=== PATIENT | male | born 1940 | race Caucasian/White ===

== ENCOUNTER → 2016-10-20 | Outpatient (CLI) | payer MEDICARE, OTHER ==
[2016-10-20 14:49] LABS: Anisocytosis Slight; CH 27.8; CHCM 32.3; HCT 27.8 % (39.0-53.0); HDW 3.51; HGB 8.8 gm/dL (13.0-17.5); Hypochromasia Slight; MCH 27.4 pg (25.0-35.0); MCHC 31.6 g/dL (31.0-37.0); MCV 86.6 fL (80.0-100.0); Mean Platelet Volume 7.8; Poikilocytosis Slight; RBC 3.21 m/uL (4.30-5.90); RDW 19.1 % (11.5-15.5); WBC 9.7 k/uL (3.8-10.6)
[2016-10-20 14:59] LABS: Potassium 4.8 mmol/L (3.5-5.1)
== END | disposition home or self-care (01) ==
LOC: LABWHC1 14:13
PROVIDERS: ATTEND Internal Medicine Cardiovascular Disease
DX: I50.22 Chronic systolic (congestive) heart failure (principal)
CPT/HCPCS: 36415; 80051; 82565; 84450; 84460; 84520; 85027

== ENCOUNTER → 2017-03-15 | Outpatient (CLI) | payer MEDICARE, OTHER ==
[2017-03-15 15:38] LABS: Potassium 4.3 mmol/L (3.5-5.1)
== END | disposition home or self-care (01) ==
LOC: LABWHC1 14:55
PROVIDERS: ATTEND Internal Medicine Cardiovascular Disease
DX: I50.22 Chronic systolic (congestive) heart failure (principal)
CPT/HCPCS: 36415; 80051; 82565; 83880; 84443; 84450; 84460; 84520

== ENCOUNTER → 2017-05-19 | Outpatient (CLI) | payer MEDICARE, OTHER ==
[2017-05-19 12:50] LABS: Basophils # (A) 0.1 k/uL (0-0.2); Basophils % (A) 1 %; CH 30.2; CHCM 32.1; Eosinophils # (A) 0.2 k/uL (0-0.7); Eosinophils % (A) 2 %; HCT 31.7 % (39.0-53.0); HDW 3.07; HGB 10.2 gm/dL (13.0-17.5); Hypochromasia Slight; Luc % (Auto) 2; Lymphocytes # (A) 0.8 k/uL (1.0-4.8); Lymphocytes % (A) 12 %; MCH 30.6 pg (25.0-35.0); MCHC 32.4 g/dL (31.0-37.0); MCV 94.7 fL (80.0-100.0); Mean Platelet Volume 7.4; Monocytes # (A) 0.3 k/uL (0-1.0); Monocytes % (A) 5 %; Neutrophils # (A) 4.8 k/uL (1.3-7.7); Neutrophils % (A) 78 %; RBC 3.34 m/uL (4.30-5.90); RDW 15.4 % (11.5-15.5); WBC 6.2 k/uL (3.8-10.6); WBC (Perox) 6.53
[2017-05-19 13:27] LABS: Calcium 9.7 mg/dL (8.4-10.2); Magnesium 2.3 mg/dL (1.6-2.3); Potassium 4.5 mmol/L (3.5-5.1); Uric Acid 8.9 mg/dL (3.5-8.5)
[2017-05-19 13:36] LABS: % Iron Saturation 25.8 % (20-50)
[2017-05-19 13:51] LABS: Appearance,Urine Clear (Clear); Bilirubin,Urine Negative (Negative); Glucose,Urine (UA) Negative (Negative); Ketones,Urine Negative (Negative); Leukocyte Esterase,Urine Negative (Negative); Nitrite,Urine Negative (Negative); PH, Urine 6.5 (5.0-8.0); Protein,Urine Negative (Negative); Specific Gravity,Urine 1.008 (1.001-1.035); UA Billing (MACRO vs. MICRO) CHEM; Urobilinogen,Urine <2.0 mg/dL (<2.0)
== END | disposition home or self-care (01) ==
LOC: LABWHC1 11:47
PROVIDERS: ATTEND Internal Medicine Nephrology
DX: D64.9 Anemia, unspecified (principal); E55.9 Vitamin D deficiency, unspecified; E21.3 Hyperparathyroidism, unspecified; M10.9 Gout, unspecified; N18.4 Chronic kidney disease, stage 4 (severe); R80.9 Proteinuria, unspecified
CPT/HCPCS: 36415; 80048; 81003; 82040; 82306; 82728; 83540; 83550; 83735; 83970; 84100; 84165; 84550; 85025; 86335

== ENCOUNTER 2017-07-06 13:40 | Emergency (ER) | payer MEDICARE, OTHER ==
[2017-07-06 13:55] VITALS: BP 108/68; PULSE 81; RESP 16; TEMP 97.9
--- NOTE | 2017-07-06 14:10 | ED ---
General Adult HPI - General Chief complaint: Extremity Injury, Upper Stated complaint: L hand injury Time Seen by Provider: 07/06/17 13:59 Source: patient, RN notes reviewed Mode of arrival: ambulatory Limitations: no limitations - History of Present Illness Initial comments: Patient 76-year-old male who presents emergency room today with a chief complaint of redness and swelling to the left hand. Denies any specific injury or trauma. States she's noticed some pain locally over the fourth and fifth metacarpals. Patient doesn't some redness and swelling. He denies any other complaints or symptoms. Patient denies any recent fever, chills, shortness of breath, chest pain, back pain, abdominal pain, nausea or vomiting, numbness or tingling, dysuria or hematuria, constipation or diarrhea, headaches or visual changes, or any other complaints. - Related Data Home Medications Medication Instructions Recorded Confirmed Albuterol Sulfate [Proair Hfa] 2 puff INHALATION RT-Q6H PRN 02/03/15 07/06/17 Allopurinol [Zyloprim] 100 mg PO BID 02/03/15 07/06/17 Atorvastatin [Lipitor] 40 mg PO HS 02/03/15 07/06/17 Clopidogrel [Plavix] 75 mg PO DAILY 02/03/15 07/06/17 Nitroglycerin Sl Tabs [Nitrostat] 0.4 mg SUBLINGUAL Q5M PRN 02/03/15 07/06/17 Amiodarone [Cordarone] 200 mg PO DAILY 07/06/17 07/06/17 Folic Acid [Folic Acid] 1 mg PO DAILY 07/06/17 07/06/17 Levothyroxine Sodium [Synthroid] 75 mcg PO DAILY 07/06/17 07/06/17 Sodium Bicarbonate Tab 650 mg PO BID 07/06/17 07/06/17 Spironolactone [Aldactone] 25 mg PO DAILY 07/06/17 07/06/17 Tiotropium Br/Olodaterol HCl 2 puff INHALATION RT-DAILY 07/06/17 07/06/17 [Stiolto Respimat Inhal [place]] Previous Rx's Medication Instructions Recorded Cephalexin [Keflex] 500 mg PO Q12HR 10 Days 07/06/17 Allergies Allergy/AdvReac Type Severity Reaction Status Date / Time No Known Allergies Allergy Verified 07/06/17 14:11 Review of Systems ROS Statement: Those systems with pertinent positive or pertinent negative responses have been documented in the HPI. ROS Other: All systems not noted in ROS Statement are negative. Past Medical History Past Medical History: Chest Pain / Angina, Heart Failure, COPD, Hyperlipidemia, Hypertension, Myocardial Infarction ([place]), Osteoarthritis ([place]) Additional Past Medical History / Comment(s): hx. gout, uses oxygen @2l prn mostly @[facility], PAST CARDIAC ARREST Last Myocardial Infarction Date:: 2013 History of Any Multi-Drug Resistant Organisms: None Reported Past Surgical History: Appendectomy, Cardiac Valve Replacement, Heart Catheterization With Stent Past Anesthesia/Blood Transfusion Reactions: No Reported Reaction Date of Last Stent Placement:: 2013 Past Psychological History: No Psychological Hx Reported Smoking Status: Former smoker Past Alcohol Use History: None Reported Past Drug Use History: None Reported - Past Family History Father Family Medical History: Cancer Mother Family Medical History: Cancer General Exam - General Exam Comments Initial Comments: General: The patient is awake and alert, in no distress, and does not appear acutely ill. Neck: The neck is supple, there is no tenderness or JVD. Cardiovascular: There is a regular rate and rhythm. No murmur, rub or gallop is appreciated. Respiratory: Lungs are clear to auscultation, respirations are non-labored, breath sounds are equal. No wheezes, stridor, rales, or rhonchi. Musculoskeletal: Full range of motion. Sensation intact. Pulses equal bilaterally 2+ patient strength 5/5. Neurological: A&O x 3. CN II-XII intact, There are no obvious motor or sensory deficits. Coordination appears grossly intact. Speech is normal. Skin: Patient does have some mild redness and swelling to the posterior aspect of the left hand fourth and fifth metacarpals. No Streaking. Mild increased warmth. Psychiatric: Normal mood and affect. Limitations: no limitations Course Vital Signs 07/06/17 13:52 Temperature 97.9 F Pulse Rate 81 Respiratory 16 Rate Blood Pressure 108/68 O2 Sat by Pulse 95 Oximetry Medical Decision Making - Medical Decision Making X-ray negative for any acute fracture dislocation. Patient will be treated for cellulitis. Strength on antibiotics. Advised to return if symptoms increase worsen. Disposition Clinical Impression: Cellulitis Disposition: HOME SELF-CARE Condition: Good Instructions: Cellulitis (ED) Additional Instructions: Please use medication as discussed. Please follow-up with family doctor in the next 2 days of symptoms have not improved. Please return to emergency room if the symptoms increase or worsen or for any other concerns. Prescriptions: Cephalexin [Keflex] 500 mg PO Q12HR 10 Days Referrals: Samuel Darling DO [Primary Care Provider] - 1-2 days Time of Disposition: 14:08
--- NOTE | 2017-07-06 14:34 | XR ---
Left hand HISTORY: Pain at fifth metacarpal phalangeal joint, fifth digit 3 views of the left hand Comparison: None available Degenerative changes are present. Joint space loss, marginal spurring present at the interphalangeal joints, metacarpophalangeal joint especially at the first digit. There is remodeling of the radiocarp al joint. Sclerosis present within the capitate proximally may be due to bone island. Bone mineraliza tion is maintained. There is no fracture or dislocation. Question some soft tissue swelling. IMPRESSION: Osteoarthritis.
== END 2017-07-06 14:40 | disposition home or self-care (01) ==
LOC: EC 13:40
DX: L03.114 Cellulitis of left upper limb (principal); I50.9 Heart failure, unspecified; I11.0 Hypertensive heart disease with heart failure; E78.5 Hyperlipidemia, unspecified; I25.2 Old myocardial infarction; M19.90 Unspecified osteoarthritis, unspecified site; J44.9 Chronic obstructive pulmonary disease, unspecified; Z87.891 Personal history of nicotine dependence; Z79.01 Long term (current) use of anticoagulants; Z79.899 Other long term (current) drug therapy
CPT/HCPCS: 99283

== ENCOUNTER → 2017-07-20 | Outpatient (CLI) | payer MEDICARE, OTHER ==
[2017-07-20 13:26] LABS: Potassium 4.3 mmol/L (3.5-5.1)
== END | disposition home or self-care (01) ==
LOC: LABWHC1 12:49
PROVIDERS: ATTEND Internal Medicine Cardiovascular Disease
DX: I50.22 Chronic systolic (congestive) heart failure (principal)
CPT/HCPCS: 36415; 80051; 82565; 84443; 84450; 84460; 84520

== ENCOUNTER → 2017-08-21 | Outpatient (CLI) | payer MEDICARE, OTHER ==
[2017-08-21 15:05] LABS: Anisocytosis Slight; Basophils # (A) 0.1 k/uL (0-0.2); Basophils % (A) 1 %; CH 28.3; CHCM 30.1; Eosinophils # (A) 0.2 k/uL (0-0.7); Eosinophils % (A) 4 %; HCT 31.1 % (39.0-53.0); HDW 3.08; HGB 9.5 gm/dL (13.0-17.5); Hypochromasia Marked; Luc # (Auto) 0.04; Luc % (Auto) 1; Lymphocytes # (A) 0.6 k/uL (1.0-4.8); Lymphocytes % (A) 14 %; MCH 28.9 pg (25.0-35.0); MCHC 30.5 g/dL (31.0-37.0); MCV 94.8 fL (80.0-100.0); Macrocytosis Slight; Mean Platelet Volume 7.9; Monocytes # (A) 0.3 k/uL (0-1.0); Monocytes % (A) 8 %; Neutrophils # (A) 3.1 k/uL (1.3-7.7); Neutrophils % (A) 72 %; RBC 3.28 m/uL (4.30-5.90); RDW 19.4 % (11.5-15.5); WBC 4.3 k/uL (3.8-10.6); WBC (Perox) 4.51
[2017-08-21 15:20] LABS: Appearance,Urine Clear (Clear); Bilirubin,Urine Negative (Negative); Glucose,Urine (UA) Negative (Negative); Ketones,Urine Negative (Negative); Leukocyte Esterase,Urine Negative (Negative); Nitrite,Urine Negative (Negative); PH, Urine 5.5 (5.0-8.0); Protein,Urine Negative (Negative); Specific Gravity,Urine 1.006 (1.001-1.035); UA Billing (MACRO vs. MICRO) CHEM; Urobilinogen,Urine <2.0 mg/dL (<2.0)
[2017-08-21 15:24] LABS: Calcium 9.2 mg/dL (8.4-10.2); Magnesium 2.3 mg/dL (1.6-2.3); Phosphorous 4.1 mg/dL (2.5-4.5); Potassium 5.1 mmol/L (3.5-5.1); Uric Acid 5.8 mg/dL (3.5-8.5)
[2017-08-21 19:57] LABS: Iron Saturation 17.93 (15.00-50.00)
== END | disposition home or self-care (01) ==
LOC: LABWHC1 14:20
PROVIDERS: ATTEND Nurse Practitioner Family
DX: E55.9 Vitamin D deficiency, unspecified (principal); E21.3 Hyperparathyroidism, unspecified; D63.1 Anemia in chronic kidney disease; N18.4 Chronic kidney disease, stage 4 (severe); M10.9 Gout, unspecified; N39.0 Urinary tract infection, site not specified
CPT/HCPCS: 36415; 80048; 81003; 82040; 82306; 82728; 83540; 83550; 83735; 83970; 84100; 84550; 85025

== ENCOUNTER → 2017-11-17 | Outpatient (CLI) | payer MEDICARE, OTHER ==
[2017-11-17 10:31] LABS: Appearance,Urine Clear (Clear); Bilirubin,Urine Negative (Negative); Blood,Urine Trace (Negative); Color,Urine Yellow; Glucose,Urine (UA) Negative (Negative); Ketones,Urine Negative (Negative); Leukocyte Esterase,Urine Negative (Negative); Mucus,Urine Rare /hpf; Nitrite,Urine Negative (Negative); Protein,Urine Negative (Negative); RBC,Urine 1 /hpf (0-5); Specific Gravity,Urine 1.012 (1.001-1.035); Squamous Epithelial Cell,Urine <1 /hpf (0-4); Urobilinogen,Urine <2.0 mg/dL (<2.0); WBC,Urine 1 /hpf (0-5)
[2017-11-17 10:33] LABS: Anisocytosis Slight; Basophils # (A) 0.1 k/uL (0-0.2); Basophils % (A) 1 %; Eosinophils # (A) 0.1 k/uL (0-0.7); Eosinophils % (A) 2 %; HCT 35.9 % (39.0-53.0); HGB 11.1 gm/dL (13.0-17.5); Hypochromasia Slight; Lymphocytes # (A) 0.7 k/uL (1.0-4.8); Lymphocytes % (A) 13 %; MCH 29.6 pg (25.0-35.0); MCV 95.4 fL (80.0-100.0); Mean Platelet Volume 7.6; Monocytes # (A) 0.3 k/uL (0-1.0); Monocytes % (A) 6 %; Neutrophils # (A) 4.1 k/uL (1.3-7.7); Neutrophils % (A) 77 %; Platelet Count 218 k/uL (150-450); RBC 3.77 m/uL (4.30-5.90); RDW 17.5 % (11.5-15.5); WBC 5.2 k/uL (3.8-10.6)
[2017-11-17 10:44] LABS: Albumin 4.1 g/dL (3.5-5.0); Calcium 9.3 mg/dL (8.4-10.2); Magnesium 2.1 mg/dL (1.6-2.3); Phosphorus 3.5 mg/dL (2.5-4.5); Potassium 4.4 mmol/L (3.5-5.1); Uric Acid 7.6 mg/dL (3.5-8.5)
[2017-11-17 16:50] LABS: Iron Saturation 22.14 (15.00-50.00)
[2017-11-17 16:57] LABS: Vitamin D 25 Hydroxy 37.6 ng/mL (30.0-100.0)
[2017-11-17 19:23] LABS: Parathyroid Hormone Intact 168.3 pg/mL (14.0-72.0)
== END | disposition home or self-care (01) ==
LOC: LABWHC1 09:46
PROVIDERS: ATTEND Nurse Practitioner Family
DX: N39.0 Urinary tract infection, site not specified (principal); M10.9 Gout, unspecified; N18.4 Chronic kidney disease, stage 4 (severe); D64.9 Anemia, unspecified; N25.81 Secondary hyperparathyroidism of renal origin; E55.9 Vitamin D deficiency, unspecified
CPT/HCPCS: 36415; 80048; 81001; 82040; 82306; 82728; 83540; 83550; 83735; 83970; 84100; 84550; 85025

== ENCOUNTER 2017-12-09 21:09 | Inpatient (IN) | payer MEDICARE, OTHER ==
[2017-12-09] MEDS ORDERED: IPRATROPIUM-ALBUTEROL 3 ML NEB INHALATION STA (21:49)
[2017-12-09] MEDS ORDERED: SODIUM CHLORIDE 0.9% 1,000 ML IV STA ×2 (21:49)
[2017-12-09 22:07] LABS: Anisocytosis Slight; Basophils # (A) 0.1 k/uL (0-0.2); Basophils % (A) 1 %; Eosinophils # (A) 0.2 k/uL (0-0.7); Eosinophils % (A) 1 %; HCT 37.4 % (39.0-53.0); HGB 12.4 gm/dL (13.0-17.5); Lymphocytes # (A) 0.7 k/uL (1.0-4.8); Lymphocytes % (A) 5 %; MCH 30.6 pg (25.0-35.0); MCHC 33.1 g/dL (31.0-37.0); MCV 92.4 fL (80.0-100.0); Monocytes # (A) 0.5 k/uL (0-1.0); Monocytes % (A) 4 %; Neutrophils # (A) 11.8 k/uL (1.3-7.7); Neutrophils % (A) 88 %; Platelet Count 280 k/uL (150-450); RBC 4.05 m/uL (4.30-5.90); RDW 16.9 % (11.5-15.5); WBC 13.4 k/uL (3.8-10.6)
--- NOTE | 2017-12-09 22:10 | XR ---
EXAMINATION TYPE: XR chest 2V DATE OF EXAM: 12/09/2017 COMPARISON: 02/16/2015 HISTORY: Short of breath TECHNIQUE: Frontal and lateral views of the chest are obtained. FINDINGS: Heart is enlarged. There is pulmonary vascular congestion. There is some blunting of the c ostophrenic angles. Bony thorax appears intact. IMPRESSION: Congestive heart failure with pleural effusions. Heart failure is new compared to old ex am. Pleural fluid is increased.
[2017-12-09 22:16] LABS: Albumin 4.5 g/dL (3.5-5.0); Calcium 9.9 mg/dL (8.4-10.2); Magnesium 2.1 mg/dL (1.6-2.3); Potassium 4.5 mmol/L (3.5-5.1); Total Bilirubin 0.8 mg/dL (0.2-1.3); Total Protein 7.6 g/dL (6.3-8.2)
[2017-12-09 22:17] LABS: INR 1.1 (<1.2); Partial Thromboplastin Time 21.1 sec (22.0-30.0); Prothrombin Time 10.9 sec (9.0-12.0)
[2017-12-09 22:27] LABS: Troponin I 0.013 ng/mL (0.000-0.034)
[2017-12-09 22:33] LABS: Creatine Kinase MB 4.1 ng/mL (0.0-2.4)
--- NOTE | 2017-12-09 22:59 | ED ---
General Adult HPI - General Chief complaint: Shortness of Breath Stated complaint: JAY JAY Time Seen by Provider: 12/09/17 21:17 Source: EMS, RN notes reviewed, old records reviewed Mode of arrival: EMS Limitations: no limitations - History of Present Illness Initial comments: This is a 77-year-old male the ER for evaluation of significant shortness of breath and exertional dyspnea. Patient does have history of heart disease, history of COPD on home O2. Patient did have breathing treatment prior to arrival is mildly improved. No fevers. No cough or congestion. Patient does admit to some chest pain chest pain started earlier today did take nitro with mild to no help. Patient still with mild chest pain at this time. No recent travel history no sick contacts. - Related Data Home Medications Medication Instructions Recorded Confirmed Albuterol Sulfate [Proair Hfa] 2 puff INHALATION RT-Q6H PRN 02/03/15 09/11/17 Allopurinol [Zyloprim] 100 mg PO BID 02/03/15 09/11/17 Atorvastatin [Lipitor] 40 mg PO HS 02/03/15 09/11/17 Clopidogrel [Plavix] 75 mg PO DAILY 02/03/15 09/11/17 Amiodarone [Cordarone] 200 mg PO DAILY 07/06/17 09/11/17 Folic Acid [Folic Acid] 1 mg PO DAILY 07/06/17 09/11/17 Levothyroxine Sodium [Synthroid] 75 mcg PO DAILY 07/06/17 09/11/17 Sodium Bicarbonate Tab 650 mg PO BID 07/06/17 09/11/17 Tiotropium Br/Olodaterol HCl 2 puff INHALATION RT-DAILY 07/06/17 09/11/17 [Stiolto Respimat Inhal [place]] Torsemide [Demadex] 10 mg PO DAILY 09/06/17 09/11/17 Allergies Allergy/AdvReac Type Severity Reaction Status Date / Time No Known Allergies Allergy Verified 12/09/17 21:15 Review of Systems ROS Statement: Those systems with pertinent positive or pertinent negative responses have been documented in the HPI. ROS Other: All systems not noted in ROS Statement are negative. Past Medical History Past Medical History: Chest Pain / Angina, Heart Failure, COPD, Hyperlipidemia, Hypertension, Myocardial Infarction ([place]), Osteoarthritis ([place]) Additional Past Medical History / Comment(s): hx. gout, uses oxygen @2l prn mostly @[facility], PAST CARDIAC ARREST Last Myocardial Infarction Date:: 2013 History of Any Multi-Drug Resistant Organisms: None Reported Past Surgical History: Appendectomy, Cardiac Valve Replacement, Heart Catheterization With Stent Past Anesthesia/Blood Transfusion Reactions: No Reported Reaction Date of Last Stent Placement:: 2013 Past Psychological History: No Psychological Hx Reported Smoking Status: Former smoker Past Alcohol Use History: None Reported Past Drug Use History: None Reported - Past Family History Father Family Medical History: Cancer Mother Family Medical History: Cancer General Exam Limitations: no limitations General appearance: alert, anxious, in distress Head exam: Present: atraumatic, normocephalic, normal inspection Eye exam: Present: normal appearance, PERRL, EOMI. Absent: scleral icterus, conjunctival injection, periorbital swelling ENT exam: Present: normal exam, mucous membranes moist Neck exam: Present: normal inspection. Absent: tenderness, meningismus, lymphadenopathy Respiratory exam: Present: respiratory distress, wheezes, accessory muscle use, decreased breath sounds, prolonged expiratory. Absent: rales, rhonchi, stridor Cardiovascular Exam: Present: normal rhythm, tachycardia, normal heart sounds. Absent: systolic murmur, diastolic murmur, rubs, gallop, clicks GI/Abdominal exam: Present: soft, normal bowel sounds. Absent: distended, tenderness, guarding, rebound, rigid Extremities exam: Present: normal inspection, full ROM, normal capillary refill. Absent: tenderness, pedal edema, joint swelling, calf tenderness Back exam: Present: normal inspection Neurological exam: Present: alert, oriented X3, CN II-XII intact Psychiatric exam: Present: normal affect, normal mood Skin exam: Present: warm, dry, intact, normal color. Absent: rash Course Vital Signs 12/09/17 12/09/17 12/09/17 21:11 21:17 22:08 Temperature 98.0 F Pulse Rate 122 H 100 Respiratory 36 H 36 H 24 Rate Blood Pressure 165/96 116/67 O2 Sat by Pulse 87 L 89 L Oximetry 12/09/17 12/09/17 22:21 22:40 Temperature Pulse Rate 100 100 Respiratory Rate Blood Pressure O2 Sat by Pulse Oximetry - Reevaluation(s) Reevaluation #1: 12/09/17 23:16 Patient is significantly improved injury, borderline BiPAP at this time EKG Findings - EKG Comments: EKG Findings:: EKG shows sinus tachycardia rate 111, MS 178, QRS 118, QTc 465 Medical Decision Making - Medical Decision Making 77 male the ER for evaluation shortness with hypoxia. Positive CHF positive increased COPD. We'll admit for Breathing treatments and monitoring of pulse ox - Lab Data Result diagrams: 12/09/17 21:15 12/09/17 21:15 Lab Results 12/09/17 12/09/17 12/09/17 Range/Units 21:15 21:15 21:15 WBC 13.4 H (3.8-10.6) k/uL RBC 4.05 L (4.30-5.90) m/uL Hgb 12.4 L (13.0-17.5) gm/dL Hct 37.4 L (39.0-53.0) % MCV 92.4 (80.0-100.0) fL MCH 30.6 (25.0-35.0) pg MCHC 33.1 (31.0-37.0) g/dL RDW 16.9 H (11.5-15.5) % Plt Count 280 (150-450) k/uL Neutrophils % 88 % Lymphocytes % 5 % Monocytes % 4 % Eosinophils % 1 % Basophils % 1 % Neutrophils # 11.8 H (1.3-7.7) k/uL Lymphocytes # 0.7 L (1.0-4.8) k/uL Monocytes # 0.5 (0-1.0) k/uL Eosinophils # 0.2 (0-0.7) k/uL Basophils # 0.1 (0-0.2) k/uL Anisocytosis Slight PT (9.0-12.0) sec INR (<1.2) APTT (22.0-30.0) sec Sodium 144 (137-145) mmol/L Potassium 4.5 (3.5-5.1) mmol/L Chloride 105 (98-107) mmol/L Carbon Dioxide 22 (22-30) mmol/L Anion Gap 17 mmol/L BUN 29 H (9-20) mg/dL Creatinine 1.70 H (0.66-1.25) mg/dL Est GFR (CKD-EPI)AfAm 45 (>60 ml/min/1.73 sqM) Est GFR (CKD-EPI)NonAf 39 (>60 ml/min/1.73 sqM) Glucose 164 H (74-99) mg/dL Calcium 9.9 (8.4-10.2) mg/dL Magnesium 2.1 (1.6-2.3) mg/dL Total Bilirubin 0.8 (0.2-1.3) mg/dL AST 23 (17-59) U/L ALT 20 L (21-72) U/L Alkaline Phosphatase 85 (38-126) U/L Total Creatine Kinase 170 (55-170) U/L CK-MB (CK-2) 4.1 H* (0.0-2.4) ng/mL CK-MB (CK-2) Rel Index 2.4 Troponin I 0.013 (0.000-0.034) ng/mL NT-Pro-B Natriuret Pep pg/mL Total Protein 7.6 (6.3-8.2) g/dL Albumin 4.5 (3.5-5.0) g/dL 12/09/17 12/09/17 Range/Units 21:15 21:15 WBC (3.8-10.6) k/uL RBC (4.30-5.90) m/uL Hgb (13.0-17.5) gm/dL Hct (39.0-53.0) % MCV (80.0-100.0) fL MCH (25.0-35.0) pg MCHC (31.0-37.0) g/dL RDW (11.5-15.5) % Plt Count (150-450) k/uL Neutrophils % % Lymphocytes % % Monocytes % % Eosinophils % % Basophils % % Neutrophils # (1.3-7.7) k/uL Lymphocytes # (1.0-4.8) k/uL Monocytes # (0-1.0) k/uL Eosinophils # (0-0.7) k/uL Basophils # (0-0.2) k/uL Anisocytosis PT 10.9 (9.0-12.0) sec INR 1.1 (<1.2) APTT 21.1 L (22.0-30.0) sec Sodium (137-145) mmol/L Potassium (3.5-5.1) mmol/L Chloride (98-107) mmol/L Carbon Dioxide (22-30) mmol/L Anion Gap mmol/L BUN (9-20) mg/dL Creatinine (0.66-1.25) mg/dL Est GFR (CKD-EPI)AfAm (>60 ml/min/1.73 sqM) Est GFR (CKD-EPI)NonAf (>60 ml/min/1.73 sqM) Glucose (74-99) mg/dL Calcium (8.4-10.2) mg/dL Magnesium (1.6-2.3) mg/dL Total Bilirubin (0.2-1.3) mg/dL AST (17-59) U/L ALT (21-72) U/L Alkaline Phosphatase (38-126) U/L Total Creatine Kinase (55-170) U/L CK-MB (CK-2) (0.0-2.4) ng/mL CK-MB (CK-2) Rel Index Troponin I (0.000-0.034) ng/mL NT-Pro-B Natriuret Pep 5060 pg/mL Total Protein (6.3-8.2) g/dL Albumin (3.5-5.0) g/dL - Radiology Data Radiology results: report reviewed (Chest x-ray positive for CHF new), image reviewed Critical Care Time Critical Care Time: Yes Total Critical Care Time: 31 Disposition Clinical Impression: Acute exacerbation of chronic obstructive airways disease, Chest pain, Acute pulmonary edema, Congestive heart failure Disposition: ADMITTED IP TO THIS [facility] Condition: Fair Referrals: Samuel Darling DO [Primary Care Provider] - 1-2 days
[2017-12-09] MEDS ORDERED: methylPREDNISolone SOD SUCCI 125 MG/2 ML VIAL IV STA (23:13)
[2017-12-10] MEDS: FUROSEMIDE 10 MG/ML 4 ML VIAL IV SCH ×3 (00:16→16:03)
[2017-12-10] MEDS: ACETAMINOPHEN TAB 500 MG TAB PO PRN ×2 (00:44→23:41)
[2017-12-10] MEDS: methylPREDNISolone SOD SUCCI 125 MG/2 ML VIAL IV SCH ×2 (05:46→12:00)
[2017-12-10 06:47] LABS: Glucose,Whole Blood 193 mg/dL (75-99)
[2017-12-10] MEDS: IPRATROPIUM-ALBUTEROL 3 ML NEB INHALATION SCH ×4 (08:20→21:08)
[2017-12-10] MEDS: ENOXAPARIN 40 MG/0.4 ML SYRINGE SQ SCH (08:34)
[2017-12-10 11:02] LABS: Glucose,Whole Blood 223 mg/dL (75-99)
[2017-12-10] MEDS: INSULIN ASPART 100 UNIT/ML 1 ML 10 ML VIAL SQ SCH ×3 (12:00→20:39)
--- NOTE | 2017-12-10 12:29 | P.CRDCN ---
History of Present Illness Consult date: 12/10/17 Consult reason: shortness of breath History of present illness: Mr. Knight is a pleasant 77-year-old male past medical history significant for COPD, dyslipidemia, hypertension, coronary artery disease with angioplasty in 2013 performed in [place] per the patient and former heavy tobacco use. He quit smoking in 2014.. Those records aren't available to me at this time. He also relates that he has had a mitral valve clip placed per Dr. [place]. He follows regularly with Dr. Guy in the office. If Mrs. Velasco consultation for complaints of shortness of breath. He states over the previous couple of days he has felt increasingly short of breath. His shortness of breath seems to be worse with exertion. Although he has chronic shortness of breath secondary to COPD. He did do breathing treatments at home and it does seem to improve her shortness of breath. Yesterday while he was sitting at his computer his shortness breath seems to become worse and he felt as though he was having a tightness in his chest and associated dizziness. He took sublingual nitroglycerin at that time 3 and relates only a mild relief of his symptoms. For this reason he decided to present to the hospital for further evaluation. Since admission he has been started on IV steroids, IV Lasix and breathing treatments. He states he feels much better since admission. His breathing is much easier. On arrival he was found to be tachycardic with a heart rate of 122, to Breathing at 36 and hypoxic at 87%. EKG on arrival reveals sinus tachycardia with a heart rate of 111, Chest x-ray indicative of congestive heart failure with pleural effusions, pleural fluid is increased from previous study. Laboratory data reviewed, WBC 13.4, hemoglobin 12.4, platelets 280, potassium 4.5, magnesium 2.1, creatinine 1.7, cardiac enzymes negative 1. ProBNP 5060. Current cardiac medications include Demadex 10 mg daily, Plavix 75 mg daily, atorvastatin 40 mg daily, amiodarone 200 mg daily. Most recent echocardiogram performed in 2014 reveals severely impaired LV function with ejection fraction less than 20%, mild TR, moderate pulmonary hypertension with RVSP of 64 mmHg, mild LVH, mild aortic valve sclerosis without stenosis, severe MR. At the time of my exam: CONSTITUTIONAL: Denies fever. Denies chills. EYES: Denies blurred vision. Denies vision changes. Denies eye pain. EARS, NOSE, MOUTH & THROAT: Denies headache. Denies sore throat. Denies ear pain. CARDIOVASCULAR: Denies chest pain. Complains of shortness of breath. Denies orthopnea. Denies PND. Denies palpitations. RESPIRATORY: Denies cough. GASTROINTESTINAL: Denies abdominal pain. Denies diarrhea. Denies constipation. Denies nausea. Denies vomiting. MUSCULOSKELETAL: Denies myalgias. INTEGUMENTARY: Denies pruitis. Denies rash. NEUROLOGIC: Denies numbness. Denies tingling. Denies weakness. PSYCHIATRIC: Denies anxiety. Denies depression. ENDOCRINE: Denies fatigue. Denies weight change. Denies polydipsia. Denies polyurina. GENITOURINARY: Denies burning, hematuria or urgency with micturation. HEMATOLOGIC: Denies history of anemia. Denies bleeding. Blood pressure 100/61 heart rate 81 afebrile this morning, 101F last night. Maintaining oxygen saturation on nasal cannula 4 L. GENERAL: This is a 77-year-old male in no apparent distress at the time of my examination. HEENT: Head is atraumatic, normocephalic. Pupils are equal, round. Sclerae anicteric. Conjunctivae are clear. Mucous membranes of the mouth are moist. Neck is supple. There is no jugular venous distention. No carotid bruit is heard. LUNGS: Bibasilar rales, coarse rhonchi throughout and expiratory wheeze. No chest wall tenderness is noted on palpation or with deep breathing. HEART: Regular rate and rhythm with systolic ejection murmur at the base, no rubs or gallops. S1 and S2 heard. ABDOMEN: Soft, nontender. Bowel sounds are heard. No organomegaly noted. EXTREMITIES: No evidence of peripheral edema and no calf tenderness noted. VASCULAR: Radial and dorsalis pedis pulses palpated, no evidence of clubbing. NEUROLOGIC: Patient is awake, alert and oriented x3. ASSESSMENT/PLAN 1. Acute on chronic systolic heart failure, elevated BNP and rales b/l lower lobes with elevated proBNP 2. COPD 3. Known ischemic cardiomyopathy, last known EF less than 20% 4. History of coronary artery disease, stent placement x2 in 2013 in [place] 5. Hypertension 6. Acute hypoxic respiratory failure 7. Febrile illness 8. Chronic renal failure Recommend ongoing diuresis. Strict intake and output. Daily weights. Obtain 2D echocardiogram and doppler study to assess cardiac structure and function. Ongoing medical management of febrile illness. Further recommendations to follow. Nurse Practitioner note has been reviewed, I agree with a documented findings and plan of care. Patient was seen and examined. Past Medical History Past Medical History: Chest Pain / Angina, Heart Failure, COPD, Hyperlipidemia, Hypertension, Myocardial Infarction ([place]), Osteoarthritis ([place]) Additional Past Medical History / Comment(s): hx. gout, uses oxygen @2l prn mostly @[facility], PAST CARDIAC ARREST Last Myocardial Infarction Date:: 2013 History of Any Multi-Drug Resistant Organisms: None Reported Past Surgical History: Appendectomy, Cardiac Valve Replacement, Heart Catheterization With Stent Additional Past Surgical History / Comment(s): cardiac valve clip Past Anesthesia/Blood Transfusion Reactions: No Reported Reaction Date of Last Stent Placement:: 2013 Past Psychological History: No Psychological Hx Reported Smoking Status: Never smoker Past Alcohol Use History: None Reported Past Drug Use History: None Reported - Past Family History Father Family Medical History: Cancer Mother Family Medical History: Cancer Medications and Allergies Home Medications Medication Instructions Recorded Confirmed Type Albuterol Sulfate [Proair Hfa] 2 puff INHALATION RT-Q6H PRN 02/03/15 12/10/17 History Allopurinol [Zyloprim] 100 mg PO BID 02/03/15 12/10/17 History Atorvastatin [Lipitor] 40 mg PO HS 02/03/15 12/10/17 History Clopidogrel [Plavix] 75 mg PO DAILY 02/03/15 12/10/17 History Amiodarone [Cordarone] 200 mg PO DAILY 07/06/17 12/10/17 History Levothyroxine Sodium [Synthroid] 75 mcg PO DAILY 07/06/17 12/10/17 History Sodium Bicarbonate Tab 650 mg PO BID 07/06/17 12/10/17 History Tiotropium Br/Olodaterol HCl 2 puff INHALATION RT-DAILY 07/06/17 12/10/17 History [Stiolto Respimat Inhal [place]] Torsemide [Demadex] 10 mg PO DAILY 09/06/17 12/10/17 History Calcitriol [Rocaltrol] 0.25 mcg PO FR 12/10/17 12/10/17 History Ergocalciferol (Vitamin D2) 50,000 unit PO Q30D 12/10/17 12/10/17 History [Vitamin D2] Nitroglycerin Sl Tabs [Nitrostat] 0.4 mg SUBLINGUAL Q5M PRN 12/10/17 12/10/17 History Allergies Allergy/AdvReac Type Severity Reaction Status Date / Time No Known Allergies Allergy Verified 12/10/17 08:48 Physical Exam Vitals: Vital Signs Temp Pulse Pulse Resp BP BP Pulse Ox 12/10/17 08:34 92 12/10/17 08:20 88 12/10/17 07:00 99 F 81 18 100/61 98 12/10/17 01:50 97.9 F 12/10/17 00:04 101.1 F H 108 H 24 122/78 91 L 12/09/17 22:40 100 12/09/17 22:21 100 12/09/17 22:08 100 24 116/67 89 L 12/09/17 21:17 36 H 12/09/17 21:11 98.0 F 122 H 36 H 165/96 87 L Intake and Output 12/09/17 12/10/17 12/10/17 21:59 06:59 14:59 Other: Voiding Method Urinal # Voids Weight Results 12/09/17 21:15 12/09/17 21:15 Cardiac Enzymes 12/09/17 12/09/17 Range/Units 21:15 21:15 AST 23 (17-59) U/L CK-MB (CK-2) 4.1 H* (0.0-2.4) ng/mL Troponin I 0.013 (0.000-0.034) ng/mL Coagulation 12/09/17 Range/Units 21:15 PT 10.9 (9.0-12.0) sec APTT 21.1 L (22.0-30.0) sec CBC 12/09/17 Range/Units 21:15 WBC 13.4 H (3.8-10.6) k/uL RBC 4.05 L (4.30-5.90) m/uL Hgb 12.4 L (13.0-17.5) gm/dL Hct 37.4 L (39.0-53.0) % Plt Count 280 (150-450) k/uL Comprehensive Metabolic Panel 12/09/17 Range/Units 21:15 Sodium 144 (137-145) mmol/L Potassium 4.5 (3.5-5.1) mmol/L Chloride 105 (98-107) mmol/L Carbon Dioxide 22 (22-30) mmol/L BUN 29 H (9-20) mg/dL Creatinine 1.70 H (0.66-1.25) mg/dL Glucose 164 H (74-99) mg/dL Calcium 9.9 (8.4-10.2) mg/dL AST 23 (17-59) U/L ALT 20 L (21-72) U/L Alkaline Phosphatase 85 (38-126) U/L Total Protein 7.6 (6.3-8.2) g/dL Albumin 4.5 (3.5-5.0) g/dL Current Medications Generic Name Dose Route Start Last Admin Trade Name Freq PRN Reason Stop Dose Admin Acetaminophen 1,000 mg 12/10/17 00:11 12/10/17 00:44 Tylenol Tab PO 1,000 mg Q6HR PRN Administration Fever and/ or Pain Albuterol/Ipratropium 3 ml 12/10/17 08:00 12/10/17 08:20 Duoneb 0.5 Mg-3 Mg/3 Ml Soln INHALATION 3 ml RT-QID JOSE Administration Enoxaparin Sodium 40 mg 12/10/17 09:00 12/10/17 08:34 Lovenox SQ 40 mg DAILY JOSE Administration Furosemide 40 mg 12/10/17 00:00 12/10/17 08:34 Lasix IV 40 mg Q8H JOSE Administration Insulin Aspart 0 unit 12/10/17 12:30 Novolog SQ ACHS [facility] Protocol Methylprednisolone Sodium Succinate 60 mg 12/10/17 06:00 12/10/17 05:46 Solu-Medrol IV 60 mg Q6HR JOSE Administration Intake and Output 12/09/17 12/10/17 12/10/17 21:59 06:59 14:59 Other: Voiding Method Urinal # Voids Weight 12/09/17 21:15 12/09/17 21:15
[2017-12-10] MEDS: AMIODARONE 200 MG TAB PO SCH (12:55)
[2017-12-10] MEDS ORDERED: NITROGLYCERIN SL TABS 0.4 MG TAB SUBLINGUAL PRN (14:44)
--- NOTE | 2017-12-10 15:19 | P.CRDCN ---
History of Present Illness History of present illness: Impression Presenting with shortness of breath Advanced lung disease COPD exacerbation on home oxygen Heart failure elevated BNP, known severe LV dysfunction from 2014 and severe MR Suggest Continue maximal cardiac medications/for cardiomyopathy EC for dictation by nurse practitioner Past Medical History Past Medical History: Chest Pain / Angina, Heart Failure, COPD, Hyperlipidemia, Hypertension, Myocardial Infarction (RI), Osteoarthritis (OA) Additional Past Medical History / Comment(s): hx. gout, uses oxygen @2l prn mostly @[facility], PAST CARDIAC ARREST Last Myocardial Infarction Date:: 2013 History of Any Multi-Drug Resistant Organisms: None Reported Past Surgical History: Appendectomy, Cardiac Valve Replacement, Heart Catheterization With Stent Additional Past Surgical History / Comment(s): cardiac valve clip Past Anesthesia/Blood Transfusion Reactions: No Reported Reaction Date of Last Stent Placement:: 2013 Past Psychological History: No Psychological Hx Reported Smoking Status: Never smoker Past Alcohol Use History: None Reported Past Drug Use History: None Reported - Past Family History Father Family Medical History: Cancer Mother Family Medical History: Cancer Medications and Allergies Home Medications Medication Instructions Recorded Confirmed Type Albuterol Sulfate [Proair Hfa] 2 puff INHALATION RT-Q6H PRN 02/03/15 12/10/17 History Allopurinol [Zyloprim] 100 mg PO BID 02/03/15 12/10/17 History Atorvastatin [Lipitor] 40 mg PO HS 02/03/15 12/10/17 History Clopidogrel [Plavix] 75 mg PO DAILY 02/03/15 12/10/17 History Amiodarone [Cordarone] 200 mg PO DAILY 07/06/17 12/10/17 History Levothyroxine Sodium [Synthroid] 75 mcg PO DAILY 07/06/17 12/10/17 History Sodium Bicarbonate Tab 650 mg PO BID 07/06/17 12/10/17 History Tiotropium Br/Olodaterol HCl 2 puff INHALATION RT-DAILY 07/06/17 12/10/17 History [Stiolto Respimat Inhal [place]] Torsemide [Demadex] 10 mg PO DAILY 09/06/17 12/10/17 History Calcitriol [Rocaltrol] 0.25 mcg PO FR 12/10/17 12/10/17 History Ergocalciferol (Vitamin D2) 50,000 unit PO Q30D 12/10/17 12/10/17 History [Vitamin D2] Nitroglycerin Sl Tabs [Nitrostat] 0.4 mg SUBLINGUAL Q5M PRN 12/10/17 12/10/17 History Allergies Allergy/AdvReac Type Severity Reaction Status Date / Time No Known Allergies Allergy Verified 12/10/17 08:48 Physical Exam Vitals: Vital Signs Temp Pulse Pulse Resp BP BP Pulse Ox 12/10/17 12:36 88 12/10/17 12:24 88 12/10/17 08:34 92 12/10/17 08:20 88 12/10/17 07:00 99 F 81 18 100/61 98 12/10/17 01:50 97.9 F 12/10/17 00:04 101.1 F H 108 H 24 122/78 91 L 12/09/17 22:40 100 12/09/17 22:21 100 12/09/17 22:08 100 24 116/67 89 L 12/09/17 21:17 36 H 12/09/17 21:11 98.0 F 122 H 36 H 165/96 87 L Intake and Output 12/10/17 12/10/17 12/10/17 06:59 14:59 22:59 Other: Voiding Method Urinal # Voids Weight 83.064 kg Patient Weight 12/11/17 06:59 Weight 83.064 kg Results 12/09/17 21:15 12/09/17 21:15 Cardiac Enzymes 12/09/17 12/09/17 Range/Units 21:15 21:15 AST 23 (17-59) U/L CK-MB (CK-2) 4.1 H* (0.0-2.4) ng/mL Troponin I 0.013 (0.000-0.034) ng/mL Coagulation 12/09/17 Range/Units 21:15 PT 10.9 (9.0-12.0) sec APTT 21.1 L (22.0-30.0) sec CBC 12/09/17 Range/Units 21:15 WBC 13.4 H (3.8-10.6) k/uL RBC 4.05 L (4.30-5.90) m/uL Hgb 12.4 L (13.0-17.5) gm/dL Hct 37.4 L (39.0-53.0) % Plt Count 280 (150-450) k/uL Comprehensive Metabolic Panel 12/09/17 Range/Units 21:15 Sodium 144 (137-145) mmol/L Potassium 4.5 (3.5-5.1) mmol/L Chloride 105 (98-107) mmol/L Carbon Dioxide 22 (22-30) mmol/L BUN 29 H (9-20) mg/dL Creatinine 1.70 H (0.66-1.25) mg/dL Glucose 164 H (74-99) mg/dL Calcium 9.9 (8.4-10.2) mg/dL AST 23 (17-59) U/L ALT 20 L (21-72) U/L Alkaline Phosphatase 85 (38-126) U/L Total Protein 7.6 (6.3-8.2) g/dL Albumin 4.5 (3.5-5.0) g/dL Current Medications Generic Name Dose Route Start Last Admin Trade Name Freq PRN Reason Stop Dose Admin Acetaminophen 1,000 mg 12/10/17 00:11 12/10/17 00:44 Tylenol Tab PO 1,000 mg Q6HR PRN Administration Fever and/ or Pain Albuterol/Ipratropium 3 ml 12/10/17 08:00 12/10/17 12:24 Duoneb 0.5 Mg-3 Mg/3 Ml Soln INHALATION 3 ml RT-QID JOSE Administration Allopurinol 100 mg 12/10/17 21:00 Zyloprim PO BID [facility] Amiodarone HCl 200 mg 12/10/17 12:30 12/10/17 12:55 Cordarone PO 200 mg DAILY [facility] Administration Atorvastatin Calcium 40 mg 12/10/17 21:00 Lipitor PO HS [facility] Calcitriol 0.25 mcg 12/15/17 12:00 Rocaltrol PO Fr@1200 [facility] Clopidogrel Bisulfate 75 mg 12/10/17 14:45 Plavix PO DAILY [facility] Enoxaparin Sodium 40 mg 12/10/17 09:00 12/10/17 08:34 Lovenox SQ 40 mg DAILY [facility] Administration Ergocalciferol 50,000 unit 12/30/17 12:00 Vitamin D2 PO Q30D [facility] Formoterol Fumarate 20 mcg 12/11/17 08:00 Perforomist INHALATION RT-BID [facility] Furosemide 40 mg 12/10/17 00:00 12/10/17 08:34 Lasix IV 40 mg Q8H JOSE Administration Insulin Aspart 0 unit 12/10/17 12:30 12/10/17 12:00 Novolog SQ 7 unit ACHS JOSE Administration Protocol Levothyroxine Sodium 75 mcg 12/11/17 06:30 Synthroid PO 0630 JOSE Methylprednisolone Sodium Succinate 60 mg 12/10/17 06:00 12/10/17 12:00 Solu-Medrol IV 60 mg Q6HR JOSE Administration Nitroglycerin 0.4 mg 12/10/17 14:44 Nitrostat SUBLINGUAL Q5M PRN Chest Pain Sodium Bicarbonate 650 mg 12/10/17 21:00 Sodium Bicarbonate Tab PO BID JOSE Intake and Output 12/10/17 12/10/17 12/10/17 06:59 14:59 22:59 Other: Voiding Method Urinal # Voids Weight 83.064 kg Patient Weight 12/11/17 06:59 Weight 83.064 kg 12/09/17 21:15 12/09/17 21:15
[2017-12-10] MEDS: CLOPIDOGREL 75 MG TAB PO SCH (16:04)
[2017-12-10] MEDS ORDERED: LORazepam 0.5 MG TAB PO PRN (16:55)
[2017-12-10] MEDS ORDERED: MAGNESIUM HYDROXIDE 2,400 MG/10 ML CUP PO PRN (16:55)
[2017-12-10] MEDS ORDERED: CALCIUM CARBONATE 500 MG CHEWABLE PO PRN (16:55)
[2017-12-10] MEDS ORDERED: Acetaminophen-Codeine 300-30mg TAB PO PRN (16:55)
[2017-12-10] MEDS ORDERED: MELATONIN 3 MG TABLET PO PRN (16:55)
[2017-12-10] MEDS ORDERED: LACTULOSE 20 GM/30 ML CUP PO PRN (16:55)
[2017-12-10] MEDS ORDERED: ONDANSETRON 4 MG/2 ML VIAL IVP PRN (16:55)
[2017-12-10] MEDS ORDERED: NALOXONE 0.4 MG/ML 1 ML VIAL IV PRN (16:55)
[2017-12-10 17:13] LABS: Glucose,Whole Blood 181 mg/dL (75-99)
[2017-12-10] MEDS: FUROSEMIDE 10 MG/ML 10 ML VIAL IV SCH ×2 (17:39→23:42)
[2017-12-10] MEDS: cefTRIAXone IN SWFI 1,000 MG/10 ML SYRINGE IVP SCH (18:20)
--- NOTE | 2017-12-10 18:41 | HP ---
HISTORY AND PHYSICAL DATE OF ADMISSION: 12/09/17. PRESENTING COMPLAINT: Short of breath. HISTORY OF PRESENTING COMPLAINT: Pleasant 77-year-old patient of Dr. Darling. Chronic stable medical conditions include hypertension, hyperlipidemia, osteoarthritis, gout, on home oxygen 2 L and coronary artery disease with stent. The patient is sitting on his desk yesterday, got up and became short of breath. Some fullness in the chest, nearly fell over, started having some rigors and chills. Got a cough. Did have a fever of 101 when he presented here, feeling weak, tired run down; hence, he was admitted. The patient has known congestive heart failure. Last EF from 2014 of 20%. Did feel better after getting some Lasix. The patient is congested in the chest. REVIEW OF SYSTEMS: CONSTITUTIONAL: Febrile, chills. HEENT: None. RESPIRATORY: As above. CARDIOVASCULAR: As above. GASTROINTESTINAL: None. GENITOURINARY: None. MUSCULOSKELETAL: Some pain in the joints. DERMATOLOGICAL, HEMATOLOGIC, LYMPHATIC: None. PSYCHIATRY: None. NEUROLOGICAL: None. PAST HISTORY: CHF, EF 20%, COPD, hypertension, hyperlipidemia, osteoarthritis, gout, home oxygen 2 L, coronary artery disease with stent. PAST SURGICAL HISTORY: Appendectomy, cardiac valve replacement, cardiac cath with stent. SOCIAL HISTORY: Smoked a pack a day for 60 years, stopped 3 years ago. 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 Currently lives with his daughter's family. FAMILY FAMILY: Family history of cancer. HOME MEDICATIONS: 1. Demadex 10 mg p.o. daily. 2. Stiolto Respimat 2 puffs daily. 3. Sodium bicarb 650 mg b.i.d. 4. Nitrostat 0.4 sublingual q.5 p.r.n. 5. Synthroid 75 mcg p.o. daily. 6. Vitamin D2 51134 units every 30 days. 7. Plavix 75 mg a day. 8. Rocaltrol 0.25 mcg on Fridays. 9. Lipitor 40 mg p.o. q.h.s. 10.Cordarone 200 mg p.o. daily. 11.Allopurinol 200 mg p.o. b.i.d. 12.ProAir 2 puffs q.6h p.r.n. ALLERGIES: None. PHYSICAL EXAMINATION: VITAL SIGNS ON PRESENTATION: Temperature 101.1, pulse 122, respiration 36, blood pressure 155/96, pulse ox 87% on 6 L. GENERAL APPEARANCE: Average build, sitting up, short of breath, congested. EYES: Pupils equal. Conjunctivae normal. HEENT: External appearance of nose and ears normal. Oral cavity normal. NECK: JVD unable to assess. Mass not palpable. RESPIRATORY: Effort increased. Lungs decreased breath sounds with some basal crackles. CARDIOVASCULAR: First and second sounds normal. No edema. ABDOMEN: Soft, nontender. Liver and spleen not palpable. LYMPHATIC: No lymph node palpable in neck or axillae. PSYCHIATRY: Alert, oriented x3. Mood and affect normal. NEUROLOGICAL: Pupils equal. Cranial nerves grossly intact. Power and sensation grossly intact. MUSCULOSKELETAL: Evidence of osteoarthritis. INVESTIGATION: White count 13.4, hemoglobin 12.4, potassium 4.5, BUN 29, creatinine 1.7. ProBNP is 5060, troponin 0.013. Chest x-ray shows venous prominence and infiltrate on the right side. 2D echo from 2015 shows EF of 15-20%, mitral regurgitation and secondary pulmonary hypertension. ASSESSMENT: 1. Acute on chronic congestive heart failure from systolic dysfunction, ejection fraction 20% from underlying coronary artery disease. 2. Coronary artery disease with prior history of stent. 3. Right lower lobe pneumonia suspect gram-negative organism causing sepsis present on admission. 4. Chronic kidney disease, stage IIIB, from hypertensive nephrosclerosis. 5. Acute chronic obstructive pulmonary disease exacerbation in an ex-smoker. 6. Essential hypertension. 7. Hyperlipidemia. 8. Primary osteoarthritis. 9. Chronic gout. 10.Acute hypoxic respiratory failure multifactorial including sepsis and CHF and pneumonia. 11.Chronic hypoxic respiratory failure on 2 L oxygen at home. PLAN: Patient is started on IV ceftriaxone, sputum will be sent for Gram stain culture. The patient is already put on IV steroids, nebulized bronchodilator. Also put on IV Lasix. Consultation made to Dr. Ovalles from Pulmonary and Cardiology. Care was discussed with the patient. Questions were answered. MMODL / IJN: [id number] /
[2017-12-10 20:35] LABS: Glucose,Whole Blood 138 mg/dL (75-99)
[2017-12-10] MEDS: SODIUM BICARBONATE TAB 650 MG TAB PO SCH (20:35)
[2017-12-10] MEDS: ALLOPURINOL 100 MG TAB PO SCH (20:35)
[2017-12-10] MEDS: ATORVASTATIN 40 MG TAB PO SCH (20:36)
[2017-12-10 21:30] LABS: Hemoglobin A1C 5.5 % (4.0-6.0)
--- NOTE | 2017-12-10 22:17 | CONS ---
CONSULTATION Seb Knight is a 77-year-old male who came to the ER with increasing shortness of breath. He was seen in the ED, received a breathing treatment and did not improve. He also had some chest pain that started early in the day. He subsequently was admitted for further evaluation and management. PAST MEDICAL HISTORY: Is positive for COPD, hyperlipidemia, hypertension, acute myocardial infarction, osteoarthritis, and gout, cardiac valve replacement, cardiac cath with stent placement. FAMILY HISTORY: Positive for cancer in both his parents. SOCIAL HISTORY: Patient is a former smoker. Does not drink alcohol excessively. REVIEW OF SYSTEMS: Noncontributory. MEDICATIONS: Prior to admission were: Albuterol Zyloprim, Lipitor, Plavix, Cordarone, Folic acid, Synthroid, sodium bicarbonate, Tiotropium with . PHYSICAL EXAMINATION: Respiratory rate is 20, pulse rate 98, temperature 98.6, blood pressure 105/68, O2 saturation on 3 L by nasal cannula is 97%. HEENT reveals pupils equal chest reveals decreased breath sounds. Prolonged expiration. Bilateral expiratory wheeze. Cardiovascular system revealed an S1, S2. ABDOMEN: Soft. There is trace pedal edema. LABORATORY DATA: White count is 13.4, hemoglobin of 12.4. There are 0.2 thousand eosinophils, 11.8 thousand neutrophils. IMPRESSION: At this time: 1. Asthma with chronic obstructive pulmonary disease with acute exacerbation. 2. Congestive heart failure. 3. Possible right lower lobe pneumonia. 4. Chronic renal failure. Continue him on antibiotics, bronchodilators. Add aerosolized steroids. Continue IV steroids. Depending on how he does we should make further changes to his care. MMODL / IJN: [id number] /
[2017-12-10] MEDS: methylPREDNISolone SOD SUCCI 40 MG/ML 1 ML VIAL IV SCH (23:42)
[2017-12-11] MEDS: LEVOTHYROXINE 75 MCG TAB PO SCH (05:31)
[2017-12-11 07:06] LABS: Glucose,Whole Blood 154 mg/dL (75-99)
[2017-12-11] MEDS ORDERED: NON-FORMULARY DRUG (Tiotropium Br/Olodaterol Hcl [Stiolto Respimat Inhal Spray] 2 PUFF) INHALATION SCH (08:00)
[2017-12-11] MEDS: BUDESONIDE 0.5 MG/2 ML NEBU INHALATION SCH ×3 (08:01→20:16)
[2017-12-11] MEDS: IPRATROPIUM-ALBUTEROL 3 ML NEB INHALATION SCH ×5 (08:03→20:16)
[2017-12-11] MEDS: FORMOTEROL FUMARATE 20 MCG/2 ML NEBU INHALATION SCH ×3 (08:03→20:16)
[2017-12-11 08:31] LABS: Calcium 9.2 mg/dL (8.4-10.2); Potassium 4.4 mmol/L (3.5-5.1)
[2017-12-11 08:36] LABS: Anisocytosis Slight; Basophils % (A) 0 %; Eosinophils % (A) 0 %; HCT 31.8 % (39.0-53.0); HGB 10.4 gm/dL (13.0-17.5); Lymphocytes # (A) 0.3 k/uL (1.0-4.8); Lymphocytes % (A) 2 %; MCH 30.3 pg (25.0-35.0); MCHC 32.7 g/dL (31.0-37.0); MCV 92.6 fL (80.0-100.0); Mean Platelet Volume 7.6; Monocytes # (A) 0.5 k/uL (0-1.0); Monocytes % (A) 3 %; Neutrophils # (A) 14.4 k/uL (1.3-7.7); Neutrophils % (A) 95 %; Platelet Count 221 k/uL (150-450); RBC 3.43 m/uL (4.30-5.90); RDW 17.1 % (11.5-15.5); WBC 15.2 k/uL (3.8-10.6)
[2017-12-11] MEDS: INSULIN ASPART 100 UNIT/ML 1 ML 10 ML VIAL SQ SCH ×4 (08:51→20:53)
[2017-12-11] MEDS: FUROSEMIDE 10 MG/ML 10 ML VIAL IV SCH (08:52)
[2017-12-11] MEDS: methylPREDNISolone SOD SUCCI 40 MG/ML 1 ML VIAL IV SCH ×3 (08:53→23:02)
[2017-12-11] MEDS: CLOPIDOGREL 75 MG TAB PO SCH (08:53)
[2017-12-11] MEDS: AMIODARONE 200 MG TAB PO SCH (08:53)
[2017-12-11] MEDS: ENOXAPARIN 40 MG/0.4 ML SYRINGE SQ SCH (08:54)
[2017-12-11] MEDS: ALLOPURINOL 100 MG TAB PO SCH ×2 (08:54→20:53)
[2017-12-11] MEDS: SODIUM BICARBONATE TAB 650 MG TAB PO SCH ×2 (08:54→20:53)
[2017-12-11 11:53] LABS: Glucose,Whole Blood 157 mg/dL (75-99)
--- NOTE | 2017-12-11 12:45 | ECHOF ---
Referral Reason:sob MEASUREMENTS -------- HEIGHT: 180.3 cm WEIGHT: 83.0 kg BP: 134/89 IVSd: 1.0 cm (0.6 - 1.1) LVIDd: 6.4 cm (3.9 - 5.3) LVPWd: 1.0 cm (0.6 - 1.1) IVSs: 1.4 cm LVIDs: 5.9 cm LVPWs: 0.7 cm LAESV Index (A-L): 40.55 ml/m Ao Diam: 3.7 cm (2.0 - 3.7) AV Cusp: 1.5 cm (1.5 - 2.6) LA Diam: 3.8 cm (2.7 - 3.8) MV EXCURSION: 11.800 mm (> 18.000) MV EF SLOPE: 28 mm/s (70 - 150) EPSS: 1.6 cm MV E Herman: 1.51 m/s MV DecT: 282 ms MV A Herman: 0.32 m/s MV E/A Ratio: 4.79 AR PHT: 123 ms RAP: 5.00 mmHg RVSP: 86.70 mmHg FINDINGS -------- Sinus rhythm. : There are segmental wall motion defects suggestive of ischemic cardiomyopathy This was a technically good study. The left ventricle is moderately dilated. Left ventricular wall thickness is normal. There is sev ere global hypokinesis of LV . Overall left ventricular systolic function is severely impaired with , an EF < 20%. The right ventricle is normal in size and function. LA is severely dilated >40 ml/m2 The right atrium is normal in size. Aortic valve is trileaflet and is mildly thickened. Trace amount of aortic regurgitation. The mitral valve leaflets are mildly thickened. Mild mitral annular calcification present. Severe mitral regurgitation is present. Pt had MV clip Moderate to severe tricuspid regurgitation present. There is severe pulmonary hypertension. The r ight ventricular systolic pressure, as measured by Doppler, is 86.70mmHg. Pulmonic valve appears structurally normal. The aortic root size is normal. Normal inferior vena cava with normal inspiratory collapse consistent with estimated right atrial pre ssure of 5 mmHg. The pericardium is normal. CONCLUSIONS -------- 1. Sinus rhythm. 2. : There are segmental wall motion defects suggestive of ischemic cardiomyopathy 3. This was a technically good study. 4. The left ventricle is moderately dilated. 5. Left ventricular wall thickness is normal. 6. There is severe global hypokinesis of LV . 7. Overall left ventricular systolic function is severely impaired with, an EF < 20%. 8. The right ventricle is normal in size and function. 9. LA is severely dilated >40 ml/m2 10. The right atrium is normal in size. 11. Aortic valve is trileaflet and is mildly thickened. 12. Trace amount of aortic regurgitation. 13. The mitral valve leaflets are mildly thickened. 14. Mild mitral annular calcification present. 15. Severe mitral regurgitation is present. 16. Pt had MV clip 17. Moderate to severe tricuspid regurgitation present. 18. There is severe pulmonary hypertension. 19. The right ventricular systolic pressure, as measured by Doppler, is 86.70mmHg. 20. Pulmonic valve appears structurally normal. 21. The aortic root size is normal. 22. Normal inferior vena cava with normal inspiratory collapse consistent with estimated right atrial pressure of 5 mmHg. 23. The pericardium is normal. FEED MIXER: Silvana Amor RDCS
[2017-12-11 14:28] VITALS: BMI 26.2
--- NOTE | 2017-12-11 14:58 | P.PN ---
Subjective Progress Note Date: 12/11/17 Mr. Knight is seen today in follow-up. He is resting comfortably in bed in no acute distress. He is feeling much better aside from ongoing wheezing. He is also complaining of significant abdominal tightness and swelling. Echocardiogram performed reveals severely impaired LV systolic function with EF less than 20% with severe mitral regurgitation. These are not new findings. His weight has been changed since admission. He looks to be in positive fluid balance. Laboratory data from this morning reveals WBC 15.2, hemoglobin 10.4, potassium 4.4 creatinine 1.71. He is currently being maintained on Lasix 60 mg IV every 8 hours per primary. Objective - Vital Signs Vital signs: Vital Signs Temp 97.5 F L 12/11/17 07:00 Pulse 100 12/11/17 11:48 Resp 18 12/11/17 08:00 BP 112/78 12/11/17 07:00 Pulse Ox 96 12/11/17 07:00 Intake & Output 12/10/17 12/11/17 12/11/17 18:59 06:59 18:59 Intake Total 720 720 Output Total 400 Balance 720 320 Weight 83.064 kg 83.064 kg 83.064 kg Intake: Oral 720 720 Output: Urine 400 Other: Voiding Method Urinal Urinal Urinal - Exam Blood pressure 112/78 heart rate 96 afebrile maintaining oxygen saturations on oxygen via nasal cannula GENERAL: Well-appearing, well-nourished and in no acute distress. NECK: Supple without JVD or thyromegaly. LUNGS: Coarse rhonchi with expiratory wheezes. Diminished greater on the left than right. Respiration equal and unlabored. No rales. HEART: Regular rate and rhythm with systolic ejection murmur, no rubs or gallops. S1 and S2 heard. EXTREMITIES: Normal range of motion, no edema. No clubbing or cyanosis. Peripheral pulses intact and strong. - Labs CBC & Chem 7: 12/11/17 07:39 12/11/17 07:39 Labs: Abnormal Lab Results - Last 24 Hours (Table) 12/10/17 12/10/17 12/11/17 Range/Units 17:11 20:25 06:58 WBC (3.8-10.6) k/uL RBC (4.30-5.90) m/uL Hgb (13.0-17.5) gm/dL Hct (39.0-53.0) % RDW (11.5-15.5) % Neutrophils # (1.3-7.7) k/uL Lymphocytes # (1.0-4.8) k/uL BUN (9-20) mg/dL Creatinine (0.66-1.25) mg/dL Glucose (74-99) mg/dL POC Glucose (mg/dL) 181 H 138 H 154 H (75-99) mg/dL 12/11/17 12/11/17 12/11/17 Range/Units 07:39 07:39 11:42 WBC 15.2 H (3.8-10.6) k/uL RBC 3.43 L (4.30-5.90) m/uL Hgb 10.4 L (13.0-17.5) gm/dL Hct 31.8 L (39.0-53.0) % RDW 17.1 H (11.5-15.5) % Neutrophils # 14.4 H (1.3-7.7) k/uL Lymphocytes # 0.3 L (1.0-4.8) k/uL BUN 43 H (9-20) mg/dL Creatinine 1.71 H (0.66-1.25) mg/dL Glucose 145 H (74-99) mg/dL POC Glucose (mg/dL) 157 H (75-99) mg/dL Assessment and Plan Assessment: ASSESSMENT 1. Acute on chronic systolic heart failure, elevated BNP with abdominal swelling 2. COPD, acute on chronic 3. Ischemic cardiomyopathy 4. History of coronary artery disease 5. Hypertension 6. Acute hypoxic respiratory failure 7. Febrile illness 8. Chronic renal failure 9. Leukocytosis PLAN Continue with ongoing medical management of pneumonia and exacerbation of COPD. Continue amiodarone, atorvastatin as was previously ordered. Decrease Lasix to 40 mg IV twice a day. Nurse Practitioner note has been reviewed, I agree with a documented findings and plan of care. Patient was seen and examined.
--- NOTE | 2017-12-11 15:52 | P.PN ---
Subjective Progress Note Date: 12/11/17 [facility] is covering for Dr. Ovalles HPI: This is a 77-year-old male patient came into the ER with increasing shortness of breath. He was seen in the ED and received breathing treatments and he did not improve. The patient also stated he had some chest pain that started early in the day. He subsequently was admitted for further evaluation and management. 12/11/17-patient is being seen examined and evaluated on rounds. The patient is resting up in bed on 4 L of supplemental oxygen via nasal cannula. The patient does utilize 2.5 L of oxygen at home. Continues to be short of breath with exertion and activity has a congested cough with clear sputum. States he's been wheezing on and off. States the breathing treatments and steroids have been helping him. He is also being diuresed. HE reports with reviewed. Objective - Vital Signs Vital signs: Vital Signs Temp 97.5 F L 12/11/17 07:00 Pulse 100 12/11/17 11:48 Resp 18 12/11/17 08:00 BP 112/78 12/11/17 07:00 Pulse Ox 96 12/11/17 07:00 Intake & Output 12/10/17 12/11/17 12/11/17 18:59 06:59 18:59 Intake Total 720 720 Output Total 400 Balance 720 320 Weight 83.064 kg 83.064 kg 83.064 kg Intake: Oral 720 720 Output: Urine 400 Other: Voiding Method Urinal Urinal Urinal - Exam GENERAL EXAM: Alert, active, comfortable in no apparent distress. HEAD: Normocephalic. EYES: Normal reaction of pupils, equal size. NOSE: Clear with pink turbinates. THROAT: No erythema or exudates. NECK: No masses, no JVD. CHEST: No chest wall deformity. LUNGS: Breath sounds noted to have bilateral expiratory wheezes with prolonged expiration. CVS: S1 and S2 normal with no audible mumurs, regular rhythm. ABDOMEN: No hepatosplenomegaly, normal bowel sounds, no guarding or rigidity. EXTREMITIES: Trace edema noted, pedal pulses palpable. CENTRAL NERVOUS SYSTEM: No focal deficits, tone is normal in all 4 extremities. - Labs CBC & Chem 7: 12/11/17 07:39 12/11/17 07:39 Labs: Abnormal Lab Results - Last 24 Hours (Table) 12/10/17 12/10/17 12/11/17 Range/Units 17:11 20:25 06:58 WBC (3.8-10.6) k/uL RBC (4.30-5.90) m/uL Hgb (13.0-17.5) gm/dL Hct (39.0-53.0) % RDW (11.5-15.5) % Neutrophils # (1.3-7.7) k/uL Lymphocytes # (1.0-4.8) k/uL BUN (9-20) mg/dL Creatinine (0.66-1.25) mg/dL Glucose (74-99) mg/dL POC Glucose (mg/dL) 181 H 138 H 154 H (75-99) mg/dL 12/11/17 12/11/17 12/11/17 Range/Units 07:39 07:39 11:42 WBC 15.2 H (3.8-10.6) k/uL RBC 3.43 L (4.30-5.90) m/uL Hgb 10.4 L (13.0-17.5) gm/dL Hct 31.8 L (39.0-53.0) % RDW 17.1 H (11.5-15.5) % Neutrophils # 14.4 H (1.3-7.7) k/uL Lymphocytes # 0.3 L (1.0-4.8) k/uL BUN 43 H (9-20) mg/dL Creatinine 1.71 H (0.66-1.25) mg/dL Glucose 145 H (74-99) mg/dL POC Glucose (mg/dL) 157 H (75-99) mg/dL Assessment and Plan Assessment: Assessment chronic obstructive pulmonary disease with acute exacerbation Acute exacerbation of asthma, baseline unknown. Congestive heart failure Possible right lower lobe pneumonia Chronic renal failure Plan Medications have been reviewed and will be continued as ordered. Continue with diuresis. Obtain sputum culture. Continue with pulmonary hygiene, coughing and deep breathing exercises, and supportive care. Supplemental oxygen to maintain oxygen saturations of 92% or better. Continue nebulizer treatments. GI and DVT prophylaxis. increase activity as tolerated. Initiate and encourage incentive spirometer. We will continue to monitor labs/results and adjust treatment as necessary. Further recommendations pending. I performed an examination of the patient and discussed their management with the nurse practitioner. I have reviewed the nurse practitioner's note and agree with the documented findings and plan of care.
--- NOTE | 2017-12-11 16:18 | PN ---
PROGRESS NOTE DATE OF SERVICE: 12/11/17 PRESENTING COMPLAINT: Short of breath. INTERVAL HISTORY: The patient presented with CHF exacerbation and pneumonia. Breathing somewhat better. Less congestion. Still got a cough not bringing up much. Fevers come down. Did tolerate some diet. REVIEW OF SYSTEMS: Done for constitutional, cardiovascular, GI, pulmonary, relevant findings as above. CURRENT MEDICATIONS: Reviewed that include DuoNeb, IV ceftriaxone, IV Solu-Medrol, IV Lasix 40 mg q.12. EXAMINATION: Temperature 97.5, pulse 96, respiration 18, blood pressure 112/78, pulse 96% on 2.5 L. General: Sitting up, tired appearing. Eyes pupils equal. Conjunctivae normal. HEENT external appearance of nose and ears normal. Oral cavity normal. Neck JVD unable to assess. Mass not palpable. Respiratory effort increased. Lungs decreased breath sounds with basal crackles. Cardiovascular: 1st and 2nd sounds normal. No edema. ABDOMEN: Soft, nontender. Liver and spleen not palpable. Psychiatry: Alert and oriented times three. Mood and affect normal. INVESTIGATIONS: White count 15.2, hemoglobin 10.4, potassium 4.4, BUN 43, creatinine 1.71. ASSESSMENT: 1. Acute on chronic congestive heart failure exacerbation from systolic dysfunction, ejection fraction 20%, underlying coronary artery disease, slow to respond. 2. Coronary artery disease prior history of stent. 3. Right lower lobe pneumonia suspect gram-negative organism causing sepsis present on admission. 4. Chronic kidney disease, stage IIIB, from hypertensive nephrosclerosis. 5. Acute chronic obstructive pulmonary disease exacerbation in an ex-smoker. 6. Essential hypertension. 7. Hyperlipidemia. 8. Primary osteoarthritis multiple joints. 9. Chronic gout. 10.Acute hypoxic respiratory failure, multifactorial including sepsis and congestive heart failure present on admission and pneumonia. 11.Chronic hypoxic respiratory failure on 2 L oxygen at home. 12.Moderate mitral and tricuspid regurgitation, nonrheumatic. 13.Severe secondary pulmonary hypertension secondary to congestive heart failure and chronic obstructive pulmonary disease. PLAN: Continue patient on IV ceftriaxone, IV Lasix, nebulized bronchodilators. Follow labs closely. Care was discussed with the patient. MMODL / IJN: [id number] /
[2017-12-11 17:21] LABS: Glucose,Whole Blood 162 mg/dL (75-99)
[2017-12-11] MEDS: cefTRIAXone IN SWFI 1,000 MG/10 ML SYRINGE IVP SCH (17:38)
[2017-12-11 20:32] LABS: Glucose,Whole Blood 226 mg/dL (75-99)
[2017-12-11] MEDS: FUROSEMIDE 10 MG/ML 4 ML VIAL IV SCH (20:53)
[2017-12-11] MEDS: ATORVASTATIN 40 MG TAB PO SCH (20:53)
[2017-12-11] MEDS: ACETAMINOPHEN TAB 500 MG TAB PO PRN (23:01)
[2017-12-12] MEDS: LEVOTHYROXINE 75 MCG TAB PO SCH (05:55)
[2017-12-12 07:31] LABS: Glucose,Whole Blood 140 mg/dL (75-99)
[2017-12-12] MEDS: INSULIN ASPART 100 UNIT/ML 1 ML 10 ML VIAL SQ SCH ×4 (08:02→22:23)
[2017-12-12] MEDS: SODIUM BICARBONATE TAB 650 MG TAB PO SCH ×2 (08:03→20:31)
[2017-12-12] MEDS: ENOXAPARIN 40 MG/0.4 ML SYRINGE SQ SCH (08:03)
[2017-12-12] MEDS: FUROSEMIDE 10 MG/ML 4 ML VIAL IV SCH (08:04)
[2017-12-12] MEDS: AMIODARONE 200 MG TAB PO SCH (08:04)
[2017-12-12] MEDS: methylPREDNISolone SOD SUCCI 40 MG/ML 1 ML VIAL IV SCH ×2 (08:04→20:31)
[2017-12-12] MEDS: ALLOPURINOL 100 MG TAB PO SCH ×2 (08:04→20:31)
[2017-12-12] MEDS: CLOPIDOGREL 75 MG TAB PO SCH (08:04)
[2017-12-12] MEDS: BUDESONIDE 0.5 MG/2 ML NEBU INHALATION SCH ×2 (08:10→19:19)
[2017-12-12] MEDS: IPRATROPIUM-ALBUTEROL 3 ML NEB INHALATION SCH ×4 (08:12→19:19)
[2017-12-12] MEDS: FORMOTEROL FUMARATE 20 MCG/2 ML NEBU INHALATION SCH ×2 (08:12→19:19)
[2017-12-12 08:37] LABS: Anisocytosis Slight; Basophils % (A) 0 %; Eosinophils % (A) 0 %; HCT 33.5 % (39.0-53.0); HGB 10.5 gm/dL (13.0-17.5); Hypochromasia Slight; Lymphocytes # (A) 0.4 k/uL (1.0-4.8); Lymphocytes % (A) 3 %; MCH 29.2 pg (25.0-35.0); MCHC 31.2 g/dL (31.0-37.0); MCV 93.7 fL (80.0-100.0); Mean Platelet Volume 7.6; Monocytes # (A) 0.5 k/uL (0-1.0); Monocytes % (A) 4 %; Neutrophils # (A) 12.9 k/uL (1.3-7.7); Neutrophils % (A) 93 %; Platelet Count 235 k/uL (150-450); RBC 3.57 m/uL (4.30-5.90); RDW 17.4 % (11.5-15.5); WBC 13.8 k/uL (3.8-10.6)
[2017-12-12 08:58] LABS: Calcium 9.4 mg/dL (8.4-10.2)
--- NOTE | 2017-12-12 10:26 | XR ---
EXAMINATION TYPE: XR chest 2V DATE OF EXAM: 12/12/2017 COMPARISON: 12/09/2017 INDICATION: COPD exacerbation TECHNIQUE: Frontal and lateral views of the chest are obtained. FINDINGS: The heart size is slightly prominent. The pulmonary vasculature is normal. The lungs are clear. Previous pleural effusions largely resolved. Some residual remains the right co stophrenic angle on the frontal projection. IMPRESSION: 1. Mild cardiomegaly. 2. Resolving small right costophrenic angle pleural effusion
--- NOTE | 2017-12-12 10:52 | PN ---
PROGRESS NOTE DATE OF SERVICE: 12/12/2017. HISTORY: He was seen again on December 12, 2017. He has been hemodynamically stable. He is less short of breath and almost back to his baseline. PHYSICAL EXAMINATION: Respiratory rate is 18, pulse rate of 90, temperature 97.8, blood pressure 135/87. HEENT is unremarkable. Chest reveals decreased breath sounds with prolonged expiration. There is an expiratory wheeze. Cardiovascular system reveals S1, S2. Abdomen is soft. There is no pedal edema. IMPRESSION: Asthma with chronic obstructive pulmonary disease with acute exacerbation, right lower lobe pneumonia, congestive heart failure. PLAN: Continue Pulmicort, Rocephin, bronchodilators, IV steroids. Increase his activity level. Check peak flows on him. Depending on how he does we shall make further changes to his care. MMODL / IJN: [id number] /
[2017-12-12 11:35] LABS: Glucose,Whole Blood 151 mg/dL (75-99)
--- NOTE | 2017-12-12 15:27 | P.PN ---
Subjective Progress Note Date: 12/12/17 Mr. Knight is seen today in follow-up. He is resting comfortably in bed in no acute distress. He is feeling much better aside from ongoing wheezing. He is also complaining of significant abdominal tightness and swelling. Echocardiogram performed reveals severely impaired LV systolic function with EF less than 20% with severe mitral regurgitation. These are not new findings. His weight has been changed since admission. He looks to be in positive fluid balance. Laboratory data from this morning reveals WBC 15.2, hemoglobin 10.4, potassium 4.4 creatinine 1.71. He is currently being maintained on Lasix 60 mg IV every 8 hours per primary. 12/12/2017 Mr. Knight is seen and examined today in follow-up. Repeat chest xray this morning reveals resolving small right pleural effusion. Creatinine today 1.7, potssium 4.0. He appears to be in no acute distress and is showing improvement in his breathing. Objective - Vital Signs Vital signs: Vital Signs Temp 97.8 F 12/12/17 07:00 Pulse 92 12/12/17 12:07 Resp 18 12/12/17 08:00 BP 135/87 12/12/17 07:00 Pulse Ox 98 12/12/17 07:00 Intake & Output 12/11/17 12/12/17 12/12/17 18:59 06:59 18:59 Intake Total 720 240 Output Total 400 Balance 320 240 Weight 83.064 kg Intake: Oral 720 240 Output: Urine 400 Other: Voiding Method Urinal Urinal Toilet - Exam Blood pressure 135/87 heart rate 89 afebrile maintaining oxygen saturations on oxygen via nasal cannula GENERAL: Well-appearing, well-nourished and in no acute distress. NECK: Supple without JVD or thyromegaly. LUNGS: Faint expiratory wheeze, no rales or rhonchi. Diminished. Respiration equal and unlabored. HEART: Regular rate and rhythm with systolic ejection murmur, no rubs or gallops. S1 and S2 heard. EXTREMITIES: Normal range of motion, no edema. No clubbing or cyanosis. Peripheral pulses intact and strong. - Labs CBC & Chem 7: 12/12/17 08:04 12/12/17 08:04 Labs: Abnormal Lab Results - Last 24 Hours (Table) 12/11/17 12/11/17 12/12/17 Range/Units 16:57 20:31 07:30 WBC (3.8-10.6) k/uL RBC (4.30-5.90) m/uL Hgb (13.0-17.5) gm/dL Hct (39.0-53.0) % RDW (11.5-15.5) % Neutrophils # (1.3-7.7) k/uL Lymphocytes # (1.0-4.8) k/uL BUN (9-20) mg/dL Creatinine (0.66-1.25) mg/dL Glucose (74-99) mg/dL POC Glucose (mg/dL) 162 H 226 H 140 H (75-99) mg/dL 12/12/17 12/12/17 12/12/17 Range/Units 08:04 08:04 11:33 WBC 13.8 H (3.8-10.6) k/uL RBC 3.57 L (4.30-5.90) m/uL Hgb 10.5 L (13.0-17.5) gm/dL Hct 33.5 L (39.0-53.0) % RDW 17.4 H (11.5-15.5) % Neutrophils # 12.9 H (1.3-7.7) k/uL Lymphocytes # 0.4 L (1.0-4.8) k/uL BUN 45 H (9-20) mg/dL Creatinine 1.70 H (0.66-1.25) mg/dL Glucose 104 H (74-99) mg/dL POC Glucose (mg/dL) 151 H (75-99) mg/dL Microbiology - Last 24 Hours (Table) 12/12/17 08:14 Gram Stain - Final Sputum Sputum Culture - Final Assessment and Plan Assessment: ASSESSMENT 1. Acute on chronic systolic heart failure, elevated BNP with abdominal swelling 2. COPD, acute on chronic 3. Ischemic cardiomyopathy 4. History of coronary artery disease 5. Hypertension 6. Acute hypoxic respiratory failure 7. Febrile illness 8. Chronic renal failure 9. Leukocytosis PLAN Transition to oral diuretics. Stable from a cardiac perspective. Continue medical management. Follow up with Dr. Guy in 2-3 weeks. Nurse Practitioner note has been reviewed, I agree with a documented findings and plan of care. Patient was seen and examined.
[2017-12-12] MEDS: ACETAMINOPHEN TAB 325 MG TAB PO PRN (15:45)
[2017-12-12] MEDS: LISINOPRIL 2.5 MG TAB PO SCH (16:11)
--- NOTE | 2017-12-12 16:34 | PN ---
PROGRESS NOTE DATE OF SERVICE: 12/12/2017 PRESENTING COMPLAINT: Short of breath. INTERVAL HISTORY: Patient presented with CHF and exacerbation of pneumonia. He still has got a cough. Less sputum. Breathing is getting a bit better. Tolerating a diet. REVIEW OF SYSTEMS: Done for constitutional, cardiovascular, GI, pulmonary; relevant findings as above. CURRENT MEDICATIONS: Current medications are reviewed that include: 1. DuoNeb. 2. IV Solu-Medrol. 3. IV ceftriaxone. PHYSICAL EXAMINATION: Temperature 97.8, pulse 89, respiration 18, blood pressure 135/87, pulse ox 98% on 4 L. GENERAL APPEARANCE: Sitting up on bed. Less tired. EYES: Pupils equal. Conjunctivae normal. HEENT: External appearance of nose and ears normal. Oral cavity normal. NECK: JVD partially raised. Mass not palpable. RESPIRATORY: Effort increased. LUNGS: Decreased breath sounds. Basal crackles. CARDIOVASCULAR: First and second sounds normal. No edema. ABDOMEN: Soft, nontender. Liver and spleen not palpable. PSYCHIATRY: Alert and oriented x3. Mood and affect normal. INVESTIGATIONS: White count 13.8, hemoglobin 10.5, potassium 4, BUN 45, creatinine 1.70. Chest x-ray showed resolving pleural effusion. ASSESSMENT: 1. Acute on chronic congestive heart failure exacerbation from systolic dysfunction, ejection fraction 20%, with underlying coronary artery disease, improving slowly. 2. Coronary artery disease with prior history of stent. 3. Right lobe pneumonia; suspect Gram-negative organism causing sepsis, present on admission with clinical improvement. 4. Chronic kidney disease, stage IIIB, from hypertensive nephrosclerosis. 5. Acute chronic obstructive pulmonary disease exacerbation in an ex-smoker. 6. Essential hypertension. 7. Hyperlipidemia. 8. Primary osteoarthritis in multiple joints. 9. Chronic gout. 10.Acute hypoxic respiratory failure, multifactorial, including sepsis, congestive heart failure, present on admission with pneumonia. 11.Chronic hypoxic respiratory failure, on 2 L of oxygen at home. 12.Moderate mitral and tricuspid regurgitation, non-rheumatic. 13.Severe secondary pulmonary hypertension secondary to congestive heart failure and chronic obstructive pulmonary disease. PLAN: Given the CHF, will add Coreg 3.125 p.o. twice a day and also add a small dose of SHARA inhibitor 2.5 starting in the afternoon. IV Lasix is to continue. Will also scale back on the Solu-Medrol. Patient encouraged to be out of bed. MMODL / IJN: [id number] /
[2017-12-12 16:37] LABS: Glucose,Whole Blood 161 mg/dL (75-99)
[2017-12-12] MEDS: CARVEDILOL 3.125 MG TAB PO SCH (17:21)
[2017-12-12] MEDS: cefTRIAXone IN SWFI 1,000 MG/10 ML SYRINGE IVP SCH (17:22)
[2017-12-12] MEDS: ATORVASTATIN 40 MG TAB PO SCH (20:31)
[2017-12-12 20:38] LABS: Glucose,Whole Blood 145 mg/dL (75-99)
[2017-12-13] MEDS: ACETAMINOPHEN TAB 325 MG TAB PO PRN (00:06)
[2017-12-13] MEDS: LEVOTHYROXINE 75 MCG TAB PO SCH (05:54)
[2017-12-13] MEDS: FORMOTEROL FUMARATE 20 MCG/2 ML NEBU INHALATION SCH ×2 (07:20→19:19)
[2017-12-13] MEDS: IPRATROPIUM-ALBUTEROL 3 ML NEB INHALATION SCH ×4 (07:20→19:19)
[2017-12-13] MEDS: BUDESONIDE 0.5 MG/2 ML NEBU INHALATION SCH ×2 (07:20→19:19)
[2017-12-13 07:33] LABS: Glucose,Whole Blood 139 mg/dL (75-99)
[2017-12-13] MEDS: INSULIN ASPART 100 UNIT/ML 1 ML 10 ML VIAL SQ SCH ×4 (07:46→22:34)
[2017-12-13] MEDS: methylPREDNISolone SOD SUCCI 40 MG/ML 1 ML VIAL IV SCH ×2 (07:47→20:22)
[2017-12-13] MEDS: ENOXAPARIN 40 MG/0.4 ML SYRINGE SQ SCH (07:48)
[2017-12-13] MEDS: CLOPIDOGREL 75 MG TAB PO SCH (07:49)
[2017-12-13] MEDS: ALLOPURINOL 100 MG TAB PO SCH ×2 (07:49→20:22)
[2017-12-13] MEDS: AMIODARONE 200 MG TAB PO SCH (07:49)
[2017-12-13] MEDS: TORSEMIDE 20 MG TAB PO SCH (07:49)
[2017-12-13] MEDS: SODIUM BICARBONATE TAB 650 MG TAB PO SCH ×2 (07:49→20:22)
[2017-12-13] MEDS: CARVEDILOL 3.125 MG TAB PO SCH ×2 (08:00→17:04)
[2017-12-13 09:44] LABS: Calcium 9.5 mg/dL (8.4-10.2); Potassium 4.3 mmol/L (3.5-5.1)
[2017-12-13 11:39] LABS: Glucose,Whole Blood 166 mg/dL (75-99)
[2017-12-13] MEDS: LISINOPRIL 2.5 MG TAB PO SCH (12:56)
--- NOTE | 2017-12-13 14:07 | P.PN ---
Subjective Progress Note Date: 12/13/17 [facility] is covering for Dr. Ovalles HPI: This is a 77-year-old male patient came into the ER with increasing shortness of breath. He was seen in the ED and received breathing treatments and he did not improve. The patient also stated he had some chest pain that started early in the day. He subsequently was admitted for further evaluation and management. 12/11/17-patient is being seen examined and evaluated on rounds. The patient is resting up in bed on 4 L of supplemental oxygen via nasal cannula. The patient does utilize 2.5 L of oxygen at home. Continues to be short of breath with exertion and activity has a congested cough with clear sputum. States he's been wheezing on and off. States the breathing treatments and steroids have been helping him. He is also being diuresed. HE reports with reviewed. 12/12/17- Please see Dr. Rosa Bejarano notes 12/13/17- patient is being seen examined and evaluated upon rounds. He is resting up in bed on 4 L of supplemental oxygen. He is currently being weaned down as tolerated. Chest x-ray does show small resolving right pleural effusion. Patient's IV steroids will be switched over to oral prednisone tomorrow. Objective - Vital Signs Vital signs: Vital Signs Temp 97.7 F 12/13/17 07:00 Pulse 76 12/13/17 11:21 Resp 18 12/13/17 07:55 BP 114/78 12/13/17 07:00 Pulse Ox 99 12/13/17 07:00 Intake & Output 12/12/17 12/13/17 12/13/17 18:59 06:59 18:59 Intake Total 480 640 Balance 480 640 Weight 83.064 kg 83.064 kg Intake: Oral 480 640 Other: Voiding Method Toilet Toilet Toilet # Voids 2 - Exam GENERAL EXAM: Alert, active, comfortable in no apparent distress. HEAD: Normocephalic. EYES: Normal reaction of pupils, equal size. NOSE: Clear with pink turbinates. THROAT: No erythema or exudates. NECK: No masses, no JVD. CHEST: No chest wall deformity. LUNGS: Breath sounds noted to have bilateral expiratory wheezes with prolonged expiration, overall improved. CVS: S1 and S2 normal with no audible mumurs, regular rhythm. ABDOMEN: No hepatosplenomegaly, normal bowel sounds, no guarding or rigidity. EXTREMITIES: Trace edema noted, pedal pulses palpable. CENTRAL NERVOUS SYSTEM: No focal deficits, tone is normal in all 4 extremities. - Labs CBC & Chem 7: 12/12/17 08:04 12/13/17 08:27 Labs: Abnormal Lab Results - Last 24 Hours (Table) 12/12/17 12/12/17 12/13/17 Range/Units 16:36 20:37 07:00 BUN (9-20) mg/dL Creatinine (0.66-1.25) mg/dL Glucose (74-99) mg/dL POC Glucose (mg/dL) 161 H 145 H 139 H (75-99) mg/dL 12/13/17 12/13/17 Range/Units 08:27 11:38 BUN 45 H (9-20) mg/dL Creatinine 1.65 H (0.66-1.25) mg/dL Glucose 152 H (74-99) mg/dL POC Glucose (mg/dL) 166 H (75-99) mg/dL
[2017-12-13 17:00] LABS: Glucose,Whole Blood 145 mg/dL (75-99)
[2017-12-13] MEDS: cefTRIAXone IN SWFI 1,000 MG/10 ML SYRINGE IVP SCH (17:05)
[2017-12-13] MEDS: ATORVASTATIN 40 MG TAB PO SCH (20:22)
[2017-12-13 21:56] LABS: Glucose,Whole Blood 147 mg/dL (75-99)
--- NOTE | 2017-12-13 22:26 | PN ---
PROGRESS NOTE DATE OF SERVICE: 12/13/2017. PRESENTING COMPLAINT: Short of breath. INTERVAL HISTORY: The patient presents with CHF exacerbation and pneumonia. Cough is improving. Breathing is getting better. REVIEW OF SYSTEMS: Done for constitutional, cardiovascular, GI, pulmonary; relevant findings as above. CURRENT MEDICATIONS: Reviewed. EXAMINATION: Temperature 98.8, pulse 81, respiratory rate 18, blood pressure 108/66, pulse ox 98% on room air. GENERAL: Sitting up, more comfortable. EYES: Pupils equal. Conjunctivae normal. HEENT: External appearance of nose and ears normal. Oral cavity normal. NECK: JVD not raised. Mass not palpable. Respiratory effort increased. LUNGS: Decreased breath sounds. Improved crackles. CARDIOVASCULAR: 1st and 2nd heart sounds normal. No edema. ABDOMEN: Soft, nontender. Liver and spleen not palpable. PSYCHIATRY: Alert and oriented x3. Mood and affect normal. INVESTIGATIONS: BUN 45, creatinine 1.65. ASSESSMENT: 1. Acute on chronic congestive heart failure exacerbation from systolic dysfunction, ejection fraction 20%, from underlying coronary artery disease. 2. Coronary artery disease, prior history of stent. 3. Right lobe pneumonia, suspect gram-negative organism causing sepsis, present on admission, with clinical improvement. 4. Chronic kidney disease, stage 3B, from hypertensive nephrosclerosis. 5. Acute chronic obstructive pulmonary disease exacerbation in ex-smoker, improving. 6. Essential hypertension. 7. Hyperlipidemia. 8. Primary osteoarthritis of multiple joints. 9. Chronic gout. 10.Acute hypoxic respiratory failure, multifactorial including sepsis and congestive heart failure, present on admission, with pneumonia. 11.Chronic hypoxic respiratory failure on 2 L of oxygen at home. 12.Moderate mitral and tricuspid regurgitation, nonrheumatic. 13.Severe secondary pulmonary hypertension secondary to congestive heart failure and chronic obstructive pulmonary disease. PLAN: Patient is tolerating his Coreg and small dose of SHARA inhibitor. Overall doing much better. Looking at possible discharge tomorrow. MMODL / IJN: [id number] /
[2017-12-14] MEDS: LEVOTHYROXINE 75 MCG TAB PO SCH (05:39)
[2017-12-14 06:58] LABS: Glucose,Whole Blood 133 mg/dL (75-99)
[2017-12-14] MEDS: FORMOTEROL FUMARATE 20 MCG/2 ML NEBU INHALATION SCH (07:06)
[2017-12-14] MEDS: BUDESONIDE 0.5 MG/2 ML NEBU INHALATION SCH (07:06)
[2017-12-14] MEDS: IPRATROPIUM-ALBUTEROL 3 ML NEB INHALATION SCH ×3 (07:06→15:39)
[2017-12-14 07:54] LABS: Anisocytosis Slight; Basophils % (A) 0 %; Eosinophils % (A) 0 %; HGB 10.2 gm/dL (13.0-17.5); Hypochromasia Slight; Lymphocytes # (A) 0.3 k/uL (1.0-4.8); Lymphocytes % (A) 4 %; MCH 29.1 pg (25.0-35.0); MCHC 30.9 g/dL (31.0-37.0); MCV 94.2 fL (80.0-100.0); Mean Platelet Volume 7.5; Monocytes # (A) 0.3 k/uL (0-1.0); Monocytes % (A) 4 %; Neutrophils # (A) 7.4 k/uL (1.3-7.7); Neutrophils % (A) 92 %; Platelet Count 226 k/uL (150-450); RDW 16.9 % (11.5-15.5); WBC 8.1 k/uL (3.8-10.6)
[2017-12-14 08:07] VITALS: RESP 18
[2017-12-14 08:13] LABS: Calcium 9.2 mg/dL (8.4-10.2); Potassium 4.8 mmol/L (3.5-5.1)
[2017-12-14] MEDS ORDERED: predniSONE 20 MG TAB PO SCH (09:00)
[2017-12-14] MEDS: ENOXAPARIN 40 MG/0.4 ML SYRINGE SQ SCH (09:14)
[2017-12-14] MEDS: SODIUM BICARBONATE TAB 650 MG TAB PO SCH (09:14)
[2017-12-14] MEDS: INSULIN ASPART 100 UNIT/ML 1 ML 10 ML VIAL SQ SCH ×2 (09:14→13:17)
[2017-12-14] MEDS: AMIODARONE 200 MG TAB PO SCH (09:14)
[2017-12-14] MEDS: TORSEMIDE 20 MG TAB PO SCH (09:14)
[2017-12-14] MEDS: CLOPIDOGREL 75 MG TAB PO SCH (09:15)
[2017-12-14] MEDS: CARVEDILOL 3.125 MG TAB PO SCH (09:15)
[2017-12-14] MEDS: ALLOPURINOL 100 MG TAB PO SCH (09:16)
[2017-12-14 11:32] LABS: Glucose,Whole Blood 142 mg/dL (75-99)
--- NOTE | 2017-12-14 12:29 | P.PN ---
<Kay Menjivar E - Last Filed: 12/14/17 12:27> Subjective Progress Note Date: 12/14/17 [facility] is covering for Dr. Ovalles HPI: This is a 77-year-old male patient came into the ER with increasing shortness of breath. He was seen in the ED and received breathing treatments and he did not improve. The patient also stated he had some chest pain that started early in the day. He subsequently was admitted for further evaluation and management. 12/11/17-patient is being seen examined and evaluated on rounds. The patient is resting up in bed on 4 L of supplemental oxygen via nasal cannula. The patient does utilize 2.5 L of oxygen at home. Continues to be short of breath with exertion and activity has a congested cough with clear sputum. States he's been wheezing on and off. States the breathing treatments and steroids have been helping him. He is also being diuresed. HE reports with reviewed. 12/12/17- Please see Dr. Rosa Bejarano notes 12/13/17- patient is being seen examined and evaluated upon rounds. He is resting up in bed on 4 L of supplemental oxygen. He is currently being weaned down as tolerated. Chest x-ray does show small resolving right pleural effusion. Patient's IV steroids will be switched over to oral prednisone tomorrow. 12/14/17- patient being seen examined and evaluated today on rounds. He is resting up in bed on 2 L of supplemental oxygen via nasal cannula. Which is what he wears at baseline at home. He states he is feeling much better today. He is looking forward for discharge. He is afebrile no further complaints. All labs and reports have been reviewed. Objective - Vital Signs Vital signs: Vital Signs Temp 97.6 F 12/14/17 07:00 Pulse 83 12/14/17 11:01 Resp 18 12/14/17 07:00 BP 157/84 12/14/17 07:00 Pulse Ox 100 12/14/17 07:06 Intake & Output 12/13/17 12/14/17 12/14/17 18:59 06:59 18:59 Intake Total 640 480 Balance 640 480 Weight 83.064 kg Intake: Oral 640 480 Other: Voiding Method Toilet Toilet # Voids 2 2 - Exam GENERAL EXAM: Alert, active, comfortable in no apparent distress. HEAD: Normocephalic. EYES: Normal reaction of pupils, equal size. NOSE: Clear with pink turbinates. THROAT: No erythema or exudates. NECK: No masses, no JVD. CHEST: No chest wall deformity. LUNGS: Breath sounds noted to have bilateral expiratory wheezes with prolonged expiration, overall improved. CVS: S1 and S2 normal with no audible mumurs, regular rhythm. ABDOMEN: No hepatosplenomegaly, normal bowel sounds, no guarding or rigidity. EXTREMITIES: Trace edema noted, pedal pulses palpable. CENTRAL NERVOUS SYSTEM: No focal deficits, tone is normal in all 4 extremities. - Labs CBC & Chem 7: 12/14/17 07:17 12/14/17 07:17 Labs: Abnormal Lab Results - Last 24 Hours (Table) 12/13/17 12/13/17 12/14/17 Range/Units 16:55 21:40 06:51 RBC (4.30-5.90) m/uL Hgb (13.0-17.5) gm/dL Hct (39.0-53.0) % MCHC (31.0-37.0) g/dL RDW (11.5-15.5) % Lymphocytes # (1.0-4.8) k/uL BUN (9-20) mg/dL Creatinine (0.66-1.25) mg/dL Glucose (74-99) mg/dL POC Glucose (mg/dL) 145 H 147 H 133 H (75-99) mg/dL 12/14/17 12/14/17 12/14/17 Range/Units 07:17 07:17 11:28 RBC 3.50 L (4.30-5.90) m/uL Hgb 10.2 L (13.0-17.5) gm/dL Hct 33.0 L (39.0-53.0) % MCHC 30.9 L (31.0-37.0) g/dL RDW 16.9 H (11.5-15.5) % Lymphocytes # 0.3 L (1.0-4.8) k/uL BUN 54 H (9-20) mg/dL Creatinine 1.70 H (0.66-1.25) mg/dL Glucose 124 H (74-99) mg/dL POC Glucose (mg/dL) 142 H (75-99) mg/dL Assessment and Plan Assessment: Assessment chronic obstructive pulmonary disease with acute exacerbation Acute exacerbation of asthma, baseline unknown. Congestive heart failure Possible right lower lobe pneumonia Chronic renal failure Plan Patient to be cleared for discharge from a pulmonary standpoint. Medications have been reviewed and will be continued as ordered. Continue with pulmonary hygiene, coughing and deep breathing exercises, and supportive care. Supplemental oxygen to maintain oxygen saturations of 92% or better. Continue nebulizer treatments. GI and DVT prophylaxis. increase activity as tolerated. Initiate and encourage incentive spirometer. We will continue to monitor labs/ results and adjust treatment as necessary. Further recommendations pending. I performed an examination of the patient and discussed their management with the nurse practitioner. I have reviewed the nurse practitioner's note and agree with the documented findings and plan of care. <Sally Lopez - Last Filed: 12/14/17 15:02> Objective - Vital Signs Vital signs: Vital Signs Temp 97.5 F L 12/14/17 14:51 Pulse 82 12/14/17 14:51 Resp 18 12/14/17 14:51 BP 114/73 12/14/17 14:51 Pulse Ox 94 L 12/14/17 14:51 Intake & Output 12/13/17 12/14/17 12/14/17 18:59 06:59 18:59 Intake Total 640 480 Balance 640 480 Weight 83.064 kg 83 kg Intake: Oral 640 480 Other: Voiding Method Toilet Toilet # Voids 2 2 - Labs CBC & Chem 7: 12/14/17 07:17 12/14/17 07:17 Labs: Abnormal Lab Results - Last 24 Hours (Table) 12/13/17 12/13/17 12/14/17 Range/Units 16:55 21:40 06:51 RBC (4.30-5.90) m/uL Hgb (13.0-17.5) gm/dL Hct (39.0-53.0) % MCHC (31.0-37.0) g/dL RDW (11.5-15.5) % Lymphocytes # (1.0-4.8) k/uL BUN (9-20) mg/dL Creatinine (0.66-1.25) mg/dL Glucose (74-99) mg/dL POC Glucose (mg/dL) 145 H 147 H 133 H (75-99) mg/dL 12/14/17 12/14/17 12/14/17 Range/Units 07:17 07:17 11:28 RBC 3.50 L (4.30-5.90) m/uL Hgb 10.2 L (13.0-17.5) gm/dL Hct 33.0 L (39.0-53.0) % MCHC 30.9 L (31.0-37.0) g/dL RDW 16.9 H (11.5-15.5) % Lymphocytes # 0.3 L (1.0-4.8) k/uL BUN 54 H (9-20) mg/dL Creatinine 1.70 H (0.66-1.25) mg/dL Glucose 124 H (74-99) mg/dL POC Glucose (mg/dL) 142 H (75-99) mg/dL Assessment and Plan Assessment: Patient seen and examined. Patient states his breathing is at baseline and he is ready to go home. He states he is able to ambulate without difficulty. He does have a nebulizer and oxygen at home already. He follows with Dr. Gerardo of the office. He should follow up with Dr. Ovalles in 1-2 weeks. ~Sally Lopez DO
[2017-12-14] MEDS: LISINOPRIL 2.5 MG TAB PO SCH (13:17)
[2017-12-14 14:52] VITALS: BP 114/73; TEMP 97.5
[2017-12-14 15:43] VITALS: PULSE 78
--- NOTE | 2017-12-14 18:57 | DS ---
DISCHARGE SUMMARY DATE OF ADMISSION: 12/09/17. DATE OF DISCHARGE: 12/14/17 FINAL DIAGNOSES: 1. Acute on chronic congestive heart failure exacerbation of systolic dysfunction, ejection fraction 20% from underlying coronary artery disease. 2. Coronary artery disease prior history of stent. 3. Right lower lobe pneumonia suspect gram-negative organism causing sepsis present on admission with clinical improvement. 4. Chronic kidney disease, stage IIIB, from hypertensive nephrosclerosis. 5. Acute chronic obstructive pulmonary disease exacerbation in an ex-smoker. 6. Essential hypertension. 7. Hyperlipidemia. 8. Primary osteoarthritis multiple joints. 9. Chronic gout. 10.Acute hypoxic respiratory failure, multifactorial including from congestive heart failure and pneumonia. 11.Chronic hypoxic respiratory failure on 2 L oxygen at home. 12.Moderate mitral and tricuspid regurgitation, nonrheumatic. 13.Severe secondary pulmonary hypertension secondary to congestive heart failure and chronic obstructive pulmonary disease. HOSPITAL COURSE: This patient presented with CHF exacerbation, pneumonia, COPD exacerbation, diuresed well with Lasix. The patient's BUN and creatinine today is 51/1.70. Hemoglobin is 10.2. Doing much better. EXAM: Lungs: Decreased breath sounds. No edema. Psych: AO x3. Care was discussed with Dr. Lopez. Discussion and discharge planning more than 35 minutes. CONSULTATION: 1. Dr. Harman Aguilar from Pulmonary. 2. Dr. Weaver from Cardiology. DC MEDICATIONS: 1. ProAir 2 puffs q.6h p.r.n. 2. Allopurinol 100 mg p.o. b.i.d. 3. Lipitor 40 mg q.h.s. 4. Plavix 75 mg p.o. daily. 5. Cordarone 200 mg p.o. daily. 6. Synthroid 75 mcg a day. 7. Sodium bicarb 650 mg p.o. b.i.d. 8. Rocaltrol 0.25 mcg on Fridays. 9. Vitamin D2 04410 units on every 30 days. 10.Nitrostat 0.4 sublingual q.5h p.r.n. 11.Coreg 3.125 mg p.o. b.i.d., new medication. 12.Ceftin 500 mg p.o. b.i.d. 10 tablets. 13.DuoNeb q.i.d., new. 14.Zestril 2.5 p.o. daily at 1:00 pm. 15.Demadex 20 mg p.o. daily. 16.Prednisone taper. FOLLOWUP: Follow up with Dr. Darling on 01/18/18, follow Dr. Harman Guy on 01/04/18, follow up with his security systems engineer. Home oxygen to continue. MMODL / IJN: [id number] /
[2017-12-15] MEDS ORDERED: CALCITRIOL 0.25 MCG CAP PO SCH (12:00)
[2017-12-30] MEDS ORDERED: ERGOCALCIFEROL 50,000 UNIT CAP PO SCH (12:00)
== END 2017-12-14 16:10 | disposition home or self-care (01) | DRG 871 ==
LOC: EC 21:09 → 5MS5E 23:17
PROVIDERS: ADMIT Hospitalist; ATTEND Hospitalist
DX: A41.9 Sepsis, unspecified organism (principal); I50.23 Acute on chronic systolic (congestive) heart failure; J96.21 Acute and chronic respiratory failure with hypoxia; J15.6 Pneumonia due to other Gram-negative bacteria; I27.29 Other secondary pulmonary hypertension; J44.0 Chronic obstructive pulmonary disease with (acute) lower respiratory infection; I13.0 Hypertensive heart and chronic kidney disease with heart failure and stage 1 through stage 4 chronic kidney disease, or unspecified chronic kidney disease; J45.901 Unspecified asthma with (acute) exacerbation; I36.1 Nonrheumatic tricuspid (valve) insufficiency; Z86.74 Personal history of sudden cardiac arrest; Z99.81 Dependence on supplemental oxygen; J44.1 Chronic obstructive pulmonary disease with (acute) exacerbation; I25.5 Ischemic cardiomyopathy; I34.0 Nonrheumatic mitral (valve) insufficiency; N18.3 Chronic kidney disease, stage 3 (moderate); E78.5 Hyperlipidemia, unspecified; I25.10 Atherosclerotic heart disease of native coronary artery without angina pectoris; I25.2 Old myocardial infarction; M19.91 Primary osteoarthritis, unspecified site; M1A.9XX0 Chronic gout, unspecified, without tophus (tophi); Z95.5 Presence of coronary angioplasty implant and graft; Z95.2 Presence of prosthetic heart valve; Z90.49 Acquired absence of other specified parts of digestive tract; Z79.02 Long term (current) use of antithrombotics/antiplatelets; Z79.899 Other long term (current) drug therapy; Z87.891 Personal history of nicotine dependence
CPT/HCPCS: 36415; 71046; 80048; 80053; 82550; 82553; 83036; 83735; 83880; 84484; 85025; 85610; 85730; 87070; 87205; 93005; 93306; 94640; 94760; 96361; 96374; 96375; 99291

== ENCOUNTER 2018-07-17 12:59 | Inpatient (IN) | payer MEDICARE, OTHER ==
[2018-07-17] MEDS ORDERED: FUROSEMIDE 10 MG/ML 4 ML VIAL IV STA (14:32)
--- NOTE | 2018-07-17 14:36 | ED ---
General Adult HPI - General Chief complaint: Shortness of Breath Stated complaint: Copd Source: patient Mode of arrival: wheelchair Limitations: no limitations - History of Present Illness Initial comments: Dictation was produced using [employer] dictation software. please excuse any grammatical, word or spelling errors. Chief Complaint: 77-year-old male past medical history of congestive heart failure, COPD presents with difficulty breathing. History of Present Illness: This 77-year-old male with past medical history of 20% ejection fraction, COPD. His chief complaint today is bilateral lower extremity swelling and difficulty in breathing. Patient states that his symptoms have been progressive. He is unsure whether this is more of his CHF or COPD and play. Patient states he's been having severe edema to his bilateral lower extremities extending all the way to his mid abdomen. Patient has been feeling as though his pants are getting tighter. Patient also has been complaining of weight gain. Chart review shows that patient had echocardiogram done in November of this year showing 20% ejection fraction. Patient also has established report developer. Patient denies any pain complaints. The ROS documented in this emergency department record has been reviewed and confirmed by me. Those systems with pertinent positive or negative responses have been documented in the HPI. All other systems are other negative and/or noncontributory. - Related Data Home Medications Medication Instructions Recorded Confirmed Albuterol Sulfate [Proair Hfa] 2 puff INHALATION RT-Q6H PRN 02/03/15 07/17/18 Allopurinol [Zyloprim] 100 mg PO BID 02/03/15 07/17/18 Atorvastatin [Lipitor] 40 mg PO HS 02/03/15 07/17/18 Clopidogrel [Plavix] 75 mg PO DAILY 02/03/15 07/17/18 Amiodarone [Cordarone] 200 mg PO DAILY 07/06/17 07/17/18 Levothyroxine Sodium [Synthroid] 75 mcg PO DAILY 07/06/17 07/17/18 Sodium Bicarbonate Tab 650 mg PO BID 07/06/17 07/17/18 Calcitriol [Rocaltrol] 0.25 mcg PO TUTHSA 12/10/17 07/17/18 Ergocalciferol (Vitamin D2) 50,000 unit PO Q30D 12/10/17 07/17/18 [Vitamin D2] Nitroglycerin Sl Tabs [Nitrostat] 0.4 mg SUBLINGUAL Q5M PRN 12/10/17 07/17/18 Acetaminophen Tab [Tylenol Tab] 650 mg PO Q6H PRN 07/17/18 07/17/18 Docusate [Colace] 100 mg PO DAILY PRN 07/17/18 07/17/18 Furosemide [Lasix] 20 mg PO DAILY 07/17/18 07/17/18 Tiotropium Br/Olodaterol HCl 2 inhalation PO RT-DAILY 07/17/18 07/17/18 [Stiolto Respimat Inhal [place]] Previous Rx's Medication Instructions Recorded Ipratropium-Albuterol Nebulize 3 ml INHALATION RT-QID #120 12/14/17 [Duoneb 0.5 mg-3 mg/3 ml Soln] ampul.neb Allergies Allergy/AdvReac Type Severity Reaction Status Date / Time prednisone Allergy Unknown Verified 07/17/18 14:21 Review of Systems ROS Statement: Those systems with pertinent positive or pertinent negative responses have been documented in the HPI. ROS Other: All systems not noted in ROS Statement are negative. Past Medical History Past Medical History: Chest Pain / Angina, Heart Failure, COPD, Hyperlipidemia, Hypertension, Myocardial Infarction ([place]), Osteoarthritis ([place]) Additional Past Medical History / Comment(s): hx. gout, uses oxygen @2l prn mostly @[facility], PAST CARDIAC ARREST Last Myocardial Infarction Date:: 2013 History of Any Multi-Drug Resistant Organisms: None Reported Past Surgical History: Appendectomy, Cardiac Valve Replacement, Heart Catheterization With Stent Additional Past Surgical History / Comment(s): cardiac valve clip Past Anesthesia/Blood Transfusion Reactions: No Reported Reaction Date of Last Stent Placement:: 2013 Past Psychological History: No Psychological Hx Reported Smoking Status: Never smoker Past Alcohol Use History: None Reported Past Drug Use History: None Reported - Past Family History Father Family Medical History: Cancer Mother Family Medical History: Cancer General Exam - General Exam Comments Initial Comments: PHYSICAL EXAM: General Impression: Alert and oriented x3, not in acute distress HEENT: Normocephalic atraumatic, extra-ocular movements intact, pupils equal and reactive to light bilaterally, mucous membranes moist. Cardiovascular: Heart regular rate and rhythm, S1&S2 audible, no murmurs, rubs or gallops Chest: Bilateral lung wheezing Abdomen: Mild pitting edema to the lower abdomen otherwise soft Musculoskeletal: Pulses present and equal in all extremities, bilateral lower extremity 4+ pitting edema Motor: Moves all showing grossly Neurological: CN II-XII grossly intact, no focal motor or sensory deficits noted Skin: Intact with no visualized rashes Psych: Normal affect and mood Limitations: no limitations Course Vital Signs 07/17/18 07/17/18 13:20 13:23 Temperature 97.5 F L Pulse Rate 77 Respiratory 20 24 Rate Blood Pressure 107/78 O2 Sat by Pulse 96 Oximetry Medical Decision Making - Medical Decision Making ED course: [age]-year-old male with history of 20% ejection fraction presents with shortness of breath. He also has a history of COPD. She has multiple comorbidities including coronary artery disease and cardiac valve surgery. Vital signs upon arrival shows blood pressure 107/70, respiratory signs within normal limits. Bedside point of care ultrasound showed diffuse B line artifacts representing pulmonary edema as opposed to COPD. EKG does not show any findings of ischemic changes. Laboratory evaluation obtained. CBC is unremarkable. Coag panel is unremarkable. There is elevation of renal markers which. The baseline. Cardiac enzymes are negative. X-ray was obtained showing persistent right pleural effusion which is worse than most recent x-ray. Clinical picture is consistent with mild decompensated congestive heart failure. Patient given IV Lasix. Patient hemodynamically stable at this time. No indication for BiPAP. Patient admitted to hospital for gentle diuresis and consultation cardiology. EKG Interpretation: A 12 lead EKG was obtained. It was interpreted by myself and attending physician. There is a P wave before every QRS complex. Rate is 72. Rhythm is sinus rhythm, VA interval 190, QRS 110, QTc 490. QT is not prolonged. No ST segment depression or elevation. . Overall, this EKG is unremarkable - Lab Data Result diagrams: 07/17/18 14:52 07/17/18 14:52 Lab Results 07/17/18 07/17/18 07/17/18 Range/Units 14:52 14:52 14:52 WBC 4.9 (3.8-10.6) k/uL RBC 3.84 L (4.30-5.90) m/uL Hgb 10.6 L (13.0-17.5) gm/dL Hct 34.4 L (39.0-53.0) % MCV 89.5 (80.0-100.0) fL MCH 27.7 (25.0-35.0) pg MCHC 31.0 (31.0-37.0) g/dL RDW 18.9 H (11.5-15.5) % Plt Count 201 (150-450) k/uL Neutrophils % 77 % Lymphocytes % 11 % Monocytes % 7 % Eosinophils % 3 % Basophils % 1 % Neutrophils # 3.8 (1.3-7.7) k/uL Lymphocytes # 0.5 L (1.0-4.8) k/uL Monocytes # 0.4 (0-1.0) k/uL Eosinophils # 0.1 (0-0.7) k/uL Basophils # 0.1 (0-0.2) k/uL Hypochromasia Marked Anisocytosis Slight PT (9.0-12.0) sec INR (<1.2) APTT (22.0-30.0) sec Sodium 141 (137-145) mmol/L Potassium 3.6 (3.5-5.1) mmol/L Chloride 105 (98-107) mmol/L Carbon Dioxide 25 (22-30) mmol/L Anion Gap 11 mmol/L BUN 34 H (9-20) mg/dL Creatinine 1.46 H (0.66-1.25) mg/dL Est GFR (CKD-EPI)AfAm 54 (>60 ml/min/1.73 sqM) Est GFR (CKD-EPI)NonAf 46 (>60 ml/min/1.73 sqM) Glucose 89 (74-99) mg/dL Calcium 8.9 (8.4-10.2) mg/dL Magnesium 2.3 (1.6-2.3) mg/dL Total Bilirubin 1.1 (0.2-1.3) mg/dL AST 27 (17-59) U/L ALT 29 (21-72) U/L Alkaline Phosphatase 113 (38-126) U/L Total Creatine Kinase 116 (55-170) U/L CK-MB (CK-2) 3.7 H (0.0-2.4) ng/mL CK-MB (CK-2) Rel Index 3.2 Troponin I <0.012 (0.000-0.034) ng/mL Total Protein 7.0 (6.3-8.2) g/dL Albumin 3.7 (3.5-5.0) g/dL 07/17/18 Range/Units 14:52 WBC (3.8-10.6) k/uL RBC (4.30-5.90) m/uL Hgb (13.0-17.5) gm/dL Hct (39.0-53.0) % MCV (80.0-100.0) fL MCH (25.0-35.0) pg MCHC (31.0-37.0) g/dL RDW (11.5-15.5) % Plt Count (150-450) k/uL Neutrophils % % Lymphocytes % % Monocytes % % Eosinophils % % Basophils % % Neutrophils # (1.3-7.7) k/uL Lymphocytes # (1.0-4.8) k/uL Monocytes # (0-1.0) k/uL Eosinophils # (0-0.7) k/uL Basophils # (0-0.2) k/uL Hypochromasia Anisocytosis PT 11.8 (9.0-12.0) sec INR 1.2 H (<1.2) APTT 24.4 (22.0-30.0) sec Sodium (137-145) mmol/L Potassium (3.5-5.1) mmol/L Chloride (98-107) mmol/L Carbon Dioxide (22-30) mmol/L Anion Gap mmol/L BUN (9-20) mg/dL Creatinine (0.66-1.25) mg/dL Est GFR (CKD-EPI)AfAm (>60 ml/min/1.73 sqM) Est GFR (CKD-EPI)NonAf (>60 ml/min/1.73 sqM) Glucose (74-99) mg/dL Calcium (8.4-10.2) mg/dL Magnesium (1.6-2.3) mg/dL Total Bilirubin (0.2-1.3) mg/dL AST (17-59) U/L ALT (21-72) U/L Alkaline Phosphatase (38-126) U/L Total Creatine Kinase (55-170) U/L CK-MB (CK-2) (0.0-2.4) ng/mL CK-MB (CK-2) Rel Index Troponin I (0.000-0.034) ng/mL Total Protein (6.3-8.2) g/dL Albumin (3.5-5.0) g/dL Disposition Clinical Impression: CHF (congestive heart failure) Disposition: ADMITTED IP TO THIS HOSP Condition: Fair Referrals: Samuel Darling DO [Primary Care Provider] - 1-2 days Decision Time: 15:45
--- NOTE | 2018-07-17 15:21 | XR ---
EXAMINATION TYPE: XR chest 2V DATE OF EXAM: 07/17/2018 COMPARISON: 12/12/2017. HISTORY: Shortness of breath and productive cough. TECHNIQUE: Frontal and lateral views of the chest are obtained. FINDINGS: There is a hazy opacity at the right lung base with right small pleural effusion blunting the costophrenic angle. Heart is enlarged. No cephalization. Osseous structures appear intact with mi nimal multilevel degenerative changes of the thoracic spine. IMPRESSION: Persistent trace right pleural effusion and right basilar airspace disease, slightly wor sened in the interim. Considerations are for atelectasis or pneumonia with respect to be airspace dis ease.
[2018-07-17 15:27] LABS: Albumin 3.7 g/dL (3.5-5.0); Calcium 8.9 mg/dL (8.4-10.2); Magnesium 2.3 mg/dL (1.6-2.3); Potassium 3.6 mmol/L (3.5-5.1); Total Bilirubin 1.1 mg/dL (0.2-1.3)
[2018-07-17 15:30] LABS: Creatine Kinase 116 U/L (55-170); INR 1.2 (<1.2); Partial Thromboplastin Time 24.4 sec (22.0-30.0); Prothrombin Time 11.8 sec (9.0-12.0)
[2018-07-17 15:31] LABS: Anisocytosis Slight; Basophils # (A) 0.1 k/uL (0-0.2); Basophils % (A) 1 %; Eosinophils # (A) 0.1 k/uL (0-0.7); Eosinophils % (A) 3 %; HCT 34.4 % (39.0-53.0); HGB 10.6 gm/dL (13.0-17.5); Hypochromasia Marked; Lymphocytes # (A) 0.5 k/uL (1.0-4.8); Lymphocytes % (A) 11 %; MCH 27.7 pg (25.0-35.0); MCV 89.5 fL (80.0-100.0); Mean Platelet Volume 7.6; Monocytes # (A) 0.4 k/uL (0-1.0); Monocytes % (A) 7 %; Neutrophils # (A) 3.8 k/uL (1.3-7.7); Neutrophils % (A) 77 %; Platelet Count 201 k/uL (150-450); RBC 3.84 m/uL (4.30-5.90); RDW 18.9 % (11.5-15.5); WBC 4.9 k/uL (3.8-10.6)
[2018-07-17 15:43] LABS: Creatine Kinase MB 3.7 ng/mL (0.0-2.4); Troponin I <0.012 ng/mL (0.000-0.034)
[2018-07-17] MEDS ORDERED: NALOXONE 0.4 MG/ML 1 ML VIAL IV PRN (15:46)
[2018-07-17] MEDS ORDERED: NITROGLYCERIN SL TABS 0.4 MG TAB SUBLINGUAL PRN (15:47)
[2018-07-17] MEDS: IPRATROPIUM 0.5 MG/2.5 ML NEBU INHALATION SCH ×2 (16:15→19:30)
[2018-07-17] MEDS: FORMOTEROL FUMARATE 20 MCG/2 ML NEBU INHALATION SCH (19:55)
[2018-07-17] MEDS: ATORVASTATIN 40 MG TAB PO SCH (20:24)
[2018-07-17] MEDS: SODIUM BICARBONATE TAB 650 MG TAB PO SCH (22:17)
--- NOTE | 2018-07-17 23:49 | P.HPIM ---
History of Present Illness H&P Date: 07/17/18 Chief Complaint: Shortness of breath and leg swelling Patient is a 77-year-old male with a known history of CHF with ejection fraction 20%, COPD on home oxygen at 3.5 L via nasal cannula came to ER with complaints of bilateral lower extremities swelling and difficulty breathing gradually worsening for the past couple of weeks. Patient denied any complaints of chest pain. Patient is also having history of COPD on home oxygen. Denied any PND. Patient does have orthopnea. No fever no chills. No cough or sputum production. Patient has been feeling as though his pants are getting tighter. Patient also has been complaining of weight gain. Patient had echocardiogram done in November 2017 showed ejection fraction 20%. EKG showed sinus rhythm with PVCs Chest x-ray showed persistent trace right pleural effusion and right basilar insufficiency disease, slightly worsened in the interim. Consideration for atelectasis or pneumonia with respect to replace this disease. No leukocytosis. BNP 13,000 Review of Systems Constitutional: Patient denies any fever or chills . No generalized weakness or weight loss. Abdomen: Patient denied nausea vomiting and diarrhea and abdominal pain. Cardiovascular: Patient denies any chest pain . Patient does have shortness of breath and leg swelling. no palpitations. Respiratory: patient denied any cough is from production. Patient does have shortness of breath Neurologic: Patient denied any numbness or tingling headache. Musculoskeletal: Patient denies any complaints of joint swelling or deformity. Skin: Negative Psychiatric: Negative Endocrine: No heat or cold intolerance. No recent weight gain. Genitourinary: No dysuria or hematuria. All other 14 point ROS negative except the above Past Medical History Past Medical History: Chest Pain / Angina, Heart Failure, COPD, Eye Disorder, Hyperlipidemia, Hypertension, Myocardial Infarction ([place]), Osteoarthritis (OA), Pneumonia, Renal Disease, Thyroid Disorder Additional Past Medical History / Comment(s): hx. gout, uses oxygen @3.5 liters atc, PAST CARDIAC ARREST, arthritis feet/hands, beginning of cataracts. umb hernia, cyst rt groin Last Myocardial Infarction Date:: 2013 History of Any Multi-Drug Resistant Organisms: None Reported Past Surgical History: Appendectomy, Cardiac Valve Replacement, Heart Catheterization With Stent Additional Past Surgical History / Comment(s): cardiac valve "clip", cyst on back removed Past Anesthesia/Blood Transfusion Reactions: No Reported Reaction Additional Past Anesthesia/Blood Transfusion Reaction / Comment(s): blood-no reaction Date of Last Stent Placement:: 2013 Smoking Status: Former smoker - Past Family History Father Family Medical History: Cancer Mother Family Medical History: Cancer Medications and Allergies Home Medications Medication Instructions Recorded Confirmed Type Albuterol Sulfate [Proair Hfa] 2 puff INHALATION RT-Q6H PRN 02/03/15 07/17/18 History Allopurinol [Zyloprim] 100 mg PO BID 02/03/15 07/17/18 History Atorvastatin [Lipitor] 40 mg PO HS 02/03/15 07/17/18 History Clopidogrel [Plavix] 75 mg PO DAILY 02/03/15 07/17/18 History Amiodarone [Cordarone] 200 mg PO DAILY 07/06/17 07/17/18 History Levothyroxine Sodium [Synthroid] 75 mcg PO DAILY 07/06/17 07/17/18 History Sodium Bicarbonate Tab 650 mg PO BID 07/06/17 07/17/18 History Calcitriol [Rocaltrol] 0.25 mcg PO TUTHSA 12/10/17 07/17/18 History Ergocalciferol (Vitamin D2) 50,000 unit PO Q30D 12/10/17 07/17/18 History [Vitamin D2] Nitroglycerin Sl Tabs [Nitrostat] 0.4 mg SUBLINGUAL Q5M PRN 12/10/17 07/17/18 History Ipratropium-Albuterol Nebulize 3 ml INHALATION RT-QID #120 12/14/17 07/17/18 Rx [Duoneb 0.5 mg-3 mg/3 ml Soln] ampul.neb Acetaminophen Tab [Tylenol Tab] 650 mg PO Q6H PRN 07/17/18 07/17/18 History Docusate [Colace] 100 mg PO DAILY PRN 07/17/18 07/17/18 History Furosemide [Lasix] 20 mg PO DAILY 07/17/18 07/17/18 History Tiotropium Br/Olodaterol HCl 2 inhalation PO RT-DAILY 07/17/18 07/17/18 History [Stiolto Respimat Inhal [place]] Allergies Allergy/AdvReac Type Severity Reaction Status Date / Time prednisone Allergy Unknown Verified 07/17/18 14:21 lactose AdvReac Diarrhea Verified 07/17/18 22:36 Physical Exam Vitals: Vital Signs Temp Pulse Pulse Resp BP BP Pulse Ox 07/17/18 20:03 72 07/17/18 19:58 97.7 F 70 20 115/76 94 L 07/17/18 19:56 72 07/17/18 19:47 74 07/17/18 19:33 73 07/17/18 19:00 73 24 133/83 98 07/17/18 18:00 71 20 112/86 96 07/17/18 17:39 97.9 F 07/17/18 17:00 76 24 118/95 91 L 07/17/18 16:24 70 07/17/18 16:17 70 07/17/18 16:00 69 16 110/81 96 07/17/18 15:00 68 23 110/88 99 07/17/18 14:33 76 18 92 L 07/17/18 13:23 24 07/17/18 13:20 97.5 F L 77 20 107/78 96 Intake and Output 07/17/18 07/17/18 07/18/18 14:59 22:59 06:59 Other: # Voids 2 Weight 88.451 kg PHYSICAL EXAMINATION: Patient is lying in the bed comfortably, no acute distress, awake alert and oriented.. HEENT: Normocephalic. Neck is supple. Pupils reactive. Nostrils clear. Oral cavity is moist. Ears reveal no drainage. Neck reveals no JVD, carotid bruits, or thyromegaly. CHEST EXAMINATION: Trachea is central. Symmetrical expansion. Bibasilar crackles and prolonged expiration. Mild expiratory wheezing. CARDIAC: Normal S1, S2 with no gallops. No murmurs ABDOMEN: Soft. Bowel sounds normal. No organomegaly. No abdominal bruits. Extremities: 3+ edema. No clubbing or cyanosis Neurologically awake, alert, oriented x3 with well-coordinated movements. No focal deficits noted Skin: No rash or skin lesions. Psychiatric: Coperative. Nonsuicidal Musculoskeletal: No joint swelling or deformity. Normal range of motion. Results CBC & Chem 7: 07/17/18 14:52 07/17/18 14:52 Labs: Abnormal Lab Results - Last 24 Hours (Table) 10/16/18 10/16/18 10/16/18 Range/Units 14:52 14:52 14:52 RBC 3.84 L (4.30-5.90) m/uL Hgb 10.6 L (13.0-17.5) gm/dL Hct 34.4 L (39.0-53.0) % RDW 18.9 H (11.5-15.5) % Lymphocytes # 0.5 L (1.0-4.8) k/uL INR (<1.2) BUN 34 H (9-20) mg/dL Creatinine 1.46 H (0.66-1.25) mg/dL CK-MB (CK-2) 3.7 H (0.0-2.4) ng/mL 18 Range/Units 14:52 RBC (4.30-5.90) m/uL Hgb (13.0-17.5) gm/dL Hct (39.0-53.0) % RDW (11.5-15.5) % Lymphocytes # (1.0-4.8) k/uL INR 1.2 H (<1.2) BUN (9-20) mg/dL Creatinine (0.66-1.25) mg/dL CK-MB (CK-2) (0.0-2.4) ng/mL Thrombosis Risk Factor Assmnt - DVT/VTE Prophylaxis DVT/VTE Prophylaxis: Pharmacologic Prophylaxis ordered - Choose All That Apply Each Factor Represents 1 point: Abnormal pulmonary function (COPD), Heart failure (<1month) Each Risk Factor Represents 3 Points: Age 75 years or older Thrombosis Risk Factor Assessment Total Risk Factor Score: 5 Thrombosis Risk Factor Assessment Level: High Risk Assessment and Plan Assessment: Acute CHF exacerbation with systolic dysfunction ejection fraction 20% History of coronary artery disease and stent placement Previous history of cardiac arrest Ischemic cardiomyopathy COPD on home oxygen Previous history of smoking Hypertension Hyperlipidemia History of [place] Osteoarthritis of multiple joints Number likely hernia History of valve replacement DVT prophylaxis Previous history of smoking Plan: Patient will be continued on IV diuresis with Lasix 20 mg every 12hrs. Patient was given a dose of 40 mg IV while in the ER. Continue with amiodarone, Plavix and statins. Continued with pain management and breathing treatments with duo nebs. Oxygen therapy. Continue the home medications and follow up closely. Further recommendations based on the clinical course. Prognosis is guarded with multiple medical problems and comorbid conditions. Time with Patient: Greater than 30
[2018-07-18] MEDS ORDERED: FUROSEMIDE 10 MG/ML 2 ML VIAL IV ONE (00:28)
[2018-07-18] MEDS: HEPARIN SODIUM,PORCINE 5,000 UNIT/ML 1 ML VIAL SQ SCH ×3 (00:59→16:55)
[2018-07-18] MEDS: ALLOPURINOL 100 MG TAB PO SCH ×3 (01:00→19:54)
[2018-07-18] MEDS: ALBUTEROL NEBULIZED 2.5 MG/3 ML INHALATION PRN ×4 (03:04→19:18)
[2018-07-18] MEDS: SENNOSIDES 8.6 MG TAB PO PRN (03:14)
[2018-07-18] MEDS: LEVOTHYROXINE 75 MCG TAB PO SCH (05:57)
[2018-07-18] MEDS: IPRATROPIUM 0.5 MG/2.5 ML NEBU INHALATION SCH ×5 (08:06→19:24)
[2018-07-18] MEDS: FORMOTEROL FUMARATE 20 MCG/2 ML NEBU INHALATION SCH ×2 (08:06→20:46)
[2018-07-18] MEDS ORDERED: CARVEDILOL 3.125 MG TAB PO STA (08:28)
[2018-07-18] MEDS ORDERED: FUROSEMIDE 10 MG/ML 2 ML VIAL IV SCH (09:00)
[2018-07-18] MEDS ORDERED: ALLOPURINOL 100 MG TAB PO SCH (09:00)
--- NOTE | 2018-07-18 09:23 | P.CRDCN ---
<MegMarek - Last Filed: 07/18/18 09:22> History of Present Illness History of present illness: patient with severe LV dysfunction presenting with increasing shortness of breath and bilateral lower extremity edema Mr. 2 weeks of Lasix as an outpatient Increasing abdominal girth increasing lower extremity edema Worsening heart failure acute on chronic with severe LV dysfunction and mitral disease Suggest inpatient admission and intravenous Lasix watch renal function Past Medical History Past Medical History: Chest Pain / Angina, Heart Failure, COPD, Eye Disorder, Hyperlipidemia, Hypertension, Myocardial Infarction (MO), Osteoarthritis (OA), Pneumonia, Renal Disease, Thyroid Disorder Additional Past Medical History / Comment(s): hx. gout, uses oxygen @3.5 liters atc, PAST CARDIAC ARREST, arthritis feet/hands, beginning of cataracts. umb hernia, cyst rt groin Last Myocardial Infarction Date:: 2013 History of Any Multi-Drug Resistant Organisms: None Reported Past Surgical History: Appendectomy, Cardiac Valve Replacement, Heart Catheterization With Stent Additional Past Surgical History / Comment(s): cardiac valve "clip", cyst on back removed Past Anesthesia/Blood Transfusion Reactions: No Reported Reaction Additional Past Anesthesia/Blood Transfusion Reaction / Comment(s): blood-no reaction Date of Last Stent Placement:: 2013 Smoking Status: Former smoker - Past Family History Father Family Medical History: Cancer Mother Family Medical History: Cancer Medications and Allergies Home Medications Medication Instructions Recorded Confirmed Type Albuterol Sulfate [Proair Hfa] 2 puff INHALATION RT-Q6H PRN 02/03/15 07/17/18 History Allopurinol [Zyloprim] 100 mg PO BID 02/03/15 07/17/18 History Atorvastatin [Lipitor] 40 mg PO HS 02/03/15 07/17/18 History Clopidogrel [Plavix] 75 mg PO DAILY 02/03/15 07/17/18 History Amiodarone [Cordarone] 200 mg PO DAILY 07/06/17 07/17/18 History Levothyroxine Sodium [Synthroid] 75 mcg PO DAILY 07/06/17 07/17/18 History Sodium Bicarbonate Tab 650 mg PO BID 07/06/17 07/17/18 History Calcitriol [Rocaltrol] 0.25 mcg PO TUTHSA 12/10/17 07/17/18 History Ergocalciferol (Vitamin D2) 50,000 unit PO Q30D 12/10/17 07/17/18 History [Vitamin D2] Nitroglycerin Sl Tabs [Nitrostat] 0.4 mg SUBLINGUAL Q5M PRN 12/10/17 07/17/18 History Ipratropium-Albuterol Nebulize 3 ml INHALATION RT-QID #120 12/14/17 07/17/18 Rx [Duoneb 0.5 mg-3 mg/3 ml Soln] ampul.neb Acetaminophen Tab [Tylenol Tab] 650 mg PO Q6H PRN 07/17/18 07/17/18 History Docusate [Colace] 100 mg PO DAILY PRN 07/17/18 07/17/18 History Furosemide [Lasix] 20 mg PO DAILY 07/17/18 07/17/18 History Tiotropium Br/Olodaterol HCl 2 inhalation PO RT-DAILY 07/17/18 07/17/18 History [Stiolto Respimat Inhal [place]] Allergies Allergy/AdvReac Type Severity Reaction Status Date / Time prednisone Allergy Unknown Verified 07/17/18 14:21 lactose AdvReac Diarrhea Verified 07/17/18 22:36 Physical Exam Vitals: Vital Signs Temp Pulse Pulse Resp BP BP Pulse Ox 07/18/18 08:34 88 07/18/18 08:28 87 07/18/18 08:27 87 07/18/18 08:07 72 07/18/18 08:00 98.3 F 74 16 119/85 100 07/18/18 04:00 20 07/18/18 03:44 98.3 F 76 20 155/89 98 07/18/18 03:14 74 07/18/18 03:05 76 07/18/18 00:00 16 07/17/18 23:50 98.3 F 75 16 124/82 97 07/17/18 20:03 72 07/17/18 20:00 20 07/17/18 19:58 97.7 F 70 20 115/76 94 L 07/17/18 19:56 72 07/17/18 19:47 74 07/17/18 19:33 73 07/17/18 19:00 73 24 133/83 98 07/17/18 18:00 71 20 112/86 96 07/17/18 17:39 97.9 F 07/17/18 17:00 76 24 118/95 91 L 07/17/18 16:24 70 07/17/18 16:17 70 07/17/18 16:00 69 16 110/81 96 07/17/18 15:00 68 23 110/88 99 07/17/18 14:33 76 18 92 L 07/17/18 13:23 24 07/17/18 13:20 97.5 F L 77 20 107/78 96 Intake and Output 07/17/18 07/18/18 07/18/18 22:59 06:59 14:59 Other: # Voids 2 2 1 Weight 95.5 kg 96.9 kg Results 07/17/18 14:52 07/17/18 14:52 Cardiac Enzymes 07/17/18 07/17/18 Range/Units 14:52 14:52 AST 27 (17-59) U/L CK-MB (CK-2) 3.7 H (0.0-2.4) ng/mL Troponin I <0.012 (0.000-0.034) ng/mL Coagulation 07/17/18 Range/Units 14:52 PT 11.8 (9.0-12.0) sec APTT 24.4 (22.0-30.0) sec CBC 07/17/18 Range/Units 14:52 WBC 4.9 (3.8-10.6) k/uL RBC 3.84 L (4.30-5.90) m/uL Hgb 10.6 L (13.0-17.5) gm/dL Hct 34.4 L (39.0-53.0) % Plt Count 201 (150-450) k/uL Comprehensive Metabolic Panel 07/17/18 Range/Units 14:52 Sodium 141 (137-145) mmol/L Potassium 3.6 (3.5-5.1) mmol/L Chloride 105 (98-107) mmol/L Carbon Dioxide 25 (22-30) mmol/L BUN 34 H (9-20) mg/dL Creatinine 1.46 H (0.66-1.25) mg/dL Glucose 89 (74-99) mg/dL Calcium 8.9 (8.4-10.2) mg/dL AST 27 (17-59) U/L ALT 29 (21-72) U/L Alkaline Phosphatase 113 (38-126) U/L Total Protein 7.0 (6.3-8.2) g/dL Albumin 3.7 (3.5-5.0) g/dL Current Medications Generic Name Dose Route Start Last Admin Trade Name Freq PRN Reason Stop Dose Admin Albuterol Sulfate 2.5 mg 07/17/18 15:47 07/18/18 08:06 Ventolin Nebulized INHALATION 2.5 mg RT-Q6H PRN Administration Shortness Of Breath Allopurinol 100 mg 07/18/18 00:30 07/18/18 01:00 Zyloprim PO 100 mg BID [facility] Administration Amiodarone HCl 200 mg 07/18/18 09:00 Cordarone PO DAILY [facility] Atorvastatin Calcium 40 mg 07/17/18 21:00 07/17/18 20:24 Lipitor PO 40 mg HS [facility] Administration Calcitriol 0.25 mcg 07/19/18 09:00 Rocaltrol PO TUTHSA [facility] Clopidogrel Bisulfate 75 mg 07/18/18 09:00 Plavix PO DAILY [facility] Docusate Sodium 100 mg 07/17/18 23:47 Colace PO DAILY PRN Constipation Ergocalciferol 50,000 unit 08/16/18 09:00 Vitamin D2 PO Q30D [facility] Formoterol Fumarate 20 mcg 07/17/18 20:00 07/18/18 08:06 Perforomist INHALATION 20 mcg RT-BID [facility] Administration Furosemide 40 mg 07/18/18 09:00 Lasix IV 07/19/18 06:00 Q12HR [facility] Furosemide 40 mg 07/19/18 09:00 Lasix IV DAILY [facility] Heparin Sodium (Porcine) 5,000 unit 07/18/18 00:00 07/18/18 00:59 Heparin SQ 5,000 unit Q8HR [facility] Administration Ipratropium [place] 0.5 mg 07/17/18 16:00 07/18/18 08:06 Atrovent Nebulized INHALATION 0.5 mg RT-QID [facility] Administration Levothyroxine Sodium 75 mcg 07/18/18 06:30 07/18/18 05:57 Synthroid PO Not Given DAILY@0630 [facility] Naloxone HCl 0.2 mg 07/17/18 15:46 Narcan IV Q2M PRN Opioid Reversal Nitroglycerin 0.4 mg 07/17/18 15:47 Nitrostat SUBLINGUAL Q5M PRN Chest Pain Senna 8.6 mg 10/17/18 00:25 07/18/18 03:14 Senokot PO 8.6 mg BID PRN Administration Constipation Sodium Bicarbonate 650 mg 07/17/18 21:00 07/17/18 22:17 Sodium Bicarbonate Tab PO 650 mg BID [facility] Administration Intake and Output 07/17/18 07/18/18 07/18/18 22:59 06:59 14:59 Other: # Voids 2 2 1 Weight 95.5 kg 96.9 kg Patient Weight 07/19/18 06:59 Weight 96.9 kg 07/17/18 14:52 07/17/18 14:52 <Ratna Ricardo - Last Filed: 07/18/18 12:51> History of Present Illness History of present illness: Mr. Knight is a pleasant 77-year-old male past medical history significant for multi-vessel coronary artery disease with stenting of circumflex 2014, systolic heart failure EF less than 20%, ischemic cardiomyopahty, hypertension, dyslipidemia, s/p mitral valve clip, COPD, ventricular tachycardia and pulmonary hypertension. He quit smoking 5 years ago. He follows with Dr. Guy in the office. We have been asked to see him in consultation for shortness of breath. He states he ran out of his lasix 3 weeks ago and has been slowing getting more and more short of breath with increased swelling of his legs and abdominal girth. He denies chest pain, dizziness or palpitations. He was started on IV lasix since admission and states his leg swelling is already improving slightly. He is also wheezing and tachyneic at the time of my exam. He is unsure if he has had a change in his weight. EKG reveals sinus mechanism with PVC's and non-specific ST abnormalities. Chest x-ray reveals persistent trace right pleural effusion with basilar airspace disease slightly worsened. Laboratory data reviewed, hemoglobin 10.6, platelets 201, sodium 143, potassium 3.4, random 1.5, magnesium 2.3, and T proBNP 13,000, troponin negative 1. Current cardiac medications include amiodarone 200 mg daily, Plavix 75 mg daily , atorvastatin 40 mg daily and Lasix 20 mg daily. Coreg and lisinopril were recently discontinued for transient hypotension. At the time of my exam: CONSTITUTIONAL: Denies fever. Denies chills. EYES: Denies blurred vision. Denies vision changes. Denies eye pain. EARS, NOSE, MOUTH & THROAT: Denies headache. Denies sore throat. Denies ear pain. CARDIOVASCULAR: Denies chest pain. Complains of shortness of breath. Complains of orthopnea. Denies PND. Denies palpitations. RESPIRATORY: Denies cough. GASTROINTESTINAL: Denies abdominal pain. Denies diarrhea. Denies constipation. Denies nausea. Denies vomiting. MUSCULOSKELETAL: Denies myalgias. INTEGUMENTARY: Denies pruitis. Denies rash. NEUROLOGIC: Denies numbness. Denies tingling. Denies weakness. PSYCHIATRIC: Denies anxiety. Denies depression. ENDOCRINE: Denies fatigue. Denies weight change. Denies polydipsia. Denies polyurina. GENITOURINARY: Denies burning, hematuria or urgency with micturation. HEMATOLOGIC: Denies history of anemia. Denies bleeding. Blood pressure 119/85 heart rate 74 afebrile maintaining oxygen saturation on nasal cannula GENERAL: This is a 77-year-old male in Mild respiratory distress at the time of my examination. HEENT: Head is atraumatic, normocephalic. Pupils are equal, round. Sclerae anicteric. Conjunctivae are clear. Mucous membranes of the mouth are moist. Neck is supple. There is no jugular venous distention. No carotid bruit is heard. LUNGS: Bibasilar rales, coarse rhonchi and expiratory wheezes noted. No chest wall tenderness is noted on palpation or with deep breathing. HEART: Regular rate and rhythm with systolic ejection murmur at the base, no rubs or gallops. S1 and S2 heard. ABDOMEN: Soft, nontender. Bowel sounds are heard. No organomegaly noted. Positive tympany with evidence of increased girth. EXTREMITIES: Significant lower extremity 2+ pitting edema bilaterally and no calf tenderness noted. VASCULAR: Radial and dorsalis pedis pulses palpated, no evidence of clubbing. NEUROLOGIC: Patient is awake, alert and oriented x3. ASSESSMENT Acute on chronic systolic heart failure, EF less than 20%. Ischemic cardiomyopathy History of coronary artery disease Hypertension History of ventricular tachycardia on amiodarone Dyslipidemia PLAN Obtain 2D echocardiogram and doppler study to assess cardiac structure and function. Increase lasix to 40 mg IV BID today and daily tomorrow. Follow kidney function and electrolytes daily. Document strict intake and output along with daily weights. Should be a full admit and transferred to [facility]. We will continue to monitor closely. Thank you kindly for this consultation. Nurse Practitioner note has been reviewed, I agree with a documented findings and plan of care. Patient was seen and examined. Physical Exam Vitals: Vital Signs Temp Pulse Pulse Resp BP BP Pulse Ox 07/18/18 08:34 88 07/18/18 08:28 87 07/18/18 08:27 87 07/18/18 08:07 72 07/18/18 08:00 98.3 F 74 16 119/85 100 07/18/18 04:00 20 07/18/18 03:44 98.3 F 76 20 155/89 98 07/18/18 03:14 74 07/18/18 03:05 76 07/18/18 00:00 16 07/17/18 23:50 98.3 F 75 16 124/82 97 07/17/18 20:03 72 07/17/18 20:00 20 07/17/18 19:58 97.7 F 70 20 115/76 94 L 07/17/18 19:56 72 07/17/18 19:47 74 07/17/18 19:33 73 07/17/18 19:00 73 24 133/83 98 07/17/18 18:00 71 20 112/86 96 07/17/18 17:39 97.9 F 07/17/18 17:00 76 24 118/95 91 L 07/17/18 16:24 70 07/17/18 16:17 70 07/17/18 16:00 69 16 110/81 96 07/17/18 15:00 68 23 110/88 99 07/17/18 14:33 76 18 92 L 07/17/18 13:23 24 07/17/18 13:20 97.5 F L 77 20 107/78 96 Intake and Output 07/17/18 07/18/18 07/18/18 22:59 06:59 14:59 Other: # Voids 2 2 1 Weight 95.5 kg 96.9 kg Results 07/17/18 14:52 07/17/18 14:52 Cardiac Enzymes 07/17/18 07/17/18 Range/Units 14:52 14:52 AST 27 (17-59) U/L CK-MB (CK-2) 3.7 H (0.0-2.4) ng/mL Troponin I <0.012 (0.000-0.034) ng/mL Coagulation 07/17/18 Range/Units 14:52 PT 11.8 (9.0-12.0) sec APTT 24.4 (22.0-30.0) sec CBC 07/17/18 Range/Units 14:52 WBC 4.9 (3.8-10.6) k/uL RBC 3.84 L (4.30-5.90) m/uL Hgb 10.6 L (13.0-17.5) gm/dL Hct 34.4 L (39.0-53.0) % Plt Count 201 (150-450) k/uL Comprehensive Metabolic Panel 07/17/18 Range/Units 14:52 Sodium 141 (137-145) mmol/L Potassium 3.6 (3.5-5.1) mmol/L Chloride 105 (98-107) mmol/L Carbon Dioxide 25 (22-30) mmol/L BUN 34 H (9-20) mg/dL Creatinine 1.46 H (0.66-1.25) mg/dL Glucose 89 (74-99) mg/dL Calcium 8.9 (8.4-10.2) mg/dL AST 27 (17-59) U/L ALT 29 (21-72) U/L Alkaline Phosphatase 113 (38-126) U/L Total Protein 7.0 (6.3-8.2) g/dL Albumin 3.7 (3.5-5.0) g/dL Current Medications Generic Name Dose Route Start Last Admin Trade Name Freq PRN Reason Stop Dose Admin Albuterol Sulfate 2.5 mg 07/17/18 15:47 07/18/18 08:06 Ventolin Nebulized INHALATION 2.5 mg RT-Q6H PRN Administration Shortness Of Breath Allopurinol 100 mg 07/18/18 00:30 07/18/18 10:00 Zyloprim PO 100 mg BID [facility] Administration Amiodarone HCl 200 mg 07/18/18 09:00 07/18/18 10:38 Cordarone PO 200 mg DAILY [facility] Administration Atorvastatin Calcium 40 mg 07/17/18 21:00 07/17/18 20:24 Lipitor PO 40 mg HS [facility] Administration Calcitriol 0.25 mcg 07/19/18 09:00 Rocaltrol PO TUTHSA [facility] Clopidogrel Bisulfate 75 mg 07/18/18 09:00 07/18/18 10:00 Plavix PO 75 mg DAILY [facility] Administration Docusate Sodium 100 mg 07/17/18 23:47 Colace PO DAILY PRN Constipation Ergocalciferol 50,000 unit 08/16/18 09:00 Vitamin D2 PO Q30D [facility] Formoterol Fumarate 20 mcg 07/17/18 20:00 07/18/18 08:06 Perforomist INHALATION 20 mcg RT-BID [facility] Administration Furosemide 40 mg 07/18/18 09:00 07/18/18 10:01 Lasix IV 07/19/18 06:00 40 mg Q12HR [facility] Administration Furosemide 40 mg 07/19/18 09:00 Lasix IV DAILY [facility] Heparin Sodium (Porcine) 5,000 unit 07/18/18 00:00 07/18/18 10:01 Heparin SQ 5,000 unit Q8HR [facility] Administration Ipratropium [place] 0.5 mg 07/17/18 16:00 07/18/18 08:06 Atrovent Nebulized INHALATION 0.5 mg RT-QID [facility] Administration Levothyroxine Sodium 75 mcg 07/18/18 06:30 07/18/18 05:57 Synthroid PO Not Given DAILY@0630 [facility] Naloxone HCl 0.2 mg 07/17/18 15:46 Narcan IV Q2M PRN Opioid Reversal Nitroglycerin 0.4 mg 07/17/18 15:47 Nitrostat SUBLINGUAL Q5M PRN Chest Pain Senna 8.6 mg 07/18/18 00:25 07/18/18 03:14 Senokot PO 8.6 mg BID PRN Administration Constipation Sodium Bicarbonate 650 mg 07/17/18 21:00 07/18/18 10:38 Sodium Bicarbonate Tab PO 650 mg BID [facility] Administration Intake and Output 07/17/18 07/18/18 07/18/18 22:59 06:59 14:59 Other: # Voids 2 2 1 Weight 95.5 kg 96.9 kg Patient Weight 07/19/18 06:59 Weight 96.9 kg 07/17/18 14:52 07/17/18 14:52
[2018-07-18] MEDS: CLOPIDOGREL 75 MG TAB PO SCH (10:00)
[2018-07-18] MEDS: FUROSEMIDE 10 MG/ML 4 ML VIAL IV SCH ×2 (10:01→19:55)
[2018-07-18] MEDS: SODIUM BICARBONATE TAB 650 MG TAB PO SCH ×2 (10:38→19:54)
[2018-07-18] MEDS: AMIODARONE 200 MG TAB PO SCH (10:38)
[2018-07-18 11:41] LABS: Calcium 8.8 mg/dL (8.4-10.2); Potassium 3.4 mmol/L (3.5-5.1)
--- NOTE | 2018-07-18 13:10 | ECHOF ---
Referral Reason:sob MEASUREMENTS -------- HEIGHT: 182.9 cm WEIGHT: 95.3 kg BP: IVSd: 1.0 cm (0.6 - 1.1) LVIDd: 5.2 cm (3.9 - 5.3) LVPWd: 1.2 cm (0.6 - 1.1) IVSs: 1.1 cm LVIDs: 4.9 cm LVPWs: 1.3 cm Ao Diam: 3.5 cm (2.0 - 3.7) AV Cusp: 2.0 cm (1.5 - 2.6) LA Diam: 3.7 cm (2.7 - 3.8) MV EXCURSION: 12.169 mm (> 18.000) MV EF SLOPE: 30 mm/s (70 - 150) EPSS: 1.8 cm MV E Herman: 1.33 m/s MV DecT: 225 ms MV A Herman: 0.79 m/s MV E/A Ratio: 1.68 RAP: 5.00 mmHg RVSP: 76.99 mmHg FINDINGS -------- Sinus rhythm. This was a technically good study. The left ventricular size is normal. Left ventricular wall thickness is normal. Overall left vent ricular systolic function is severely impaired with, an EF < 20%. Basal Segment Cinthya only. SEVERELY DILATED LV WITH LVEF LESS THAN 10% The right ventricle is normal in size and function. The left atrium is normal in size. The right atrium is normal in size. Aortic valve is trileaflet and is mildly thickened. Severe mitral regurgitation is present. Mitral valve clip Mild tricuspid regurgitation present. There is severe pulmonary hypertension. The right ventricul ar systolic pressure, as measured by Doppler, is 76.99mmHg. Pulmonic valve appears structurally normal. The aortic root size is normal. CONCLUSIONS -------- 1. Sinus rhythm. 2. This was a technically good study. 3. The left ventricular size is normal. 4. Left ventricular wall thickness is normal. 5. Basal Segment Cinthya only. 6. The right ventricle is normal in size and function. 7. The left atrium is normal in size. 8. The right atrium is normal in size. 9. Aortic valve is trileaflet and is mildly thickened. 10. Severe mitral regurgitation is present. 11. Mitral valve clip 12. Mild tricuspid regurgitation present. 13. There is severe pulmonary hypertension. 14. The right ventricular systolic pressure, as measured by Doppler, is 76.99mmHg. 15. Pulmonic valve appears structurally normal. 16. The aortic root size is normal. HEEL ROOM SUPERVISOR: Silvana Amor RDCS
[2018-07-18] MEDS: ATORVASTATIN 40 MG TAB PO SCH (19:54)
[2018-07-18] MEDS: ACETAMINOPHEN TAB 325 MG TAB PO PRN (19:55)
[2018-07-18] MEDS: DOCUSATE 100 MG CAP PO PRN (19:57)
[2018-07-18] MEDS ORDERED: Potassium Replacement Protocol 1 EACH MISC MISCELLANE PRN (22:31)
[2018-07-18] MEDS: POTASSIUM CHLORIDE ER 20 MEQ TAB.ER PO SCH (22:47)
[2018-07-19] MEDS: HEPARIN SODIUM,PORCINE 5,000 UNIT/ML 1 ML VIAL SQ SCH ×4 (00:40→23:58)
[2018-07-19] MEDS: POTASSIUM CHLORIDE ER 20 MEQ TAB.ER PO SCH ×2 (00:40→02:16)
[2018-07-19] MEDS: LEVOTHYROXINE 75 MCG TAB PO SCH (06:11)
[2018-07-19] MEDS: IPRATROPIUM 0.5 MG/2.5 ML NEBU INHALATION SCH ×4 (07:35→19:38)
[2018-07-19] MEDS: FORMOTEROL FUMARATE 20 MCG/2 ML NEBU INHALATION SCH ×2 (07:36→19:49)
[2018-07-19 08:15] LABS: Calcium 8.9 mg/dL (8.4-10.2); Potassium 4.2 mmol/L (3.5-5.1)
[2018-07-19] MEDS ORDERED: FUROSEMIDE 10 MG/ML 4 ML VIAL IV SCH (09:00)
--- NOTE | 2018-07-19 10:04 | P.PN ---
Subjective Mr. Knight past medical history significant for multi-vessel coronary artery disease with stenting of circumflex 2014, systolic heart failure EF less than 20 %, ischemic cardiomyopahty, hypertension, dyslipidemia, s/p mitral valve clip, COPD, ventricular tachycardia and pulmonary hypertension. He quit smoking 5 years ago. He follows with Dr. Guy in the office. We are following him closely during this admission for acute exacerbation of chronic systolic heart failure. He received IV lasix 40 mg BID yesterday and was planned to change to daily today. However, he has shown minimal improvement in edema and symptoms. He states he had to sit up in a chair all night last night due to orhopnea and got no sleep. Urine output documented only 600 ml. Blood pressure 129/88 heart rate 88 afebrile and maintaining oxygen saturation on nasal cannula. He denies chest pain, dizziness or palpitations. Laboratory data reviewed, creatinine 1.68 up from 1.46 on admission. Sodium 141, potassium 4.2. Objective - Vital Signs Vital signs: Vital Signs Temp 97.5 F L 07/19/18 07:20 Pulse 76 07/19/18 07:47 Resp 18 07/19/18 07:20 BP 129/88 07/19/18 07:20 Pulse Ox 96 07/19/18 07:20 Intake & Output 07/18/18 07/19/18 07/19/18 18:59 06:59 18:59 Intake Total 476 240 Output Total 600 Balance 476 -360 Weight 96.9 kg 97.6 kg Intake: Oral 476 240 Output: Urine 600 Other: # Voids 1 # Bowel Movements 1 - Exam GENERAL: Well-appearing, well-nourished and in mild respiratory distress. NECK: Supple without JVD or thyromegaly. LUNGS: Bibasilar rales, faint expiratory wheezes. No rhonchi. HEART: Regular rate and rhythm with systolic ejection murmur at the base, no rubs or gallops. S1 and S2 heard. EXTREMITIES: Normal range of motion, significant 2+ pitting edema up to the knee. No clubbing or cyanosis. Peripheral pulses intact. - Labs CBC & Chem 7: 07/17/18 14:52 07/19/18 07:31 Labs: Abnormal Lab Results - Last 24 Hours (Table) 07/18/18 07/19/18 Range/Units 09:56 07:31 Potassium 3.4 L (3.5-5.1) mmol/L BUN 31 H 32 H (9-20) mg/dL Creatinine 1.50 H 1.68 H (0.66-1.25) mg/dL Glucose 100 H (74-99) mg/dL Assessment and Plan Assessment: ASSESSMENT Acute on chronic systolic heart failure, EF less than 20%. Ischemic cardiomyopathy History of coronary artery disease Hypertension History of ventricular tachycardia on amiodarone Dyslipidemia PLAN Increase IV Lasix to 40 mg twice a day. Follow kidney function and electrolytes daily. Document strict intake and output along with daily weights. Should be a full admit and transferred to [facility]. We will continue to monitor closely. Nurse Practitioner note has been reviewed, I agree with a documented findings and plan of care. Patient was seen and examined.
[2018-07-19] MEDS: ALLOPURINOL 100 MG TAB PO SCH ×2 (11:10→20:23)
[2018-07-19] MEDS: SODIUM BICARBONATE TAB 650 MG TAB PO SCH ×2 (11:10→20:23)
[2018-07-19] MEDS: CALCITRIOL 0.25 MCG CAP PO SCH (11:10)
[2018-07-19] MEDS: CLOPIDOGREL 75 MG TAB PO SCH (11:10)
[2018-07-19] MEDS: ACETAMINOPHEN TAB 325 MG TAB PO PRN (11:11)
[2018-07-19] MEDS: CARVEDILOL 3.125 MG TAB PO SCH (11:11)
[2018-07-19] MEDS: AMIODARONE 200 MG TAB PO SCH (11:11)
[2018-07-19] MEDS: ALBUTEROL NEBULIZED 2.5 MG/3 ML INHALATION PRN (15:17)
[2018-07-19] MEDS: FUROSEMIDE 10 MG/ML 4 ML VIAL IV SCH ×2 (17:27→20:23)
[2018-07-19] MEDS: ATORVASTATIN 40 MG TAB PO SCH (20:23)
--- NOTE | 2018-07-19 22:42 | P.PN ---
Subjective Progress Note Date: 07/18/18 Principal diagnosis: Acute CHF exacerbation with ejection fraction less than 20% Patient is a 77-year-old male with a known history of CHF with ejection fraction 20%, COPD on home oxygen at 3.5 L via nasal cannula came to ER with complaints of bilateral lower extremities swelling and difficulty breathing gradually worsening for the past couple of weeks. Patient denied any complaints of chest pain. Patient is also having history of COPD on home oxygen. Denied any PND. Patient does have orthopnea. No fever no chills. No cough or sputum production. Patient has been feeling as though his pants are getting tighter. Patient also has been complaining of weight gain. Patient had echocardiogram done in November 2017 showed ejection fraction 20%. EKG showed sinus rhythm with PVCs Chest x-ray showed persistent trace right pleural effusion and right basilar insufficiency disease, slightly worsened in the interim. Consideration for atelectasis or pneumonia with respect to replace this disease. No leukocytosis. BNP 13,000 07/18/2018 Patient denied any complaints of chest pain. Shortness of breath is slightly improved. Otherwise patient is still having significant bilateral lower extremity edema. Patient is being continued on IV Lasix. 2-D echocardiogram showed ejection fraction less than 20% and dilated severely left ventricle. Cardiology is following. Follow up on renal function. No fever no chills. No acute overnight issues. Current medications reviewed. Objective - Vital Signs Vital signs: Vital Signs Temp 97.7 F 07/18/18 19:52 Pulse 74 07/18/18 19:52 Resp 18 07/18/18 19:52 BP 121/86 07/18/18 19:52 Pulse Ox 97 07/18/18 19:52 Intake & Output 07/18/18 07/18/18 07/19/18 06:59 18:59 06:59 Intake Total 476 Balance 476 Weight 95.5 kg 96.9 kg Intake: Oral 476 Other: # Voids 2 1 - Exam PHYSICAL EXAMINATION: Patient is lying in the bed comfortably, no acute distress, awake alert and oriented.. HEENT: Normocephalic. Neck is supple. Pupils reactive. Nostrils clear. Oral cavity is moist. Ears reveal no drainage. Neck reveals no JVD, carotid bruits, or thyromegaly. CHEST EXAMINATION: Trachea is central. Symmetrical expansion. Bibasilar crackles and prolonged expiration. Mild expiratory wheezing. CARDIAC: Normal S1, S2 with no gallops. No murmurs ABDOMEN: Soft. Bowel sounds normal. No organomegaly. No abdominal bruits. Extremities: 3+ edema. No clubbing or cyanosis Neurologically awake, alert, oriented x3 with well-coordinated movements. No focal deficits noted Skin: No rash or skin lesions. Psychiatric: Coperative. Nonsuicidal Musculoskeletal: No joint swelling or deformity. Normal range of motion. - Labs CBC & Chem 7: 07/17/18 14:52 07/19/18 07:31 Labs: Abnormal Lab Results - Last 24 Hours (Table) 07/18/18 Range/Units 09:56 Potassium 3.4 L (3.5-5.1) mmol/L BUN 31 H (9-20) mg/dL Creatinine 1.50 H (0.66-1.25) mg/dL Assessment and Plan Assessment: Acute CHF exacerbation with systolic dysfunction ejection fraction 20% Acute on Chronic kidney disease stage III B Severe pulmonary hypertension Moderate mitral and tricuspid regurgitation History of coronary artery disease and stent placement Previous history of cardiac arrest Ischemic cardiomyopathy COPD on home oxygen Previous history of smoking Hypertension Hyperlipidemia History of CO Osteoarthritis of multiple joints Number likely hernia History of valve replacement DVT prophylaxis Previous history of smoking Plan: Patient will be continued on IV diuresis with Lasix 40 mg every 12hrs. Patient was given a dose of 40 mg IV while in the ER. Continue with amiodarone, Plavix and statins. Will add beta annette. Continued with pain management and breathing treatments with duo nebs. Oxygen therapy. Continue the home medications and follow up closely. Further recommendations based on the clinical course. Prognosis is guarded with multiple medical problems and comorbid conditions. Time with Patient: Greater than 30
--- NOTE | 2018-07-19 22:47 | P.PN ---
Subjective Progress Note Date: 07/19/18 Principal diagnosis: Acute CHF exacerbation with ejection fraction less than 20% Patient is a 77-year-old male with a known history of CHF with ejection fraction 20%, COPD on home oxygen at 3.5 L via nasal cannula came to ER with complaints of bilateral lower extremities swelling and difficulty breathing gradually worsening for the past couple of weeks. Patient denied any complaints of chest pain. Patient is also having history of COPD on home oxygen. Denied any PND. Patient does have orthopnea. No fever no chills. No cough or sputum production. Patient has been feeling as though his pants are getting tighter. Patient also has been complaining of weight gain. Patient had echocardiogram done in November 2017 showed ejection fraction 20%. EKG showed sinus rhythm with PVCs Chest x-ray showed persistent trace right pleural effusion and right basilar insufficiency disease, slightly worsened in the interim. Consideration for atelectasis or pneumonia with respect to replace this disease. No leukocytosis. BNP 13,000 07/18/2018 Patient denied any complaints of chest pain. Shortness of breath is slightly improved. Otherwise patient is still having significant bilateral lower extremity edema. Patient is being continued on IV Lasix. 2-D echocardiogram showed ejection fraction less than 20% and dilated severely left ventricle. Cardiology is following. Follow up on renal function. No fever no chills. No acute overnight issues. 07/19/2018 Patient denied any complaints of chest pain. Shortness of breath is improving. Significant edema the bilateral lower extremity still present. Creatinine level slightly increased to 1.68 today. Cardiology is following. Coreg was added. No fever no chills. Continue to monitor renal function. Continue with IV diuresis. Current medications reviewed. Active Medications Generic Name Dose Route Start Last Admin Trade Name Freq PRN Reason Stop Dose Admin Acetaminophen 650 mg 07/18/18 19:38 07/19/18 11:11 Tylenol Tab PO 650 mg Q4HR PRN Administration Fever and/ or Pain Albuterol Sulfate 2.5 mg 07/17/18 15:47 07/19/18 15:17 Ventolin Nebulized INHALATION 2.5 mg RT-Q6H PRN Administration Shortness Of Breath Allopurinol 100 mg 07/18/18 00:30 07/19/18 20:23 Zyloprim PO 100 mg BID JOSE Administration Amiodarone HCl 200 mg 07/18/18 09:00 07/19/18 11:11 Cordarone PO 200 mg DAILY JOSE Administration Atorvastatin Calcium 40 mg 07/17/18 21:00 07/19/18 20:23 Lipitor PO 40 mg HS JOSE Administration Calcitriol 0.25 mcg 07/19/18 09:00 07/19/18 11:10 Rocaltrol PO 0.25 mcg TUTHSA JOSE Administration Carvedilol 3.125 mg 07/19/18 07:30 07/19/18 11:11 Coreg PO 3.125 mg W/BRKFST JOSE Administration Clopidogrel Bisulfate 75 mg 07/18/18 09:00 07/19/18 11:10 Plavix PO 75 mg DAILY JOSE Administration Docusate Sodium 100 mg 07/17/18 23:47 07/18/18 19:57 Colace PO 100 mg DAILY PRN Administration Constipation Ergocalciferol 50,000 unit 08/16/18 09:00 Vitamin D2 PO Q30D [facility] Formoterol Fumarate 20 mcg 07/17/18 20:00 07/19/18 19:49 Perforomist INHALATION 20 mcg RT-BID JOSE Administration Furosemide 40 mg 07/19/18 21:00 07/19/18 20:23 Lasix IV 40 mg Q12HR JOSE Administration Heparin Sodium (Porcine) 5,000 unit 07/18/18 00:00 07/19/18 17:19 Heparin SQ 5,000 unit Q8HR JOSE Administration Ipratropium [place] 0.5 mg 07/17/18 16:00 07/19/18 19:38 Atrovent Nebulized INHALATION 0.5 mg RT-QID JOSE Administration Levothyroxine Sodium 75 mcg 07/18/18 06:30 07/19/18 06:11 Synthroid PO 75 mcg DAILY@0630 JOSE Administration Miscellaneous Information 1 each 07/18/18 22:31 Potassium Per Protocol MISCELLANE DAILY PRN Per Protocol Protocol Naloxone HCl 0.2 mg 07/17/18 15:46 Narcan IV Q2M PRN Opioid Reversal Nitroglycerin 0.4 mg 07/17/18 15:47 Nitrostat SUBLINGUAL Q5M PRN Chest Pain Senna 8.6 mg 07/18/18 00:25 07/18/18 03:14 Senokot PO 8.6 mg BID PRN Administration Constipation Sodium Bicarbonate 650 mg 07/17/18 21:00 07/19/18 20:23 Sodium Bicarbonate Tab PO 650 mg BID JOSE Administration Objective - Vital Signs Vital signs: Vital Signs Temp 97.5 F L 07/19/18 19:00 Pulse 77 07/19/18 19:57 Resp 18 07/19/18 20:00 BP 112/81 07/19/18 19:00 Pulse Ox 88 L 07/19/18 19:00 Intake & Output 07/19/18 07/19/18 07/20/18 06:59 18:59 06:59 Intake Total 240 720 Output Total 600 400 Balance -360 720 -400 Weight 97.6 kg Intake: Oral 240 720 Output: Urine 600 400 Other: # Bowel Movements 1 - Exam PHYSICAL EXAMINATION: Patient is lying in the bed comfortably, no acute distress, awake alert and oriented.. HEENT: Normocephalic. Neck is supple. Pupils reactive. Nostrils clear. Oral cavity is moist. Ears reveal no drainage. Neck reveals no JVD, carotid bruits, or thyromegaly. CHEST EXAMINATION: Trachea is central. Symmetrical expansion. Bibasilar crackles and prolonged expiration. Mild expiratory wheezing. CARDIAC: Normal S1, S2 with no gallops. No murmurs ABDOMEN: Soft. Bowel sounds normal. No organomegaly. No abdominal bruits. Extremities: 3+ edema. No clubbing or cyanosis Neurologically awake, alert, oriented x3 with well-coordinated movements. No focal deficits noted Skin: No rash or skin lesions. Psychiatric: Coperative. Nonsuicidal Musculoskeletal: No joint swelling or deformity. Normal range of motion. - Labs CBC & Chem 7: 07/17/18 14:52 07/19/18 07:31 Labs: Abnormal Lab Results - Last 24 Hours (Table) 07/19/18 Range/Units 07:31 BUN 32 H (9-20) mg/dL Creatinine 1.68 H (0.66-1.25) mg/dL Glucose 100 H (74-99) mg/dL Assessment and Plan Assessment: Acute CHF exacerbation with systolic dysfunction ejection fraction 20% Acute on Chronic kidney disease stage III B History of ventricular tachycardia. Continue with amiodarone Severe pulmonary hypertension Moderate mitral and tricuspid regurgitation History of coronary artery disease and stent placement Previous history of cardiac arrest Ischemic cardiomyopathy ejection fraction 20% COPD on home oxygen Previous history of smoking Hypertension Hyperlipidemia History of ID Osteoarthritis of multiple joints Number likely hernia History of valve replacement DVT prophylaxis Previous history of smoking Plan: Patient will be continued on IV diuresis with Lasix 40 mg every 12hrs. Patient was given a dose of 40 mg IV while in the ER. Continue with amiodarone, Plavix and statins. Coreg was added. Continued with pain management and breathing treatments with duo nebs. Oxygen therapy. Continue the home medications and follow up closely. Further recommendations based on the clinical course. Prognosis is guarded with multiple medical problems and comorbid conditions. Time with Patient: Greater than 30
[2018-07-20] MEDS: ALBUTEROL NEBULIZED 2.5 MG/3 ML INHALATION PRN (03:53)
[2018-07-20] MEDS: LEVOTHYROXINE 75 MCG TAB PO SCH (05:36)
[2018-07-20] MEDS: IPRATROPIUM 0.5 MG/2.5 ML NEBU INHALATION SCH ×4 (07:15→19:21)
[2018-07-20] MEDS: FORMOTEROL FUMARATE 20 MCG/2 ML NEBU INHALATION SCH ×2 (07:15→19:21)
--- NOTE | 2018-07-20 07:56 | XR ---
EXAMINATION TYPE: XR chest 2V DATE OF EXAM: 07/20/2018 COMPARISON: 07/17/2018 HISTORY: Shortness of breath TECHNIQUE: Frontal and lateral views of the chest are obtained. FINDINGS: There is a layering small right pleural effusion and right basilar associated airspace dis ease that appears worsened from the prior. Pulmonary hyperinflation and flattening of the left hemidi aphragm relates underlying COPD. Cardiomediastinal silhouette is enlarged. Minimal degenerative aleman es of the thoracic spine are seen. IMPRESSION: Worsening small right pleural effusion and associated right basilar airspace disease. Ba ckground COPD.
[2018-07-20 07:57] LABS: Calcium 9.2 mg/dL (8.4-10.2); Potassium 4.5 mmol/L (3.5-5.1)
[2018-07-20] MEDS: CARVEDILOL 3.125 MG TAB PO SCH (09:04)
[2018-07-20] MEDS: ALLOPURINOL 100 MG TAB PO SCH ×2 (09:04→21:44)
[2018-07-20] MEDS: CLOPIDOGREL 75 MG TAB PO SCH (09:04)
[2018-07-20] MEDS: AMIODARONE 200 MG TAB PO SCH (09:04)
[2018-07-20] MEDS: FUROSEMIDE 10 MG/ML 4 ML VIAL IV SCH ×3 (09:04→23:40)
[2018-07-20] MEDS: HEPARIN SODIUM,PORCINE 5,000 UNIT/ML 1 ML VIAL SQ SCH ×3 (09:05→23:40)
--- NOTE | 2018-07-20 09:09 | P.PN ---
Subjective Mr. Knight past medical history significant for multi-vessel coronary artery disease with stenting of circumflex 2014, systolic heart failure EF less than 20 %, ischemic cardiomyopahty, hypertension, dyslipidemia, s/p mitral valve clip, COPD, ventricular tachycardia and pulmonary hypertension. He quit smoking 5 years ago. He follows with Dr. Guy in the office. We are following him closely during this admission for acute exacerbation of chronic systolic heart failure. He has been receiving lasix IV 40 mg BID since admission. He continues to feel short of breath and has started coughing significantly. He is bringing up yellow/green sputum. He states his leg swelling feels mildly better as well as the tightness in his abdomen. He is sleeping in the recliner in his room and states he was able to sleep better last night. Blood pressure 107/76 heart rate 78 afebrile maintaining oxygen saturation on nasal cannula. Laboratory data reviewed, sodium 140, potassium 4.5, creatinine 1.62. He had a negative fluid balance yesterday of 1200 mL. Objective - Vital Signs Vital signs: Vital Signs Temp 98.5 F 07/20/18 07:20 Pulse 80 07/20/18 07:35 Resp 18 07/20/18 07:20 BP 107/76 07/20/18 07:20 Pulse Ox 95 07/20/18 07:20 Intake & Output 07/19/18 07/20/18 07/20/18 18:59 06:59 18:59 Intake Total 720 360 Output Total 2000 175 Balance 720 -2000 185 Weight 96.5 kg Intake: Oral 720 360 Output: Urine 2000 175 - Exam GENERAL: Well-appearing, well-nourished and in mild respiratory distress. NECK: Supple without JVD or thyromegaly. LUNGS: Bibasilar rales, coarse rhonchi, no wheezes. HEART: Regular rate and rhythm with systolic ejection murmur at the base, no rubs or gallops. S1 and S2 heard. EXTREMITIES: Normal range of motion, significant 2+ pitting edema up to the knee with some improvement since yesterday. No clubbing or cyanosis. Peripheral pulses intact. - Labs CBC & Chem 7: 07/17/18 14:52 07/20/18 07:00 Labs: Abnormal Lab Results - Last 24 Hours (Table) 07/20/18 Range/Units 07:00 BUN 30 H (9-20) mg/dL Creatinine 1.62 H (0.66-1.25) mg/dL Assessment and Plan Assessment: ASSESSMENT Acute on chronic systolic heart failure, EF less than 20%. Ischemic cardiomyopathy History of coronary artery disease Hypertension History of ventricular tachycardia on amiodarone Dyslipidemia COPD PLAN Continue with IV Lasix 40 mg twice a day. Recommend a slow diuresis to avoid strain on the kidney. Follow kidney function and electrolytes daily. Document strict intake and output along with daily weights. Possibly consider oral antibiotics secondary to productive cough. Should be a full admit and transferred [facility]. We will continue to monitor closely. Nurse Practitioner note has been reviewed, I agree with a documented findings and plan of care. Patient was seen and examined.
[2018-07-20] MEDS: SODIUM BICARBONATE TAB 650 MG TAB PO SCH (12:26)
--- NOTE | 2018-07-20 13:03 | P.PN ---
Subjective Progress Note Date: 07/20/18 Principal diagnosis: Acute exacerbation CHF 07/20/2018 Mr. Knight past medical history significant for multi-vessel coronary artery disease with stenting of circumflex 2014, systolic heart failure EF less than 20 %, ischemic cardiomyopahty, hypertension, dyslipidemia, s/p mitral valve clip, COPD, ventricular tachycardia and pulmonary hypertension. He quit smoking 5 years ago. He follows with Dr. Guy in the office. We are following him closely during this admission for acute exacerbation of chronic systolic heart failure. He has been receiving lasix IV 40 mg BID since admission. He continues to feel short of breath and has started coughing significantly. He is bringing up yellow/green sputum. He states his leg swelling feels mildly better as well as the tightness in his abdomen. He is sleeping in the recliner in his room and states he was able to sleep better last night. Blood pressure 107/76 heart rate 78 afebrile maintaining oxygen saturation on nasal cannula. Laboratory data reviewed, sodium 140, potassium 4.5, creatinine 1.62. He had a negative fluid balance yesterday of 1200 mL. Objective - Vital Signs Vital signs: Vital Signs Temp 98.2 F 07/20/18 11:45 Pulse 73 07/20/18 11:45 Resp 18 07/20/18 11:45 BP 102/68 07/20/18 11:45 Pulse Ox 97 07/20/18 11:45 Intake & Output 07/19/18 07/20/18 07/20/18 18:59 06:59 18:59 Intake Total 720 596 Output Total 2000 475 Balance 720 -2000 121 Weight 96.5 kg Intake: Oral 720 596 Output: Urine 2000 475 - Exam Patient is sitting up in the recliner, no acute distress; but continues to complain of difficulty breathing, awake alert and oriented.. HEENT: Normocephalic. Neck is supple. Pupils reactive. Nostrils clear. Oral cavity is moist. Ears reveal no drainage. Neck reveals no JVD, carotid bruits, or thyromegaly. CHEST EXAMINATION: Trachea is central. Symmetrical expansion. Bibasilar crackles and prolonged expiration. Mild expiratory wheezing. CARDIAC: Normal S1, S2 with no gallops. No murmurs ABDOMEN: Soft. Bowel sounds normal. No organomegaly. No abdominal bruits. Extremities: 3+ edema. No clubbing or cyanosis Neurologically awake, alert, oriented x3 with well-coordinated movements. No focal deficits noted Skin: No rash or skin lesions. Psychiatric: Coperative. Nonsuicidal Musculoskeletal: No joint swelling or deformity. Normal range of motion. - Labs CBC & Chem 7: 07/17/18 14:52 07/20/18 07:00 Labs: Abnormal Lab Results - Last 24 Hours (Table) 07/20/18 Range/Units 07:00 BUN 30 H (9-20) mg/dL Creatinine 1.62 H (0.66-1.25) mg/dL Assessment and Plan Assessment: Acute on chronic systolic heart failure, EF less than 20%. Ischemic cardiomyopathy Acute renal injury History of coronary artery disease Hypertension History of ventricular tachycardia on amiodarone Dyslipidemia COPD PLAN Continue with IV Lasix 40 mg twice a day. Recommend a slow diuresis to avoid strain on the kidney. We will consult nephrology for close monitoring and further evaluation Follow kidney function and electrolytes daily. Continue to monitor strict intake and output along with daily weights. Possibly consider oral antibiotics secondary to productive cough. Cardiology recommending that patient should be a full admit and transferred to [facility]; transfer orders placed We will continue to monitor closely. Time with Patient: Greater than 30
--- NOTE | 2018-07-20 15:27 | P.NPCON ---
History of Present Illness - Reason for Consult chronic renal failure - History of Present Illness Reason for consultation: Chronic kidney disease History of present illness: patient is a 77-year-old male seen in renal consultation for chronic kidney disease. Patient has chronic kidney disease stage III with baseline creatinine in the range of 1.5-1.7. Etiology is cardiorenal syndrome. GFR is at baseline. Patient presented to the hospital with dyspnea and lower extremity edema. Patient states he has gained over 20 pounds over the last couple of weeks. He does have history of systolic CHF with ejection fraction of less than 20% with severe pulmonary hypertension and mitral regurgitation. He was taking Lasix at home but states his edema progressively worsened. Denies chest pain. He is currently maintained on Lasix 40 mg IV twice daily. Admits to good urine output. No hematuria or dysuria. Denies use of NSAIDs. No history of diabetes. Denies family history of renal disease. No fever or chills. He is feeling better since admission. Vital signs are stable. General: The patient appeared well nourished and normally developed. HEENT: Head exam is unremarkable. Neck is without jugular venous distension. LUNGS: Lungs are clear to auscultation and percussion. Breath sounds decreased. HEART: Rate and Rhythm are regular. First and second heart sounds normal. No murmurs, rubs or gallops. ABDOMEN: Abdominal exam reveals normal bowel sounds. Non-tender and non- distended. No evidence of peritonitis. EXTREMITITES: 2+ edema. Past Medical History Past Medical History: Chest Pain / Angina, Heart Failure, COPD, Eye Disorder, Hyperlipidemia, Hypertension, Myocardial Infarction ([place]), Osteoarthritis ([place]), Pneumonia, Renal Disease, Thyroid Disorder Additional Past Medical History / Comment(s): hx. gout, uses oxygen @3.5 liters atc, PAST CARDIAC ARREST, arthritis feet/hands, beginning of cataracts. umb hernia, cyst rt groin Last Myocardial Infarction Date:: 2013 History of Any Multi-Drug Resistant Organisms: None Reported Past Surgical History: Appendectomy, Cardiac Valve Replacement, Heart Catheterization With Stent Additional Past Surgical History / Comment(s): cardiac valve "clip", cyst on back removed Past Anesthesia/Blood Transfusion Reactions: No Reported Reaction Additional Past Anesthesia/Blood Transfusion Reaction / Comment(s): blood-no reaction Date of Last Stent Placement:: 2013 Smoking Status: Former smoker - Past Family History Father Family Medical History: Cancer Mother Family Medical History: Cancer Medications and Allergies Home Medications Medication Instructions Recorded Confirmed Type Albuterol Sulfate [Proair Hfa] 2 puff INHALATION RT-Q6H PRN 02/03/15 07/17/18 History Allopurinol [Zyloprim] 100 mg PO BID 02/03/15 07/17/18 History Atorvastatin [Lipitor] 40 mg PO HS 02/03/15 07/17/18 History Clopidogrel [Plavix] 75 mg PO DAILY 02/03/15 07/17/18 History Amiodarone [Cordarone] 200 mg PO DAILY 07/06/17 07/17/18 History Levothyroxine Sodium [Synthroid] 75 mcg PO DAILY 07/06/17 07/17/18 History Sodium Bicarbonate Tab 650 mg PO BID 07/06/17 07/17/18 History Calcitriol [Rocaltrol] 0.25 mcg PO TUTHSA 12/10/17 07/17/18 History Ergocalciferol (Vitamin D2) 50,000 unit PO Q30D 12/10/17 07/17/18 History [Vitamin D2] Nitroglycerin Sl Tabs [Nitrostat] 0.4 mg SUBLINGUAL Q5M PRN 12/10/17 07/17/18 History Ipratropium-Albuterol Nebulize 3 ml INHALATION RT-QID #120 12/14/17 07/17/18 Rx [Duoneb 0.5 mg-3 mg/3 ml Soln] ampul.neb Acetaminophen Tab [Tylenol Tab] 650 mg PO Q6H PRN 07/17/18 07/17/18 History Docusate [Colace] 100 mg PO DAILY PRN 07/17/18 07/17/18 History Furosemide [Lasix] 20 mg PO DAILY 07/17/18 07/17/18 History Tiotropium Br/Olodaterol HCl 2 inhalation PO RT-DAILY 07/17/18 07/17/18 History [Stiolto Respimat Inhal [place]] Allergies Allergy/AdvReac Type Severity Reaction Status Date / Time prednisone Allergy Unknown Verified 07/17/18 14:21 lactose AdvReac Diarrhea Verified 07/17/18 22:36 Physical Exam Vitals: Vital Signs Temp Pulse Pulse Resp BP Pulse Ox 07/20/18 11:45 98.2 F 73 18 102/68 97 07/20/18 11:43 84 07/20/18 11:32 80 07/20/18 08:00 18 07/20/18 07:35 80 07/20/18 07:24 84 07/20/18 07:23 84 07/20/18 07:20 98.5 F 78 18 107/76 95 07/20/18 07:15 80 07/20/18 04:08 80 07/20/18 03:55 80 07/20/18 03:49 18 07/20/18 03:15 98.6 F 75 18 118/76 100 07/19/18 23:59 18 07/19/18 23:05 97.5 F L 69 18 119/82 100 07/19/18 20:00 18 07/19/18 19:57 77 07/19/18 19:50 77 07/19/18 19:40 75 07/19/18 19:00 97.5 F L 59 L 18 112/81 88 L 07/19/18 15:37 77 07/19/18 15:21 97.5 F L 69 18 114/79 99 Intake and Output 07/20/18 07/20/18 07/20/18 06:59 14:59 22:59 Intake Total 596 Output Total 1600 975 Balance -1600 -379 Intake: Oral 596 Output: Urine 1600 975 Other: Weight 96.5 kg Results - Lab Results Most recent lab results Calcium 9.2 mg/dL (8.4-10.2) 07/20/18 07:00 Magnesium 2.2 mg/dL (1.6-2.3) 07/20/18 07:00 07/17/18 14:52 07/20/18 07:00 Assessment and Plan Plan: Assessment: 1. Chronic kidney disease stage III secondary to cardiorenal syndrome with baseline creatinine in the range of 1.5-1.7. GFR at baseline. 2. Systolic CHF with ejection fraction of less than 20% with severe mitral regurgitation. 3. Severe pulmonary hypertension. 4. Volume overload. Plan: Increase Lasix to 40 mg IV 3 times daily. Low-salt diet. 1500 mL fluid restriction. Check urinalysis. Check renal ultrasound. Check postvoid residual to rule out urinary retention. Repeat electrolytes in the morning. Thank you for the consultation. I will continue to follow the patient with you during his hospital stay.
--- NOTE | 2018-07-20 15:58 | CDI ---
Last Revision, September 2017 Documentation Clarification Form Date: 07/20/18 From: Drea Chapman RN,CCDS Admit Date: 07/18/2018 3:00:00 PM Patient Name: Seb Knight Visit Number: [id number] Discharge Date: ATTENTION: The Clinical Documentation Specialists (CDI) and [facility] Coding Staff appreciate your assistance in clarifying documentation. Please respond to the clarification below the line at the bottom and electronically sign. The CDI & [facility] Coding staff will review the response and follow-up if needed. Please note: Queries are made part of the Legal Health Record. If you have any questions, please contact the author of this message via ITS. Elsie Simon MD Patient present with complaints of shortness of breath, lower extremity edema 3 +, and weight gain. History/Risk Factors: COPD, Systolic CHF, Hypertension Home oxygen: 3.5 L NC Clinical Indicators: Per H/P patient with COPD on home O2. Lungs: Bibasilar crackles and prolonged expiration, Mild expiratory wheezing. Vital signs: 102/68 73 18 98.2 97 % 4/L NC Treatment: Breathing tx: Ventolin Nebulized, Perforomist Inhalation, Atrovent Nebulized Monitor Pulse (titrate O2) Lasix IV In your professional opinion, can you please clarify if these findings signify one of the following conditions? Acuity: Acute Chronic Acute on Chronic Specificity: Respiratory Failure, further specify (if known): With hypercapnia? With hypoxia? Other Diagnosis, please specify Unable to determine Please continue to document in your progress notes and discharge summary in order to capture severity of illness and risk of mortality. Include clinical findings that support your diagnosis. MTDD
[2018-07-20] MEDS: ACETAMINOPHEN TAB 325 MG TAB PO PRN (18:18)
[2018-07-20] MEDS: DOCUSATE 100 MG CAP PO PRN (18:18)
--- NOTE | 2018-07-20 18:32 | US ---
EXAMINATION TYPE: US kidneys/renal and bladder DATE OF EXAM: 07/20/2018 COMPARISON: NONE CLINICAL HISTORY: luis. EXAM MEASUREMENTS: Right Kidney: 9.5 x 4.6 x 4.0 cm Left Kidney: 10.4 x 4.7 x 4.8 cm Exam done portable, patient of large body habitus. Ascites noted mild on right Right Kidney: probable cyst noted measuring 1.6 x 1.5 x 1.2 cm Left Kidney: No hydronephrosis or masses seen Bladder: wnl IMPRESSION: No hydronephrosis. Exam limited due to patient's size. Ascites is noted. Simple right renal cortical cyst. Urinary bladder is sonolucent. Kidneys measure smaller than old exam of 02/19/2015 Consistent with atrophy.
[2018-07-20 20:30] LABS: Appearance,Urine Clear (Clear); Bilirubin,Urine Negative (Negative); Blood,Urine Negative (Negative); Color,Urine Light Yellow; Glucose,Urine (UA) Negative (Negative); Ketones,Urine Negative (Negative); Leukocyte Esterase,Urine Negative (Negative); Nitrite,Urine Negative (Negative); PH, Urine 6.5 (5.0-8.0); Protein,Urine Negative (Negative); Specific Gravity,Urine 1.005 (1.001-1.035); Urobilinogen,Urine <2.0 mg/dL (<2.0)
[2018-07-20] MEDS: ATORVASTATIN 40 MG TAB PO SCH (21:44)
[2018-07-21] MEDS: CARVEDILOL 3.125 MG TAB PO SCH (06:20)
[2018-07-21] MEDS: LEVOTHYROXINE 75 MCG TAB PO SCH (06:20)
[2018-07-21 07:17] LABS: Calcium 9.2 mg/dL (8.4-10.2); Magnesium 2.3 mg/dL (1.6-2.3); Potassium 4.3 mmol/L (3.5-5.1)
[2018-07-21] MEDS: FORMOTEROL FUMARATE 20 MCG/2 ML NEBU INHALATION SCH ×2 (08:45→20:20)
[2018-07-21] MEDS: IPRATROPIUM 0.5 MG/2.5 ML NEBU INHALATION SCH ×4 (08:45→20:20)
[2018-07-21] MEDS: FUROSEMIDE 10 MG/ML 4 ML VIAL IV SCH ×2 (09:22→16:57)
[2018-07-21] MEDS: CLOPIDOGREL 75 MG TAB PO SCH (09:23)
[2018-07-21] MEDS: HEPARIN SODIUM,PORCINE 5,000 UNIT/ML 1 ML VIAL SQ SCH ×2 (09:23→16:57)
[2018-07-21] MEDS: AMIODARONE 200 MG TAB PO SCH (09:23)
[2018-07-21] MEDS: ALLOPURINOL 100 MG TAB PO SCH ×2 (09:23→21:36)
[2018-07-21] MEDS: ACETAMINOPHEN TAB 325 MG TAB PO PRN (09:23)
[2018-07-21] MEDS: DOCUSATE 100 MG CAP PO PRN (09:24)
--- NOTE | 2018-07-21 11:46 | P.PN ---
Subjective Patient is seen in follow-up for acute kidney injury on chronic kidney disease. Patient has chronic kidney disease stage III secondary to cardiorenal syndrome with baseline creatinine in the range of 1.5-1.7. GFR is near baseline. Patient presented with edema and dyspnea. Gradually improving. Currently maintained on Lasix 40 mg IV 3 times daily. Denies chest pain. He is noted to have systolic CHF with ejection fraction of 20% with severe mitral regurgitation and pulmonary hypertension. Vital signs are stable. General: The patient appeared well nourished and normally developed. HEENT: Head exam is unremarkable. Neck is without jugular venous distension. LUNGS: Breath sounds decreased. HEART: Rate and Rhythm are regular. First and second heart sounds normal. No murmurs, rubs or gallops. ABDOMEN: Abdominal exam reveals normal bowel sounds. Non-tender and non- distended. No evidence of peritonitis. EXTREMITITES: 2+ edema. Objective - Vital Signs Vital signs: Vital Signs Temp 97.7 F 07/21/18 08:00 Pulse 69 07/21/18 11:06 Resp 17 07/21/18 11:06 BP 115/76 07/21/18 08:00 Pulse Ox 100 07/21/18 08:45 Intake & Output 07/20/18 07/21/18 07/21/18 18:59 06:59 18:59 Intake Total 896 280 Output Total 975 2227 400 Balance -79 -2227 -120 Weight 96.6 kg Intake: IV 20 Invasive Line 2 20 Oral 896 260 Output: Urine 975 1825 400 Post Void Residual 402 Other: # Voids 1 - Labs CBC & Chem 7: 07/17/18 14:52 07/21/18 06:26 Labs: Abnormal Lab Results - Last 24 Hours (Table) 07/21/18 Range/Units 06:26 BUN 34 H (9-20) mg/dL Creatinine 1.74 H (0.66-1.25) mg/dL Assessment and Plan Plan: Assessment: 1. Chronic kidney disease stage III secondary to cardiorenal syndrome with baseline creatinine in the range of 1.5-1.7. GFR at baseline. Urinalysis is benign. No evidence of hydronephrosis noted on renal ultrasound. 2. Systolic CHF with ejection fraction of less than 20% with severe mitral regurgitation. 3. Severe pulmonary hypertension. 4. Volume overload. Plan: Maintain Lasix to 40 mg IV 3 times daily. Add Zaroxolyn 2.5 mg once daily. Low-salt diet. 1500 mL fluid restriction. Repeat electrolytes in the morning. Daily weights.
--- NOTE | 2018-07-21 12:12 | P.PN ---
Subjective Progress Note Date: 07/21/18 Principal diagnosis: CHF Mr. Knight is a pleasant 77-year-old gentleman with past medical history significant for multi-vessel coronary artery disease with stenting of circumflex 2014, systolic heart failure EF less than 20%, ischemic cardiomyopahty, hypertension, dyslipidemia, s/p mitral valve clip, COPD, ventricular tachycardia and pulmonary hypertension. He quit smoking 5 years ago. He follows with Dr. Guy in the office. We are following him closely during this admission for acute exacerbation of chronic systolic heart failure. He has been receiving lasix IV 40 mg BID since admission. He continues to feel short of breath with orthopnea, maybe just slightly improved. . He is bringing up yellow/green sputum. He states his leg swelling feels mildly better as well as the tightness in his abdomen. He was sleeping in the recliner in his room and states he was able to sleep better last night. He slept in bed as opposed to the recliner. Labs this morning showed a potassium of 4.3, BUN 34 and creatinine of 1.74. Vital signs are stable. Chest x-ray yesterday showed worsening small right pleural effusion and associated right basilar airspace disease, background COPD. Objective - Vital Signs Vital signs: Vital Signs Temp 97.7 F 07/21/18 08:00 Pulse 69 07/21/18 11:06 Resp 17 07/21/18 11:06 BP 115/76 07/21/18 08:00 Pulse Ox 100 07/21/18 08:45 Intake & Output 07/20/18 07/21/18 07/21/18 18:59 06:59 18:59 Intake Total 896 280 Output Total 975 2227 400 Balance -79 -2227 -120 Weight 96.6 kg Intake: IV 20 Invasive Line 2 20 Oral 896 260 Output: Urine 975 1825 400 Post Void Residual 402 Other: # Voids 1 - Exam PHYSICAL EXAMINATION: HEENT: Head is atraumatic, normocephalic. Pupils equal, round. Neck is supple. There is elevated jugular venous pressure. HEART EXAMINATION: Heart sounds regular, S1 and S2 with a systolic murmur at the base. CHEST EXAMINATION: Lungs reveal inspiratory and expiratory wheezing with coarse rhonchi and bibasilar crackles. No chest wall tenderness is noted on palpation or with deep breathing. ABDOMEN: Soft, nontender. Bowel sounds are heard. No organomegaly noted. EXTREMITIES: 1+ peripheral pulses with significant 2+ pitting edema to bilateral lower extremities, currently with Gerson wraps, patient has not noted any improvement since yesterday. NEUROLOGIC patient is awake, alert and oriented x3. . - Labs CBC & Chem 7: 07/17/18 14:52 07/21/18 06:26 Labs: Abnormal Lab Results - Last 24 Hours (Table) 07/21/18 Range/Units 06:26 BUN 34 H (9-20) mg/dL Creatinine 1.74 H (0.66-1.25) mg/dL Assessment and Plan Assessment: #1 acute on chronic systolic congestive heart failure, EF less than 20% #2 ischemic cardiomyopathy #3 history of CAD #4 hypertension #5 history of ventricular tachycardia on amiodarone #6 COPD #7 dyslipidemia Plan: From energy conservation specialist perspective, continue Lasix 40 mg IV push every 12 hours. Continue to follow kidney function and electrolytes. Follow strict intake and output as well as daily weights. Continue to monitor the patient closely and provide further recommendations accordingly. OYSTER FARMER note has been reviewed, I agree with a documented findings and plan of care. Patient was seen and examined.
[2018-07-21] MEDS: CALCITRIOL 0.25 MCG CAP PO SCH (12:17)
--- NOTE | 2018-07-21 15:47 | P.PN ---
Subjective Progress Note Date: 07/21/18 Principal diagnosis: Acute exacerbation CHF 07/20/2018 Mr. Knight past medical history significant for multi-vessel coronary artery disease with stenting of circumflex 2014, systolic heart failure EF less than 20 %, ischemic cardiomyopahty, hypertension, dyslipidemia, s/p mitral valve clip, COPD, ventricular tachycardia and pulmonary hypertension. He quit smoking 5 years ago. He follows with Dr. Guy in the office. We are following him closely during this admission for acute exacerbation of chronic systolic heart failure. He has been receiving lasix IV 40 mg BID since admission. He continues to feel short of breath and has started coughing significantly. He is bringing up yellow/green sputum. He states his leg swelling feels mildly better as well as the tightness in his abdomen. He is sleeping in the recliner in his room and states he was able to sleep better last night. Blood pressure 107/76 heart rate 78 afebrile maintaining oxygen saturation on nasal cannula. Laboratory data reviewed, sodium 140, potassium 4.5, creatinine 1.62. He had a negative fluid balance yesterday of 1200 mL. 07/21/2018 Patient is being followed for acute exacerbation of chronic systolic heart failure. He has been receiving lasix IV 40 mg BID since admission. He continues to feel short of breath with orthopnea, maybe just slightly improved. . He is bringing up yellow/green sputum. He states his leg swelling feels mildly better as well as the tightness in his abdomen. He was sleeping in the recliner in his room and states he was able to sleep better last night. He slept in bed as opposed to the recliner. Labs this morning showed a potassium of 4.3, BUN 34 and creatinine of 1.74. Vital signs are stable. Chest x-ray yesterday showed worsening small right pleural effusion and associated right basilar airspace disease, background COPD. Objective - Vital Signs Vital signs: Vital Signs Temp 97.2 F L 07/21/18 12:00 Pulse 70 07/21/18 12:55 Resp 19 07/21/18 12:00 BP 105/67 07/21/18 12:00 Pulse Ox 98 07/21/18 12:00 Intake & Output 07/20/18 07/21/18 07/21/18 18:59 06:59 18:59 Intake Total 896 520 Output Total 975 2227 675 Balance -79 -2227 -155 Weight 96.6 kg Intake: IV 20 Invasive Line 2 20 Oral 896 500 Output: Urine 975 1825 675 Post Void Residual 402 Other: # Voids 1 - Exam Patient is sitting up in the recliner, no acute distress; but continues to complain of difficulty breathing, awake alert and oriented.. HEENT: Normocephalic. Neck is supple. Pupils reactive. Nostrils clear. Oral cavity is moist. Ears reveal no drainage. Neck reveals no JVD, carotid bruits, or thyromegaly. CHEST EXAMINATION: Trachea is central. Symmetrical expansion. Bibasilar crackles and prolonged expiration. Mild expiratory wheezing. CARDIAC: Normal S1, S2 with no gallops. No murmurs ABDOMEN: Soft. Bowel sounds normal. No organomegaly. No abdominal bruits. Extremities: 3+ edema. No clubbing or cyanosis Neurologically awake, alert, oriented x3 with well-coordinated movements. No focal deficits noted Skin: No rash or skin lesions. Psychiatric: Coperative. Nonsuicidal Musculoskeletal: No joint swelling or deformity. Normal range of motion. - Labs CBC & Chem 7: 07/17/18 14:52 07/21/18 06:26 Labs: Abnormal Lab Results - Last 24 Hours (Table) 07/21/18 Range/Units 06:26 BUN 34 H (9-20) mg/dL Creatinine 1.74 H (0.66-1.25) mg/dL Assessment and Plan Assessment: Acute on chronic systolic heart failure, EF less than 20%. Ischemic cardiomyopathy Acute renal injury History of coronary artery disease Hypertension History of ventricular tachycardia on amiodarone Dyslipidemia COPD PLAN Continue with IV Lasix 40 mg twice a day. Recommend a slow diuresis to avoid strain on the kidney. We will consult nephrology for close monitoring and further evaluation Follow kidney function and electrolytes daily. Continue to monitor strict intake and output along with daily weights. Possibly consider oral antibiotics secondary to productive cough. Cardiology recommending that patient should be a full admit and transferred [facility]; transfer orders placed We will continue to monitor closely. Time with Patient: Greater than 30
[2018-07-21] MEDS: METOLAZONE 2.5 MG TAB PO SCH (16:57)
[2018-07-21] MEDS: ATORVASTATIN 40 MG TAB PO SCH (21:36)
[2018-07-22] MEDS: HEPARIN SODIUM,PORCINE 5,000 UNIT/ML 1 ML VIAL SQ SCH ×4 (00:28→23:31)
[2018-07-22] MEDS: FUROSEMIDE 10 MG/ML 4 ML VIAL IV SCH ×3 (00:28→23:30)
[2018-07-22] MEDS: ALBUTEROL NEBULIZED 2.5 MG/3 ML INHALATION PRN ×2 (03:49→08:44)
[2018-07-22] MEDS: LEVOTHYROXINE 75 MCG TAB PO SCH (06:52)
[2018-07-22] MEDS: CARVEDILOL 3.125 MG TAB PO SCH (06:52)
[2018-07-22 07:46] LABS: Anisocytosis Slight; Basophils # (A) 0.1 k/uL (0-0.2); Basophils % (A) 1 %; Eosinophils # (A) 0.2 k/uL (0-0.7); Eosinophils % (A) 3 %; HCT 32.3 % (39.0-53.0); HGB 9.9 gm/dL (13.0-17.5); Hypochromasia Marked; Lymphocytes # (A) 0.6 k/uL (1.0-4.8); Lymphocytes % (A) 11 %; MCH 27.1 pg (25.0-35.0); MCHC 30.5 g/dL (31.0-37.0); MCV 88.7 fL (80.0-100.0); Mean Platelet Volume 7.4; Monocytes # (A) 0.4 k/uL (0-1.0); Monocytes % (A) 6 %; Neutrophils # (A) 4.2 k/uL (1.3-7.7); Neutrophils % (A) 77 %; Platelet Count 209 k/uL (150-450); RBC 3.64 m/uL (4.30-5.90); RDW 18.8 % (11.5-15.5); WBC 5.5 k/uL (3.8-10.6)
[2018-07-22 07:58] LABS: Calcium 9.4 mg/dL (8.4-10.2); Magnesium 2.3 mg/dL (1.6-2.3); Potassium 4.1 mmol/L (3.5-5.1)
[2018-07-22] MEDS: METOLAZONE 2.5 MG TAB PO SCH (08:28)
[2018-07-22] MEDS: DOCUSATE 100 MG CAP PO PRN (08:28)
[2018-07-22] MEDS: AMIODARONE 200 MG TAB PO SCH (08:29)
[2018-07-22] MEDS: ALLOPURINOL 100 MG TAB PO SCH ×2 (08:29→23:30)
[2018-07-22] MEDS: CLOPIDOGREL 75 MG TAB PO SCH (08:29)
[2018-07-22] MEDS: IPRATROPIUM 0.5 MG/2.5 ML NEBU INHALATION SCH ×4 (08:41→19:47)
[2018-07-22] MEDS: FORMOTEROL FUMARATE 20 MCG/2 ML NEBU INHALATION SCH ×2 (08:41→19:47)
[2018-07-22] MEDS: SENNOSIDES 8.6 MG TAB PO PRN (11:40)
[2018-07-22] MEDS: ACETAMINOPHEN TAB 325 MG TAB PO PRN (11:41)
--- NOTE | 2018-07-22 11:47 | P.PN ---
Subjective Patient is seen in follow-up for acute kidney injury on chronic kidney disease. Patient has chronic kidney disease stage III secondary to cardiorenal syndrome with baseline creatinine in the range of 1.5-1.7. Renal function mildly worse with creatinine at 1.82 which is due to diuresis. Patient presented with edema and dyspnea. Gradually improving. Currently maintained on Lasix 40 mg IV 3 times daily and metolazone 2.5 mg once daily. Denies chest pain. He is noted to have systolic CHF with ejection fraction of 20% with severe mitral regurgitation and pulmonary hypertension. Vital signs are stable. General: The patient appeared well nourished and normally developed. HEENT: Head exam is unremarkable. Neck is without jugular venous distension. LUNGS: Breath sounds decreased. HEART: Rate and Rhythm are regular. First and second heart sounds normal. No murmurs, rubs or gallops. ABDOMEN: Abdominal exam reveals normal bowel sounds. Non-tender and non- distended. No evidence of peritonitis. EXTREMITITES: 2+ edema. Objective - Vital Signs Vital signs: Vital Signs Temp 98.1 F 07/22/18 08:00 Pulse 72 07/22/18 09:05 Resp 17 07/22/18 08:00 BP 100/66 07/22/18 08:00 Pulse Ox 97 07/22/18 08:46 Intake & Output 07/21/18 07/22/18 07/22/18 18:59 06:59 18:59 Intake Total 790 180 Output Total 1775 2650 Balance -985 -2650 180 Intake: IV 30 Invasive Line 2 30 Oral 760 180 Output: Urine 1225 2650 Straight 550 Post Void Residual 550 Other: # Voids 1 - Labs CBC & Chem 7: 07/22/18 06:59 07/22/18 06:59 Labs: Abnormal Lab Results - Last 24 Hours (Table) 07/22/18 07/22/18 Range/Units 06:59 06:59 RBC 3.64 L (4.30-5.90) m/uL Hgb 9.9 L (13.0-17.5) gm/dL Hct 32.3 L (39.0-53.0) % MCHC 30.5 L (31.0-37.0) g/dL RDW 18.8 H (11.5-15.5) % Lymphocytes # 0.6 L (1.0-4.8) k/uL Carbon Dioxide 32 H (22-30) mmol/L BUN 35 H (9-20) mg/dL Creatinine 1.82 H (0.66-1.25) mg/dL Assessment and Plan Plan: Assessment: 1. Chronic kidney disease stage III secondary to cardiorenal syndrome with baseline creatinine in the range of 1.5-1.7. Urinalysis is benign. No evidence of hydronephrosis noted on renal ultrasound. 2. Systolic CHF with ejection fraction of less than 20% with severe mitral regurgitation. 3. Severe pulmonary hypertension. 4. Volume overload. Improving. 5. Mild acute kidney injury mostly prerenal secondary to diuresis. Plan: Maintain Lasix to 40 mg IV 3 times daily. Maintain Zaroxolyn 2.5 mg once daily. Low-salt diet. 1500 mL fluid restriction. Repeat electrolytes in the morning. Daily weights.
--- NOTE | 2018-07-22 11:53 | P.PN ---
Subjective Progress Note Date: 07/22/18 Principal diagnosis: CHF/COPD Mr. Knight is a pleasant 77-year-old gentleman with past medical history significant for multi-vessel coronary artery disease with stenting of circumflex 2014, systolic heart failure EF less than 20%, ischemic cardiomyopahty, hypertension, dyslipidemia, s/p mitral valve clip, COPD, ventricular tachycardia and pulmonary hypertension. He quit smoking 5 years ago. He follows with Dr. Guy in the office. We are following him closely during this admission for acute exacerbation of chronic systolic heart failure. On follow-up with the patient today, is feeling better indeterminable shortness of breath. No chest pain or chest discomfort. The creatinine is a slightly worse. I'm going to decrease the dose of Lasix to 40 mg by mouth twice a day from 3 times a day. Continue monitor the kidney function and electrolytes. And continue following up with him. Objective - Vital Signs Vital signs: Vital Signs Temp 98.1 F 07/22/18 08:00 Pulse 72 07/22/18 09:05 Resp 17 07/22/18 08:00 BP 100/66 07/22/18 08:00 Pulse Ox 97 07/22/18 08:46 Intake & Output 07/21/18 07/22/18 07/22/18 18:59 06:59 18:59 Intake Total 790 180 Output Total 1775 2650 Balance -985 -2650 180 Intake: IV 30 Invasive Line 2 30 Oral 760 180 Output: Urine 1225 2650 Straight 550 Post Void Residual 550 Other: # Voids 1 - Constitutional General appearance: Present: no acute distress - Respiratory Respiratory: bilateral: rales - Cardiovascular Heart sounds: normal: S1, S2 - Labs CBC & Chem 7: 07/22/18 06:59 07/22/18 06:59 Labs: Abnormal Lab Results - Last 24 Hours (Table) 07/22/18 07/22/18 Range/Units 06:59 06:59 RBC 3.64 L (4.30-5.90) m/uL Hgb 9.9 L (13.0-17.5) gm/dL Hct 32.3 L (39.0-53.0) % MCHC 30.5 L (31.0-37.0) g/dL RDW 18.8 H (11.5-15.5) % Lymphocytes # 0.6 L (1.0-4.8) k/uL Carbon Dioxide 32 H (22-30) mmol/L BUN 35 H (9-20) mg/dL Creatinine 1.82 H (0.66-1.25) mg/dL Assessment and Plan Assessment: Assessment #1 CHF exacerbation secondary to systolic dysfunction #2 coronary artery disease #3 history of V. tach on amiodarone #4 chronic obstructive pulmonary disease #5 acute on chronic renal failure Plan #1 decrease the dose of Lasix IV to 40 mg twice a day in view of the worsening kidney function #2 continue monitor the kidney function and electrolytes #3 follow-up with the patient.
[2018-07-22] MEDS: DOXYCYCLINE 100 MG in SODIUM CHLORIDE 0.9% 100 ML IVPB SCH ×2 (12:54→23:30)
--- NOTE | 2018-07-22 16:20 | P.PN ---
Subjective Progress Note Date: 07/22/18 Principal diagnosis: Acute exacerbation CHF 07/20/2018 Mr. Knight past medical history significant for multi-vessel coronary artery disease with stenting of circumflex 2014, systolic heart failure EF less than 20 %, ischemic cardiomyopahty, hypertension, dyslipidemia, s/p mitral valve clip, COPD, ventricular tachycardia and pulmonary hypertension. He quit smoking 5 years ago. He follows with Dr. Guy in the office. We are following him closely during this admission for acute exacerbation of chronic systolic heart failure. He has been receiving lasix IV 40 mg BID since admission. He continues to feel short of breath and has started coughing significantly. He is bringing up yellow/green sputum. He states his leg swelling feels mildly better as well as the tightness in his abdomen. He is sleeping in the recliner in his room and states he was able to sleep better last night. Blood pressure 107/76 heart rate 78 afebrile maintaining oxygen saturation on nasal cannula. Laboratory data reviewed, sodium 140, potassium 4.5, creatinine 1.62. He had a negative fluid balance yesterday of 1200 mL. 07/21/2018 Patient is being followed for acute exacerbation of chronic systolic heart failure. He has been receiving lasix IV 40 mg BID since admission. He continues to feel short of breath with orthopnea, maybe just slightly improved. . He is bringing up yellow/green sputum. He states his leg swelling feels mildly better as well as the tightness in his abdomen. He was sleeping in the recliner in his room and states he was able to sleep better last night. He slept in bed as opposed to the recliner. Labs this morning showed a potassium of 4.3, BUN 34 and creatinine of 1.74. Vital signs are stable. Chest x-ray yesterday showed worsening small right pleural effusion and associated right basilar airspace disease, background COPD. 07/22/2018 Patient is seen On follow-up today, is feeling better indeterminable shortness of breath. No chest pain or chest discomfort. The creatinine is a slightly worse. I'm going to decrease the dose of Lasix to 40 mg by mouth twice a day from 3 times a day. Continue monitor the kidney function and electrolytes. And continue following up with him. Patient continues to complain of cough productive of yellowish-green phlegm - We will plan to start patient on doxycycline for possible 3. Acute bronchitis Objective - Vital Signs Vital signs: Vital Signs Temp 98.1 F 07/22/18 08:00 Pulse 72 07/22/18 09:05 Resp 17 07/22/18 08:00 BP 100/66 07/22/18 08:00 Pulse Ox 97 07/22/18 08:46 Intake & Output 07/21/18 07/22/18 07/22/18 18:59 06:59 18:59 Intake Total 790 180 Output Total 1775 2650 Balance -985 -2650 180 Intake: IV 30 Invasive Line 2 30 Oral 760 180 Output: Urine 1225 2650 Straight 550 Post Void Residual 550 Other: # Voids 1 - Exam Patient is sitting up in the recliner, no acute distress; but continues to complain of difficulty breathing, awake alert and oriented.. HEENT: Normocephalic. Neck is supple. Pupils reactive. Nostrils clear. Oral cavity is moist. Ears reveal no drainage. Neck reveals no JVD, carotid bruits, or thyromegaly. CHEST EXAMINATION: Trachea is central. Symmetrical expansion. Bibasilar crackles and prolonged expiration. Mild expiratory wheezing. CARDIAC: Normal S1, S2 with no gallops. No murmurs ABDOMEN: Soft. Bowel sounds normal. No organomegaly. No abdominal bruits. Extremities: 3+ edema. No clubbing or cyanosis Neurologically awake, alert, oriented x3 with well-coordinated movements. No focal deficits noted Skin: No rash or skin lesions. Psychiatric: Coperative. Nonsuicidal Musculoskeletal: No joint swelling or deformity. Normal range of motion. - Labs CBC & Chem 7: 07/22/18 06:59 07/22/18 06:59 Labs: Abnormal Lab Results - Last 24 Hours (Table) 07/22/18 07/22/18 Range/Units 06:59 06:59 RBC 3.64 L (4.30-5.90) m/uL Hgb 9.9 L (13.0-17.5) gm/dL Hct 32.3 L (39.0-53.0) % MCHC 30.5 L (31.0-37.0) g/dL RDW 18.8 H (11.5-15.5) % Lymphocytes # 0.6 L (1.0-4.8) k/uL Carbon Dioxide 32 H (22-30) mmol/L BUN 35 H (9-20) mg/dL Creatinine 1.82 H (0.66-1.25) mg/dL Assessment and Plan Assessment: Acute on chronic systolic heart failure, EF less than 20%. Ischemic cardiomyopathy Acute renal injury History of coronary artery disease Hypertension History of ventricular tachycardia on amiodarone Dyslipidemia COPD PLAN Continue with IV Lasix 40 mg twice a day. Recommend a slow diuresis to avoid strain on the kidney. We will consult nephrology for close monitoring and further evaluation Follow kidney function and electrolytes daily. Continue to monitor strict intake and output along with daily weights. Possibly consider oral antibiotics secondary to productive cough. Cardiology recommending that patient should be a full admit and transferred to [facility]; transfer orders placed We will continue to monitor closely. Time with Patient: Greater than 30
[2018-07-22] MEDS ORDERED: LACTULOSE 20 GM/30 ML CUP PO PRN (17:05)
[2018-07-22] MEDS: ATORVASTATIN 40 MG TAB PO SCH (23:30)
[2018-07-23] MEDS: LEVOTHYROXINE 75 MCG TAB PO SCH (06:25)
[2018-07-23] MEDS: CARVEDILOL 3.125 MG TAB PO SCH (06:25)
[2018-07-23] MEDS: IPRATROPIUM 0.5 MG/2.5 ML NEBU INHALATION SCH ×4 (07:17→20:08)
[2018-07-23] MEDS: FORMOTEROL FUMARATE 20 MCG/2 ML NEBU INHALATION SCH ×2 (07:17→20:08)
[2018-07-23] MEDS: ALBUTEROL NEBULIZED 2.5 MG/3 ML INHALATION PRN ×4 (07:17→20:08)
[2018-07-23 07:26] LABS: Anisocytosis Slight; Basophils # (A) 0.1 k/uL (0-0.2); Basophils % (A) 1 %; Eosinophils # (A) 0.2 k/uL (0-0.7); Eosinophils % (A) 3 %; HCT 32.9 % (39.0-53.0); HGB 10.3 gm/dL (13.0-17.5); Hypochromasia Marked; Lymphocytes # (A) 0.5 k/uL (1.0-4.8); Lymphocytes % (A) 10 %; MCHC 31.5 g/dL (31.0-37.0); Mean Platelet Volume 7.7; Monocytes # (A) 0.4 k/uL (0-1.0); Monocytes % (A) 7 %; Neutrophils % (A) 77 %; Platelet Count 218 k/uL (150-450); RBC 3.69 m/uL (4.30-5.90); RDW 18.9 % (11.5-15.5); WBC 5.2 k/uL (3.8-10.6)
[2018-07-23 07:36] LABS: Calcium 9.4 mg/dL (8.4-10.2); Magnesium 2.3 mg/dL (1.6-2.3); Potassium 4.2 mmol/L (3.5-5.1)
[2018-07-23] MEDS: METOLAZONE 2.5 MG TAB PO SCH (08:03)
[2018-07-23] MEDS: CLOPIDOGREL 75 MG TAB PO SCH (08:03)
[2018-07-23] MEDS: HEPARIN SODIUM,PORCINE 5,000 UNIT/ML 1 ML VIAL SQ SCH ×3 (08:03→23:18)
[2018-07-23] MEDS: DOXYCYCLINE 100 MG in SODIUM CHLORIDE 0.9% 100 ML IVPB SCH ×2 (08:03→20:52)
[2018-07-23] MEDS: AMIODARONE 200 MG TAB PO SCH (08:03)
[2018-07-23] MEDS: ALLOPURINOL 100 MG TAB PO SCH ×2 (08:03→20:52)
[2018-07-23] MEDS: FUROSEMIDE 10 MG/ML 4 ML VIAL IV SCH ×2 (08:04→23:18)
--- NOTE | 2018-07-23 11:12 | P.PN ---
Subjective Patient is seen in follow-up for acute kidney injury on chronic kidney disease. Patient has chronic kidney disease stage III secondary to cardiorenal syndrome with baseline creatinine in the range of 1.5-1.7. Renal function mildly worse with creatinine at 1.88 which is due to diuresis. Patient presented with edema and dyspnea. Gradually improving. Currently maintained on Lasix 40 mg IV 2 times daily and metolazone 2.5 mg once daily. Denies chest pain. He is noted to have systolic CHF with ejection fraction of 20% with severe mitral regurgitation and pulmonary hypertension. Edema improving. Vital signs are stable. General: The patient appeared well nourished and normally developed. HEENT: Head exam is unremarkable. Neck is without jugular venous distension. LUNGS: Breath sounds decreased. HEART: Rate and Rhythm are regular. First and second heart sounds normal. No murmurs, rubs or gallops. ABDOMEN: Abdominal exam reveals normal bowel sounds. Non-tender and non- distended. No evidence of peritonitis. EXTREMITITES: 2+ edema. Objective - Vital Signs Vital signs: Vital Signs Temp 98.5 F 07/23/18 08:00 Pulse 72 07/23/18 08:00 Resp 17 07/23/18 08:00 BP 103/67 07/23/18 08:00 Pulse Ox 96 07/23/18 08:00 Intake & Output 07/22/18 07/23/18 07/23/18 18:59 06:59 18:59 Intake Total 565 260 Output Total 3650 1200 Balance 565 -3650 -940 Weight 91 kg Intake: Oral 565 260 Output: Urine 3650 1200 Other: # Voids 1 1 - Labs CBC & Chem 7: 07/23/18 07:00 07/23/18 07:00 Labs: Abnormal Lab Results - Last 24 Hours (Table) 07/23/18 07/23/18 Range/Units 07:00 07:00 RBC 3.69 L (4.30-5.90) m/uL Hgb 10.3 L (13.0-17.5) gm/dL Hct 32.9 L (39.0-53.0) % RDW 18.9 H (11.5-15.5) % Lymphocytes # 0.5 L (1.0-4.8) k/uL Carbon Dioxide 33 H (22-30) mmol/L BUN 35 H (9-20) mg/dL Creatinine 1.88 H (0.66-1.25) mg/dL Assessment and Plan Plan: Assessment: 1. Chronic kidney disease stage III secondary to cardiorenal syndrome with baseline creatinine in the range of 1.5-1.7. Urinalysis is benign. No evidence of hydronephrosis noted on renal ultrasound. 2. Systolic CHF with ejection fraction of less than 20% with severe mitral regurgitation. 3. Severe pulmonary hypertension. 4. Volume overload. Improving. 5. Mild acute kidney injury mostly prerenal secondary to diuresis. Plan: Maintain Lasix to 40 mg IV 2 times daily. Maintain Zaroxolyn 2.5 mg once daily. Low-salt diet. 1500 mL fluid restriction. Repeat electrolytes in the morning. Daily weights.
--- NOTE | 2018-07-23 13:28 | P.PN ---
Subjective Progress Note Date: 07/23/18 this is a pleasant 77-year-old gentleman who follows with Dr. Guy in the office. He has a past medical history significant for multivessel coronary artery disease with prior circumflex stent, systolic congestive heart failure with an ejection fraction of less than 20%, ischemic cardiomyopathy, hypertension, hyperlipidemia, prior mitral valve clip procedure, COPD, ventricular tachycardia and pulmonary hypertension. He quit smoking approximately 5 years ago. Patient was admitted to the hospital on this occasion with congestive cardiac failure. He was seen and examined this morning sitting up in his bed eating his lunch. He does state that his breathing is significantly improved.weight is down 2 kg today.White blood cell count 5.2, hemoglobin 10.3, platelet count 218. Sodium 140, potassium 4.2, BUN 35, creatinine 1.8. Objective - Vital Signs Vital signs: Vital Signs Temp 97.5 F L 07/23/18 11:23 Pulse 66 07/23/18 11:25 Resp 17 07/23/18 11:25 BP 119/68 07/23/18 11:23 Pulse Ox 99 07/23/18 11:23 Intake & Output 07/22/18 07/23/18 07/23/18 18:59 06:59 18:59 Intake Total 565 640 Output Total 3650 2200 Balance 565 -3650 -1560 Weight 91 kg Intake: IV 130 .9 20 Doxycycline 100 mg In 100 Sodium Chloride 0.9% 100 ml @ 66.67 mls/hr IVPB Q12HR [facility] Rx#:[id number] Invasive Line 2 10 Oral 565 510 Output: Urine 3650 2200 Other: # Voids 1 3 - Exam PHYSICAL EXAMINATION: HEENT: Head is atraumatic, normocephalic. Pupils equal, round. Neck is supple. There is elevated jugular venous pressure. HEART EXAMINATION: Heart sounds regular, S1 and S2 with a systolic murmur at the base. CHEST EXAMINATION: Lungs reveal inspiratory and expiratory wheezing with coarse rhonchi and bibasilar crackles. No chest wall tenderness is noted on palpation or with deep breathing. ABDOMEN: Soft, nontender. Bowel sounds are heard. No organomegaly noted. EXTREMITIES: 1+ peripheral pulses with significant 2+ pitting edema to bilateral lower extremities, currently with Gerson wraps, patient has not noted any improvement since yesterday. NEUROLOGIC patient is awake, alert and oriented x3. - Labs CBC & Chem 7: 07/23/18 07:00 07/23/18 07:00 Labs: Abnormal Lab Results - Last 24 Hours (Table) 07/23/18 07/23/18 Range/Units 07:00 07:00 RBC 3.69 L (4.30-5.90) m/uL Hgb 10.3 L (13.0-17.5) gm/dL Hct 32.9 L (39.0-53.0) % RDW 18.9 H (11.5-15.5) % Lymphocytes # 0.5 L (1.0-4.8) k/uL Carbon Dioxide 33 H (22-30) mmol/L BUN 35 H (9-20) mg/dL Creatinine 1.88 H (0.66-1.25) mg/dL Assessment and Plan Plan: Assessment: #1 acute on chronic systolic congestive heart failure, EF less than 20% #2 ischemic cardiomyopathy #3 history of CAD #4 hypertension #5 history of ventricular tachycardia on amiodarone #6 COPD #7 dyslipidemia Plan Cardiology's perspective, we'll continue current dose of IV Lasix. Continue to monitor intake and out along with daily weights and daily lytes BUN and creatinine. DNP note has been reviewed, I agree with a documented findings and plan of care. Patient was seen and examined.
[2018-07-23] MEDS: ACETAMINOPHEN TAB 325 MG TAB PO PRN (16:42)
[2018-07-23] MEDS: ATORVASTATIN 40 MG TAB PO SCH (20:52)
[2018-07-24] MEDS: LEVOTHYROXINE 75 MCG TAB PO SCH (05:59)
[2018-07-24] MEDS: CARVEDILOL 3.125 MG TAB PO SCH (05:59)
[2018-07-24 07:15] LABS: Anisocytosis Slight; Basophils # (A) 0.1 k/uL (0-0.2); Basophils % (A) 1 %; Calcium 9.5 mg/dL (8.4-10.2); Eosinophils # (A) 0.2 k/uL (0-0.7); Eosinophils % (A) 4 %; HCT 33.1 % (39.0-53.0); HGB 10.2 gm/dL (13.0-17.5); Hypochromasia Marked; Lymphocytes # (A) 0.6 k/uL (1.0-4.8); Lymphocytes % (A) 10 %; MCH 27.6 pg (25.0-35.0); MCHC 30.9 g/dL (31.0-37.0); MCV 89.2 fL (80.0-100.0); Magnesium 2.2 mg/dL (1.6-2.3); Mean Platelet Volume 7.1; Monocytes # (A) 0.4 k/uL (0-1.0); Monocytes % (A) 7 %; Neutrophils # (A) 4.5 k/uL (1.3-7.7); Neutrophils % (A) 78 %; Platelet Count 207 k/uL (150-450); Potassium 4.5 mmol/L (3.5-5.1); RBC 3.71 m/uL (4.30-5.90); RDW 18.7 % (11.5-15.5); WBC 5.7 k/uL (3.8-10.6)
--- NOTE | 2018-07-24 07:31 | PN ---
PROGRESS NOTE DATE OF SERVICE: 07/23/2018. PRESENTING COMPLAINT: Short of breath. INTERVAL HISTORY: Patient admitted with CHF exacerbation, has been on IV Lasix. Still short of breath. Edema still present, though a little bit better. Did tolerate a diet. Did have a bowel movement yesterday. Does feel tired and run down. Sitting at the edge of the bed. REVIEW OF SYSTEMS: Done for constitutional, cardiovascular, GI, pulmonary; relevant findings as above. CURRENT MEDICATIONS: Current medications are reviewed that include IV Lasix 40 mg q.12. PHYSICAL EXAMINATION: On examination, temperature 97.5, pulse 66, respiration 17, blood pressure 119/68, pulse ox 99% on 4 L. GENERAL APPEARANCE: Sitting at the edge of bed, short of breath. EYES: Pupils equal. Conjunctivae normal. NECK: JVD possibly raised. Mass not palpable. RESPIRATORY: Effort increased. LUNGS: Decreased breath sounds. CARDIOVASCULAR: First and second sounds normal. Gross edema. ABDOMEN: Distended, soft. Liver and spleen not palpable. PSYCHIATRY: Alert and oriented x3. Mood and affect is normal. INVESTIGATIONS: White count 5.2, hemoglobin 10.3. Potassium 4.2. BUN 35, creatinine 1.88. ASSESSMENT: 1. Acute on chronic congestive heart failure from systolic dysfunction, ejection fraction 20%. 2. Acute renal failure, likely prerenal. 3. Chronic obstructive pulmonary disease. 4. Normocytic anemia probably secondary to chronic kidney disease. 5. Hyperlipidemia. 6. Essential hypertension. 7. Primary osteoarthritis. 8. Chronic hypoxic respiratory failure on 3.5 L at home. 9. Coronary artery disease with history of stent. 10.Chronic obstructive pulmonary disease in an ex-smoker. PLAN: Patient's CHF is slow to respond. Continue with IV Lasix, bronchodilators. Other medications are to continue. The patient is on Zaroxolyn and also had Aldactone. Will follow. MMODL / IJN: [id number] /
[2018-07-24] MEDS: HEPARIN SODIUM,PORCINE 5,000 UNIT/ML 1 ML VIAL SQ SCH ×3 (07:55→23:07)
[2018-07-24] MEDS: CLOPIDOGREL 75 MG TAB PO SCH (07:56)
[2018-07-24] MEDS: AMIODARONE 200 MG TAB PO SCH (07:57)
[2018-07-24] MEDS: ALLOPURINOL 100 MG TAB PO SCH ×2 (07:57→23:06)
[2018-07-24] MEDS: FUROSEMIDE 10 MG/ML 4 ML VIAL IV SCH (07:58)
[2018-07-24] MEDS: ACETAMINOPHEN TAB 325 MG TAB PO PRN ×3 (08:03→23:07)
[2018-07-24] MEDS: DOXYCYCLINE 100 MG in SODIUM CHLORIDE 0.9% 100 ML IVPB SCH ×2 (08:03→23:06)
[2018-07-24] MEDS: CALCITRIOL 0.25 MCG CAP PO SCH (08:03)
[2018-07-24] MEDS: METOLAZONE 2.5 MG TAB PO SCH (08:04)
[2018-07-24] MEDS ORDERED: SPIRONOLACTONE 25 MG TAB PO SCH (09:00)
[2018-07-24] MEDS: IPRATROPIUM 0.5 MG/2.5 ML NEBU INHALATION SCH ×4 (09:03→19:14)
[2018-07-24] MEDS: ALBUTEROL NEBULIZED 2.5 MG/3 ML INHALATION PRN ×4 (09:03→19:13)
[2018-07-24] MEDS: FORMOTEROL FUMARATE 20 MCG/2 ML NEBU INHALATION SCH ×2 (09:03→19:13)
--- NOTE | 2018-07-24 10:13 | XR ---
EXAMINATION TYPE: XR chest 2V DATE OF EXAM: 07/24/2018 COMPARISON: 07/20/2018 HISTORY: Shortness of breath TECHNIQUE: Frontal and lateral views of the chest are obtained. FINDINGS: There is a small right pleural effusion, decreased in the interim. There is trace left ple ural effusion as there is blunting of the costophrenic angle. Underlying COPD is present. Cardia medi astinal silhouette is again enlarged. Cardiac surgical devices again noted. There is generalized osse ous demineralization. Mild degenerative changes of the thoracic spine are again noted. IMPRESSION: Improved right pleural effusion and stable trace left pleural effusion with associated b ibasilar atelectasis and underlying COPD.
--- NOTE | 2018-07-24 11:47 | P.PN ---
Subjective Patient is seen in follow-up for acute kidney injury on chronic kidney disease. Patient has chronic kidney disease stage III secondary to cardiorenal syndrome with baseline creatinine in the range of 1.5-1.7. Renal function worse with creatinine at 2.17 which is due to diuresis. Patient presented with edema and dyspnea. Gradually improving. Currently maintained on Lasix 40 mg IV 2 times daily and metolazone 2.5 mg once daily. Denies chest pain. He is noted to have systolic CHF with ejection fraction of 20% with severe mitral regurgitation and pulmonary hypertension. Edema improving. Vital signs are stable. General: The patient appeared well nourished and normally developed. HEENT: Head exam is unremarkable. Neck is without jugular venous distension. LUNGS: Breath sounds decreased. HEART: Rate and Rhythm are regular. First and second heart sounds normal. No murmurs, rubs or gallops. ABDOMEN: Abdominal exam reveals normal bowel sounds. Non-tender and non- distended. No evidence of peritonitis. EXTREMITITES: 1+ edema. Objective - Vital Signs Vital signs: Vital Signs Temp 97.6 F 07/24/18 11:09 Pulse 69 07/24/18 11:09 Resp 18 07/24/18 11:09 BP 99/66 07/24/18 11:09 Pulse Ox 97 07/24/18 11:09 Intake & Output 07/23/18 07/24/18 07/24/18 18:59 06:59 18:59 Intake Total 1390 20 Output Total 2900 1050 1050 Balance -1510 -1030 -1050 Weight 88.7 kg Intake: IV 140 20 .9 20 Doxycycline 100 mg In 100 Sodium Chloride 0.9% 100 ml @ 66.67 mls/hr IVPB Q12HR [facility] Rx#:[id number] Invasive Line 2 20 20 Oral 1250 Output: Urine 2900 1050 1050 Other: # Voids 3 1 - Labs CBC & Chem 7: 07/24/18 06:28 07/24/18 06:28 Labs: Abnormal Lab Results - Last 24 Hours (Table) 07/24/18 07/24/18 Range/Units 06:28 06:28 RBC 3.71 L (4.30-5.90) m/uL Hgb 10.2 L (13.0-17.5) gm/dL Hct 33.1 L (39.0-53.0) % MCHC 30.9 L (31.0-37.0) g/dL RDW 18.7 H (11.5-15.5) % Lymphocytes # 0.6 L (1.0-4.8) k/uL Carbon Dioxide 33 H (22-30) mmol/L BUN 42 H (9-20) mg/dL Creatinine 2.17 H (0.66-1.25) mg/dL Assessment and Plan Plan: Assessment: 1. Chronic kidney disease stage III secondary to cardiorenal syndrome with baseline creatinine in the range of 1.5-1.7. Urinalysis is benign. No evidence of hydronephrosis noted on renal ultrasound. 2. Systolic CHF with ejection fraction of less than 20% with severe mitral regurgitation. 3. Severe pulmonary hypertension. 4. Volume overload. Improving. 5. Acute kidney injury mostly prerenal secondary to diuresis. Creatinine up to 2.17 today. Plan: Decrease Lasix to 40 mg IV once daily. Maintain Zaroxolyn 2.5 mg once daily. He is now also on Aldactone. Low-salt diet. 1500 mL fluid restriction. Repeat electrolytes in the morning. Daily weights.
[2018-07-24] MEDS ORDERED: FUROSEMIDE 10 MG/ML 4 ML VIAL IV SCH (12:00)
--- NOTE | 2018-07-24 12:18 | P.PN ---
Subjective Progress Note Date: 07/24/18 This is a pleasant 77-year-old gentleman who follows with Dr. Guy in the office. He has a past medical history significant for multivessel coronary artery disease with prior circumflex stent, systolic congestive heart failure with an ejection fraction of less than 20%, ischemic cardiomyopathy, hypertension, hyperlipidemia, prior mitral valve clip procedure, COPD, ventricular tachycardia and pulmonary hypertension. He quit smoking approximately 5 years ago. Patient was admitted to the hospital on this occasion with congestive cardiac failure. He was seen and examined this morning sitting up in his bed eating his lunch. He does state that his breathing is significantly improved.weight is down 2 kg today.White blood cell count 5.2, hemoglobin 10.3, platelet count 218. Sodium 140, potassium 4.2, BUN 35, creatinine 1.8. 07/24/2008 Patient was seen and examined this morning, he states that he said feeling significantly better overall. His weight is down 2 kg today, creatinine up to 2.1, continues to be on IV Lasix however nephrology did decrease the dose today to once daily. Patient also continues to be getting Zaroxolyn 2-1/2 mg daily. Edema is improving but patient still has approximately one plus bilateral peripheral edema. Blood pressure 100/60 with a heart rate in the 60s, 97% on 4 L of oxygen.White blood cell count 5.7, hemoglobin 10.2, platelet count 207. Sodium 140, potassium 4.5, BUN 42, creatinine 2.1. Objective - Vital Signs Vital signs: Vital Signs Temp 97.6 F 07/24/18 11:09 Pulse 76 07/24/18 12:05 Resp 18 07/24/18 11:09 BP 99/66 07/24/18 11:09 Pulse Ox 97 07/24/18 11:09 Intake & Output 07/23/18 07/24/18 07/24/18 18:59 06:59 18:59 Intake Total 1390 20 Output Total 2900 1050 1050 Balance -1510 -1030 -1050 Weight 88.7 kg Intake: IV 140 20 .9 20 Doxycycline 100 mg In 100 Sodium Chloride 0.9% 100 ml @ 66.67 mls/hr IVPB Q12HR [facility] Rx#:[id number] Invasive Line 2 20 20 Oral 1250 Output: Urine 2900 1050 1050 Other: # Voids 3 1 - Exam PHYSICAL EXAMINATION: HEENT: Head is atraumatic, normocephalic. Pupils equal, round. Neck is supple. There is no elevated jugular venous pressure. HEART EXAMINATION: Heart sounds regular, S1 and S2 with a systolic murmur at the base. CHEST EXAMINATION: Lungs reveal improvement in air entry bilaterally, fine wheezing heard today. No chest wall tenderness is noted on palpation or with deep breathing. ABDOMEN: Soft, nontender. Bowel sounds are heard. No organomegaly noted. EXTREMITIES: 1+ peripheral pulses with significant 1+ pitting edema to bilateral lower extremities, currently with Gerson wraps, patient has not noted any improvement since yesterday. NEUROLOGIC patient is awake, alert and oriented x3. - Labs CBC & Chem 7: 07/24/18 06:28 07/24/18 06:28 Labs: Abnormal Lab Results - Last 24 Hours (Table) 07/24/18 07/24/18 Range/Units 06:28 06:28 RBC 3.71 L (4.30-5.90) m/uL Hgb 10.2 L (13.0-17.5) gm/dL Hct 33.1 L (39.0-53.0) % MCHC 30.9 L (31.0-37.0) g/dL RDW 18.7 H (11.5-15.5) % Lymphocytes # 0.6 L (1.0-4.8) k/uL Carbon Dioxide 33 H (22-30) mmol/L BUN 42 H (9-20) mg/dL Creatinine 2.17 H (0.66-1.25) mg/dL Assessment and Plan Plan: Assessment: #1 acute on chronic systolic congestive heart failure, EF less than 20% #2 ischemic cardiomyopathy #3 history of CAD #4 hypertension #5 history of ventricular tachycardia on amiodarone #6 COPD #7 dyslipidemia Plan Cardiology's perspective, we'll continue current dose of IV Lasixas ordered by nephrology.. Continue to monitor intake and out along with daily weights and daily lytes BUN and creatinine. DNP note has been reviewed, I agree with a documented findings and plan of care. Patient was seen and examined.
[2018-07-24] MEDS ORDERED: FUROSEMIDE 250 MG in SODIUM CHLORIDE 0.9% 225 ML IVP SCH (22:30)
[2018-07-24] MEDS: ATORVASTATIN 40 MG TAB PO SCH (23:06)
--- NOTE | 2018-07-24 23:31 | PN ---
PROGRESS NOTE DATE OF SERVICE: 07/24/2018. PRESENTING COMPLAINT: Short of breath. INTERVAL HISTORY: Patient admitted with CHF exacerbation. This morning reduced to 1 dose of IV Lasix in the morning. Also on Zaroxolyn and Aldactone. The patient still has significant edema. The patient states he gets short of breath only walking a few steps. Otherwise, tolerating a diet, sitting at the edge of the bed. Continues to feel weak otherwise. REVIEW OF SYSTEMS: Done for constitutional, cardiovascular, GI, pulmonary; relevant findings as above. CURRENT MEDICATIONS: Reviewed, that include: 1. IV Lasix 40 mg daily. 2. Zaroxolyn 2.5 mg a day. 3. Aldactone 25 mg a day. 4. Coreg 3.125 mg p.o. with breakfast. PHYSICAL EXAMINATION: Temperature 97.3, pulse 70, respiratory rate 18, blood pressure 100/63, pulse ox 98% on 4 liters. GENERAL APPEARANCE: Sitting at the edge of the bed, tired. EYES: Pupils equal. Conjunctivae normal. HEENT: External nose and ears normal. Oral cavity normal. NECK: JVD raised. Mass not palpable. Respiratory effort increased. LUNGS: Lungs decreased breath sounds. CARDIOVASCULAR: 1st and 2nd heart sounds normal. Edema present. ABDOMEN: Distended, soft. Liver and spleen not palpable. PSYCHIATRY: Alert and oriented x3. Mood and affect normal. INVESTIGATIONS: White count 5.7, hemoglobin 10.2, potassium 4.5, bicarb 33, BUN 42, creatinine 2.17. Chest x-ray film reviewed by me shows pulmonary edema, fluid in both the horizontal and oblique fissure and pleural effusion. ASSESSMENT: 1. Acute on chronic congestive heart failure from systolic dysfunction. Ejection fraction 10% to 20%, slow to respond. 2. Acute renal failure, likely prerenal. 3. Chronic obstructive pulmonary disease. 4. Normocytic anemia, probably secondary to chronic kidney disease. 5. Hyperlipidemia. 6. Essential hypertension. 7. Primary osteoarthritis. 8. Chronic hypoxic respiratory failure on 3.5 L oxygen at home. 9. Coronary artery, prior history of stent. 10.Chronic obstructive pulmonary disease in an ex-smoker. PLAN: We will hold up tomorrow morning's IV Lasix dose. Will give overnight Lasix drip at 10 mg an hour for 12 hours. Also split up the current dose of Coreg to twice a day. Strict input and output. Care was discussed with the patient. Prognosis is guarded. MMODL / IJN: [id number] /
[2018-07-25] MEDS: LEVOTHYROXINE 75 MCG TAB PO SCH (06:46)
[2018-07-25 07:32] LABS: Potassium 4.6 mmol/L (3.5-5.1)
[2018-07-25] MEDS: FORMOTEROL FUMARATE 20 MCG/2 ML NEBU INHALATION SCH ×2 (07:54→21:33)
[2018-07-25] MEDS: IPRATROPIUM 0.5 MG/2.5 ML NEBU INHALATION SCH ×4 (07:54→21:32)
[2018-07-25] MEDS: ALBUTEROL NEBULIZED 2.5 MG/3 ML INHALATION PRN ×2 (07:54→11:55)
[2018-07-25] MEDS: CARVEDILOL 1.563 MG TAB PO SCH ×2 (09:11→16:51)
[2018-07-25] MEDS: HEPARIN SODIUM,PORCINE 5,000 UNIT/ML 1 ML VIAL SQ SCH ×2 (09:11→16:51)
[2018-07-25] MEDS: AMIODARONE 200 MG TAB PO SCH (09:11)
[2018-07-25] MEDS: ALLOPURINOL 100 MG TAB PO SCH ×2 (09:11→22:06)
[2018-07-25] MEDS: METOLAZONE 2.5 MG TAB PO SCH (09:12)
[2018-07-25] MEDS: CLOPIDOGREL 75 MG TAB PO SCH (09:12)
[2018-07-25] MEDS: ACETAMINOPHEN TAB 325 MG TAB PO PRN ×2 (10:00→22:06)
[2018-07-25] MEDS: DOXYCYCLINE 100 MG in SODIUM CHLORIDE 0.9% 100 ML IVPB SCH ×2 (10:00→22:06)
[2018-07-25] MEDS: SPIRONOLACTONE 25 MG TAB PO SCH (11:17)
[2018-07-25 12:06] VITALS: BMI 27.3
--- NOTE | 2018-07-25 12:20 | P.PN ---
Subjective Progress Note Date: 07/25/18 This is a pleasant 77-year-old gentleman who follows with Dr. Guy in the office. He has a past medical history significant for multivessel coronary artery disease with prior circumflex stent, systolic congestive heart failure with an ejection fraction of less than 20%, ischemic cardiomyopathy, hypertension, hyperlipidemia, prior mitral valve clip procedure, COPD, ventricular tachycardia and pulmonary hypertension. He quit smoking approximately 5 years ago. Patient was admitted to the hospital on this occasion with congestive cardiac failure. He was seen and examined this morning sitting up in his bed eating his lunch. He does state that his breathing is significantly improved.weight is down 2 kg today.White blood cell count 5.2, hemoglobin 10.3, platelet count 218. Sodium 140, potassium 4.2, BUN 35, creatinine 1.8. 07/24/2018 Patient was seen and examined this morning, he states that he said feeling significantly better overall. His weight is down 2 kg today, creatinine up to 2.1, continues to be on IV Lasix however nephrology did decrease the dose today to once daily. Patient also continues to be getting Zaroxolyn 2-1/2 mg daily. Edema is improving but patient still has approximately one plus bilateral peripheral edema. Blood pressure 100/60 with a heart rate in the 60s, 97% on 4 L of oxygen.White blood cell count 5.7, hemoglobin 10.2, platelet count 207. Sodium 140, potassium 4.5, BUN 42, creatinine 2.1. 07/25/2018 Patient was seen and examined this morning, he diuresed well through the night last night and states that he feels quite well this morning. He did state this morning that he felt a little confused regarding diuretics. Patient was apparently started on a Lasix drip yesterday currently is not on any diuretics. Sodium this morning 138, potassium 4.6, BUN 49, creatinine 2.02. I did have a conversation with Dr. Colon again this morning regarding this patient, he will see and evaluate and likely patient on IV push Lasix 40 once daily. Objective - Vital Signs Vital signs: Vital Signs Temp 97.4 F L 07/25/18 11:10 Pulse 72 07/25/18 12:10 Resp 18 07/25/18 11:11 BP 94/53 07/25/18 11:10 Pulse Ox 97 07/25/18 11:10 Intake & Output 07/24/18 07/25/18 07/25/18 18:59 06:59 18:59 Intake Total 100 485 Output Total 1750 5200 1100 Balance -1750 510 -619 Weight 86.4 kg 86.4 kg Intake: Intake, IV Titration 100 Amount Doxycycline 100 mg In 100 Sodium Chloride 0.9% 100 ml @ 66.67 mls/hr IVPB Q12HR [facility] Rx#:[id number] Oral 485 Output: Urine 1750 5200 1100 Other: Voiding Method Toilet Urinal # Voids 1 - Exam PHYSICAL EXAMINATION: HEENT: Head is atraumatic, normocephalic. Pupils equal, round. Neck is supple. There is no elevated jugular venous pressure. HEART EXAMINATION: Heart sounds regular, S1 and S2 with a systolic murmur at the base. CHEST EXAMINATION: Lungs reveal improvement in air entry bilaterally . No chest wall tenderness is noted on palpation or with deep breathing. ABDOMEN: Soft, nontender. Bowel sounds are heard. No organomegaly noted. EXTREMITIES: 1+ peripheral pulses with significant 1+ pitting edema to bilateral lower extremities, currently with Gerson wraps, patient has not noted any improvement since yesterday. NEUROLOGIC patient is awake, alert and oriented x3. - Labs CBC & Chem 7: 07/24/18 06:28 07/25/18 06:51 Labs: Abnormal Lab Results - Last 24 Hours (Table) 07/25/18 Range/Units 06:51 BUN 49 H (9-20) mg/dL Creatinine 2.02 H (0.66-1.25) mg/dL Assessment and Plan Plan: Assessment: #1 acute on chronic systolic congestive heart failure, EF less than 20% #2 ischemic cardiomyopathy #3 history of CAD #4 hypertension #5 history of ventricular tachycardia on amiodarone #6 COPD #7 dyslipidemia Plan Cardiology's perspective, we will defer Lasix dosing tic nephrology. Patient is looking significantly better overall. DNP note has been reviewed, I agree with a documented findings and plan of care. Patient was seen and examined.
--- NOTE | 2018-07-25 13:09 | P.PN ---
Subjective Patient is seen in follow-up for acute kidney injury on chronic kidney disease. Patient has chronic kidney disease stage III secondary to cardiorenal syndrome with baseline creatinine in the range of 1.5-1.7. Creatinine peaked at 2.17 this admission and is 2.02 today. Patient presented with edema and dyspnea. Gradually improving. Denies chest pain. He is noted to have systolic CHF with ejection fraction of 20% with severe mitral regurgitation and pulmonary hypertension. Edema improving. Patient received Lasix drip overnight. He is also on Aldactone and metolazone. Vital signs are stable. General: The patient appeared well nourished and normally developed. HEENT: Head exam is unremarkable. Neck is without jugular venous distension. LUNGS: Breath sounds decreased. HEART: Rate and Rhythm are regular. First and second heart sounds normal. No murmurs, rubs or gallops. ABDOMEN: Abdominal exam reveals normal bowel sounds. Non-tender and non- distended. No evidence of peritonitis. EXTREMITITES: 1+ edema. Objective - Vital Signs Vital signs: Vital Signs Temp 97.4 F L 07/25/18 11:10 Pulse 72 07/25/18 12:10 Resp 18 07/25/18 11:11 BP 94/53 07/25/18 11:10 Pulse Ox 97 07/25/18 11:10 Intake & Output 07/24/18 07/25/18 07/25/18 18:59 06:59 18:59 Intake Total 100 485 Output Total 1750 5200 1100 Balance -8560 -9138 -143 Weight 86.4 kg 86.4 kg Intake: Intake, IV Titration 100 Amount Doxycycline 100 mg In 100 Sodium Chloride 0.9% 100 ml @ 66.67 mls/hr IVPB Q12HR [facility] Rx#:[id number] Oral 485 Output: Urine 1750 5200 1100 Other: Voiding Method Toilet Urinal # Voids 1 - Labs CBC & Chem 7: 07/24/18 06:28 07/25/18 06:51 Labs: Abnormal Lab Results - Last 24 Hours (Table) 07/25/18 Range/Units 06:51 BUN 49 H (9-20) mg/dL Creatinine 2.02 H (0.66-1.25) mg/dL Assessment and Plan Plan: Assessment: 1. Chronic kidney disease stage III secondary to cardiorenal syndrome with baseline creatinine in the range of 1.5-1.7. Urinalysis is benign. No evidence of hydronephrosis noted on renal ultrasound. 2. Systolic CHF with ejection fraction of less than 20% with severe mitral regurgitation. 3. Severe pulmonary hypertension. 4. Volume overload. Improving. 5. Acute kidney injury mostly prerenal secondary to diuresis. Creatinine peaked at 2.17 and is 2.02 today. Plan: Resume Lasix 40 mg IV twice daily. Maintain Zaroxolyn 2.5 mg once daily. Maintain Aldactone. Low-salt diet. 1500 mL fluid restriction. Repeat electrolytes in the morning. Daily weights.
[2018-07-25] MEDS ORDERED: FUROSEMIDE 20 MG TAB PO SCH (16:00)
[2018-07-25] MEDS: FUROSEMIDE 10 MG/ML 4 ML VIAL IV SCH (16:51)
--- NOTE | 2018-07-25 21:32 | PN ---
PROGRESS NOTE DATE OF SERVICE: 07/25/18. PRESENTING COMPLAINT: Short of breath. INTERVAL HISTORY: Patient presented with CHF exacerbation. I did put the patient last night on 12 hours of IV Lasix drip. The patient did put out about 4 L of fluid. Edema significantly did come down. Breathing a shade better though short of breath. Sitting up. Did tolerate some diet, though run down. REVIEW OF SYSTEMS: Done for constitutional, cardiovascular, GI, pulmonary; relevant findings as above. CURRENT MEDICATIONS: Reviewed. Lasix drip was given at 10 mg an hour for 12 hours overnight. The patient is currently on IV Lasix 40 q.12h, Zaroxolyn, Aldactone. PHYSICAL EXAMINATION: Temperature 97.4, pulse 53, respiratory 18, blood pressure 94/53, pulse ox 97% on 4 L. GENERAL APPEARANCE: Sitting up, tired. EYES: Pupils equal. Conjunctivae normal. HEENT: External appearance of nose and ears normal. Oral cavity normal. NECK: JVD raised. Mass not palpable. RESPIRATORY: Effort increased. Lungs decreased breath sounds. CARDIOVASCULAR: 1st and 2nd sounds normal. Edema decreased. ABDOMEN: Distended, soft. Liver and spleen not palpable. PSYCHIATRY: Alert and oriented x3. Mood and affect is normal. INVESTIGATIONS: Potassium 4.6, BUN 49, creatinine 2.02. ASSESSMENT: 1. Acute on chronic congestive heart failure exacerbation from systolic dysfunction EF 10-20 percent, slow to respond. Did get Lasix drip overnight. 2. Acute renal failure, likely prerenal. 3. Chronic obstructive pulmonary disease. 4. Normocytic anemia probably secondary to chronic kidney disease. 5. Hyperlipidemia. 6. Primary osteoarthritis. 7. Chronic hypoxic respiratory failure on 3 L oxygen at home. 8. Coronary artery disease with prior history of stent. 9. Chronic obstructive pulmonary disease in a current smoker. PLAN: Continue current medication and treatment plan. The patient being on Lasix, Zaroxolyn, Aldactone. Prognosis remains guarded. Will follow. MMODL / IJN: [id number] /
[2018-07-25] MEDS: ATORVASTATIN 40 MG TAB PO SCH (22:06)
[2018-07-26] MEDS: FUROSEMIDE 10 MG/ML 4 ML VIAL IV SCH ×3 (04:57→20:25)
[2018-07-26 06:52] LABS: Calcium 9.9 mg/dL (8.4-10.2); Magnesium 2.1 mg/dL (1.6-2.3); Potassium 4.1 mmol/L (3.5-5.1)
[2018-07-26] MEDS: LEVOTHYROXINE 75 MCG TAB PO SCH (06:57)
[2018-07-26] MEDS: FORMOTEROL FUMARATE 20 MCG/2 ML NEBU INHALATION SCH ×2 (09:00→20:47)
[2018-07-26] MEDS: IPRATROPIUM 0.5 MG/2.5 ML NEBU INHALATION SCH ×4 (09:00→20:47)
[2018-07-26] MEDS: ALBUTEROL NEBULIZED 2.5 MG/3 ML INHALATION PRN ×2 (09:00→20:47)
[2018-07-26] MEDS: CARVEDILOL 1.563 MG TAB PO SCH ×2 (09:18→17:35)
[2018-07-26] MEDS: METOLAZONE 2.5 MG TAB PO SCH (09:18)
[2018-07-26] MEDS: AMIODARONE 200 MG TAB PO SCH (09:18)
[2018-07-26] MEDS: ALLOPURINOL 100 MG TAB PO SCH ×2 (09:18→20:24)
[2018-07-26] MEDS: CLOPIDOGREL 75 MG TAB PO SCH (09:19)
[2018-07-26] MEDS: HEPARIN SODIUM,PORCINE 5,000 UNIT/ML 1 ML VIAL SQ SCH ×4 (09:19→22:09)
[2018-07-26] MEDS: CALCITRIOL 0.25 MCG CAP PO SCH (09:19)
--- NOTE | 2018-07-26 11:43 | P.PN ---
Subjective Progress Note Date: 07/26/18 This is a pleasant 77-year-old gentleman who follows with Dr. Guy in the office. He has a past medical history significant for multivessel coronary artery disease with prior circumflex stent, systolic congestive heart failure with an ejection fraction of less than 20%, ischemic cardiomyopathy, hypertension, hyperlipidemia, prior mitral valve clip procedure, COPD, ventricular tachycardia and pulmonary hypertension. He quit smoking approximately 5 years ago. Patient was admitted to the hospital on this occasion with congestive cardiac failure. He was seen and examined this morning sitting up in his bed eating his lunch. He does state that his breathing is significantly improved.weight is down 2 kg today.White blood cell count 5.2, hemoglobin 10.3, platelet count 218. Sodium 140, potassium 4.2, BUN 35, creatinine 1.8. 07/24/2018 Patient was seen and examined this morning, he states that he said feeling significantly better overall. His weight is down 2 kg today, creatinine up to 2.1, continues to be on IV Lasix however nephrology did decrease the dose today to once daily. Patient also continues to be getting Zaroxolyn 2-1/2 mg daily. Edema is improving but patient still has approximately one plus bilateral peripheral edema. Blood pressure 100/60 with a heart rate in the 60s, 97% on 4 L of oxygen.White blood cell count 5.7, hemoglobin 10.2, platelet count 207. Sodium 140, potassium 4.5, BUN 42, creatinine 2.1. 07/25/2018 Patient was seen and examined this morning, he diuresed well through the night last night and states that he feels quite well this morning. He did state this morning that he felt a little confused regarding diuretics. Patient was apparently started on a Lasix drip yesterday currently is not on any diuretics. Sodium this morning 138, potassium 4.6, BUN 49, creatinine 2.02. I did have a conversation with Dr. Colon again this morning regarding this patient, he will see and evaluate and likely patient on IV push Lasix 40 once daily. 07/26/2018 Patient was seen and examined this morning, edema significantly less today. BUN 49, creatinine 1.9, weight is down 4 kg today. Objective - Vital Signs Vital signs: Vital Signs Temp 99.2 F 07/26/18 08:00 Pulse 72 07/26/18 09:27 Resp 18 07/26/18 08:00 BP 112/72 07/26/18 08:00 Pulse Ox 94 L 07/26/18 08:00 Intake & Output 07/25/18 07/26/18 07/26/18 18:59 06:59 18:59 Intake Total 725 100 240 Output Total 2575 2800 490 Balance -1850 -2700 -250 Weight 86.4 kg 82.4 kg Intake: IV 100 Doxycycline 100 mg In 100 Sodium Chloride 0.9% 100 ml @ 66.67 mls/hr IVPB Q12HR [facility] Rx#:[id number] Oral 725 240 Output: Urine 2575 2800 490 Other: Voiding Method Toilet Toilet Urinal Urinal # Voids 1 1 - Exam PHYSICAL EXAMINATION: HEENT: Head is atraumatic, normocephalic. Pupils equal, round. Neck is supple. There is no elevated jugular venous pressure. HEART EXAMINATION: Heart sounds regular, S1 and S2 with a systolic murmur at the base. CHEST EXAMINATION: Lungs reveal improvement in air entry bilaterally . No chest wall tenderness is noted on palpation or with deep breathing. ABDOMEN: Soft, nontender. Bowel sounds are heard. No organomegaly noted. EXTREMITIES: 1+ peripheral pulses with trace to 1+ pitting edema to bilateral lower extremities, currently with Gerson wraps, NEUROLOGIC patient is awake, alert and oriented x3. - Labs CBC & Chem 7: 07/24/18 06:28 07/26/18 06:11 Labs: Abnormal Lab Results - Last 24 Hours (Table) 07/26/18 Range/Units 06:11 Chloride 96 L (98-107) mmol/L Carbon Dioxide 33 H (22-30) mmol/L BUN 49 H (9-20) mg/dL Creatinine 1.95 H (0.66-1.25) mg/dL Glucose 104 H (74-99) mg/dL Assessment and Plan Plan: Assessment: #1 acute on chronic systolic congestive heart failure, EF less than 20% #2 ischemic cardiomyopathy #3 history of CAD #4 hypertension #5 history of ventricular tachycardia on amiodarone #6 COPD #7 dyslipidemia Plan Cardiology's perspective, we will defer Lasix dosing tic nephrology. Patient is looking significantly better overall. DNP note has been reviewed, I agree with a documented findings and plan of care. Patient was seen and examined.
[2018-07-26] MEDS: DOXYCYCLINE 100 MG in SODIUM CHLORIDE 0.9% 100 ML IVPB SCH ×2 (12:06→20:25)
[2018-07-26] MEDS: SPIRONOLACTONE 25 MG TAB PO SCH (12:06)
[2018-07-26] MEDS: ACETAMINOPHEN TAB 325 MG TAB PO PRN ×2 (12:11→20:30)
--- NOTE | 2018-07-26 13:48 | P.PN ---
Subjective Patient is seen in follow-up for acute kidney injury on chronic kidney disease. Patient has chronic kidney disease stage III secondary to cardiorenal syndrome with baseline creatinine in the range of 1.5-1.7. Creatinine peaked at 2.17 this admission and is 1.95 today. Patient presented with edema and dyspnea. Gradually improving. Denies chest pain. He is noted to have systolic CHF with ejection fraction of 20% with severe mitral regurgitation and pulmonary hypertension. Edema improving. Currently maintained on Lasix 40 mg IV twice daily. He is also on Aldactone and metolazone. Urine output over 5 L in the last 24 hours. Weight trending down. Vital signs are stable. General: The patient appeared well nourished and normally developed. HEENT: Head exam is unremarkable. Neck is without jugular venous distension. LUNGS: Breath sounds decreased. HEART: Rate and Rhythm are regular. First and second heart sounds normal. No murmurs, rubs or gallops. ABDOMEN: Abdominal exam reveals normal bowel sounds. Non-tender and non- distended. No evidence of peritonitis. EXTREMITITES: 1+ edema. Objective - Vital Signs Vital signs: Vital Signs Temp 99.2 F 07/26/18 08:00 Pulse 70 07/26/18 12:03 Resp 18 07/26/18 08:00 BP 112/72 07/26/18 08:00 Pulse Ox 94 L 07/26/18 08:00 Intake & Output 07/25/18 07/26/18 07/26/18 18:59 06:59 18:59 Intake Total 725 100 240 Output Total 2575 2800 490 Balance -1850 -2700 -250 Weight 86.4 kg 82.4 kg Intake: IV 100 Doxycycline 100 mg In 100 Sodium Chloride 0.9% 100 ml @ 66.67 mls/hr IVPB Q12HR [facility] Rx#:[id number] Oral 725 240 Output: Urine 2575 2800 490 Other: Voiding Method Toilet Toilet Urinal Urinal # Voids 1 1 - Labs CBC & Chem 7: 07/24/18 06:28 07/26/18 06:11 Labs: Abnormal Lab Results - Last 24 Hours (Table) 07/26/18 Range/Units 06:11 Chloride 96 L (98-107) mmol/L Carbon Dioxide 33 H (22-30) mmol/L BUN 49 H (9-20) mg/dL Creatinine 1.95 H (0.66-1.25) mg/dL Glucose 104 H (74-99) mg/dL Assessment and Plan Plan: Assessment: 1. Chronic kidney disease stage III secondary to cardiorenal syndrome with baseline creatinine in the range of 1.5-1.7. Urinalysis is benign. No evidence of hydronephrosis noted on renal ultrasound. 2. Systolic CHF with ejection fraction of less than 20% with severe mitral regurgitation. 3. Severe pulmonary hypertension. 4. Volume overload. Improving. 5. Acute kidney injury mostly prerenal secondary to diuresis. Creatinine peaked at 2.17 and is 1.95 today. Plan: Maintain Lasix 40 mg IV twice daily. Maintain Zaroxolyn 2.5 mg once daily. Maintain Aldactone. Low-salt diet. 1500 mL fluid restriction. Repeat electrolytes in the morning. Daily weights.
[2018-07-26] MEDS: ATORVASTATIN 40 MG TAB PO SCH (20:24)
--- NOTE | 2018-07-26 20:54 | PN ---
PROGRESS NOTE DATE OF SERVICE: 07/26/18. PRESENTING COMPLAINT: Short of breath. INTERVAL HISTORY: Patient has CHF exacerbation who is now on IV Lasix. Edema has started to come down. Breathing is slightly getting better. Did tolerate a diet. Patient sitting at the bed of the window. REVIEW OF SYSTEMS: Done for constitutional, cardiovascular, GI, pulmonary; relevant findings as above. CURRENT MEDICATIONS: Reviewed that include IV Lasix 40 q12. PHYSICAL EXAMINATION: Temperature 97.6, pulse 60, respiration 20, blood pressure 106/54, pulse ox 97 percent 4 L. GENERAL APPEARANCE: Sitting up, awake. EYES: Pupils equal. Conjunctivae normal. HEENT: External appearance of nose and ears normal. Oral cavity normal. NECK: JVD raised. Mass not palpable. RESPIRATORY: Effort increased. Lungs, decreased breath sounds. CARDIOVASCULAR: First and second sounds normal. Edema decreased was present. ABDOMEN: Soft, nontender. Liver and spleen not palpable. PSYCHIATRY: Alert and oriented x3. Mood and affect normal. INVESTIGATIONS: Potassium 4.1, BUN 49, creatinine 1.95. ASSESSMENT: 1. Acute on chronic congestive heart failure exacerbation from systolic dysfunction, EF 10-20 percent, slow to respond on IV Lasix. 2. Acute renal failure, likely prerenal. 3. Chronic obstructive pulmonary disease. 4. Normocytic anemia, probably secondary to chronic kidney disease. 5. Hyperlipidemia, primary osteoarthritis. 6. Chronic hypoxic respiratory failure on 3 L oxygen at home. 7. Coronary artery disease with prior history of stent. 8. Chronic obstructive pulmonary disease in a current smoker. PLAN: Continue current medication and treatment plan. Care was discussed with the patient. The patient remains on IV Lasix. MMODL / IJN: [id number] /
[2018-07-27] MEDS: LEVOTHYROXINE 75 MCG TAB PO SCH (06:03)
[2018-07-27] MEDS: CARVEDILOL 1.563 MG TAB PO SCH ×2 (06:03→18:36)
[2018-07-27 07:05] LABS: Calcium 9.9 mg/dL (8.4-10.2); Magnesium 2.1 mg/dL (1.6-2.3); Potassium 4.5 mmol/L (3.5-5.1)
[2018-07-27] MEDS: IPRATROPIUM 0.5 MG/2.5 ML NEBU INHALATION SCH ×4 (08:28→20:12)
[2018-07-27] MEDS: FORMOTEROL FUMARATE 20 MCG/2 ML NEBU INHALATION SCH ×2 (08:28→20:12)
[2018-07-27] MEDS: ALBUTEROL NEBULIZED 2.5 MG/3 ML INHALATION PRN ×2 (08:28→12:05)
[2018-07-27] MEDS: CLOPIDOGREL 75 MG TAB PO SCH (08:38)
[2018-07-27] MEDS: HEPARIN SODIUM,PORCINE 5,000 UNIT/ML 1 ML VIAL SQ SCH ×3 (08:38→22:52)
[2018-07-27] MEDS: AMIODARONE 200 MG TAB PO SCH (08:38)
[2018-07-27] MEDS: ACETAMINOPHEN TAB 325 MG TAB PO PRN ×2 (08:38→22:06)
[2018-07-27] MEDS: FUROSEMIDE 10 MG/ML 4 ML VIAL IV SCH ×2 (08:39→22:11)
[2018-07-27] MEDS: DOXYCYCLINE 100 MG in SODIUM CHLORIDE 0.9% 100 ML IVPB SCH ×2 (08:40→22:11)
[2018-07-27] MEDS: ALLOPURINOL 100 MG TAB PO SCH ×2 (08:40→22:10)
[2018-07-27] MEDS: SPIRONOLACTONE 25 MG TAB PO SCH (08:40)
[2018-07-27] MEDS: METOLAZONE 2.5 MG TAB PO SCH (11:57)
--- NOTE | 2018-07-27 13:09 | P.PN ---
Subjective Patient is seen in follow-up for acute kidney injury on chronic kidney disease. Patient has chronic kidney disease stage III secondary to cardiorenal syndrome with baseline creatinine in the range of 1.5-1.7. Creatinine peaked at 2.17 this admission and is relatively stable at 1.99 today. Patient presented with edema and dyspnea. Gradually improving. Denies chest pain. He is noted to have systolic CHF with ejection fraction of 20% with severe mitral regurgitation and pulmonary hypertension. Edema improving. Currently maintained on Lasix 40 mg IV twice daily. He is also on Aldactone and metolazone. Remains nonoliguric. Weight trending down. Vital signs are stable. General: The patient appeared well nourished and normally developed. HEENT: Head exam is unremarkable. Neck is without jugular venous distension. LUNGS: Breath sounds decreased. HEART: Rate and Rhythm are regular. First and second heart sounds normal. No murmurs, rubs or gallops. ABDOMEN: Abdominal exam reveals normal bowel sounds. Non-tender and non- distended. No evidence of peritonitis. EXTREMITITES: 1+ edema. Objective - Vital Signs Vital signs: Vital Signs Temp 97.7 F 07/27/18 08:00 Pulse 76 07/27/18 12:18 Resp 16 07/27/18 11:58 BP 103/70 07/27/18 11:58 Pulse Ox 97 07/27/18 11:58 Intake & Output 07/26/18 07/27/18 07/27/18 18:59 06:59 18:59 Intake Total 480 350 240 Output Total 890 1150 700 Balance -410 -800 -460 Weight 80.1 kg Intake: Oral 480 350 240 Output: Urine 890 1150 700 Other: Voiding Method Toilet Toilet Toilet Urinal Urinal Urinal # Voids 2 - Labs CBC & Chem 7: 07/24/18 06:28 07/27/18 06:09 Labs: Abnormal Lab Results - Last 24 Hours (Table) 07/27/18 Range/Units 06:09 Sodium 136 L (137-145) mmol/L Chloride 95 L (98-107) mmol/L Carbon Dioxide 31 H (22-30) mmol/L BUN 48 H (9-20) mg/dL Creatinine 1.99 H (0.66-1.25) mg/dL Glucose 101 H (74-99) mg/dL Assessment and Plan Plan: Assessment: 1. Chronic kidney disease stage III secondary to cardiorenal syndrome with baseline creatinine in the range of 1.5-1.7. Urinalysis is benign. No evidence of hydronephrosis noted on renal ultrasound. 2. Systolic CHF with ejection fraction of less than 20% with severe mitral regurgitation. 3. Severe pulmonary hypertension. 4. Volume overload. Improving. 5. Acute kidney injury mostly prerenal secondary to diuresis. Creatinine peaked at 2.17 and is 1.99 today. Plan: Maintain Lasix 40 mg IV twice daily. Maintain Zaroxolyn 2.5 mg once daily. Maintain Aldactone. Low-salt diet. 1500 mL fluid restriction. Repeat electrolytes in the morning. Daily weights.
--- NOTE | 2018-07-27 13:28 | P.PN ---
Subjective Progress Note Date: 07/27/18 This is a pleasant 77-year-old gentleman who follows with Dr. Guy in the office. He has a past medical history significant for multivessel coronary artery disease with prior circumflex stent, systolic congestive heart failure with an ejection fraction of less than 20%, ischemic cardiomyopathy, hypertension, hyperlipidemia, prior mitral valve clip procedure, COPD, ventricular tachycardia and pulmonary hypertension. He quit smoking approximately 5 years ago. Patient was admitted to the hospital on this occasion with congestive cardiac failure. He was seen and examined this morning sitting up in his bed eating his lunch. He does state that his breathing is significantly improved.weight is down 2 kg today.White blood cell count 5.2, hemoglobin 10.3, platelet count 218. Sodium 140, potassium 4.2, BUN 35, creatinine 1.8. 07/24/2018 Patient was seen and examined this morning, he states that he said feeling significantly better overall. His weight is down 2 kg today, creatinine up to 2.1, continues to be on IV Lasix however nephrology did decrease the dose today to once daily. Patient also continues to be getting Zaroxolyn 2-1/2 mg daily. Edema is improving but patient still has approximately one plus bilateral peripheral edema. Blood pressure 100/60 with a heart rate in the 60s, 97% on 4 L of oxygen.White blood cell count 5.7, hemoglobin 10.2, platelet count 207. Sodium 140, potassium 4.5, BUN 42, creatinine 2.1. 07/25/2018 Patient was seen and examined this morning, he diuresed well through the night last night and states that he feels quite well this morning. He did state this morning that he felt a little confused regarding diuretics. Patient was apparently started on a Lasix drip yesterday currently is not on any diuretics. Sodium this morning 138, potassium 4.6, BUN 49, creatinine 2.02. I did have a conversation with Dr. Colon again this morning regarding this patient, he will see and evaluate and likely patient on IV push Lasix 40 once daily. 07/26/2018 Patient was seen and examined this morning, edema significantly less today. BUN 49, creatinine 1.9, weight is down 4 kg today. 07/27/2018 Patient was seen and examined this morning, continues to feel better overall. Sodium 136, potassium 4.5, BUN 48 and creatinine 1.9. Continues to lose weight , edema continues to improve. Objective - Vital Signs Vital signs: Vital Signs Temp 97.7 F 07/27/18 08:00 Pulse 76 07/27/18 12:18 Resp 16 07/27/18 11:58 BP 103/70 07/27/18 11:58 Pulse Ox 97 07/27/18 11:58 Intake & Output 07/26/18 07/27/18 07/27/18 18:59 06:59 18:59 Intake Total 480 350 440 Output Total 890 1150 700 Balance -410 -800 -260 Weight 80.1 kg Intake: Oral 480 350 440 Output: Urine 890 1150 700 Other: Voiding Method Toilet Toilet Toilet Urinal Urinal Urinal # Voids 2 - Exam PHYSICAL EXAMINATION: HEENT: Head is atraumatic, normocephalic. Pupils equal, round. Neck is supple. There is no elevated jugular venous pressure. HEART EXAMINATION: Heart sounds regular, S1 and S2 with a systolic murmur at the base. CHEST EXAMINATION: Lungs reveal improvement in air entry bilaterally . No chest wall tenderness is noted on palpation or with deep breathing. ABDOMEN: Soft, nontender. Bowel sounds are heard. No organomegaly noted. EXTREMITIES: 1+ peripheral pulses with trace to 1+ pitting edema to bilateral lower extremities, currently with Gerson wraps, NEUROLOGIC patient is awake, alert and oriented x3. - Labs CBC & Chem 7: 07/24/18 06:28 07/27/18 06:09 Labs: Abnormal Lab Results - Last 24 Hours (Table) 07/27/18 Range/Units 06:09 Sodium 136 L (137-145) mmol/L Chloride 95 L (98-107) mmol/L Carbon Dioxide 31 H (22-30) mmol/L BUN 48 H (9-20) mg/dL Creatinine 1.99 H (0.66-1.25) mg/dL Glucose 101 H (74-99) mg/dL Assessment and Plan Plan: Assessment: #1 acute on chronic systolic congestive heart failure, EF less than 20% #2 ischemic cardiomyopathy #3 history of CAD #4 hypertension #5 history of ventricular tachycardia on amiodarone #6 COPD #7 dyslipidemia Plan Cardiology's perspective, we will defer Lasix dosing tic nephrology. Patient is looking significantly better overall. DNP note has been reviewed, I agree with a documented findings and plan of care. Patient was seen and examined.
--- NOTE | 2018-07-27 20:10 | PN ---
PROGRESS NOTE DATE OF SERVICE: 07/27/2018 PRESENTING COMPLAINT: Tired. INTERVAL HISTORY: Patient presented with CHF exacerbation. Remains on IV Lasix. Edema continues to come down. Breathing is getting better, less short-winded when he gets about. Swelling is also coming down. Eating much better. REVIEW OF SYSTEMS: Done for constitutional, cardiovascular, GI, pulmonary; relevant findings as above. Patient did walk a few more times. CURRENT MEDICATIONS: Reviewed. They include IV Lasix 40 q.12 hours. PHYSICAL EXAMINATION: Temperature 97.6, pulse 65, respiration 18, blood pressure 103/63, pulse ox 97% on 4 L. GENERAL APPEARANCE: Sitting up, awake. EYES: Pupils equal. Conjunctivae normal. HEENT: External appearance of nose and ears normal. Oral cavity normal. NECK: JVD raised. Mass not palpable. RESPIRATORY: Effort increased. LUNGS: Decreased breath sounds. CARDIOVASCULAR: First and second sounds normal. Edema present but going down. ABDOMEN: Soft, non-tender. Liver and spleen not palpable. PSYCHIATRY: Alert and oriented x3. Mood and affect normal. INVESTIGATIONS: Potassium 4.5, BUN 48, creatinine 1.99. ASSESSMENT: 1. Acute on chronic congestive heart failure exacerbation from systolic dysfunction, ejection fraction 10% to 20%, responding to IV Lasix. 2. Acute renal failure, likely prerenal. 3. Chronic obstructive pulmonary disease. 4. Normocytic anemia, probably secondary to chronic kidney disease. 5. Hyperlipidemia. 6. Primary osteoarthritis. 7. Chronic hypoxic respiratory failure, on 3 L oxygen at home. 8. Coronary artery disease with prior history of stent. 9. Chronic obstructive pulmonary disease in a current smoker. PLAN: The patient is slowly improving. Encouraged to ambulate more. Remains on IV Lasix. Follow electrolytes closely. MMODL / IJN: [id number] /
[2018-07-27] MEDS: ATORVASTATIN 40 MG TAB PO SCH (22:11)
[2018-07-28] MEDS: CARVEDILOL 1.563 MG TAB PO SCH ×2 (06:17→16:47)
[2018-07-28] MEDS: LEVOTHYROXINE 75 MCG TAB PO SCH (06:17)
[2018-07-28] MEDS: FORMOTEROL FUMARATE 20 MCG/2 ML NEBU INHALATION SCH ×2 (08:52→20:12)
[2018-07-28] MEDS: IPRATROPIUM 0.5 MG/2.5 ML NEBU INHALATION SCH ×4 (08:52→20:12)
[2018-07-28] MEDS: ACETAMINOPHEN TAB 325 MG TAB PO PRN ×2 (09:23→16:47)
[2018-07-28] MEDS: FUROSEMIDE 10 MG/ML 4 ML VIAL IV SCH ×2 (09:23→19:34)
[2018-07-28] MEDS: DOXYCYCLINE 100 MG in SODIUM CHLORIDE 0.9% 100 ML IVPB SCH (09:23)
[2018-07-28] MEDS: CALCITRIOL 0.25 MCG CAP PO SCH (09:24)
[2018-07-28] MEDS: CLOPIDOGREL 75 MG TAB PO SCH (09:24)
[2018-07-28] MEDS: HEPARIN SODIUM,PORCINE 5,000 UNIT/ML 1 ML VIAL SQ SCH ×3 (09:24→22:30)
[2018-07-28] MEDS: AMIODARONE 200 MG TAB PO SCH (09:24)
[2018-07-28] MEDS: ALLOPURINOL 100 MG TAB PO SCH ×2 (09:24→19:34)
[2018-07-28] MEDS: METOLAZONE 2.5 MG TAB PO SCH (09:24)
[2018-07-28] MEDS: SPIRONOLACTONE 25 MG TAB PO SCH (12:37)
--- NOTE | 2018-07-28 12:58 | P.PN ---
Subjective Progress Note Date: 07/28/18 (Nephrology) Principal diagnosis: Acute kidney injury Seen and examined for the follow-up of acute kidney injury. Feeling better making good amount of urine. Lower lower extremity edema getting better. 3 L negative balance in the last 24 hours. Objective - Vital Signs Vital signs: Vital Signs Temp 97.3 F L 07/28/18 09:20 Pulse 73 07/28/18 12:48 Resp 18 07/28/18 11:05 BP 91/66 07/28/18 11:05 Pulse Ox 92 L 07/28/18 11:05 Intake & Output 07/27/18 07/28/18 07/28/18 18:59 06:59 18:59 Intake Total 625 5 Output Total 700 3540 575 Balance -75 -3535 -575 Weight 79.7 kg Intake: IV 5 5 Invasive Line 3 5 5 Oral 620 Output: Urine 700 3540 575 Other: Voiding Method Toilet Toilet Toilet Urinal Urinal Urinal # Voids 2 - Exam No acute distress S1-S2 heard Lungs clear Edema - Labs CBC & Chem 7: 07/24/18 06:28 07/27/18 06:09 Assessment and Plan Assessment: #1 acute kidney injury secondary to type I cardiorenal syndrome. Creatinine stable since yesterday #2 CK D stage III secondary to type 2 cardiorenal syndrome. #3 CHF with systolic dysfunction EF of 20% #4 volume overload secondary to CHF #5 hypotension secondary to underlying cardiomyopathy Plan: #1 continue with current dose of Lasix 40 mg IV and Zaroxolyn. #2 renal function stable, changed to oral torsemide by Monday #3 Strict ins and outs #4 blood pressure is marginal if persistently low add midodrine to maintain hemodynamic support #5 avoid nephrotoxic agents and hypotensive episodes
--- NOTE | 2018-07-28 13:31 | P.PN ---
Subjective Progress Note Date: 07/28/18 This is a pleasant 77-year-old gentleman who follows with Dr. Guy in the office. He has a past medical history significant for multivessel coronary artery disease with prior circumflex stent, systolic congestive heart failure with an ejection fraction of less than 20%, ischemic cardiomyopathy, hypertension, hyperlipidemia, prior mitral valve clip procedure, COPD, ventricular tachycardia and pulmonary hypertension. He quit smoking approximately 5 years ago. Patient was admitted to the hospital on this occasion with congestive cardiac failure. He was seen and examined this morning sitting up in his bed eating his lunch. He does state that his breathing is significantly improved.weight is down 2 kg today.White blood cell count 5.2, hemoglobin 10.3, platelet count 218. Sodium 140, potassium 4.2, BUN 35, creatinine 1.8. 07/24/2018 Patient was seen and examined this morning, he states that he said feeling significantly better overall. His weight is down 2 kg today, creatinine up to 2.1, continues to be on IV Lasix however nephrology did decrease the dose today to once daily. Patient also continues to be getting Zaroxolyn 2-1/2 mg daily. Edema is improving but patient still has approximately one plus bilateral peripheral edema. Blood pressure 100/60 with a heart rate in the 60s, 97% on 4 L of oxygen.White blood cell count 5.7, hemoglobin 10.2, platelet count 207. Sodium 140, potassium 4.5, BUN 42, creatinine 2.1. 07/25/2018 Patient was seen and examined this morning, he diuresed well through the night last night and states that he feels quite well this morning. He did state this morning that he felt a little confused regarding diuretics. Patient was apparently started on a Lasix drip yesterday currently is not on any diuretics. Sodium this morning 138, potassium 4.6, BUN 49, creatinine 2.02. I did have a conversation with Dr. Colon again this morning regarding this patient, he will see and evaluate and likely patient on IV push Lasix 40 once daily. 07/26/2018 Patient was seen and examined this morning, edema significantly less today. BUN 49, creatinine 1.9, weight is down 4 kg today. 07/27/2018 Patient was seen and examined this morning, continues to feel better overall. Sodium 136, potassium 4.5, BUN 48 and creatinine 1.9. Continues to lose weight , edema continues to improve. 07/28/2018 Patient seen and examined this morning continues to feel better every day. Still has peripheral edema but significantly improved. Blood pressure 90/60, 92 % on 4 L of oxygen. Sodium 136, potassium 4.5, BUN 48, creatinine 1.9. Magnesium 2.1. Objective - Vital Signs Vital signs: Vital Signs Temp 97.3 F L 07/28/18 09:20 Pulse 74 07/28/18 12:58 Resp 18 07/28/18 11:05 BP 91/66 07/28/18 11:05 Pulse Ox 92 L 07/28/18 11:05 Intake & Output 07/27/18 07/28/18 07/28/18 18:59 06:59 18:59 Intake Total 625 5 Output Total 700 3540 575 Balance -75 -3535 -575 Weight 79.7 kg Intake: IV 5 5 Invasive Line 3 5 5 Oral 620 Output: Urine 700 3540 575 Other: Voiding Method Toilet Toilet Toilet Urinal Urinal Urinal # Voids 2 - Exam PHYSICAL EXAMINATION: HEENT: Head is atraumatic, normocephalic. Pupils equal, round. Neck is supple. There is no elevated jugular venous pressure. HEART EXAMINATION: Heart sounds regular, S1 and S2 with a systolic murmur at the base. CHEST EXAMINATION: Lungs reveal improvement in air entry bilaterally . No chest wall tenderness is noted on palpation or with deep breathing. ABDOMEN: Soft, nontender. Bowel sounds are heard. No organomegaly noted. EXTREMITIES: 1+ peripheral pulses with trace to 1+ pitting edema to bilateral lower extremities, currently with Gerson wraps, NEUROLOGIC patient is awake, alert and oriented x3. - Labs CBC & Chem 7: 07/24/18 06:28 07/27/18 06:09 Assessment and Plan Plan: Assessment: #1 acute on chronic systolic congestive heart failure, EF less than 20% #2 ischemic cardiomyopathy #3 history of CAD #4 hypertension #5 history of ventricular tachycardia on amiodarone #6 COPD #7 dyslipidemia Plan Cardiology's perspective, we will defer Lasix dosing to nephrology. Patient is looking significantly better overall. We'll follow him now on an as-needed basis only, please don't hesitate to call with any questions. Follow-up appointment will be made in the office post discharge. DNP note has been reviewed, I agree with a documented findings and plan of care. Patient was seen and examined.
[2018-07-28] MEDS: DOXYCYCLINE 100 MG CAP PO SCH (19:34)
[2018-07-28] MEDS: ATORVASTATIN 40 MG TAB PO SCH (19:34)
--- NOTE | 2018-07-28 23:14 | PN ---
PROGRESS NOTE DATE OF SERVICE: July 28, 2018. PRESENTING COMPLAINT: Tired. INTERVAL HISTORY: Patient presented with CHF exacerbation, remains on IV Lasix. Edema still present but coming down. The patient is walking better. Tolerating a diet. REVIEW OF SYSTEMS: Done for constitutional, cardiovascular, GI, pulmonary; relevant findings as above. CURRENT MEDICATIONS: Reviewed that include p.o. Zaroxolyn, IV Lasix 40 mg q.12. EXAMINATION: VITAL SIGNS: Temperature 96.8, pulse 67, respiratory rate 16, blood pressure 102/67, pulse ox 96% on 4 L. GENERAL APPEARANCE : Looking a bit better. EYES: Pupils are equal. Conjunctivae normal. HEENT: External appearance of nose and ears normal. Oral cavity normal. NECK: JVD raised. Mass not palpable. RESPIRATORY: Effort increased. LUNGS: Decreased breath sounds. CARDIOVASCULAR: 1st and 2nd sounds normal. Decreasing edema. ABDOMEN: Soft, nontender. Liver and spleen not palpable. PSYCHIATRY: Alert and oriented x3. Mood and affect normal. INVESTIGATIONS: Potassium 4.5, BUN 48, creatinine 1.99., ASSESSMENT: 1. Acute on chronic congestive heart failure exacerbation from systolic dysfunction, EF 10-20 percent. According to IV Lasix. The patient has been over 15 L in negative fluid balance. 2. Acute renal failure, likely prerenal. 3. Chronic obstructive pulmonary disease. 4. Normocytic anemia probably secondary to chronic kidney disease. 5. Hyperlipidemia. 6. Primary osteoarthritis. 7. Chronic hypoxic respiratory failure on 3 L oxygen at home. 8. Coronary artery disease with prior history of stent. 9. Chronic obstructive pulmonary disease in a current smoker. 10.Chronic kidney disease stage 3 secondary to cardiorenal syndrome. PLAN: Continue with the patient on IV Lasix. The patient remains in negative fluid balance and is gradually coming along. Care was discussed with the patient. Encouraged to ambulate more. MMODL / IJN: [id number] /
[2018-07-29] MEDS: ACETAMINOPHEN TAB 325 MG TAB PO PRN ×3 (04:10→16:57)
[2018-07-29] MEDS: LEVOTHYROXINE 75 MCG TAB PO SCH (05:59)
[2018-07-29] MEDS: CARVEDILOL 1.563 MG TAB PO SCH ×2 (05:59→16:57)
[2018-07-29 06:41] LABS: Calcium 9.9 mg/dL (8.4-10.2); Potassium 4.7 mmol/L (3.5-5.1)
[2018-07-29] MEDS: ALLOPURINOL 100 MG TAB PO SCH ×2 (08:13→19:47)
[2018-07-29] MEDS: HEPARIN SODIUM,PORCINE 5,000 UNIT/ML 1 ML VIAL SQ SCH ×3 (08:13→23:16)
[2018-07-29] MEDS: FUROSEMIDE 10 MG/ML 4 ML VIAL IV SCH (08:13)
[2018-07-29] MEDS: CLOPIDOGREL 75 MG TAB PO SCH (08:13)
[2018-07-29] MEDS: AMIODARONE 200 MG TAB PO SCH (08:13)
[2018-07-29] MEDS: DOXYCYCLINE 100 MG CAP PO SCH ×2 (08:14→19:47)
[2018-07-29] MEDS: METOLAZONE 2.5 MG TAB PO SCH (08:14)
[2018-07-29] MEDS: IPRATROPIUM 0.5 MG/2.5 ML NEBU INHALATION SCH ×4 (09:02→20:33)
[2018-07-29] MEDS: FORMOTEROL FUMARATE 20 MCG/2 ML NEBU INHALATION SCH ×2 (09:02→20:33)
--- NOTE | 2018-07-29 11:08 | P.PN ---
Subjective Progress Note Date: 07/29/18 Principal diagnosis: Acute kidney injury Seen and examined for the follow-up of acute kidney injury. Feeling better making good amount of urine. Lower lower extremity edema getting better. 1700 ML's negative balance in the last 24 hours. Objective - Vital Signs Vital signs: Vital Signs Temp 97.2 F L 07/29/18 08:10 Pulse 72 07/29/18 09:20 Resp 16 07/29/18 08:10 BP 100/64 07/29/18 08:10 Pulse Ox 98 07/29/18 09:03 Intake & Output 07/28/18 07/29/18 07/29/18 18:59 06:59 18:59 Intake Total 480 10 Output Total 575 1650 300 Balance -95 -1640 -300 Weight 76.9 kg Intake: IV 10 .9 10 Oral 480 Output: Urine 575 1650 300 Other: Voiding Method Toilet Toilet Toilet Urinal Urinal Urinal # Voids 500 3 - Exam No acute distress S1-S2 heard Lungs clear Edema improved - Labs CBC & Chem 7: 07/24/18 06:28 07/29/18 05:59 Labs: Abnormal Lab Results - Last 24 Hours (Table) 07/29/18 Range/Units 05:59 Chloride 97 L (98-107) mmol/L BUN 59 H (9-20) mg/dL Creatinine 2.11 H (0.66-1.25) mg/dL Assessment and Plan Assessment: #1 acute kidney injury secondary to type I cardiorenal syndrome. Creatinine slightly creeping aspect over diuresis. #2 CKD stage III secondary to type 2 cardiorenal syndrome. #3 CHF with systolic dysfunction EF of 20% #4 volume overload secondary to CHF #5 hypotension secondary to underlying cardiomyopathy Plan: #1 continue with current dose of Lasix 40 mg IV and Zaroxolyn. Change to by mouth torsemide from tomorrow #2 Strict ins and outs #3 avoid nephrotoxic agents and hypotensive episodes #4 repeat labs in the morning
[2018-07-29] MEDS: SPIRONOLACTONE 25 MG TAB PO SCH (12:36)
--- NOTE | 2018-07-29 17:09 | PN ---
PROGRESS NOTE DATE OF SERVICE: 07/29/2018. PRESENTING COMPLAINT: Tired. INTERVAL HISTORY: Patient presented with CHF exacerbation. Remains on IV Lasix. Continues to diurese. Edema continues to go down. Eating better, walking much improved. Remains on oxygen. REVIEW OF SYSTEMS: Done for constitutional, cardiovascular, GI, pulmonary relevant findings as above. CURRENT MEDICATIONS: Reviewed that include IV Lasix and Aldactone. PHYSICAL EXAMINATION: VITAL SIGNS: Temperature 97.2 pulse 67, respirations 16, blood pressure 100/64, pulse ox 95 percent on 4 L. GENERAL APPEARANCE: Sitting up, more comfortable. EYES: Pupils are equal. Conjunctivae normal. HEENT: External appearance of nose and ears normal. Oral cavity normal. NECK: JVD less raised. Mass not palpable. RESPIRATORY: Effort increased. LUNGS: Decreased breath sounds. CARDIOVASCULAR: 1st and 2nd sounds normal. Edema greatly improved. ABDOMEN: Soft, nontender. Liver and spleen not palpable. PSYCHIATRY: Alert and oriented x3. Mood and affect normal. INVESTIGATIONS: Potassium 4.7, BUN 59, creatinine 2.11. ASSESSMENT: 1. Acute on chronic congestive heart failure exacerbation from systolic dysfunction EF 10-20 percent. Diuresed over 15 L. 2. Acute renal failure, likely prerenal. 3. Chronic obstructive pulmonary disease. 4. Normocytic anemia secondary to chronic kidney disease. 5. Hyperlipidemia. 6. Primary osteoarthritis. 7. Chronic hypoxic respiratory failure on 3 L oxygen at home. 8. Coronary artery disease with prior history of stent. 9. Chronic obstructive pulmonary disease in a current smoker. 10.Chronic kidney disease stage 3 due to cardiorenal syndrome. PLAN: Patient will be switched over to oral diuretic. Doing much better. Edema is greatly come down. Care was discussed with the patient. MMODL / IJN: [id number] /
[2018-07-29] MEDS: ATORVASTATIN 40 MG TAB PO SCH (19:47)
[2018-07-29 19:52] VITALS: RESP 18
[2018-07-29] MEDS: ALBUTEROL NEBULIZED 2.5 MG/3 ML INHALATION PRN (20:33)
[2018-07-30] MEDS: ACETAMINOPHEN TAB 325 MG TAB PO PRN ×2 (03:43→09:50)
[2018-07-30] MEDS: LEVOTHYROXINE 75 MCG TAB PO SCH (06:05)
[2018-07-30] MEDS: CARVEDILOL 1.563 MG TAB PO SCH (06:05)
[2018-07-30] MEDS: AMIODARONE 200 MG TAB PO SCH (08:28)
[2018-07-30] MEDS: HEPARIN SODIUM,PORCINE 5,000 UNIT/ML 1 ML VIAL SQ SCH (08:28)
[2018-07-30] MEDS: CLOPIDOGREL 75 MG TAB PO SCH (08:28)
[2018-07-30] MEDS: ALLOPURINOL 100 MG TAB PO SCH (08:28)
[2018-07-30] MEDS: DOXYCYCLINE 100 MG CAP PO SCH (08:30)
[2018-07-30 08:35] LABS: Calcium 9.7 mg/dL (8.4-10.2); Potassium 4.3 mmol/L (3.5-5.1)
[2018-07-30] MEDS: IPRATROPIUM 0.5 MG/2.5 ML NEBU INHALATION SCH ×2 (08:50→11:54)
[2018-07-30] MEDS: FORMOTEROL FUMARATE 20 MCG/2 ML NEBU INHALATION SCH (08:50)
[2018-07-30] MEDS ORDERED: TORSEMIDE 20 MG TAB PO SCH (09:00)
--- NOTE | 2018-07-30 10:27 | P.PN ---
Subjective Patient is seen in follow-up for acute kidney injury on chronic kidney disease. Patient has chronic kidney disease stage III secondary to cardiorenal syndrome with baseline creatinine in the range of 1.5-1.7. Creatinine peaked at 2.17 this admission and is relatively stable at 2.04 today. Patient presented with edema and dyspnea. Gradually improving. Denies chest pain. He is noted to have systolic CHF with ejection fraction of 20% with severe mitral regurgitation and pulmonary hypertension. Remains nonoliguric. Currently maintained on Demadex 20 mg once daily. Vital signs are stable. General: The patient appeared well nourished and normally developed. HEENT: Head exam is unremarkable. Neck is without jugular venous distension. LUNGS: Breath sounds decreased. HEART: Rate and Rhythm are regular. First and second heart sounds normal. No murmurs, rubs or gallops. ABDOMEN: Abdominal exam reveals normal bowel sounds. Non-tender and non- distended. No evidence of peritonitis. EXTREMITITES: Trace edema. Objective - Vital Signs Vital signs: Vital Signs Temp 97.9 F 07/30/18 04:00 Pulse 72 07/30/18 09:10 Resp 18 07/30/18 04:00 BP 111/70 07/30/18 04:00 Pulse Ox 98 07/30/18 04:00 Intake & Output 07/29/18 07/30/18 07/30/18 18:59 06:59 18:59 Intake Total 240 120 Output Total 300 1450 Balance -60 -1450 120 Weight 77 kg Intake: Oral 240 120 Output: Urine 300 1450 Other: Voiding Method Toilet Toilet Urinal Urinal # Voids 3 - Labs CBC & Chem 7: 07/24/18 06:28 07/30/18 06:46 Labs: Abnormal Lab Results - Last 24 Hours (Table) 07/30/18 Range/Units 06:46 Sodium 136 L (137-145) mmol/L BUN 53 H (9-20) mg/dL Creatinine 2.04 H (0.66-1.25) mg/dL Glucose 134 H (74-99) mg/dL Assessment and Plan Plan: Assessment: 1. Chronic kidney disease stage III secondary to cardiorenal syndrome with baseline creatinine in the range of 1.5-1.7. Urinalysis is benign. No evidence of hydronephrosis noted on renal ultrasound. 2. Systolic CHF with ejection fraction of less than 20% with severe mitral regurgitation. 3. Severe pulmonary hypertension. 4. Volume overload. Improving. 5. Acute kidney injury mostly prerenal secondary to diuresis. Creatinine peaked at 2.17 and is relatively stable at 2.04 today. Plan: Maintain Demadex 20 mg orally once daily. Maintain Aldactone. Low-salt diet. 1500 mL fluid restriction. Repeat electrolytes in the morning. Anticipate discharge soon. Repeat BMP in 3-4 days postdischarge and follow up outpatient in the next 1-2 weeks.
[2018-07-30] MEDS: SPIRONOLACTONE 25 MG TAB PO SCH (11:31)
[2018-07-30 12:14] VITALS: BP 117/75; PULSE 67; TEMP 98.5
--- NOTE | 2018-07-31 00:33 | DS ---
DISCHARGE SUMMARY DATE OF ADMISSION: 07/18/2018 DATE OF DISCHARGE: 07/30/2018. FINAL DIAGNOSES: 1. Acute on chronic congestive heart failure exacerbation from systolic dysfunction, ejection fraction 10-20 percent. 2. Acute renal failure likely prerenal from diuresis. 3. Chronic obstructive pulmonary disease. 4. Normocytic anemia secondary to chronic kidney disease. 5. Hyperlipidemia. 6. Primary osteoarthritis. 7. Chronic hypoxic respiratory failure on 3 L oxygen at home. 8. Coronary artery disease prior history of stent. 9. Chronic obstructive pulmonary disease in a current smoker. 10.Chronic kidney disease stage 3 due to cardiorenal syndrome. 11.Severe secondary pulmonary hypertension secondary to congestive heart failure. 12.Severe mitral regurgitation, nonrheumatic. HOSPITAL COURSE: This patient with CHF exacerbation, diuresed close to 20 L. Edema was greatly improved. The patient's creatinine 1.46 when he presented. Did go up to 2.04 by the time of discharge, switched over to oral Lasix. Doing much better, up and about. PHYSICAL EXAMINATION: Temperature 98.5, pulse 57, respiratory rate 18. Blood pressure 107/75, 98% on 4 L. LABS: Potassium 4.3, BUN 53, creatinine 2.04. 2D echocardiogram showed EF close to 10-20 percent, severe mitral regurgitation, severe pulmonary hypertension. Patient did have a renal ultrasound that showed atrophic kidneys. DISCHARGE MEDICATIONS: 1. ProAir 2 puffs q.6h p.r.n. 2. Allopurinol 100 mg b.i.d. 3. Lipitor 40 mg q.h.s. 4. Plavix 75 mg a day. 5. Cordarone 200 mg p.o. daily. 6. Synthroid 75 mcg a day. 7. Sodium bicarb 650 mg p.o. b.i.d. 8. Rocaltrol 0.25 mcg p.o. Monday, , and Monday. 9. Vitamin D2 50,000 units p.o. every 30 days. 10.Nitrostat 0.4 sublingual q.5 p.r.n. 11.DuoNeb q.i.d. 12.Tylenol 650 mg q.6h p.r.n. 13.Coreg 1.563 p.o. b.i.d. 14.Doxycycline 100 mg Q 12 10 capsules. 15.Senokot 8.6 mg p.o. b.i.d. p.r.n. 16.Aldactone 25 mg p.o. daily. 17.Demadex 20 mg p.o. daily. FOLLOW UP: Dr. Darling on 08/03/2018, Dr. Colon in [address] Harman Guy 08/13/2018. BMP in 3 days. Home oxygen to continue. Copy to Dr. Darling. MMODL / IJN: [id number] /
[2018-08-16] MEDS ORDERED: ERGOCALCIFEROL 50,000 UNIT CAP PO SCH (09:00)
== END 2018-07-30 15:51 | disposition home or self-care (01) | DRG 291 ==
LOC: EC 12:59 → 3SCARD 15:47 → 1SOBS 17:24 → OBSVTOIN 07-18 15:00 → 3SCARD 07-20 18:00 → 1SOBS 07-20 18:05 → 3SCARD 07-20 19:09
PROVIDERS: ADMIT Hospitalist; ATTEND Hospitalist
DX: I13.0 Hypertensive heart and chronic kidney disease with heart failure and stage 1 through stage 4 chronic kidney disease, or unspecified chronic kidney disease (principal); I50.23 Acute on chronic systolic (congestive) heart failure; I47.2 Ventricular tachycardia; J44.0 Chronic obstructive pulmonary disease with (acute) lower respiratory infection; J96.11 Chronic respiratory failure with hypoxia; N17.9 Acute kidney failure, unspecified; D63.1 Anemia in chronic kidney disease; E78.5 Hyperlipidemia, unspecified; F17.200 Nicotine dependence, unspecified, uncomplicated; I08.1 Rheumatic disorders of both mitral and tricuspid valves; I25.10 Atherosclerotic heart disease of native coronary artery without angina pectoris; I25.2 Old myocardial infarction; I25.5 Ischemic cardiomyopathy; I27.29 Other secondary pulmonary hypertension; I49.3 Ventricular premature depolarization; J20.9 Acute bronchitis, unspecified; K59.00 Constipation, unspecified; M15.9 Polyosteoarthritis, unspecified; N18.3 Chronic kidney disease, stage 3 (moderate); T50.2X5A Adverse effect of carbonic-anhydrase inhibitors, benzothiadiazides and other diuretics, initial encounter; Z79.02 Long term (current) use of antithrombotics/antiplatelets; Z79.899 Other long term (current) drug therapy; Z86.74 Personal history of sudden cardiac arrest; Z86.79 Personal history of other diseases of the circulatory system; Z95.2 Presence of prosthetic heart valve; Z95.5 Presence of coronary angioplasty implant and graft; Z99.81 Dependence on supplemental oxygen; Z79.890 Hormone replacement therapy; Z88.8 Allergy status to other drugs, medicaments and biological substances; I95.9 Hypotension, unspecified
CPT/HCPCS: 36415; 71046; 76770; 80048; 80053; 81003; 82550; 82553; 83735; 83880; 84484; 85025; 85610; 85730; 93005; 93306; 94640; 94760; 96374; 99285

== ENCOUNTER → 2018-11-19 | Outpatient (CLI) | payer MEDICARE, OTHER ==
[2018-11-19 12:00] LABS: Anisocytosis Slight; Basophils # (A) 0.1 k/uL (0-0.2); Basophils % (A) 2 %; Eosinophils # (A) 0.2 k/uL (0-0.7); Eosinophils % (A) 3 %; HCT 37.3 % (39.0-53.0); HGB 11.8 gm/dL (13.0-17.5); Hypochromasia Slight; Lymphocytes # (A) 0.8 k/uL (1.0-4.8); Lymphocytes % (A) 13 %; MCHC 31.6 g/dL (31.0-37.0); MCV 94.9 fL (80.0-100.0); Macrocytosis Slight; Mean Platelet Volume 7.1; Monocytes # (A) 0.3 k/uL (0-1.0); Monocytes % (A) 4 %; Neutrophils # (A) 4.6 k/uL (1.3-7.7); Neutrophils % (A) 77 %; Platelet Count 197 k/uL (150-450); RBC 3.92 m/uL (4.30-5.90); RDW 18.2 % (11.5-15.5); WBC 5.9 k/uL (3.8-10.6)
[2018-11-19 12:14] LABS: Appearance,Urine Clear (Clear); Bacteria,Urine Rare /hpf; Bilirubin,Urine Negative (Negative); Blood,Urine Trace (Negative); Color,Urine Yellow; Glucose,Urine (UA) Negative (Negative); Hyaline Casts,Urine 4 /lpf (0-2); Ketones,Urine Negative (Negative); Leukocyte Esterase,Urine Negative (Negative); Mucus,Urine Rare /hpf; Nitrite,Urine Negative (Negative); PH, Urine 6.5 (5.0-8.0); Protein,Urine Trace (Negative); RBC,Urine 2 /hpf (0-5); Specific Gravity,Urine 1.009 (1.001-1.035); Squamous Epithelial Cell,Urine 2 /hpf (0-4); WBC,Urine <1 /hpf (0-5)
[2018-11-19 18:23] LABS: Iron Saturation 24.65 (15.00-50.00)
[2018-11-19 18:26] LABS: Albumin 4.4 g/dL (3.80-4.90); Anion Gap 9.7 mmol/L (4.00-12.00); Calcium 9.3 mg/dL (8.7-10.3); Carbon Dioxide 25.3 mmol/L (21.6-31.8); Magnesium 2.2 mg/dL (1.5-2.4); Phosphorus 3.8 mg/dL (2.4-5.1); Potassium 3.8 mmol/L (3.5-5.5); Uric Acid 6.6 mg/dL (3.7-8.7)
[2018-11-19 19:09] LABS: Parathyroid Hormone Intact 172.5 pg/mL (14.0-72.0)
== END | disposition home or self-care (01) ==
LOC: LABWHC1 11:18
PROVIDERS: ATTEND Nurse Practitioner Family
DX: N39.0 Urinary tract infection, site not specified (principal); M10.9 Gout, unspecified; N18.4 Chronic kidney disease, stage 4 (severe); D63.1 Anemia in chronic kidney disease; E55.9 Vitamin D deficiency, unspecified; N25.81 Secondary hyperparathyroidism of renal origin
CPT/HCPCS: 36415; 80048; 81001; 82040; 82728; 83540; 83550; 83735; 83970; 84100; 84550; 85025

== ENCOUNTER → 2019-03-25 | Outpatient (CLI) | payer MEDICARE, OTHER ==
[2019-03-25 13:22] LABS: Appearance,Urine Clear (Clear); Bilirubin,Urine Negative (Negative); Blood,Urine Negative (Negative); Color,Urine Light Yellow; Glucose,Urine (UA) Negative (Negative); Ketones,Urine Negative (Negative); Leukocyte Esterase,Urine Negative (Negative); Nitrite,Urine Negative (Negative); Protein,Urine Negative (Negative); Specific Gravity,Urine 1.009 (1.001-1.035); Urobilinogen,Urine <2.0 mg/dL (<2.0)
[2019-03-25 13:35] LABS: Anisocytosis Slight; Basophils # (A) 0.1 k/uL (0-0.2); Basophils % (A) 1 %; Eosinophils # (A) 0.2 k/uL (0-0.7); Eosinophils % (A) 3 %; HCT 32.2 % (39.0-53.0); HGB 10.2 gm/dL (13.0-17.5); Lymphocytes # (A) 0.9 k/uL (1.0-4.8); Lymphocytes % (A) 13 %; MCH 29.5 pg (25.0-35.0); MCHC 31.8 g/dL (31.0-37.0); MCV 92.8 fL (80.0-100.0); Mean Platelet Volume 7.9; Monocytes # (A) 0.3 k/uL (0-1.0); Monocytes % (A) 5 %; Neutrophils # (A) 5.3 k/uL (1.3-7.7); Neutrophils % (A) 78 %; Platelet Count 185 k/uL (150-450); RBC 3.47 m/uL (4.30-5.90); RDW 17.5 % (11.5-15.5); WBC 6.9 k/uL (3.8-10.6)
[2019-03-25 19:20] LABS: Iron Saturation 28.04 (15.00-50.00)
[2019-03-25 19:28] LABS: African American GFR (CKD) 32.5 (60.0-200.0); Albumin 4.1 g/dL (3.80-4.90); Anion Gap 7.3 mmol/L (4.00-12.00); BUN/Creat Ratio 20.45 Ratio (12.00-20.00); Calcium 9.5 mg/dL (8.7-10.3); Carbon Dioxide 24.7 mmol/L (21.6-31.8); Magnesium 2.3 mg/dL (1.5-2.4); Phosphorus 3.4 mg/dL (2.4-5.1); Potassium 4.2 mmol/L (3.5-5.5); Uric Acid 7.2 mg/dL (3.7-8.7); Vitamin D 25 Hydroxy 46.4 ng/mL (30.0-100.0)
[2019-03-25 21:07] LABS: Parathyroid Hormone Intact 86.7 pg/mL (14.0-72.0)
[2019-03-26 02:48] LABS: Creatinine,Urine Random 54.4 mg/dL
[2019-03-26 02:49] LABS: Total Protein,Urine Random 6.9 mg/dL (0.0-13.5)
== END | disposition home or self-care (01) ==
LOC: LABWHC1 11:47
PROVIDERS: ATTEND Internal Medicine Cardiovascular Disease
DX: E55.9 Vitamin D deficiency, unspecified (principal); E21.3 Hyperparathyroidism, unspecified; N18.4 Chronic kidney disease, stage 4 (severe); D63.1 Anemia in chronic kidney disease; N39.0 Urinary tract infection, site not specified; R80.9 Proteinuria, unspecified; I25.10 Atherosclerotic heart disease of native coronary artery without angina pectoris; I50.22 Chronic systolic (congestive) heart failure
CPT/HCPCS: 36415; 80048; 81003; 82040; 82306; 82570; 82728; 83540; 83550; 83735; 83970; 84100; 84156; 84443; 84450; 84460; 84550; 85025

== ENCOUNTER → 2019-04-12 | Outpatient (CLI) | payer MEDICARE, OTHER ==
[2019-04-12 17:26] LABS: Anisocytosis Slight; Basophils # (A) 0.1 k/uL (0-0.2); Basophils % (A) 2 %; Eosinophils # (A) 0.2 k/uL (0-0.7); Eosinophils % (A) 3 %; HCT 31.1 % (39.0-53.0); HGB 10.1 gm/dL (13.0-17.5); Hypochromasia Slight; Lymphocytes % (A) 12 %; MCH 30.4 pg (25.0-35.0); MCHC 32.4 g/dL (31.0-37.0); Mean Platelet Volume 7.1; Monocytes # (A) 0.4 k/uL (0-1.0); Monocytes % (A) 5 %; Neutrophils # (A) 6.3 k/uL (1.3-7.7); Neutrophils % (A) 78 %; Platelet Count 238 k/uL (150-450); WBC 8.1 k/uL (3.8-10.6)
[2019-04-12 23:18] LABS: African American GFR (CKD) 38.8 (60.0-200.0); Anion Gap 9.4 mmol/L (4.00-12.00); BUN/Creat Ratio 17.89 Ratio (12.00-20.00); Calcium 9.4 mg/dL (8.7-10.3); Carbon Dioxide 24.6 mmol/L (21.6-31.8); Potassium 4.1 mmol/L (3.5-5.5)
[2019-04-12 23:19] LABS: Albumin 4.1 g/dL (3.80-4.90); Magnesium 2.2 mg/dL (1.5-2.4); Phosphorus 3.3 mg/dL (2.4-5.1)
[2019-04-13 00:58] LABS: Creatinine,Urine Random 37.4 mg/dL
[2019-04-13 03:21] LABS: Total Protein,Urine Random 4.1 mg/dL (0.0-13.5)
== END | disposition home or self-care (01) ==
LOC: LABWHC1 16:33
PROVIDERS: ATTEND Nurse Practitioner Family
DX: N18.4 Chronic kidney disease, stage 4 (severe) (principal); D63.1 Anemia in chronic kidney disease; R80.9 Proteinuria, unspecified
CPT/HCPCS: 36415; 80048; 82040; 82570; 83735; 84100; 84156; 85025

== ENCOUNTER → 2019-06-05 | Outpatient (CLI) | payer MEDICARE, OTHER ==
[2019-06-05 17:07] LABS: Chol/HDL Ratio 3.37; LDL Cholesterol,Calculated 71.8 mg/dL (0.0-131.0); VLDL Calculation 18.2 mg/dL (5.00-40.00)
== END ==
LOC: LABWHC1 10:13
PROVIDERS: ATTEND Internal Medicine Cardiovascular Disease
DX: E78.2 Mixed hyperlipidemia (principal)
CPT/HCPCS: 36415; 80061; 84450; 84460

== ENCOUNTER 2019-07-06 12:42 | Emergency (ER) | payer MEDICARE, OTHER ==
[2019-07-06 13:02] VITALS: RESP 18
[2019-07-06] MEDS ORDERED: KETOROLAC 30 MG/ML 1 ML VIAL IVP STA (13:11)
[2019-07-06] MEDS ORDERED: SODIUM CHLORIDE 0.9% 1,000 ML IV STA (13:11)
[2019-07-06] MEDS ORDERED: ONDANSETRON 4 MG/2 ML VIAL IVP STA (13:11)
[2019-07-06 13:37] LABS: Basophils # (A) 0.1 k/uL (0-0.2); Basophils % (A) 1 %; Eosinophils # (A) 0.1 k/uL (0-0.7); Eosinophils % (A) 1 %; HCT 33.2 % (39.0-53.0); HGB 10.7 gm/dL (13.0-17.5); Lymphocytes # (A) 0.6 k/uL (1.0-4.8); Lymphocytes % (A) 6 %; MCH 30.6 pg (25.0-35.0); MCHC 32.4 g/dL (31.0-37.0); MCV 94.5 fL (80.0-100.0); Mean Platelet Volume 8.3; Monocytes # (A) 0.4 k/uL (0-1.0); Monocytes % (A) 4 %; Neutrophils # (A) 9.4 k/uL (1.3-7.7); Neutrophils % (A) 88 %; Platelet Count 172 k/uL (150-450); RBC 3.51 m/uL (4.30-5.90); RDW 15.2 % (11.5-15.5); WBC 10.8 k/uL (3.8-10.6)
[2019-07-06 13:42] LABS: Appearance,Urine Clear (Clear); Bilirubin,Urine Negative (Negative); Blood,Urine Negative (Negative); Color,Urine Yellow; Glucose,Urine (UA) Negative (Negative); Ketones,Urine Negative (Negative); Leukocyte Esterase,Urine Negative (Negative); Nitrite,Urine Negative (Negative); PH, Urine 5.5 (5.0-8.0); Protein,Urine Negative (Negative); Specific Gravity,Urine 1.011 (1.001-1.035); Urobilinogen,Urine <2.0 mg/dL (<2.0)
[2019-07-06 13:48] LABS: Albumin 4.2 g/dL (3.5-5.0); Calcium 9.3 mg/dL (8.4-10.2); Potassium 3.9 mmol/L (3.5-5.1); Total Bilirubin 0.7 mg/dL (0.2-1.3); Total Protein 7.6 g/dL (6.3-8.2)
--- NOTE | 2019-07-06 14:24 | ED ---
General Adult HPI - General Chief complaint: Abdominal Pain Stated complaint: Abd Pain Time Seen by Provider: 07/06/19 13:00 Source: patient, RN notes reviewed Mode of arrival: ambulatory Limitations: no limitations - History of Present Illness Initial comments: This is a 72 citral male presents emergency room complaining of 4 day history of left-sided abdominal pain/flank pain. Patient states she's had no vomiting but was very nauseous this morning. Patient denies any diarrhea. Patient denies any chest pain or difficulty breathing. Patient denies any back pain. Patient denies any fever chills. Patient denies hematuria urinary frequency or dysuria. Patient denies injury or trauma. Patient states earlier in the week he was putting together a bed and moving around the frame and mattress. Patient states with moving and twisting it does seem to increase the pain. Patient denies pain with palpation. Patient denies any swelling. - Related Data Home Medications Medication Instructions Recorded Confirmed Albuterol Sulfate [Proair Hfa] 2 puff INHALATION RT-Q6H PRN 02/03/15 07/06/19 Allopurinol [Zyloprim] 100 mg PO BID 02/03/15 07/06/19 Atorvastatin [Lipitor] 40 mg PO HS 02/03/15 07/06/19 Clopidogrel [Plavix] 75 mg PO DAILY 02/03/15 07/06/19 Amiodarone [Cordarone] 200 mg PO DAILY 07/06/17 07/06/19 Sodium Bicarbonate Tab 650 mg PO BID 07/06/17 07/06/19 Calcitriol [Rocaltrol] 0.25 mcg PO [place] 12/10/17 07/06/19 Ergocalciferol (Vitamin D2) 50,000 unit PO Q30D 12/10/17 07/06/19 [Vitamin D2] Nitroglycerin Sl Tabs [Nitrostat] 0.4 mg SUBLINGUAL Q5M PRN 12/10/17 07/06/19 Aspirin EC [Ecotrin Low Dose] 81 mg PO DAILY 07/06/19 07/06/19 Carvedilol [Coreg] 3.125 mg PO QAM 07/06/19 07/06/19 Levothyroxine Sodium [Synthroid] 100 mcg PO DAILY 07/06/19 07/06/19 Tiotropium Br/Olodaterol HCl 1 spray INHALATION RT-DAILY 07/06/19 07/06/19 [Stiolto Respimat Inhal [place]] Torsemide [Demadex] 10 mg PO QAM 07/06/19 07/06/19 Previous Rx's Medication Instructions Recorded Spironolactone [Aldactone] 25 mg PO DAILY@1300 #30 tab 07/30/18 Allergies Allergy/AdvReac Type Severity Reaction Status Date / Time prednisone Allergy Unknown Verified 07/06/19 13:42 lactose AdvReac Diarrhea Verified 07/06/19 13:42 Review of Systems ROS Statement: Those systems with pertinent positive or pertinent negative responses have been documented in the HPI. ROS Other: All systems not noted in ROS Statement are negative. Past Medical History Past Medical History: Chest Pain / Angina, Heart Failure, COPD, Eye Disorder, Hyperlipidemia, Hypertension, Myocardial Infarction (MT), Osteoarthritis (OA), Pneumonia, Renal Disease, Thyroid Disorder Additional Past Medical History / Comment(s): hx. gout, uses oxygen @3.5 liters atc, PAST CARDIAC ARREST, arthritis feet/hands, beginning of cataracts. umb hernia, cyst rt groin Last Myocardial Infarction Date:: 2013 History of Any Multi-Drug Resistant Organisms: None Reported Past Surgical History: Appendectomy, Cardiac Valve Replacement, Heart Catheterization With Stent Additional Past Surgical History / Comment(s): cardiac valve "clip", cyst on back removed Past Anesthesia/Blood Transfusion Reactions: No Reported Reaction Additional Past Anesthesia/Blood Transfusion Reaction / Comment(s): blood-no reaction Date of Last Stent Placement:: 2013 Past Psychological History: No Psychological Hx Reported Smoking Status: Former smoker Past Alcohol Use History: None Reported Past Drug Use History: None Reported - Past Family History Father Family Medical History: Cancer Mother Family Medical History: Cancer General Exam Limitations: no limitations Course Vital Signs 07/06/19 07/06/19 12:58 14:44 Temperature 98.3 F Pulse Rate 74 60 Respiratory 18 18 Rate Blood Pressure 87/55 93/59 O2 Sat by Pulse 96 96 Oximetry Medical Decision Making - Medical Decision Making Patient's CAT scan showed slight stranding around both kidneys. Patient had no obvious infection in the urine. Patient had no stone that was obstructing the CAT scan. Patient felt much improved after Toradol and patient will follow-up with the primary medical care doctor on Monday - Lab Data Result diagrams: 07/06/19 13:25 07/06/19 13:25 Lab Results 07/06/19 07/06/19 07/06/19 Range/Units 13:25 13:25 13:25 WBC 10.8 H (3.8-10.6) k/uL RBC 3.51 L (4.30-5.90) m/uL Hgb 10.7 L (13.0-17.5) gm/dL Hct 33.2 L (39.0-53.0) % MCV 94.5 (80.0-100.0) fL MCH 30.6 (25.0-35.0) pg MCHC 32.4 (31.0-37.0) g/dL RDW 15.2 (11.5-15.5) % Plt Count 172 (150-450) k/uL Neutrophils % 88 % Lymphocytes % 6 % Monocytes % 4 % Eosinophils % 1 % Basophils % 1 % Neutrophils # 9.4 H (1.3-7.7) k/uL Lymphocytes # 0.6 L (1.0-4.8) k/uL Monocytes # 0.4 (0-1.0) k/uL Eosinophils # 0.1 (0-0.7) k/uL Basophils # 0.1 (0-0.2) k/uL Sodium 136 L (137-145) mmol/L Potassium 3.9 (3.5-5.1) mmol/L Chloride 102 (98-107) mmol/L Carbon Dioxide 23 (22-30) mmol/L Anion Gap 11 mmol/L BUN 30 H (9-20) mg/dL Creatinine 2.03 H (0.66-1.25) mg/dL Est GFR (CKD-EPI)AfAm 36 (>60 ml/min/1.73 sqM) Est GFR (CKD-EPI)NonAf 31 (>60 ml/min/1.73 sqM) Glucose 171 H (74-99) mg/dL Calcium 9.3 (8.4-10.2) mg/dL Total Bilirubin 0.7 (0.2-1.3) mg/dL AST 21 (17-59) U/L ALT 14 L (21-72) U/L Alkaline Phosphatase 86 (38-126) U/L Total Protein 7.6 (6.3-8.2) g/dL Albumin 4.2 (3.5-5.0) g/dL Amylase 55 (30-110) U/L Lipase 68 (23-300) U/L Urine Color Yellow Urine Appearance Clear (Clear) Urine pH 5.5 (5.0-8.0) Ur Specific Paul 1.011 (1.001-1.035) Urine Protein Negative (Negative) Urine Glucose (UA) Negative (Negative) Urine Ketones Negative (Negative) Urine Blood Negative (Negative) Urine Nitrite Negative (Negative) Urine Bilirubin Negative (Negative) Urine Urobilinogen <2.0 (<2.0) mg/dL Ur Leukocyte Esterase Negative (Negative) Disposition Clinical Impression: Flank pain Disposition: HOME SELF-CARE Instructions (If sedation given, give patient instructions): Flank Pain (ED) Is patient prescribed a controlled substance at d/c from ED?: No Referrals: Samuel Darling DO [Primary Care Provider] - 1-2 days Time of Disposition: 15:34
--- NOTE | 2019-07-06 15:11 | CT ---
EXAMINATION TYPE: CT abdomen pelvis wo con DATE OF EXAM: 07/06/2019 COMPARISON: None HISTORY: Bilateral flank pain CT DLP: 557.6 mGycm Automated exposure control for dose reduction was used. TECHNIQUE: Helical acquisition of images was performed from the lung bases through the pelvis. FINDINGS: There is some coarse linear density at the lung bases. Heart is borderline enlarged. There is mild pl eural thickening at the left posterior lung base. There is no pericardial effusion. Liver and gallbladder appear normal. Bile ducts are not dilated. Spleen appears normal. There is no e vidence of pancreatic mass. There is extensive atherosclerotic vascular calcification. There is no adrenal mass. Kidneys have normal size. There is no hydronephrosis. There is mild fat str anding around the kidneys. There is some renal vascular calcification. Ureters are not dilated. 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 Bladder distends smoothly. There is no inguinal hernia. There is no free fluid in the pelvis. There is no mesenteric edema. There is no a scites or free air. There is no sign of a bowel obstruction. There is umbilical hernia that contains fat. Appendix is not definitely seen. There is no sign of thickened appendix. There is a minimal degenerative first-degree L4-5 spondylolisthesis. I see no focal bone destruction. Bony pelvis is intact. IMPRESSION: THERE IS SOME SCARRING AND FIBROTIC CHANGES AT THE LUNG BASES. MILD CARDIOMEGALY. EXTENSIVE ATHEROSCLEROTIC VASCULAR DISEASE. MILD COMMON ILIAC ARTERY ANEURYSMS. NO ACUTE ABNORMALITY IN THE ABDOMEN PELVIS. I DO NOT SEE A CAUSE FOR BILATERAL FLANK PAIN. NO RENAL STONE OR OBSTRUCTION. MILD FAT STRANDING AROUND THE KIDNEY COULD RELATE TO PREVIOUS EPISODE OF INFLAMMATION OR OBSTRUCTION.
[2019-07-06 15:53] VITALS: BP 100/66; PULSE 55; TEMP 98
== END 2019-07-06 16:01 | disposition home or self-care (01) ==
LOC: EC 12:42
DX: R10.9 Unspecified abdominal pain (principal); R11.0 Nausea; I25.2 Old myocardial infarction; E78.5 Hyperlipidemia, unspecified; I11.0 Hypertensive heart disease with heart failure; I50.9 Heart failure, unspecified; J44.9 Chronic obstructive pulmonary disease, unspecified; M10.9 Gout, unspecified; M19.90 Unspecified osteoarthritis, unspecified site; E07.9 Disorder of thyroid, unspecified; Z79.02 Long term (current) use of antithrombotics/antiplatelets; Z79.82 Long term (current) use of aspirin; Z79.899 Other long term (current) drug therapy; Z79.51 Long term (current) use of inhaled steroids; Z86.74 Personal history of sudden cardiac arrest; Z95.5 Presence of coronary angioplasty implant and graft; Z95.2 Presence of prosthetic heart valve; Z87.891 Personal history of nicotine dependence; Z88.8 Allergy status to other drugs, medicaments and biological substances
CPT/HCPCS: 99284; 96374; 96375; 96361; 36415; 80053; 82150; 83690; 85025; 81003; 74176; J2405; J1885

== ENCOUNTER → 2019-07-09 | Outpatient (CLI) | payer MEDICARE, OTHER ==
[2019-07-10 00:15] LABS: Creatinine,Urine Random 88.7 mg/dL
[2019-07-10 00:27] LABS: Total Protein,Urine Random 11.6 mg/dL (0.0-13.5)
[2019-07-10 00:39] LABS: Albumin 4.1 g/dL (3.80-4.90); Magnesium 2.1 mg/dL (1.5-2.4); Phosphorus 2.8 mg/dL (2.4-5.1); Uric Acid 6.7 mg/dL (3.7-8.7)
[2019-07-10 00:47] LABS: Ferritin 445.3 ng/mL (22.0-322.0); Iron Saturation 11.34 (15.00-50.00)
== END | disposition home or self-care (01) ==
LOC: LABWHC1 15:10
PROVIDERS: ATTEND Nurse Practitioner Family
DX: N18.4 Chronic kidney disease, stage 4 (severe) (principal); D50.9 Iron deficiency anemia, unspecified; R80.9 Proteinuria, unspecified; M10.9 Gout, unspecified; E55.9 Vitamin D deficiency, unspecified; N25.81 Secondary hyperparathyroidism of renal origin
CPT/HCPCS: 36415; 82040; 82570; 82728; 83540; 83550; 83735; 83970; 84100; 84156; 84550

== ENCOUNTER 2019-07-22 11:08 | Emergency (ER) | payer MEDICARE, OTHER ==
[2019-07-22 11:17] VITALS: BP 112/70; PULSE 74; RESP 18; TEMP 97.5
[2019-07-22] MEDS ORDERED: ONDANSETRON 4 MG/2 ML VIAL IVP STA (12:14)
[2019-07-22] MEDS ORDERED: HYDROmorphone 0.5 MG/0.5 ML SYRINGE IVP STA (12:14)
[2019-07-22] MEDS ORDERED: SODIUM CHLORIDE 0.9% 500 ML 500 ML IV STA (12:14)
--- NOTE | 2019-07-22 12:17 | ED ---
General Adult HPI - General Chief complaint: Abdominal Pain Stated complaint: no bowel movement 3 weeks Time Seen by Provider: 07/22/19 11:15 Source: patient, RN notes reviewed Mode of arrival: wheelchair Limitations: no limitations - History of Present Illness Initial comments: This is a 78-year-old male who presents emergency Department complaining of abdominal pain for 3-4 weeks per patient states she was seen in the ER before and had a CAT scan and they did not find anything. Patient states he follow-up with his primary medical care doctor and they sent him back into the emergency department to be reevaluated. Patient states the last 3 weeks since he was last seen he has not had any bowel movements. Patient states he has occasionally passed some gas but very rarely. Patient denies any nausea or vomiting per patient states the lower abdominal pain is gotten considerably worse particularly with coughing. Patient states she's had no fever or chills. Patient states she's never had a colonoscopy. Patient denies any recent injury or fall. Patient states the pain does radiate around to his lower back as well. - Related Data Home Medications Medication Instructions Recorded Confirmed Albuterol Sulfate [Proair Hfa] 2 puff INHALATION RT-Q6H PRN 02/03/15 07/22/19 Allopurinol [Zyloprim] 100 mg PO BID 02/03/15 07/22/19 Atorvastatin [Lipitor] 40 mg PO HS 02/03/15 07/22/19 Clopidogrel [Plavix] 75 mg PO DAILY 02/03/15 07/22/19 Amiodarone [Cordarone] 200 mg PO DAILY 07/06/17 07/22/19 Sodium Bicarbonate Tab 650 mg PO HS 07/06/17 07/22/19 Calcitriol [Rocaltrol] 0.25 mcg PO SUTUTHSA 12/10/17 07/22/19 Ergocalciferol (Vitamin D2) 50,000 unit PO Q30D 12/10/17 07/22/19 [Vitamin D2] Nitroglycerin Sl Tabs [Nitrostat] 0.4 mg SUBLINGUAL Q5M PRN 12/10/17 07/22/19 Aspirin EC [Ecotrin Low Dose] 81 mg PO DAILY 07/06/19 07/22/19 Carvedilol [Coreg] 3.125 mg PO QAM 07/06/19 07/22/19 Levothyroxine Sodium [Synthroid] 100 mcg PO DAILY 07/06/19 07/22/19 Tiotropium Br/Olodaterol HCl 1 spray INHALATION RT-DAILY 07/06/19 07/22/19 [Stiolto Respimat Inhal [facility]] Torsemide [Demadex] 10 mg PO QAM 07/06/19 07/22/19 Spironolactone [Aldactone] 25 mg PO HS 07/22/19 07/22/19 Allergies Allergy/AdvReac Type Severity Reaction Status Date / Time prednisone Allergy Unknown Verified 07/22/19 13:08 lactose AdvReac Diarrhea Verified 07/22/19 13:08 Review of Systems ROS Statement: Those systems with pertinent positive or pertinent negative responses have been documented in the HPI. ROS Other: All systems not noted in ROS Statement are negative. Past Medical History Past Medical History: Chest Pain / Angina, Heart Failure, COPD, Eye Disorder, Hyperlipidemia, Hypertension, Myocardial Infarction ([place]), Osteoarthritis (OA), Pneumonia, Renal Disease, Thyroid Disorder Additional Past Medical History / Comment(s): hx. gout, uses oxygen @3.5 liters atc, PAST CARDIAC ARREST, arthritis feet/hands, beginning of cataracts. umb hernia, cyst rt groin Last Myocardial Infarction Date:: 2013 History of Any Multi-Drug Resistant Organisms: None Reported Past Surgical History: Appendectomy, Cardiac Valve Replacement, Heart Catheterization With Stent Additional Past Surgical History / Comment(s): cardiac valve "clip", cyst on back removed Past Anesthesia/Blood Transfusion Reactions: No Reported Reaction Additional Past Anesthesia/Blood Transfusion Reaction / Comment(s): blood-no reaction Date of Last Stent Placement:: 2013 Past Psychological History: No Psychological Hx Reported Smoking Status: Former smoker Past Alcohol Use History: None Reported Past Drug Use History: None Reported - Past Family History Father Family Medical History: Cancer Mother Family Medical History: Cancer General Exam - General Exam Comments Initial Comments: GENERAL: Patient is well-developed and well-nourished. Patient is nontoxic and well- hydrated and is in mild distress. ENT: Neck is soft and supple. No significant lymphadenopathy is noted. Oropharynx is clear. Moist mucous membranes. Neck has full range of motion without eliciting any pain. EYES: The sclera were anicteric and conjunctiva were pink and moist. Extraocular movements were intact and pupils were equal round and reactive to light. Eyelids were unremarkable. PULMONARY: Unlabored respirations. Good breath sounds bilaterally. No audible rales rhonchi or wheezing was noted. CARDIOVASCULAR: There is a regular rate and rhythm without any murmurs gallops or rubs. ABDOMEN: Patient has mild lower abdominal tenderness and decreased bowel sounds. SKIN: Skin is clear with no lesions or rashes and otherwise unremarkable. NEUROLOGIC: Patient is alert and oriented x3. Cranial nerves II through XII are grossly intact. Motor and sensory are also intact. Normal speech, volume and content. Symmetrical smile. MUSCULOSKELETAL: Normal extremities with adequate strength and full range of motion. No lower e xtremity swelling or edema. No calf tenderness. LYMPHATICS: No significant lymphadenopathy is noted PSYCHIATRIC: Normal psychiatric evaluation. Limitations: no limitations Course Vital Signs 07/22/19 11:14 Temperature 97.5 F L Pulse Rate 74 Respiratory 18 Rate Blood Pressure 112/70 O2 Sat by Pulse 96 Oximetry Medical Decision Making - Medical Decision Making I will begin the room to reevaluate the patient he was feeling considerably better after the pain medication. I told the patient that because he's had multiple visits we cannot find the cause I thought it would be best to bring the patient and in the evaluated by the GI doctors the patient refused and the daughter was upset because she demanded to have an enema for her father even though I did not see an excessive amount of stool on the x-ray. Father and daughter both stated that if I was not going to an enema immediately they were in the leave in the left AMA. - Lab Data Result diagrams: 07/22/19 12:35 07/22/19 12:35 Lab Results 07/22/19 07/22/19 07/22/19 Range/Units 12:35 12:35 13:53 WBC 11.8 H (3.8-10.6) k/uL RBC 3.33 L (4.30-5.90) m/uL Hgb 10.0 L (13.0-17.5) gm/dL Hct 31.3 L (39.0-53.0) % MCV 94.0 (80.0-100.0) fL MCH 29.9 (25.0-35.0) pg MCHC 31.8 (31.0-37.0) g/dL RDW 16.2 H (11.5-15.5) % Plt Count 320 (150-450) k/uL Neutrophils % 87 % Lymphocytes % 5 % Monocytes % 5 % Eosinophils % 1 % Basophils % 1 % Neutrophils # 10.2 H (1.3-7.7) k/uL Lymphocytes # 0.6 L (1.0-4.8) k/uL Monocytes # 0.6 (0-1.0) k/uL Eosinophils # 0.1 (0-0.7) k/uL Basophils # 0.1 (0-0.2) k/uL Anisocytosis Slight Sodium 136 L (137-145) mmol/L Potassium 5.0 (3.5-5.1) mmol/L Chloride 100 (98-107) mmol/L Carbon Dioxide 22 (22-30) mmol/L Anion Gap 14 mmol/L BUN 35 H (9-20) mg/dL Creatinine 1.90 H (0.66-1.25) mg/dL Est GFR (CKD-EPI)AfAm 39 (>60 ml/min/1.73 sqM) Est GFR (CKD-EPI)NonAf 34 (>60 ml/min/1.73 sqM) Glucose 105 H (74-99) mg/dL Calcium 9.5 (8.4-10.2) mg/dL Total Bilirubin 0.7 (0.2-1.3) mg/dL AST 30 (17-59) U/L ALT 31 (21-72) U/L Alkaline Phosphatase 99 (38-126) U/L Total Protein 7.6 (6.3-8.2) g/dL Albumin 3.9 (3.5-5.0) g/dL Amylase 67 (30-110) U/L Lipase 162 (23-300) U/L Urine Color Light Yellow Urine Appearance Clear (Clear) Urine pH 5.0 (5.0-8.0) Ur Specific [place] 1.008 (1.001-1.035) Urine Protein Negative (Negative) Urine Glucose (UA) Negative (Negative) Urine Ketones Negative (Negative) Urine Blood Negative (Negative) Urine Nitrite Negative (Negative) Urine Bilirubin Negative (Negative) Urine Urobilinogen <2.0 (<2.0) mg/dL Ur Leukocyte Esterase Negative (Negative) Disposition Clinical Impression: Abdominal pain Disposition: Left Against Medical Advice Referrals: Samuel Darling DO [Primary Care Provider] - 1-2 days Time of Disposition: 14:37
[2019-07-22 12:50] LABS: Anisocytosis Slight; Basophils # (A) 0.1 k/uL (0-0.2); Basophils % (A) 1 %; Eosinophils # (A) 0.1 k/uL (0-0.7); Eosinophils % (A) 1 %; HCT 31.3 % (39.0-53.0); Lymphocytes # (A) 0.6 k/uL (1.0-4.8); Lymphocytes % (A) 5 %; MCH 29.9 pg (25.0-35.0); MCHC 31.8 g/dL (31.0-37.0); Mean Platelet Volume 6.9; Monocytes # (A) 0.6 k/uL (0-1.0); Monocytes % (A) 5 %; Neutrophils # (A) 10.2 k/uL (1.3-7.7); Neutrophils % (A) 87 %; Platelet Count 320 k/uL (150-450); RBC 3.33 m/uL (4.30-5.90); RDW 16.2 % (11.5-15.5); WBC 11.8 k/uL (3.8-10.6)
[2019-07-22 12:56] LABS: Albumin 3.9 g/dL (3.5-5.0); Calcium 9.5 mg/dL (8.4-10.2); Total Bilirubin 0.7 mg/dL (0.2-1.3); Total Protein 7.6 g/dL (6.3-8.2)
--- NOTE | 2019-07-22 13:08 | XR ---
EXAMINATION TYPE: XR KUB DATE OF EXAM: 07/22/2019 CLINICAL DATA: 78-year-old male with abdominal pain and constipation, PHH COMPARISON: FINDINGS: Chronic appearing reticular changes at the lung bases, left greater than right. No evidence for free intraperitoneal air. Scattered colonic and small bowel air fluid levels are present throughout. A couple mildly dilated sm all bowel loops in the right side of the abdomen measure up to 3.9 cm. Mild stool is present on the r ight side of the abdomen. Prominent atherosclerotic calcifications within the splenic artery. Colonic air is present extending distally into the rectum. IMPRESSION: 1. Colonic and small bowel air-fluid levels throughout with a couple mildly dilated small bowel loops in the right side of the abdomen measuring up to 3.9 cm. Scattered colonic and rectal air remains. O verall findings suggest generalized ileus or enteritis. 2. If symptoms persist, short interval follow-up can be considered.
[2019-07-22 14:12] LABS: Appearance,Urine Clear (Clear); Bilirubin,Urine Negative (Negative); Blood,Urine Negative (Negative); Color,Urine Light Yellow; Glucose,Urine (UA) Negative (Negative); Ketones,Urine Negative (Negative); Leukocyte Esterase,Urine Negative (Negative); Nitrite,Urine Negative (Negative); Protein,Urine Negative (Negative); Specific Gravity,Urine 1.008 (1.001-1.035); Urobilinogen,Urine <2.0 mg/dL (<2.0)
== END 2019-07-22 14:46 | disposition left against medical advice (07) ==
LOC: EC 11:08
DX: R10.9 Unspecified abdominal pain (principal); I11.0 Hypertensive heart disease with heart failure; I50.9 Heart failure, unspecified; I25.2 Old myocardial infarction; E78.5 Hyperlipidemia, unspecified; E07.9 Disorder of thyroid, unspecified; J44.9 Chronic obstructive pulmonary disease, unspecified; Z79.82 Long term (current) use of aspirin; Z79.02 Long term (current) use of antithrombotics/antiplatelets; Z79.890 Hormone replacement therapy; Z79.899 Other long term (current) drug therapy; Z88.8 Allergy status to other drugs, medicaments and biological substances; Z91.011 Allergy to milk products; Z87.891 Personal history of nicotine dependence; Z86.74 Personal history of sudden cardiac arrest; Z95.2 Presence of prosthetic heart valve; Z95.5 Presence of coronary angioplasty implant and graft
CPT/HCPCS: 36415; 80053; 82150; 83690; 85025; 81003; 74018; 99284; 96374; 96375; J2405; J1170

== ENCOUNTER 2019-07-27 22:19 | Inpatient (IN) | payer MEDICARE, OTHER ==
[2019-07-27] MEDS ORDERED: MORPHINE SULFATE 4 MG/ML SYRINGE IV STA (22:50)
[2019-07-27] MEDS ORDERED: SODIUM CHLORIDE 0.9% 500 ML 500 ML IV STA (22:50)
[2019-07-27 23:08] LABS: Basophils # (A) 0.1 k/uL (0-0.2); Basophils % (A) 1 %; Eosinophils # (A) 0.1 k/uL (0-0.7); Eosinophils % (A) 1 %; HCT 31.3 % (39.0-53.0); HGB 10.1 gm/dL (13.0-17.5); Hypochromasia Slight; Lymphocytes # (A) 0.5 k/uL (1.0-4.8); Lymphocytes % (A) 6 %; MCH 29.6 pg (25.0-35.0); MCHC 32.2 g/dL (31.0-37.0); Mean Platelet Volume 6.2; Monocytes # (A) 0.4 k/uL (0-1.0); Monocytes % (A) 5 %; Neutrophils % (A) 87 %; Platelet Count 319 k/uL (150-450); RDW 15.6 % (11.5-15.5); WBC 8.1 k/uL (3.8-10.6)
[2019-07-27 23:20] LABS: Calcium 9.5 mg/dL (8.4-10.2); Potassium 4.9 mmol/L (3.5-5.1); Total Bilirubin 0.6 mg/dL (0.2-1.3)
--- NOTE | 2019-07-27 23:21 | XR ---
EXAMINATION TYPE: XR KUB DATE OF EXAM: 07/27/2019 COMPARISON: 07/22/2019 HISTORY: Abdominal pain TECHNIQUE: 2 views FINDINGS: There are multiple gas-filled distended loops of bowel. There is no sign of free air. Lung bases are clear. There are no definite pathologic calcifications over the kidneys. IMPRESSION: Distended gas-filled large bowel and to a lesser extent small bowel consistent with some ileus. No free air. No significant change compared to old exam.
--- NOTE | 2019-07-27 23:39 | XR ---
EXAMINATION TYPE: XR lumbar spine 2 or 3V DATE OF EXAM: 07/27/2019 COMPARISON: NONE HISTORY: Constipation. Back pain TECHNIQUE: 3 views FINDINGS: There is 5 mm anterior subluxation of L4 in relation L5. There is mild disc space narrowing at L4-5. There is no compression fracture. Posterior elements are intact. Sacroiliac joints are inta ct. IMPRESSION: There is mild degenerative first-degree L4-5 spondylolisthesis. No fracture seen.
[2019-07-27 23:45] LABS: Appearance,Urine Clear (Clear); Bilirubin,Urine Negative (Negative); Blood,Urine Trace (Negative); Color,Urine Yellow; Glucose,Urine (UA) Negative (Negative); Hyaline Casts,Urine 34 /lpf (0-2); Ketones,Urine Negative (Negative); Leukocyte Esterase,Urine Negative (Negative); Mucus,Urine Rare /hpf; Nitrite,Urine Negative (Negative); PH, Urine 5.5 (5.0-8.0); Protein,Urine Negative (Negative); RBC,Urine 1 /hpf (0-5); Specific Gravity,Urine 1.018 (1.001-1.035); Squamous Epithelial Cell,Urine 2 /hpf (0-4); Urobilinogen,Urine <2.0 mg/dL (<2.0); WBC,Urine 2 /hpf (0-5)
[2019-07-28] MEDS ORDERED: NALOXONE 0.4 MG/ML 1 ML VIAL IV PRN (00:07)
--- NOTE | 2019-07-28 00:11 | ED ---
General Adult HPI - General Chief complaint: Abdominal Pain Stated complaint: Constipation Time Seen by Provider: 07/27/19 22:43 Source: patient, RN notes reviewed, old records reviewed Mode of arrival: wheelchair Limitations: no limitations - History of Present Illness Initial comments: 78-year-old male patient with extensive past medical history presents to the chief complaint of abdominal pain. This is patient's third evaluation for abdominal pain. Patient was at this pain in the suprapubic region. Reports other than was the pain he has been experiencing for approximately 1 month. Patient also reports that he has had some constipation, reports that his last bowel movement was approximately 4 days ago. Patient reports days also had some mild right paralumbar back pain for approximately 5 days. Denies any other complaints at this time. Patient reports that he was going be admitted for this problem at previous visit however left AGAINST MEDICAL ADVICE. Systemic: Pt denies fatigue, fever/chills, rash. Pt denies weakness, night sweats, weight loss. Neuro: Pt denies headache, visual disturbances, syncope or pre-syncope. HEENT: Pt denies ocular discharge or irritation, otalgia, rhinorrhea, pharyngitis or notable lymphadenopathy. Cardiopulmonary: Pt denies chest pain, SOB, heart palpitations, dyspnea on exertion. Abdominal/GI: Pt denies n/v/d. : Pt denies dysuria, burning w/ urination, frequency/urgency. Denies new onset urinary or bowel incontinence. MSK: Pt denies myalgia, loss of strength or function in extremities. Neuro: Pt denies new onset weakness, paresthesias. - Related Data Home Medications Medication Instructions Recorded Confirmed Albuterol Sulfate [Proair Hfa] 2 puff INHALATION RT-Q6H PRN 02/03/15 07/22/19 Allopurinol [Zyloprim] 100 mg PO BID 02/03/15 07/22/19 Atorvastatin [Lipitor] 40 mg PO HS 02/03/15 07/22/19 Clopidogrel [Plavix] 75 mg PO DAILY 02/03/15 07/22/19 Amiodarone [Cordarone] 200 mg PO DAILY 07/06/17 07/22/19 Sodium Bicarbonate Tab 650 mg PO HS 07/06/17 07/22/19 Calcitriol [Rocaltrol] 0.25 mcg PO SUTUTHSA 12/10/17 07/22/19 Ergocalciferol (Vitamin D2) 50,000 unit PO Q30D 12/10/17 07/22/19 [Vitamin D2] Nitroglycerin Sl Tabs [Nitrostat] 0.4 mg SUBLINGUAL Q5M PRN 12/10/17 07/22/19 Aspirin EC [Ecotrin Low Dose] 81 mg PO DAILY 07/06/19 07/22/19 Carvedilol [Coreg] 3.125 mg PO QAM 07/06/19 07/22/19 Levothyroxine Sodium [Synthroid] 100 mcg PO DAILY 07/06/19 07/22/19 Tiotropium Br/Olodaterol HCl 1 spray INHALATION RT-DAILY 07/06/19 07/22/19 [Stiolto Respimat Inhal [place]] Torsemide [Demadex] 10 mg PO QAM 07/06/19 07/22/19 Spironolactone [Aldactone] 25 mg PO HS 07/22/19 07/22/19 Allergies Allergy/AdvReac Type Severity Reaction Status Date / Time prednisone Allergy Unknown Verified 07/27/19 22:34 lactose AdvReac Diarrhea Verified 07/27/19 22:34 Review of Systems ROS Statement: Those systems with pertinent positive or pertinent negative responses have been documented in the HPI. ROS Other: All systems not noted in ROS Statement are negative. Past Medical History Past Medical History: Chest Pain / Angina, Heart Failure, COPD, Eye Disorder, Hyperlipidemia, Hypertension, Myocardial Infarction ([place]), Osteoarthritis (OA), Pneumonia, Renal Disease, Thyroid Disorder Additional Past Medical History / Comment(s): hx. gout, uses oxygen @3.5 liters atc, PAST CARDIAC ARREST, arthritis feet/hands, beginning of cataracts. umb he rnia, cyst rt groin Last Myocardial Infarction Date:: 2013 History of Any Multi-Drug Resistant Organisms: None Reported Past Surgical History: Appendectomy, Cardiac Valve Replacement, Heart Catheterization With Stent Additional Past Surgical History / Comment(s): cardiac valve "clip", cyst on b ack removed Past Anesthesia/Blood Transfusion Reactions: No Reported Reaction Additional Past Anesthesia/Blood Transfusion Reaction / Comment(s): blood-no reaction Date of Last Stent Placement:: 2013 Past Psychological History: No Psychological Hx Reported Smoking Status: Former smoker Past Alcohol Use History: None Reported Past Drug Use History: None Reported - Past Family History Father Family Medical History: Cancer Mother Family Medical History: Cancer General Exam - General Exam Comments Initial Comments: Constitutional: NAD, AOX3, Pt has pleasant affect. HEENT: NC/AT, trachea midline, neck supple, no lymphadenopathy. Posterior pharynx non erythematous, without exudates. External ears appear normal, without discharge. Mucous membranes moist. Eyes PERRLA, EOM intact. There is no scleral icterus. No pallor noted. Cardiopulmonary: RRR, no murmurs, rubs or gallops, no JVD noted. Lungs CTAB in anterior and posterior pradhan. No peripheral edema. Abdominal exam: Abdomen soft and non-distended. Abdomen non-tender to palpation in all 4 quadrants. Bowel sounds active in LLQ. No hepatosplenomegaly. No ecchymosis Neuro: CN II-XII grossly intact. No nuchal rigidity. No raccon eyes, no briceno sign, no hemotympanum. No cervical spinal tenderness. MSK: Lumbar spine nontender. No posterior calf tenderness bilaterally, homans sign negative bilaterally. Posterior tibialis and radial pulse +2 bilaterally. Sensation intact in upper and lower extremities. Full active ROM in upper and lower extremities, 5/5 stregnth. Limitations: no limitations Course Vital Signs 07/27/19 07/27/19 22:30 22:58 Temperature 97.6 F Pulse Rate 81 73 Respiratory 18 16 Rate Blood Pressure 100/67 129/85 O2 Sat by Pulse 96 97 Oximetry Medical Decision Making - Medical Decision Making 78 year old male patient presents to the chief complaint of constipation, suprapubic abdominal pain. Patient vital signs stable, afebrile. Physical exam did not acute pathology. Laboratory investigations noncompressive, unchanged from prior. KUB did not display change from prior. Plain film lumbar spine displayed mild degenerative first-degree L4-L5 spondylolisthesis. No fracture. Patient will be admitted for intractable abdominal pain and GI evaluation. Case discussed with Dr. Kaminski. - Lab Data Result diagrams: 07/27/19 22:55 07/27/19 22:55 Lab Results 07/27/19 07/27/19 07/27/19 Range/Units 22:55 22:55 23:00 WBC 8.1 (3.8-10.6) k/uL RBC 3.40 L (4.30-5.90) m/uL Hgb 10.1 L (13.0-17.5) gm/dL Hct 31.3 L (39.0-53.0) % MCV 92.0 (80.0-100.0) fL MCH 29.6 (25.0-35.0) pg MCHC 32.2 (31.0-37.0) g/dL RDW 15.6 H (11.5-15.5) % Plt Count 319 (150-450) k/uL Neutrophils % 87 % Lymphocytes % 6 % Monocytes % 5 % Eosinophils % 1 % Basophils % 1 % Neutrophils # 7.0 (1.3-7.7) k/uL Lymphocytes # 0.5 L (1.0-4.8) k/uL Monocytes # 0.4 (0-1.0) k/uL Eosinophils # 0.1 (0-0.7) k/uL Basophils # 0.1 (0-0.2) k/uL Hypochromasia Slight Sodium 135 L (137-145) mmol/L Potassium 4.9 (3.5-5.1) mmol/L Chloride 98 (98-107) mmol/L Carbon Dioxide 21 L (22-30) mmol/L Anion Gap 16 mmol/L BUN 36 H (9-20) mg/dL Creatinine 1.90 H (0.66-1.25) mg/dL Est GFR (CKD-EPI)AfAm 39 (>60 ml/min/1.73 sqM) Est GFR (CKD-EPI)NonAf 34 (>60 ml/min/1.73 sqM) Glucose 136 H (74-99) mg/dL Calcium 9.5 (8.4-10.2) mg/dL Total Bilirubin 0.6 (0.2-1.3) mg/dL AST 32 (17-59) U/L ALT 31 (21-72) U/L Alkaline Phosphatase 102 (38-126) U/L Total Protein 8.0 (6.3-8.2) g/dL Albumin 4.0 (3.5-5.0) g/dL Lipase 130 (23-300) U/L Urine Color Yellow Urine Appearance Clear (Clear) Urine pH 5.5 (5.0-8.0) Ur Specific [place] 1.018 (1.001-1.035) Urine Protein Negative (Negative) Urine Glucose (UA) Negative (Negative) Urine Ketones Negative (Negative) Urine Blood Trace H (Negative) Urine Nitrite Negative (Negative) Urine Bilirubin Negative (Negative) Urine Urobilinogen <2.0 (<2.0) mg/dL Ur Leukocyte Esterase Negative (Negative) Urine RBC 1 (0-5) /hpf Urine WBC 2 (0-5) /hpf Ur Squamous Epith Cells 2 (0-4) /hpf Hyaline Casts 34 H (0-2) /lpf Urine Mucus Rare H (None) /hpf Disposition Clinical Impression: Intractable abdominal pain Disposition: ADMITTED IP TO THIS HOSP Condition: Fair Is patient prescribed a controlled substance at d/c from ED?: No Referrals: Samuel Darling DO [Primary Care Provider] - 1-2 days
[2019-07-28] MEDS: SODIUM CHLORIDE 0.9% 1,000 ML IV SCH ×2 (01:32→12:48)
[2019-07-28] MEDS: MORPHINE SULFATE 4 MG/ML SYRINGE IV PRN ×5 (02:34→21:58)
[2019-07-28] MEDS ORDERED: MAGNESIUM CITRATE 296 ML BOTTLE PO ONE ×2 (11:01→16:04)
[2019-07-28] MEDS ORDERED: NA PHOS,M-B/NA PHOS,DI-BA 133 ML ENEMA RECTAL ONE (11:01)
[2019-07-28] MEDS: FAMOTIDINE 20 MG/2 ML VIAL IV SCH ×2 (12:47→22:00)
[2019-07-28] MEDS: AMIODARONE 200 MG TAB PO SCH (12:47)
[2019-07-28] MEDS: POLYETHYLENE GLYCOL 3350 17 GM POWD.PACK PO SCH (12:47)
[2019-07-28] MEDS: CALCITRIOL 0.25 MCG CAP PO SCH (12:48)
--- NOTE | 2019-07-28 13:08 | CONS ---
CONSULTATION DATE OF SERVICE: 07/28/2019 REQUESTING PHYSICIAN: Dr. Darling. REASON FOR CONSULTATION: Abdominal pain and constipation. HISTORY OF PRESENT ILLNESS: The patient is a 78-year-old pleasant white male came into the emergency room yesterday complaining of severe lower abdominal pain for the last 4 weeks duration. The pain is mostly in the suprapubic area radiating to the lower abdominal area and in the epigastric area associated with severe constipation. He went to the emergency room on 2 different occasions in the last 3 weeks in the office on July 06, 2019. 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 Otherwise it was unremarkable. He was discharged home and was advised to take MiraLAX 1 scoop twice daily. He continued to have worsening pain. He went to the emergency room once again a week later, given a bottle of magnesium citrate for the constipation, but he continued to have persistent pain. He came back yesterday with worsening symptoms and hence admitted to the hospital for further evaluation. He did have abdominal x-rays done in the emergency room yesterday that showed distended gas filled large bowel consistent with some ileus, but no obvious obstruction noted. No free air noted. The patient never had a colonoscopy in the past. He usually has bowel movements every 3-4 days and the last bowel movement was almost 5 days ago. He reports no rectal bleeding. No nausea, vomiting. No recent weight loss. No fever, chills, night sweats. PAST MEDICAL HISTORY: Significant for coronary artery disease status post stent placement in the past, history of hypertension, COPD, cardiac arrhythmias, congestive heart failure, degenerative joint disease, chronic kidney disease, and hypothyroidism. PAST SURGICAL HISTORY: Bilateral cataract surgery. Umbilical hernia repair, cyst in the groin. Appendectomy, valve replacement, cardiac cath with stent placement. MEDICATIONS: At home include albuterol, Zyloprim, Lipitor, Plavix, Cordarone, Rocalcitrol, vitamin D, Nitrostat, Ecotrin, Coreg, Synthroid, Demadex, Aldactone. ALLERGIES: TO PREDNISONE AND LACTOSE. SOCIAL HISTORY: No smoking. No alcohol use. FAMILY HISTORY: Father had some kind of cancer. Mother also had some kind of cancer. SOCIAL HISTORY: Former smoker. No alcohol use. REVIEW OF SYSTEMS: Cardiopulmonary: No chest pain, shortness of breath. GENITOURINARY: No dysuria or hematuria. MUSCULOSKELETAL unremarkable. SKIN unremarkable. ENDOCRINE unremarkable. PSYCHIATRIC unremarkable. NEUROLOGY unremarkable. ENT/vision unremarkable. CONSTITUTIONAL: No recent weight loss. No fever, chills, night sweats. PHYSICAL EXAMINATION: Blood pressure is 106/67, pulse rate 81, temperature 99.6. HEENT examination unremarkable. Conjunctivae pink. Sclerae anicteric. Oral cavity no lesions. NECK: No JVD or lymph node enlargement. Chest clear to auscultation. HEART: Regular rate and rhythm. ABDOMEN: Soft, it was slightly distended. It was tympanic. There was mild tenderness in the suprapubic area EXTREMITIES: No pedal edema. Skin no rashes. NEUROLOGIC: Alert and oriented x3. No focal deficits. LABS: WBC 11.8, hemoglobin 10, platelets 320. Basic metabolic panel is within normal limits. BUN is 35, creatinine 1.9. ALT, AST, T-bilirubin and alkaline phosphatase are normal. Serum iron is 27, TIBC 238, iron saturation 11% and ferritin is 443. ALT, AST, T- bilirubin and alkaline phosphatase are normal. Lipase is normal. Urinalysis is negative. IMPRESSION: 1. Abdominal pain, lower abdominal pain with abdominal distention and chronic constipation for the last 4 weeks duration. The patient has been to the emergency room on 2 different occasions, was given laxatives with no help. CT of the abdomen done on July 06 showed distended colon with no obvious bowel obstruction. Never had a colonoscopy in the past. 2. History of coronary artery disease status post cardiac stents in the past. Presently on aspirin and Plavix on hold. 3. History of congestive heart failure. 4. Chronic obstructive pulmonary disease. RECOMMENDATIONS: 1. Start him on a clear liquid diet. 2. We will give him a Fleet enema and a bottle of magnesium citrate today. 3. Start him back on oral MiraLAX 1 scoop twice daily. 4. We will plan on a colonoscopy during this hospitalization, probably in the next couple of days. The plan was discussed with the patient. He is agreeable to it. Thank you for this consultation. MMODL / IJN: [id number] /
[2019-07-28] MEDS: HEPARIN SODIUM,PORCINE 5,000 UNIT/ML 1 ML VIAL SQ SCH (16:21)
[2019-07-28] MEDS ORDERED: IPRATROPIUM-ALBUTEROL 3 ML NEB INHALATION PRN (17:01)
--- NOTE | 2019-07-28 17:02 | P.HPIM ---
History of Present Illness H&P Date: 07/28/19 Chief Complaint: Abdominal pain Patient is a 78-year-old male with a known history of COPD, hypertension, hyperlipidemia, history of valve replacement, coronary artery disease with history of stent placement, history of GA, hypothyroidism and other multiple medical problems came to the hospital with complaints of abdominal pain. Patient says that he has been having abdominal pain for the past 4 weeks. Does have a history of constipation. Last bowel movement about 4-5 days ago. Abdominal pain is mainly suprapubic region and also complaining of back pain for the past 5 days. Patient is somewhat poor historian. Patient left AMA initially and came back to the hospital. Patient went to ER twice during the last 3 weeks. 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 Otherwise it was unremarkable. Patient was discharged home with MiraLAX. Patient went back to the emergency room a week to let her and was given medications to treat for constipation. Patient came back to the hospital with worsening pain not relating and constipation. KUB x-ray in the ER showed distended gas filled large bowel and to a lesser extent small bowel consistent with some ileus. No free 8. No significant change compared to old exam. Patient denied any complaints of chest pain or short of breath. No nausea vomiting. Patient does have constipation. No fever no chills. No cough or sputum production. BUN 36 and creatinine 1.9 UA negative for infection. Review of Systems Constitutional: Patient denies any fever or chills . No generalized weakness or weight loss. Abdomen: Patient denied nausea vomiting and diarrhea did patient does have constipation and abdominal pain. Cardiovascular: Patient denies any chest pain or short of breath no palpitations. Respiratory: patient denied any cough is from production. No shortness of breath Neurologic: Patient denied any numbness or tingling headache. Musculoskeletal: Patient denies any complaints of joint swelling or deformity. Skin: Negative Psychiatric: Negative Endocrine: No heat or cold intolerance. No recent weight gain. Genitourinary: No dysuria or hematuria. All other 14 point ROS negative except the above Past Medical History Past Medical History: Chest Pain / Angina, Heart Failure, COPD, Eye Disorder, Hyperlipidemia, Hypertension, Myocardial Infarction ([place]), Osteoarthritis (OA), Pneumonia, Renal Disease, Thyroid Disorder Additional Past Medical History / Comment(s): hx. gout, uses oxygen @3.5 liters atc, PAST CARDIAC ARREST, arthritis feet/hands, beginning of cataracts. umb [place] ia, cyst rt groin Last Myocardial Infarction Date:: 2013 History of Any Multi-Drug Resistant Organisms: None Reported Past Surgical History: Appendectomy, Cardiac Valve Replacement, Heart Catheterization With Stent Additional Past Surgical History / Comment(s): cardiac valve "clip", cyst on shayna k removed Past Anesthesia/Blood Transfusion Reactions: No Reported Reaction Additional Past Anesthesia/Blood Transfusion Reaction / Comment(s): blood-no reaction Date of Last Stent Placement:: 2013 Past Psychological History: No Psychological Hx Reported Smoking Status: Former smoker Past Alcohol Use History: None Reported Additional Past Alcohol Use History / Comment(s): started smoking at age 12(1952) and quit at age 72(2011) smoked 1 ppd Past Drug Use History: None Reported - Past Family History Father Family Medical History: Cancer Mother Family Medical History: Cancer Medications and Allergies Home Medications Medication Instructions Recorded Confirmed Type Albuterol Sulfate [Proair Hfa] 2 puff INHALATION RT-Q6H PRN 02/03/15 07/28/19 History Allopurinol [Zyloprim] 100 mg PO BID 02/03/15 07/28/19 History Atorvastatin [Lipitor] 40 mg PO HS 02/03/15 07/28/19 History Clopidogrel [Plavix] 75 mg PO DAILY 02/03/15 07/28/19 History Amiodarone [Cordarone] 200 mg PO DAILY 07/06/17 07/28/19 History Sodium Bicarbonate Tab 650 mg PO HS 07/06/17 07/28/19 History Calcitriol [Rocaltrol] 0.25 mcg PO SUTUTHSA 12/10/17 07/28/19 History Ergocalciferol (Vitamin D2) 50,000 unit PO Q30D 12/10/17 07/28/19 History [Vitamin D2] Nitroglycerin Sl Tabs [Nitrostat] 0.4 mg SUBLINGUAL Q5M PRN 12/10/17 07/28/19 History Aspirin EC [Ecotrin Low Dose] 81 mg PO DAILY 07/06/19 07/28/19 History Carvedilol [Coreg] 3.125 mg PO QAM 07/06/19 07/28/19 History Levothyroxine Sodium [Synthroid] 100 mcg PO DAILY 07/06/19 07/28/19 History Tiotropium Br/Olodaterol HCl 1 spray INHALATION RT-DAILY 07/06/19 07/28/19 History [Stiolto Respimat Inhal [place]] Torsemide [Demadex] 10 mg PO QAM 07/06/19 07/28/19 History Spironolactone [Aldactone] 25 mg PO HS 07/22/19 07/28/19 History Allergies Allergy/AdvReac Type Severity Reaction Status Date / Time lactose AdvReac Diarrhea Verified 07/28/19 07:34 prednisone AdvReac Unknown Verified 07/28/19 07:34 Physical Exam Vitals: Vital Signs Temp Pulse Pulse Resp BP BP Pulse Ox 07/28/19 07:43 20 07/28/19 05:50 99.6 F 81 20 106/67 94 L 07/28/19 01:27 98.2 F 83 20 119/74 95 07/28/19 01:09 97.6 F 73 16 129/85 97 07/27/19 22:58 73 16 129/85 97 07/27/19 22:30 97.6 F 81 18 100/67 96 Intake and Output 07/27/19 07/28/19 07/28/19 22:59 06:59 14:59 Output Total 250 Balance -250 Output: Urine 250 Other: Voiding Method Urinal Weight 77.111 kg PHYSICAL EXAMINATION: Patient is lying in the bed comfortably, no acute distress, awake alert and oriented.. HEENT: Normocephalic. Neck is supple. Pupils reactive. Nostrils clear. Oral cavity is moist. Ears reveal no drainage. Neck reveals no JVD, carotid bruits, or thyromegaly. CHEST EXAMINATION: Trachea is central. Symmetrical expansion. Lung pradhan clear to auscultation and percussion. CARDIAC: Normal S1, S2 with no gallops. No murmurs ABDOMEN: Soft. Distended. Bowel sounds hyperactive. Nontender. No organomegaly. No abdominal bruits. Extremities: reveal no edema. No clubbing or cyanosis Neurologically awake, alert, oriented x3 with well-coordinated movements. No focal deficits noted Skin: No rash or skin lesions. Psychiatric: Coperative. Nonsuicidal Musculoskeletal: No joint swelling or deformity. Normal range of motion. Results CBC & Chem 7: 07/27/19 22:55 07/27/19 22:55 Labs: Abnormal Lab Results - Last 24 Hours (Table) 07/27/19 07/27/19 07/27/19 Range/Units 22:55 22:55 23:00 RBC 3.40 L (4.30-5.90) m/uL Hgb 10.1 L (13.0-17.5) gm/dL Hct 31.3 L (39.0-53.0) % RDW 15.6 H (11.5-15.5) % Lymphocytes # 0.5 L (1.0-4.8) k/uL Sodium 135 L (137-145) mmol/L Carbon Dioxide 21 L (22-30) mmol/L BUN 36 H (9-20) mg/dL Creatinine 1.90 H (0.66-1.25) mg/dL Glucose 136 H (74-99) mg/dL Urine Blood Trace H (Negative) Hyaline Casts 34 H (0-2) /lpf Urine Mucus Rare H (None) /hpf Thrombosis Risk Factor Assmnt - DVT/VTE Prophylaxis DVT/VTE Prophylaxis: Pharmacologic Prophylaxis ordered - Choose All That Apply Any of the Below Risk Factors Present?: Yes Each Factor Represents 1 point: Abnormal pulmonary function (COPD) Other Risk Factors: Yes Each Risk Factor Represents 3 Points: Age 75 years or older Other congenital or acquired thrombophilia - If yes, enter type in comment: No Thrombosis Risk Factor Assessment Total Risk Factor Score: 4 Thrombosis Risk Factor Assessment Level: Moderate Risk Assessment and Plan Assessment: Abdominal pain with distention due to chronic constipation with ileus. Coronary artery disease with history of stent placement Chronic CHF. Ejection fraction unknown History of valve replacement Hypertension Hyperlipidemia COPD on home oxygen Previous history of smoking History of GA Osteoarthritis Hypothyroidism History of gout DVT prophylaxis with heparin subcu Plan: Patient be continued on IV hydration and continue with laxatives and stool softeners and edema when necessary. Gastroenterology is following. Plan for colonoscopy in the next 1 to days. Spironolactone and torsemide on hold. Continue with duo nebs and oxygen therapy as needed. Continue the home medications and follow closely. Further recommendations based on the clinical course. Time with Patient: Greater than 30
[2019-07-28] MEDS: ATORVASTATIN 40 MG TAB PO SCH (21:59)
[2019-07-28] MEDS: ALLOPURINOL 100 MG TAB PO SCH (22:00)
[2019-07-29] MEDS: HEPARIN SODIUM,PORCINE 5,000 UNIT/ML 1 ML VIAL SQ SCH ×3 (00:26→15:09)
[2019-07-29] MEDS: SODIUM CHLORIDE 0.9% 1,000 ML IV SCH ×2 (00:28→11:12)
[2019-07-29] MEDS: LEVOTHYROXINE 100 MCG TAB PO SCH (05:59)
[2019-07-29] MEDS: MORPHINE SULFATE 4 MG/ML SYRINGE IV PRN ×3 (05:59→21:16)
[2019-07-29] MEDS: CARVEDILOL 3.125 MG TAB PO SCH (07:26)
[2019-07-29] MEDS: AMIODARONE 200 MG TAB PO SCH (07:26)
[2019-07-29] MEDS: CLOPIDOGREL 75 MG TAB PO SCH (07:26)
[2019-07-29] MEDS: FAMOTIDINE 20 MG/2 ML VIAL IV SCH ×2 (07:26→21:04)
[2019-07-29] MEDS: ALLOPURINOL 100 MG TAB PO SCH ×2 (07:26→21:03)
[2019-07-29] MEDS: POLYETHYLENE GLYCOL 3350 17 GM POWD.PACK PO SCH (07:26)
[2019-07-29] MEDS: ASPIRIN 81 MG PO SCH (07:26)
[2019-07-29 08:05] LABS: Basophils # (A) 0.1 k/uL (0-0.2); Basophils % (A) 1 %; Eosinophils # (A) 0.1 k/uL (0-0.7); Eosinophils % (A) 1 %; HCT 27.2 % (39.0-53.0); HGB 8.8 gm/dL (13.0-17.5); Hypochromasia Slight; Lymphocytes # (A) 0.5 k/uL (1.0-4.8); Lymphocytes % (A) 7 %; MCH 29.7 pg (25.0-35.0); MCHC 32.3 g/dL (31.0-37.0); MCV 91.7 fL (80.0-100.0); Mean Platelet Volume 5.8; Monocytes # (A) 0.5 k/uL (0-1.0); Monocytes % (A) 8 %; Neutrophils # (A) 5.7 k/uL (1.3-7.7); Neutrophils % (A) 82 %; Platelet Count 281 k/uL (150-450); RBC 2.97 m/uL (4.30-5.90); RDW 15.6 % (11.5-15.5)
[2019-07-29 08:19] LABS: Calcium 8.6 mg/dL (8.4-10.2); Potassium 4.9 mmol/L (3.5-5.1)
[2019-07-29] MEDS ORDERED: FUROSEMIDE 10 MG/ML 10 ML VIAL IV STA (14:58)
--- NOTE | 2019-07-29 15:01 | P.CRDCN ---
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 He follows in the office with Dr. Guy. He has declined placement of an AICD. We have been asked to see him in consultation. He came to the hospital with symptoms of lower abdominal discomfort and constipation over the previous 1-month. He has been seen in consultation by GI service and they plan to do a colonoscopy. He is seen and examined sitting up in bed in no acute distress. He is mildly dyspneic with exertion. He denies chest pain, dizziness or palpitations. On admission KUB x-ray reveals distended gas-filled large bowel and to a lesser extent small bowel consistent with some ileus, no free air. Laboratory data reviewed, WBC 7, hemoglobin 8.8, platelets 281, sodium 135, potassium 4.9 and creatinine 1.6. Current cardiac medications include Demadex 10 mg in the morning, Aldactone 25 mg at bedtime, Plavix 75 mg daily, carvedilol 3.125 mg in the morning, atorvastatin 40 mg daily and amiodarone 200 mg daily. Most recent echocardiogram obtained in the office July 03 revealed severely impaired LV systolic function with ejection fraction 20%, moderate concentric LVH, akinesia of the posterior and lateral baker from the base to the apex, akinesis of the anteroseptal wall from the mid wall to the apex, akinesia of the septum at the apex and the remainder of the LV is hypokinetic, grade 3 diastolic dysfunction, moderately dilated right atrium, moderate mitral regurgitation. Valve area of 2.29 cm, mild to moderate tricuspid regurgitation, mild pulmonic regurgitation and pulmonary hypertension with RVSP of 43 mmHg. At the time of my exam: CONSTITUTIONAL: Denies fever. Denies chills. EYES: Denies blurred vision. Denies vision changes. Denies eye pain. EARS, NOSE, MOUTH & THROAT: Denies headache. Denies sore throat. Denies ear pain. CARDIOVASCULAR: Denies chest pain. Complains of shortness of breath. Denies orthopnea. Denies PND. Denies palpitations. RESPIRATORY: Denies cough. GASTROINTESTINAL: Complains of abdominal pain. Denies diarrhea. Complains of constipation. Complains of nausea. Denies vomiting. MUSCULOSKELETAL: Denies myalgias. INTEGUMENTARY: Denies pruitis. Denies rash. NEUROLOGIC: Denies numbness. Denies tingling. Denies weakness. PSYCHIATRIC: Denies anxiety. Denies depression. ENDOCRINE: Denies fatigue. Denies weight change. Denies polydipsia. Denies polyurina. GENITOURINARY: Denies burning, hematuria or urgency with micturation. HEMATOLOGIC: Denies history of anemia. Denies bleeding. Blood pressure 107/68 heart rate 73 afebrile maintaining oxygen saturation on room air GENERAL: This is a 78-year-old male in no apparent distress at the time of my examination. HEENT: Head is atraumatic, normocephalic. Pupils are equal, round. Sclerae anicteric. Conjunctivae are clear. Mucous membranes of the mouth are moist. Neck is supple. There is no jugular venous distention. No carotid bruit is heard. LUNGS: Bibasilar rales, faint expiratory wheeze, no rhonchi. No chest wall tenderness is noted on palpation or with deep breathing. HEART: Regular rate and rhythm with murmur at the left sternal border, no rubs or gallops. S1 and S2 heard. ABDOMEN: Soft, mild diffuse tenderness, distended. Bowel sounds are heard. No organomegaly noted. EXTREMITIES: No evidence of peripheral edema and no calf tenderness noted. VASCULAR: Radial and dorsalis pedis pulses palpated, no evidence of clubbing. NEUROLOGIC: Patient is awake, alert and oriented x3. ASSESSMENT Abdominal pain and constipation, scheduled for colonoscopy. He states he did have a bowel movement today. Chronic systolic and diastolic heart failure, ejection fraction 20%. Appears to be in acute heart failure clinically. History of coronary artery disease s/p stent placement to the circumflex artery Non-rheumatic mitral valve insufficiency s/p mitral clip 2016 Hypertension Dyslipidemia Anemia History of ventricular tachycardia, maintained on amiodarone COPD with home oxygen PLAN Check proBNP and chest xray. Obtain baseline EKG. Give one dose of IV lasix. Hold IV fluids. Apply oxygen nasal cannula. Further recommendations to follow based on clinical course. Thank you kindly for this consultation. Nurse Practitioner note has been reviewed, I agree with a documented findings and plan of care. Patient was seen and examined. Past Medical History Past Medical History: Chest Pain / Angina, Heart Failure, COPD, Eye Disorder, Hyperlipidemia, Hypertension, Myocardial Infarction ([place]), Osteoarthritis (OA), Pneumonia, Renal Disease, Thyroid Disorder Additional Past Medical History / Comment(s): hx. gout, uses oxygen @3.5 liters atc, PAST CARDIAC ARREST, arthritis feet/hands, beginning of cataracts. umb hernia, cyst rt groin Last Myocardial Infarction Date:: 2013 History of Any Multi-Drug Resistant Organisms: None Reported Past Surgical History: Appendectomy, Cardiac Valve Replacement, Heart Catheterization With Stent Additional Past Surgical History / Comment(s): cardiac valve "clip", cyst on back removed Past Anesthesia/Blood Transfusion Reactions: No Reported Reaction Additional Past Anesthesia/Blood Transfusion Reaction / Comment(s): blood-no reaction Date of Last Stent Placement:: 2013 Past Psychological History: No Psychological Hx Reported Smoking Status: Former smoker Past Alcohol Use History: None Reported Additional Past Alcohol Use History / Comment(s): started smoking at age 12(1952) and quit at age 72(2011) smoked 1 ppd Past Drug Use History: None Reported - Past Family History Father Family Medical History: Cancer Mother Family Medical History: Cancer Medications and Allergies Home Medications Medication Instructions Recorded Confirmed Type Albuterol Sulfate [Proair Hfa] 2 puff INHALATION RT-Q6H PRN 02/03/15 07/28/19 History Allopurinol [Zyloprim] 100 mg PO BID 02/03/15 07/28/19 History Atorvastatin [Lipitor] 40 mg PO HS 02/03/15 07/28/19 History Clopidogrel [Plavix] 75 mg PO DAILY 02/03/15 07/28/19 History Amiodarone [Cordarone] 200 mg PO DAILY 07/06/17 07/28/19 History Sodium Bicarbonate Tab 650 mg PO HS 07/06/17 07/28/19 History Calcitriol [Rocaltrol] 0.25 mcg PO SUTUTHSA 12/10/17 07/28/19 History Ergocalciferol (Vitamin D2) 50,000 unit PO Q30D 12/10/17 07/28/19 History [Vitamin D2] Nitroglycerin Sl Tabs [Nitrostat] 0.4 mg SUBLINGUAL Q5M PRN 12/10/17 07/28/19 History Aspirin EC [Ecotrin Low Dose] 81 mg PO DAILY 07/06/19 07/28/19 History Carvedilol [Coreg] 3.125 mg PO QAM 07/06/19 07/28/19 History Levothyroxine Sodium [Synthroid] 100 mcg PO DAILY 07/06/19 07/28/19 History Tiotropium Br/Olodaterol HCl 1 spray INHALATION RT-DAILY 07/06/19 07/28/19 History [Stiolto Respimat Inhal [place]] Torsemide [Demadex] 10 mg PO QAM 07/06/19 07/28/19 History Spironolactone [Aldactone] 25 mg PO HS 07/22/19 07/28/19 History Allergies Allergy/AdvReac Type Severity Reaction Status Date / Time lactose AdvReac Diarrhea Verified 07/28/19 07:34 prednisone AdvReac Unknown Verified 07/28/19 07:34 Physical Exam Vitals: Vital Signs Temp Pulse Resp BP Pulse Ox 07/29/19 05:00 97.4 F L 73 18 107/68 92 L 07/28/19 21:00 97.9 F 79 18 122/78 94 L 07/28/19 16:00 18 07/28/19 15:00 98.7 F 69 18 128/81 96 Intake and Output 07/28/19 07/29/19 07/29/19 22:59 06:59 14:59 Intake Total 350 300 Balance 350 300 Intake: Oral 350 300 Other: Voiding Method Urinal Urinal # Voids 1 2 1 # Bowel Movements 1 1 Results 07/29/19 07:38 07/29/19 07:38 CBC 07/29/19 Range/Units 07:38 WBC 7.0 (3.8-10.6) k/uL RBC 2.97 L (4.30-5.90) m/uL Hgb 8.8 L (13.0-17.5) gm/dL Hct 27.2 L (39.0-53.0) % Plt Count 281 (150-450) k/uL Comprehensive Metabolic Panel 07/29/19 Range/Units 07:38 Sodium 135 L (137-145) mmol/L Potassium 4.9 (3.5-5.1) mmol/L Chloride 101 (98-107) mmol/L Carbon Dioxide 25 (22-30) mmol/L BUN 31 H (9-20) mg/dL Creatinine 1.60 H (0.66-1.25) mg/dL Glucose 96 (74-99) mg/dL Calcium 8.6 (8.4-10.2) mg/dL Current Medications Generic Name Dose Route Start Last Admin Trade Name Freq PRN Reason Stop Dose Admin Albuterol/Ipratropium 3 ml 07/28/19 17:01 Duoneb 0.5 Mg-3 Mg/3 Ml Soln INHALATION RT-QID PRN Shortness Of Breath Or Wheezing Albuterol/Ipratropium 3 ml 07/29/19 13:13 Duoneb 0.5 Mg-3 Mg/3 Ml Soln INHALATION RT-QID JOSE Allopurinol 100 mg 07/28/19 21:00 07/29/19 07:26 Zyloprim PO 100 mg BID JOSE Administration Amiodarone HCl 200 mg 07/28/19 12:15 07/29/19 07:26 Cordarone PO 200 mg DAILY JOSE Administration Aspirin 81 mg 07/29/19 09:00 07/29/19 07:26 Aspirin PO 81 mg DAILY OJSE Administration Atorvastatin Calcium 40 mg 07/28/19 21:00 07/28/19 21:59 Lipitor PO 40 mg HS JOSE Administration Calcitriol 0.25 mcg 07/28/19 12:15 07/28/19 12:48 Rocaltrol PO 0.25 mcg SUTUTHSA JOSE Administration Carvedilol 3.125 mg 07/29/19 07:30 07/29/19 07:26 Coreg PO 3.125 mg W/[id number] JOSE Administration Clopidogrel Bisulfate 75 mg 07/29/19 09:00 07/29/19 07:26 Plavix PO 75 mg DAILY JOSE Administration Famotidine 20 mg 07/28/19 12:15 07/29/19 07:26 Pepcid IV 20 mg Q12HR JOSE Administration Heparin Sodium (Porcine) 5,000 unit 07/28/19 16:00 07/29/19 07:26 Heparin SQ 5,000 unit Q8HR JOSE Administration Sodium Chloride 1,000 mls @ 80 mls/hr 07/28/19 00:15 07/29/19 11:12 Saline 0.9% IV 80 mls/hr .[id number] JOSE Administration Levothyroxine Sodium 100 mcg 07/29/19 06:30 07/29/19 05:59 Synthroid PO 100 mcg DAILY@0630 JOSE Administration Morphine Sulfate 4 mg 07/28/19 00:07 07/29/19 05:59 Morphine Sulfate (Inj) IV 4 mg Q4HR PRN Administration Severe Pain Naloxone HCl 0.2 mg 07/28/19 00:07 Narcan IV Q2M PRN Opioid Reversal Polyethylene Glycol 17 gm 07/28/19 11:15 07/29/19 07:26 Miralax PO 17 gm DAILY JOSE Administration Intake and Output 07/28/19 07/29/19 07/29/19 22:59 06:59 14:59 Intake Total 350 300 Balance 350 300 Intake: Oral 350 300 Other: Voiding Method Urinal Urinal # Voids 1 2 1 # Bowel Movements 1 1 07/29/19 07:38 07/29/19 07:38
--- NOTE | 2019-07-29 16:09 | XR ---
EXAMINATION TYPE: XR chest 2V DATE OF EXAM: 07/29/2019 COMPARISON: Prior chest x-ray 07/24/2018 HISTORY: Shortness of breath TECHNIQUE: Frontal and lateral views of the chest are obtained. FINDINGS: Metallic density superimposed over the left heart again noted. Prominent lung volumes with flattening the hemidiaphragms may be indicative of underlying COPD. There are coronary artery calcifi cations present. No pneumothorax or pleural effusion. Interstitium is mildly prominent. Heart size i s stable. Aorta is dense. IMPRESSION: Coronary artery disease. Suspect some interstitial lung disease and emphysema. Postproce dural changes.
[2019-07-29] MEDS ORDERED: PEG 3350-NA SULF,BICARB,CL/KCL 4,000 ML BOTTLE PO ONE (16:26)
[2019-07-29] MEDS: IPRATROPIUM-ALBUTEROL 3 ML NEB INHALATION SCH ×3 (16:30→20:51)
--- NOTE | 2019-07-29 18:10 | PN ---
PROGRESS NOTE DATE OF DISCHARGE: 07/29/2019 The patient is a 78-year-old pleasant white male who was admitted to the hospital with chronic abdominal pain, mostly in the lower abdominal area, for the last one month's duration. He also has chronic constipation of several months' duration, has been taking MiraLAX on an outpatient basis, with no help. He has been to the emergency room on two different occasions with the same symptoms. He had a CT of the abdomen done on July 07 which was unremarkable. The patient still continues to have lower abdominal pain. He was given magnesium citrate as well as Fleet enema yesterday. He had 2 bowel movements which were liquid, and since then the abdominal distention is better, but he continues to have persistent abdominal pain. He denies any rectal bleeding. No nausea, vomiting. PHYSICAL EXAMINATION: He appears comfortable. No apparent distress. Vital signs are stable. Blood pressure is 132/86, pulse 84 per minute. He is afebrile. HEENT EXAMINATION: Unremarkable. Conjunctivae pink. Sclerae anicteric. Oral cavity no lesions. NECK: No JVD or lymph node enlargement. CHEST: Clear to auscultation. HEART: Regular rate and rhythm. ABDOMEN: Soft. Slightly distended. It was tympanic. There was tenderness in the suprapubic area. EXTREMITIES: No pedal edema. SKIN: No rashes. NEUROLOGIC: Alert and oriented x3. No focal deficits. LABS: Labs from today show WBC 7, hemoglobin 8.8. Platelets are normal. Basic metabolic panel is within normal limits. BUN is 31, creatinine 1.60. IMPRESSION: 1. Abdominal pain and abdominal distention for the last [address] of the abdomen was unremarkable 2 weeks ago. Abdominal x-rays showed but no evidence of bowel obstruction. Presently on MiraLAX 1 scoop twice daily, and the constipation has improved. 2. History of coronary artery disease/congestive heart failure, status post AICD placement in the past. Cardiology following the patient closely. 3. Chronic obstructive pulmonary disease, on home oxygen. RECOMMENDATIONS: I had a lengthy discussion with the patient as well as family members at the bedside. At this time, because of his ongoing symptoms of lower abdominal pain and constipation, I recommended a colonoscopy. He understands the risks, benefits and complications of the procedure, especially given his underlying cardiopulmonary status. He will continue on a clear liquid diet today. Continue with laxatives. Will start him on colon prep today for possible colonoscopy tomorrow. Thank you for this consultation. MMODL / IJN: [id number] /
[2019-07-29] MEDS ORDERED: ALBUTEROL INHALER 60 PUFF/8 GM INHALER INHALATION PRN (18:29)
[2019-07-29] MEDS ORDERED: NITROGLYCERIN SL TABS 0.4 MG TAB SUBLINGUAL PRN (18:29)
--- NOTE | 2019-07-29 20:37 | PN ---
PROGRESS NOTE DATE OF SERVICE: 07/29/2019 This 78-year-old gentleman was admitted with abdominal pain and constipation. The patient also was thought to have some ileus. The patient also has significant chronic systolic dysfunction with ejection fraction of 20%. The patient is being closely monitored. The patient had continued abdominal pain and diarrhea. Dr. Guy is following the patient closely. CT scan was unremarkable about [address] Guy is recommending a colonoscopy at this point. Cardiology evaluation has been sought. Past medical history reviewed. REVIEW OF SYSTEMS: CARDIOVASCULAR SYSTEM: No angina, palpitations. RESPIRATORY SYSTEM: No shortness of breath or cough. GI: As mentioned earlier. : No dysuria or retention. NERVOUS SYSTEM: No numbness, weakness. CURRENT MEDICATIONS: Reviewed. They include: 1. DuoNeb q.i.d. and p.r.n. 2. Zyloprim 100 mg p.o. b.i.d. 3. Cordarone 200 mg p.o. daily. 4. Aspirin 81 mg p.o. daily. 5. Lipitor 40 mg p.o. at bedtime. 6. Rocaltrol 0.25 mcg p.o. Monday, Monday, , Monday. 7. Coreg 3.125 mg p.o. with breakfast. 8. Plavix 75 mg p.o. daily. 9. Pepcid 20 mg IV b.i.d. 10.Heparin 5000 units subcutaneously q.8. 11.Synthroid 100 mcg p.o. daily. 12.Narcan. 13.MiraLAX. PHYSICAL EXAMINATION: Patient is alert, oriented x3. Pulse 74, blood pressure 115/79, respiration 18, temperature 97.9, pulse ox 97% on room air. HEENT: Conjunctivae normal. NECK: No jugular venous distention. CARDIOVASCULAR SYSTEM: S1, S2 muffled. RESPIRATORY SYSTEM: Breath sounds diminished at the bases. Bilateral scattered rhonchi and crackles. ABDOMEN: Soft, obese. Mild diffuse tenderness. LEGS: No edema. No swelling. NERVOUS SYSTEM: No focal deficits. LABS: WBC 7, hemoglobin 8.8. Sodium 135, potassium 4.9. Creatinine is 1.60. ASSESSMENT: 1. Abdominal pain and distention with constipation, ileus; rule out bowel obstruction or colitis or mass lesion. 2. Coronary artery disease with history of stent. 3. History of congestive heart failure with chronic systolic dysfunction, ejection fraction 20%, with possible cardiomyopathy. 4. History of coronary artery disease with stent to the circumflex. 5. Non-rheumatic mitral valve insufficiency, status post MitraClip in 2016. 6. Hypertension. 7. Dyslipidemia. 8. Anemia. 9. History of ventricular tachycardia, maintained on amiodarone. 10.Chronic obstructive pulmonary disease, on home oxygen. 11.Chronic hypoxic respiratory failure. 12.Anemia, normocytic; anemia of chronic disease. 13.Hyponatremia. 14.Increased creatinine with acute renal failure. 15.Chronic kidney disease, stage III baseline possibly. RECOMMENDATIONS AND DISCUSSION: In this 78-year-old gentleman who presented with multiple complex medical issues, we will monitor the patient closely, continue the current medications, continue symptomatic treatment. Otherwise at this time we will closely monitor with Cardiology and Gastroenterology for possible colonoscopy. We will order repeat labs. Hemoglobin has dropped from 10.1 to 8.8. Will continue to monitor. The patient is on proton pump inhibitors. MMODL / IJN: [id number] /
[2019-07-29] MEDS ORDERED: FUROSEMIDE 10 MG/ML 4 ML VIAL IV SCH (21:00)
[2019-07-29] MEDS: SPIRONOLACTONE 25 MG TAB PO SCH (21:03)
[2019-07-29] MEDS: ATORVASTATIN 40 MG TAB PO SCH (21:04)
[2019-07-30] MEDS: HEPARIN SODIUM,PORCINE 5,000 UNIT/ML 1 ML VIAL SQ SCH ×3 (00:38→17:28)
[2019-07-30] MEDS: MORPHINE SULFATE 4 MG/ML SYRINGE IV PRN ×4 (01:15→22:17)
[2019-07-30] MEDS: LEVOTHYROXINE 100 MCG TAB PO SCH (05:44)
[2019-07-30] MEDS: IPRATROPIUM-ALBUTEROL 3 ML NEB INHALATION SCH ×4 (07:49→19:17)
[2019-07-30] MEDS ORDERED: TIOTROPIUM BR INHALATION SCH (08:00)
[2019-07-30] MEDS ORDERED: OLODATEROL HCL INHALATION SCH (08:00)
[2019-07-30] MEDS ORDERED: [UNRECOGNIZED DRUG - OTHER] INHALATION SCH (08:00)
[2019-07-30 09:02] LABS: Calcium 8.2 mg/dL (8.4-10.2); Potassium 4.6 mmol/L (3.5-5.1)
[2019-07-30] MEDS: ASPIRIN 81 MG PO SCH (09:09)
[2019-07-30] MEDS: ALLOPURINOL 100 MG TAB PO SCH ×2 (09:09→22:06)
[2019-07-30] MEDS: FAMOTIDINE 20 MG/2 ML VIAL IV SCH ×2 (09:09→22:06)
[2019-07-30] MEDS: CARVEDILOL 3.125 MG TAB PO SCH (09:09)
[2019-07-30] MEDS: AMIODARONE 200 MG TAB PO SCH (09:09)
[2019-07-30] MEDS: CLOPIDOGREL 75 MG TAB PO SCH (09:10)
[2019-07-30] MEDS: POLYETHYLENE GLYCOL 3350 17 GM POWD.PACK PO SCH (09:10)
[2019-07-30] MEDS: TORSEMIDE 20 MG TAB PO SCH (09:10)
--- NOTE | 2019-07-30 11:01 | P.PN ---
Subjective This is a pleasant 78-year-old male past medical history significant for chronic systolic heart failure with ejection fraction less than 20%, nonrheumatic mitral valve insufficiency status post mitral valve clip in 2015, coronary artery disease status post stent placement to the circumflex artery in 2013, COPD, history of ventricular tachycardia causing cardiac arrest, hypertension, dyslipidemia and former nicotine dependence. He follows in the office with Dr. Guy. He has declined AICD placement in the past. He is seen and examined sitting up in bed in no acute distress. He denies chest pain or shortness of breath. He continues to complain of abdominal discomfort and bloating. He is scheduled to undergo a colonscopy this afternoon. Yesterday chest xray and proBNP suggesting fluid overload. He was given a dose of IV lasix. Blood pressure 112/73 heart rate 88 afebrile and maintaining oxygen saturation on nasal cannula. Laboratory data reviewed, sodium 136, potassium 4.6, creatinine 1.64, proBNP 12,100. Currently maintained on amiodarone 200 mg daily, aspirin 81 mg daily, atorvastatin 40 mg daily, coreg 3.125 mg daily, al dactone 25 mg daily and demadex 10 mg daily. GENERAL: This is a 78-year-old male in no apparent distress at the time of my examination. HEENT: Head is atraumatic, normocephalic. Pupils are equal, round. Sclerae anicteric. Conjunctivae are clear. Mucous membranes of the mouth are moist. Neck is supple. There is no jugular venous distention. No carotid bruit is heard. LUNGS: Clear to auscultation bilaterally. No rales, wheeze or rhonchi. No chest wall tenderness is noted on palpation or with deep breathing. HEART: Regular rate and rhythm with murmur at the left sternal border, no rubs or gallops. S1 and S2 heard. EXTREMITIES: No evidence of peripheral edema and no calf tenderness noted. ASSESSMENT Abdominal pain and constipation, scheduled for colonoscopy. He states he did have a bowel movement today. Chronic systolic and diastolic heart failure, ejection fraction 20%. Appears to be in acute heart failure clinically. History of coronary artery disease s/p stent placement to the circumflex artery Non-rheumatic mitral valve insufficiency s/p mitral clip 2015 Hypertension Dyslipidemia Anemia History of ventricular tachycardia, maintained on amiodarone COPD with home oxygen PLAN He is an increased risk for anesthesia secondary to poor LV function. However there is no absolute contraindication to undergo colonscopy this afternoon. This has been communicated to GI team. Continue current medical regimen with oral demadex. Nurse Practitioner note has been reviewed, I agree with a documented findings and plan of care. Patient was seen and examined. Objective - Vital Signs Vital signs: Vital Signs Temp 97.7 F 07/30/19 05:00 Pulse 88 07/30/19 08:01 Resp 18 07/30/19 05:00 BP 112/73 07/30/19 05:00 Pulse Ox 97 07/30/19 05:00 Intake & Output 07/29/19 07/30/19 07/30/19 18:59 06:59 18:59 Intake Total 500 Balance 500 Weight 71.7 kg Intake: Oral 500 Other: Voiding Method Urinal Urinal # Voids 1 2 1 # Bowel Movements 3 2 - Labs CBC & Chem 7: 07/29/19 07:38 07/30/19 08:14 Labs: Abnormal Lab Results - Last 24 Hours (Table) 07/30/19 Range/Units 08:14 Sodium 136 L (137-145) mmol/L BUN 29 H (9-20) mg/dL Creatinine 1.64 H (0.66-1.25) mg/dL Calcium 8.2 L (8.4-10.2) mg/dL
[2019-07-30] MEDS: CALCITRIOL 0.25 MCG CAP PO SCH (11:30)
[2019-07-30] MEDS ORDERED: PROPOFOL 10 MG/ML 20 ML VIAL IV ONE (14:35)
[2019-07-30] MEDS ORDERED: LACTATED RINGERS 1,000 ML IV ONE ×2 (14:39)
--- NOTE | 2019-07-30 15:04 | P.PCN ---
Date of Procedure: 07/30/19 Procedure(s) Performed: BRIEF HISTORY: Patient is a 78-year-old pleasant white male admitted to the hospital with severe lower abdominal pain followed by constipation for the last [address] of abdomen and pelvis done in the second week of July showed dilated colon with the fecal stasis. Because of the ongoing symptoms he scheduled for a colonoscopy to evaluate further. No prior history of colonoscopy in the past PROCEDURE PERFORMED: Colonoscopy with snare polypectomy. PREOPERATIVE DIAGNOSIS: Lower abdominal pain and chronic constipation. IV sedation per Anesthesia. PROCEDURE: After informed consent was obtained, the patient, was brought into the endoscopy unit. IV sedation was administered by Anesthesia under continuous monitoring. Digital rectal examination was normal. Initially the Olympus CF-160 flexible video colonoscope was then inserted in the rectum, gradually advanced into the cecum without any difficulty. Careful examination was performed as the scope was gradually being withdrawn. Ileocecal valve and the appendiceal orifice were visualized and appeared normal. Prep was excellent. Mucosa of the cecum, ascending colon, transverse colon appeared normal. In the descending colon there was a 5 mm polyp that was removed by snare polypectomy. Rest of the de scending colon, sigmoid colon, and rectum appeared normal. Retroflexion was performed in the rectum and grade 2 internal hemorrhoids were seen. The patient tolerated the procedure well. IMPRESSION: 5 mm descending colon polyp status post polypectomy Grade 2 internal hemorrhoids RECOMMENDATIONS: Findings of this examination were discussed with the patient as well as his family. Diet will be advanced as tolerated. Await the biopsy results. If the biopsy shows an adenoma he can have a repeat colonoscopy in 5 years.
[2019-07-30] MEDS: ATORVASTATIN 40 MG TAB PO SCH (22:06)
[2019-07-30] MEDS: SPIRONOLACTONE 25 MG TAB PO SCH (22:06)
--- NOTE | 2019-07-30 22:16 | PN ---
PROGRESS NOTE DATE OF SERVICE: 07/29/2019 This 78-year-old gentleman who was admitted with abdominal pain and distention with constipation and ileus is being closely monitored. The patient also has significant CHF. Cardiology is following the patient closely. Gastroenterology is planning a colonoscopy inpatient. The most recent chest x-ray, reviewed by me, shows some interstitial lung disease. BNP is 12,100. Creatinine is 1.64, which is stable. Sodium is 136. Past medical history reviewed. REVIEW OF SYSTEMS: CARDIOVASCULAR SYSTEM: As mentioned earlier. RESPIRATORY SYSTEM: As mentioned earlier. GI: As mentioned earlier. : No dysuria or retention. NERVOUS SYSTEM: No numbness or weakness. CURRENT MEDICATIONS: Reviewed. They include: 1. DuoNeb q.i.d. and p.r.n. 2. Zyloprim 100 mg p.o. b.i.d. 3. Cordarone 200 mg p.o. daily. 4. Aspirin 81 mg p.o. daily. 5. Lipitor 40 mg at bedtime. 6. Rocaltrol 0.25 mg Monday, Monday, , Monday. 7. Coreg 3.125 mg p.o. with breakfast. 8. Pepcid 20 mg IV b.i.d. 9. Heparin 5000 units subcutaneously q.8. 10.Synthroid 100 mcg p.o. daily. 11.Morphine sulfate. 12.Narcan p.r.n. 13.Nitrostat. 14.MiraLAX. 15.Aldactone. 16.Demadex. PHYSICAL EXAMINATION: Patient is alert, oriented x3. Pulse 60, blood pressure 94/58, respiration 20, temperature 97.9, pulse ox 99% on 2 L. HEENT: Conjunctivae normal. NECK: No jugular venous distention. CARDIOVASCULAR SYSTEM: S1, S2 muffled. RESPIRATORY SYSTEM: Breath sounds diminished at the bases. Bilateral scattered rhonchi and crackles. ABDOMEN: Soft, nontender, but diffuse distention present. Bowel sounds diminished. No ascites. Tympanitic. LEGS: No edema. No swelling. NERVOUS SYSTEM: Diffusely weak. LABS: WBC 7, hemoglobin 8.8. Sodium 136, creatinine 1.64. ASSESSMENT: 1. Abdominal pain and distention with constipation and ileus; rule out bowel obstruction or colitis or mass lesion. 2. Coronary artery disease with history of stent. 3. History of congestive heart failure with chronic systolic dysfunction, ejection fraction 20%, with possible cardiomyopathy. 4. History of coronary artery disease with stent to the circumflex. 5. Non-rheumatic mitral valve insufficiency, status post MitraClip in 2016. 6. Hypertension. 7. Hyperlipidemia. 8. Anemia. 9. History of ventricular tachycardia, on amiodarone, maintained. 10.Chronic obstructive pulmonary disease, on home oxygen, with chronic hypoxic respiratory failure. 11.Anemia, normocytic; anemia of chronic disease. 12.Hyponatremia. 13.Increased creatinine with acute renal failure with prerenal factors. 14.Chronic kidney disease, stage III, baseline possibly. 15.FULL CODE. RECOMMENDATIONS AND DISCUSSION: In this 78-year-old gentleman who presented with multiple complex medical issues, we will monitor the patient closely, continue the current medications, continue with symptomatic treatment. Otherwise, the patient is currently stable; however, the patient has multiple other medical issues. Recommend proceeding with possible colonoscopy. Closely follow with Cardiology. Repeat labs will be ordered. Guarded prognosis because of multiple complex medical issues. Further recommendations to follow. Continue the symptomatic treatment otherwise. MMODL / IJN: [id number] /
[2019-07-31] MEDS: HEPARIN SODIUM,PORCINE 5,000 UNIT/ML 1 ML VIAL SQ SCH ×3 (00:21→17:12)
[2019-07-31] MEDS: MORPHINE SULFATE 4 MG/ML SYRINGE IV PRN ×3 (05:54→18:03)
[2019-07-31] MEDS: LEVOTHYROXINE 100 MCG TAB PO SCH (05:54)
[2019-07-31] MEDS: CARVEDILOL 3.125 MG TAB PO SCH (08:25)
[2019-07-31] MEDS: IPRATROPIUM-ALBUTEROL 3 ML NEB INHALATION SCH ×4 (08:25→20:22)
[2019-07-31] MEDS: FAMOTIDINE 20 MG/2 ML VIAL IV SCH (08:26)
[2019-07-31] MEDS: ALLOPURINOL 100 MG TAB PO SCH ×2 (08:26→21:27)
[2019-07-31] MEDS: ASPIRIN 81 MG PO SCH (08:26)
[2019-07-31] MEDS: AMIODARONE 200 MG TAB PO SCH (08:26)
[2019-07-31] MEDS: POLYETHYLENE GLYCOL 3350 17 GM POWD.PACK PO SCH (08:26)
[2019-07-31] MEDS: TORSEMIDE 20 MG TAB PO SCH (08:27)
[2019-07-31] MEDS: CLOPIDOGREL 75 MG TAB PO SCH (08:37)
[2019-07-31 09:33] LABS: Basophils # (A) 0.1 k/uL (0-0.2); Basophils % (A) 1 %; Eosinophils # (A) 0.1 k/uL (0-0.7); Eosinophils % (A) 1 %; HCT 24.6 % (39.0-53.0); HGB 8.1 gm/dL (13.0-17.5); Lymphocytes # (A) 0.4 k/uL (1.0-4.8); Lymphocytes % (A) 7 %; MCH 29.8 pg (25.0-35.0); MCHC 32.8 g/dL (31.0-37.0); MCV 90.8 fL (80.0-100.0); Mean Platelet Volume 6.4; Monocytes # (A) 0.4 k/uL (0-1.0); Monocytes % (A) 6 %; Neutrophils # (A) 5.2 k/uL (1.3-7.7); Neutrophils % (A) 84 %; Platelet Count 249 k/uL (150-450); RBC 2.71 m/uL (4.30-5.90); RDW 15.7 % (11.5-15.5); WBC 6.2 k/uL (3.8-10.6)
[2019-07-31 09:35] LABS: Calcium 8.6 mg/dL (8.4-10.2); Potassium 4.4 mmol/L (3.5-5.1)
--- NOTE | 2019-07-31 10:23 | P.PN ---
Subjective This is a pleasant 78-year-old male past medical history significant for chronic systolic heart failure with ejection fraction less than 20%, nonrheumatic mitral valve insufficiency status post mitral valve clip in 2015, coronary artery disease status post stent placement to the circumflex artery in 2013, COPD, history of ventricular tachycardia causing cardiac arrest, hypertension, dyslipidemia and former nicotine dependence. He follows in the office with Dr. Guy. He has declined AICD placement in the past. He is seen and examined sitting up in bed in no acute distress. He continues to feel abdominal discomfort and bloating. He states it is mildly improved since yesterday, but not completely resolved. He denies chest pain, shortness of breath, dizziness or palpitations. Colonoscopy revealed hemorrhoids and he underwent polypectomy. Laboratory data reviewed, WBC 6.2, hgb 8.1, plt 249, sodium 143, potassium 3.3, creatinine 1.77. Blood pressure 106/63 heart rate 80 afebrile and maintaining oxygen saturation on room air. GENERAL: This is a 78-year-old male in no apparent distress at the time of my examination. HEENT: Head is atraumatic, normocephalic. Pupils are equal, round. Sclerae anicteric. Conjunctivae are clear. Mucous membranes of the mouth are moist. Neck is supple. There is no jugular venous distention. No carotid bruit is heard. LUNGS: Clear to auscultation bilaterally. No rales, wheeze or rhonchi. No chest wall tenderness is noted on palpation or with deep breathing. HEART: Regular rate and rhythm with murmur at the left sternal border, no rubs or gallops. S1 and S2 heard. EXTREMITIES: No evidence of peripheral edema and no calf tenderness noted. ASSESSMENT Abdominal pain and constipation, s/p colonoscopy Chronic systolic and diastolic heart failure, ejection fraction 20%. History of coronary artery disease s/p stent placement to the circumflex artery Non-rheumatic mitral valve insufficiency s/p mitral clip 2016 Hypertension Dyslipidemia Anemia History of ventricular tachycardia, maintained on amiodarone COPD with home oxygen PLAN Stable from a cardiac perspective. We will follow as needed. Ongoing medical management and evaluation of abdominal pain. Follow up with Dr. Guy upon discharge. Nurse Practitioner note has been reviewed, I agree with a documented findings and plan of care. Patient was seen and examined. Objective - Vital Signs Vital signs: Vital Signs Temp 98.1 F 07/31/19 06:29 Pulse 80 07/31/19 08:38 Resp 17 07/31/19 06:29 BP 106/63 07/31/19 06:29 Pulse Ox 97 07/31/19 06:29 Intake & Output 07/30/19 07/31/19 07/31/19 18:59 06:59 18:59 Intake Total 100 Output Total 400 650 Balance -300 -650 Weight 71.7 kg 71.1 kg Intake: IV 100 Output: Urine 400 650 Other: # Voids 2 2 # Bowel Movements 0 - Labs CBC & Chem 7: 07/31/19 08:50 07/31/19 08:50 Labs: Abnormal Lab Results - Last 24 Hours (Table) 07/31/19 07/31/19 Range/Units 08:50 08:50 RBC 2.71 L (4.30-5.90) m/uL Hgb 8.1 L (13.0-17.5) gm/dL Hct 24.6 L (39.0-53.0) % RDW 15.7 H (11.5-15.5) % Lymphocytes # 0.4 L (1.0-4.8) k/uL Sodium 134 L (137-145) mmol/L Chloride 96 L (98-107) mmol/L BUN 24 H (9-20) mg/dL Creatinine 1.77 H (0.66-1.25) mg/dL Glucose 110 H (74-99) mg/dL
[2019-07-31] MEDS: PANTOPRAZOLE 40 MG/10 ML VIAL IVP SCH (17:47)
--- NOTE | 2019-07-31 18:10 | PN ---
PROGRESS NOTE DATE OF DISCHARGE: 07/31/2019 Patient is a 78-year-old pleasant white male admitted to the hospital with severe lower abdominal pain and constipation. He underwent a colonoscopy yesterday which showed a small polyp but otherwise unremarkable. He is presently on MiraLAX 2 scoops twice daily and he is feeling better. His abdominal pain is improving. He had 2 bowel movements today. He still has some discomfort in the epigastric area, requiring morphine every so often. No new complaints. PHYSICAL EXAMINATION: He appears comfortable. No apparent distress. VITAL SIGNS: Stable. Blood pressure 101/65, pulse rate 64, temperature 98.5. HEENT examination unremarkable. Conjunctivae pink. Sclerae anicteric. Oral cavity no lesions. NECK: No JVD or lymph node enlargement. CHEST: Clear to auscultation. HEART: Regular rate and rhythm. ABDOMEN: Soft. Slightly distended. Bowel sounds are positive. No organomegaly. EXTREMITIES: No pedal edema. SKIN: No rashes. NEUROLOGIC: Alert and oriented x3. No focal deficits. LABS: WBC 6.2, hemoglobin 8.1, platelets 249. Basic metabolic panel, BUN 24, creatinine 1.77. IMPRESSION: 1. Lower abdominal pain and abdominal distention with constipation for the last one month's duration. Colonoscopy yesterday showed small colon polyps; otherwise unremarkable. Most likely symptoms are probably related to severe chronic constipation. 2. History of coronary artery disease. 3. History of congestive heart failure with decreased ejection fraction. 4. Chronic obstructive pulmonary disease, on home oxygen. 5. Chronic kidney disease. RECOMMENDATIONS: 1. Continue with MiraLAX 1 to 2 scoops twice daily to achieve at least one soft bowel movement daily. 2. Increase ambulation. 3. No need for any further testing. Thank you for this consultation. MMODL / IJN: [id number] /
--- NOTE | 2019-07-31 19:19 | PN ---
PROGRESS NOTE DATE OF SERVICE: 07/31/2019. This 78-year-old gentleman who was admitted with abdominal pain, was being evaluated for possible colonic lesions. A colonoscopy done by Dr. Guy showed a 5 mm descending colon polyp. Polypectomy was done. The diet is being advanced. No chest pain. No palpitations. No fever. EXAM: Alert and oriented x3. Pulse 64. Blood pressure 101/60, respirations 16, temperature 98.4, pulse ox 97% on 2 L. HEENT: Conjunctivae normal. NECK: No JVD. CARDIOVASCULAR: S1, S2 muffled. RESPIRATORY: Breath sounds diminished in the bases. A few scattered rhonchi. Abdomen soft. Mild diffuse distention. Legs: No edema. No swelling. CENTRAL NERVOUS SYSTEM: Diffusely weak. LABS: Hemoglobin 8.1, creatinine is 1.77. Sodium is 134. ASSESSMENT: 1. Abdominal pain, distention, constipation, ileus, possible colitis. 2. Status post colonoscopy showing colonoscopy and 5 mm descending colon polyp resection. 3. Coronary artery disease, history of stent. 4. History of congestive heart failure with chronic systolic dysfunction, ejection fraction 20% with possible cardiomyopathy. 5. History of coronary artery disease with stent to circumflex. 6. Nonrheumatic mitral valve insufficiency, status post MitraClip in 2016. 7. Hypertension. 8. Hyperlipidemia. 9. Gait dysfunction. 10.Anemia. 11.History of ventricular tachycardia. Maintained on amiodarone. 12.Chronic obstructive pulmonary disease on home O2 with chronic hypoxic respiratory failure. 13.Anemia, normocytic anemia of chronic disease. 14.Hyponatremia. 15.Increased creatinine with acute renal failure with prerenal factors. 16.Chronic kidney stage 3, baseline possibly. 17.FULL CODE. RECOMMENDATIONS AND DISCUSSION: Continue current medications, continue with monitoring, management and symptomatic treatment. Otherwise, at this time, I recommend repeat labs and advance diet per Gastroenterology. Add proton pump inhibitors. Prognosis guarded because of multiple complex medical issues. Further recommendations to follow. MMODL / IJN: [id number] /
[2019-07-31] MEDS: SPIRONOLACTONE 25 MG TAB PO SCH (21:27)
[2019-07-31] MEDS: ATORVASTATIN 40 MG TAB PO SCH (21:28)
[2019-08-01] MEDS: HEPARIN SODIUM,PORCINE 5,000 UNIT/ML 1 ML VIAL SQ SCH ×4 (00:21→22:01)
[2019-08-01] MEDS: MORPHINE SULFATE 4 MG/ML SYRINGE IV PRN ×2 (00:33→09:32)
[2019-08-01] MEDS: LEVOTHYROXINE 100 MCG TAB PO SCH (06:09)
[2019-08-01] MEDS: ALLOPURINOL 100 MG TAB PO SCH ×2 (09:22→22:03)
[2019-08-01] MEDS: ASPIRIN 81 MG PO SCH (09:22)
[2019-08-01] MEDS: AMIODARONE 200 MG TAB PO SCH (09:23)
[2019-08-01] MEDS: FAMOTIDINE 20 MG TAB PO SCH (09:23)
[2019-08-01] MEDS: CARVEDILOL 3.125 MG TAB PO SCH (09:23)
[2019-08-01] MEDS: CLOPIDOGREL 75 MG TAB PO SCH (09:23)
[2019-08-01] MEDS: POLYETHYLENE GLYCOL 3350 17 GM POWD.PACK PO SCH ×2 (09:23→22:01)
[2019-08-01] MEDS: PANTOPRAZOLE 40 MG/10 ML VIAL IVP SCH (09:23)
[2019-08-01] MEDS: TORSEMIDE 20 MG TAB PO SCH (09:32)
[2019-08-01 09:33] LABS: Basophils # (A) 0.1 k/uL (0-0.2); Basophils % (A) 1 %; Eosinophils # (A) 0.1 k/uL (0-0.7); Eosinophils % (A) 2 %; HCT 25.9 % (39.0-53.0); HGB 8.5 gm/dL (13.0-17.5); Hypochromasia Slight; Lymphocytes # (A) 0.5 k/uL (1.0-4.8); Lymphocytes % (A) 8 %; MCH 30.1 pg (25.0-35.0); MCHC 32.9 g/dL (31.0-37.0); MCV 91.6 fL (80.0-100.0); Mean Platelet Volume 5.8; Monocytes # (A) 0.4 k/uL (0-1.0); Monocytes % (A) 7 %; Neutrophils # (A) 4.7 k/uL (1.3-7.7); Neutrophils % (A) 81 %; Platelet Count 254 k/uL (150-450); RBC 2.82 m/uL (4.30-5.90); RDW 15.7 % (11.5-15.5); WBC 5.8 k/uL (3.8-10.6)
[2019-08-01] MEDS: IPRATROPIUM-ALBUTEROL 3 ML NEB INHALATION SCH ×4 (09:49→20:11)
[2019-08-01 09:51] LABS: Potassium 4.8 mmol/L (3.5-5.1)
[2019-08-01] MEDS: TAMSULOSIN 0.4 MG CAP.ER.24H PO SCH (11:04)
[2019-08-01 11:24] VITALS: BMI 22.1
[2019-08-01] MEDS: CALCITRIOL 0.25 MCG CAP PO SCH (12:10)
[2019-08-01] MEDS: ACETAMINOPHEN TAB 325 MG TAB PO PRN ×2 (12:10→18:09)
--- NOTE | 2019-08-01 14:40 | P.CNOR ---
<Cindi Esposito - Last Filed: 08/01/19 15:38> History of Present Illness - [facility] Consult date: 08/01/19 Consult reason: joint pain (Bilateral hip pain) History of present illness: The patient is a 78 y/o male who presented to the ER 4 days ago for abdominal pain. He states he only had 4 bowel movements in the last month. He thought at first his pain was from a kidney stone but the pain kept increasing. He states he has had bilateral hip pain for the past 4 weeks as well. The hip pain has not improved since admission and orthopedics was consulted for further evaluation and care. He states the pain starts in the buttock area and radiates over the lateral aspects of the hip then down the front of his thighs. Both sides are the same and the pain varies depending on his activities. The patient experiences pain down both legs when sitting, standing, and twisting. He also has numbness in his great toes bilaterally since his NH 5 years ago. Review of Systems Constitutional: Denies chills, Denies fever Cardiovascular: Denies chest pain, Denies shortness of breath Respiratory: Denies cough Gastrointestinal: Reports abdominal pain, Reports constipation, Denies diarrhea, Denies nausea, Denies vomiting Musculoskeletal: bilateral: hip pain, hip stiffness Past Medical History Past Medical History: Chest Pain / Angina, Heart Failure, COPD, Eye Disorder, Hyperlipidemia, Hypertension, Myocardial Infarction (NH), Osteoarthritis (OA), Pneumonia, Renal Disease, Thyroid Disorder Additional Past Medical History / Comment(s): hx. gout, uses oxygen @3.5 liters atc, PAST CARDIAC ARREST, arthritis feet/hands, beginning of cataracts. umb hernia, cyst rt groin Last Myocardial Infarction Date:: 2013 History of Any Multi-Drug Resistant Organisms: None Reported Past Surgical History: Appendectomy, Cardiac Valve Replacement, Heart Catheterization With Stent Additional Past Surgical History / Comment(s): cardiac valve "clip", cyst on back removed Past Anesthesia/Blood Transfusion Reactions: No Reported Reaction Additional Past Anesthesia/Blood Transfusion Reaction / Comm: blood-no reaction Date of Last Stent Placement:: 2013 Past Psychological History: No Psychological Hx Reported Smoking Status: Former smoker Past Alcohol Use History: None Reported Additional Past Alcohol Use History / Comment(s): started smoking at age 12(3) and quit at age 72(2011) smoked 1 ppd Past Drug Use History: None Reported - Past Family History Father Family Medical History: Cancer Mother Family Medical History: Cancer Medications and Allergies Home Medications Medication Instructions Recorded Confirmed Type Albuterol Sulfate [Proair Hfa] 2 puff INHALATION RT-Q6H PRN 02/03/15 07/28/19 History Allopurinol [Zyloprim] 100 mg PO BID 02/03/15 07/28/19 History Atorvastatin [Lipitor] 40 mg PO HS 02/03/15 07/28/19 History Clopidogrel [Plavix] 75 mg PO DAILY 02/03/15 07/28/19 History Amiodarone [Cordarone] 200 mg PO DAILY 07/06/17 07/28/19 History Sodium Bicarbonate Tab 650 mg PO HS 07/06/17 07/28/19 History Calcitriol [Rocaltrol] 0.25 mcg PO SUTUTHSA 12/10/17 07/28/19 History Ergocalciferol (Vitamin D2) 50,000 unit PO Q30D 12/10/17 07/28/19 History [Vitamin D2] Nitroglycerin Sl Tabs [Nitrostat] 0.4 mg SUBLINGUAL Q5M PRN 12/10/17 07/28/19 History Aspirin EC [Ecotrin Low Dose] 81 mg PO DAILY 07/06/19 07/28/19 History Carvedilol [Coreg] 3.125 mg PO QAM 07/06/19 07/28/19 History Levothyroxine Sodium [Synthroid] 100 mcg PO DAILY 07/06/19 07/28/19 History Tiotropium Br/Olodaterol HCl 1 spray INHALATION RT-DAILY 07/06/19 07/28/19 History [Stiolto Respimat Inhal [place]] Torsemide [Demadex] 10 mg PO QAM 07/06/19 07/28/19 History Spironolactone [Aldactone] 25 mg PO HS 07/22/19 07/28/19 History Acetaminophen Tab [Tylenol] 650 mg PO Q6HR PRN tab 08/02/19 Rx Psyllium Husk 100% [Metamucil 6 gm PO BID #60 packet 08/02/19 Rx Packet] Tamsulosin [Flomax] 0.4 mg PO PC-BRKFST #30 cap.er.24h 08/02/19 Rx Allergies Allergy/AdvReac Type Severity Reaction Status Date / Time lactose AdvReac Diarrhea Verified 07/28/19 07:34 prednisone AdvReac Unknown Verified 07/28/19 07:34 Physical Examination The patient is a 78 y/o male who is in acute distress. He is alert and oriented x3. Exam of the low back reveals no pain on palpation to the lumbar spine or paraspinal muscles. Mild spasm noted bilaterally. No pain to the lateral bilateral hips. No pain on logrolling or flexion of the hips. No pain on internal and external rotation of the hip joints. Good strength to resisted hip flexion bilaterally. No pain or deformities to the lower extremities. Calves are soft and non-tender. No swelling noted. EHL function intact bilaterally. Circulatory status is intact bilaterally. Strong dorsalis pedis pulses. Numbness to the great toes bilaterally. No other neurological issues. Results - Labs Labs: Abnormal Lab Results - Last 24 Hours (Table) 08/01/19 08/01/19 Range/Units 08:26 08:26 RBC 2.82 L (4.30-5.90) m/uL Hgb 8.5 L (13.0-17.5) gm/dL Hct 25.9 L (39.0-53.0) % RDW 15.7 H (11.5-15.5) % Lymphocytes # 0.5 L (1.0-4.8) k/uL Sodium 134 L (137-145) mmol/L Chloride 95 L (98-107) mmol/L BUN 21 H (9-20) mg/dL Creatinine 1.66 H (0.66-1.25) mg/dL H & H 07/27/19 07/29/19 07/31/19 Range/Units 22:55 07:38 08:50 Hgb 10.1 L 8.8 L 8.1 L (13.0-17.5) gm/dL Hct 31.3 L 27.2 L 24.6 L (39.0-53.0) % 08/01/19 Range/Units 08:26 Hgb 8.5 L (13.0-17.5) gm/dL Hct 25.9 L (39.0-53.0) % Result Diagrams: 08/01/19 08:26 08/01/19 08:26 - Diagnostic results Hip x-ray: image reviewed (Bilateral hip x-rays reveal no acute fracture. Mild OA in the hip joints. ) Lumbar AP/lateral x-ray: image reviewed (L4-L5 spondololithesis present. No fractures seen. ) Assessment and Plan (1) Low back pain Status: Acute Code(s): M54.5 - LOW BACK PAIN SNOMED Code(s): 963895415 (2) Lumbar radicular pain Status: Acute Code(s): M54.16 - RADICULOPATHY, LUMBAR REGION SNOMED Code(s): 603567245 Plan: The clinical and x-ray findings were discussed with the patient. The case was discussed with Dr. Kimball. We believe his bilateral hip pain is most likely from his low back. Our partner Dr. Oneal Montgomery or Les Payan PA-C will see him in the morning for further evaluation and workup for his lumbar spine. Continue pain control. Activities as tolerated. We will await further evaluation by orthopedic spine surgery. <Vince Kimball - Last Filed: 08/04/19 11:21> Results - Labs Labs: H & H 07/27/19 07/29/19 07/31/19 Range/Units 22:55 07:38 08:50 Hgb 10.1 L 8.8 L 8.1 L (13.0-17.5) gm/dL Hct 31.3 L 27.2 L 24.6 L (39.0-53.0) % 08/01/19 08/02/19 Range/Units 08:26 08:46 Hgb 8.5 L 8.8 L (13.0-17.5) gm/dL Hct 25.9 L 27.0 L (39.0-53.0) % Result Diagrams: 08/02/19 08:46 08/02/19 08:46 Assessment and Plan Plan: Discussed with ANGELLA Esposito and agree with above. Patient was subsequently seen and examined by myself as well. S: The patient states that he has had a long history of back pain and the numbness has been present in his feet for some time. The weakness and inability to ambulate, however, is new. O: Subjectively diminished sensation in both feet. Symmetric strength with testing of dorsiflexion, plantar flexion and EHLs. One beat of clonus bilaterally. The patient is unable to hold either leg up off the bed. No radicular pain with straight leg raise. A: 1. Bilateral hip pain/low back pain P: I discussed the clinical findings in detail with the patient. I suspect that h is pain is more likely the result of a spinal etiology rather than intrinsic hip pathology. Recommended further evaluation by Dr. Montgomery's team. Continue as needed pain management. Further recommendations to follow. Vince Kimball D.O. [facility]
--- NOTE | 2019-08-01 15:06 | XR ---
EXAMINATION TYPE: XR Hip Bilateral Complete DATE OF EXAM: 08/01/2019 COMPARISON: NONE HISTORY: 78-year-old male bilateral hip pain TECHNIQUE: 2 views each side FINDINGS: Mild degenerative spurring on both sides, left greater than right. No acute fracture, subluxation, or dislocation. Extensive vascular calcifications. IMPRESSION: Mild degenerative spurring on both sides.
--- NOTE | 2019-08-01 20:16 | PN ---
PROGRESS NOTE DATE OF DICTATION: 08/01/2019 Patient is a 78-year-old pleasant white male admitted to the hospital with abdominal pain and abdominal distention, status post colonoscopy 2 days ago, when he was noted to have small colon polyps. He is doing well. He still has some abdominal discomfort in the suprapubic area. He is undergoing a bladder scan today. He remains on MiraLAX 1 scoop twice daily and had no bowel movements for 2 days. PHYSICAL EXAMINATION: He appears comfortable. No apparent distress. VITAL SIGNS: Stable. Blood pressure is 132/86, pulse rate 66 per minute and afebrile. HEENT examination unremarkable. Conjunctivae pink. Sclerae anicteric. Oral cavity no lesions. NECK: No JVD or lymph node enlargement. CHEST: Clear to auscultation. HEART: Regular rate and rhythm. ABDOMEN: Soft. Bowel sounds are positive. No organomegaly. EXTREMITIES: No pedal edema. SKIN: No rashes. NEUROLOGIC: Alert and oriented x3. No focal deficits. LABS: WBC 5.8, hemoglobin 8.5, platelets normal. Basic metabolic panel is within normal limits. BUN 21, creatinine 1.66. IMPRESSION: 1. Abdominal pain/constipation, on MiraLAX 1 scoop twice daily, doing better. Colonoscopy 2 days ago showed colon polyps. No other pathology noted. 2. Difficulty urination. 3. Right hip pain, for which he had a hip x-ray done today which showed mild degenerative changes noted on both sides. RECOMMENDATIONS: 1. Continue with MiraLAX 1 scoop twice daily. 2. Increase ambulation. 3. Will sign off at this time. Please call us if needed. Thank you for this consultation. MMODL / IJN: [id number] /
--- NOTE | 2019-08-01 21:51 | P.PN ---
Progress Note - Text Progress Note Date: 08/01/19 Interval history: This is a 78-year-old patient of Dr. Ingrid Darling. Presented with lower a bdominal pain. Initially found to have ileus. Also did have a GI workup. Also had urinary retention and had to have straight catheterization. Patient states that the pain is across both the hips and is much worse when he gets up specially when he walks. The pain goes down both legs. Appetite is okay. Does feel weak and tired. Review of systems: Was done for constitutional, cardiovascular, GI, pulmonary. Musculoskeletal, relevant finding as above Active Medications Acetaminophen (Tylenol Tab) 650 mg PO Q6HR PRN PRN Reason: Fever and/ or Pain Last Admin: 08/01/19 18:09 Dose: 650 mg Documented by: Acetaminophen (Tylenol Tab) 500 mg PO Q6HR [facility] Albuterol/Ipratropium (Duoneb 0.5 Mg-3 Mg/3 Ml Soln) 3 ml INHALATION RT-QID PRN PRN Reason: Shortness Of Breath Or Wheezing Albuterol/Ipratropium (Duoneb 0.5 Mg-3 Mg/3 Ml Soln) 3 ml INHALATION RT-QID [facility] Last Admin: 08/01/19 20:11 Dose: 3 ml Documented by: Allopurinol (Zyloprim) 100 mg PO BID [facility] Last Admin: 08/01/19 09:22 Dose: 100 mg Documented by: Amiodarone HCl (Cordarone) 200 mg PO DAILY [facility] Last Admin: 08/01/19 09:23 Dose: 200 mg Documented by: Aspirin (Aspirin) 81 mg PO DAILY [facility] Last Admin: 08/01/19 09:22 Dose: 81 mg Documented by: Atorvastatin Calcium (Lipitor) 40 mg PO HS [facility] Last Admin: 07/31/19 21:28 Dose: 40 mg Documented by: Calcitriol (Rocaltrol) 0.25 mcg PO SUTUTHSA [facility] Last Admin: 08/01/19 12:10 Dose: 0.25 mcg Documented by: Carvedilol (Coreg) 3.125 mg PO W/BRKFST [facility] Last Admin: 08/01/19 09:23 Dose: 3.125 mg Documented by: Clopidogrel Bisulfate (Plavix) 75 mg PO DAILY [facility] Last Admin: 08/01/19 09:23 Dose: 75 mg Documented by: Famotidine (Pepcid) 20 mg PO DAILY [facility] Last Admin: 08/01/19 09:23 Dose: 20 mg Documented by: Heparin Sodium (Porcine) (Heparin) 5,000 unit SQ Q8HR [facility] Last Admin: 08/01/19 16:53 Dose: 5,000 unit Documented by: Levothyroxine Sodium (Synthroid) 100 mcg PO DAILY@0630 [facility] Last Admin: 08/01/19 06:09 Dose: 100 mcg Documented by: Naloxone HCl (Narcan) 0.2 mg IV Q2M PRN PRN Reason: Opioid Reversal Nitroglycerin (Nitrostat) 0.4 mg SUBLINGUAL Q5M PRN PRN Reason: Chest Pain Pantoprazole Sodium (Protonix) 40 mg IVP DAILY [facility] Last Admin: 08/01/19 09:23 Dose: 40 mg Documented by: Polyethylene Glycol (Miralax) 17 gm PO BID [facility] Spironolactone (Aldactone) 25 mg PO HS [facility] Last Admin: 07/31/19 21:27 Dose: 25 mg Documented by: Tamsulosin HCl (Flomax) 0.4 mg PO PC-BRKFST [facility] Last Admin: 08/01/19 11:04 Dose: 0.4 mg Documented by: Torsemide (Demadex) 10 mg PO QAM [facility] Last Admin: 08/01/19 09:32 Dose: 10 mg Documented by: On examination: VITAL SIGNS: 97.5, 69, 16, 103/64, and 6% on 2 L GENERAL APPEARANCE: Laying in bed, awake. HEENT: Normal external appearance of nose and ear. Oral cavity normal EYES: Pupils equal. Conjunctiva normal. NECK: JVD not raised. Mass not palpable. RESPIRATORY: Respiratory effort normal. Lungs clear to auscultation. CARDIOVASCULAR: First and second sounds normal. No edema. ABDOMEN: Soft. Liver and spleen not palpable. No tenderness. No mass palpable. PSYCHIATRY: Alert and oriented x3. Mood and affect normal. MUSCULOSKELETAL: Evidence of OA especially in the hands. Decreased range of motion both hips Assessment: -Status post ileus -Acute on chronic urinary retention probably from bladder outflow obstruction from possibly BPH -Bilateral hip and lower back pain. 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 We'll get x-rays of both hips. Orthopedics was consulted. PTOT was consulted. prognosis guarded. MiraLAX was increased by GI. Flomax is being added.
[2019-08-01] MEDS: ACETAMINOPHEN TAB 500 MG TAB PO SCH (22:00)
[2019-08-01] MEDS: ATORVASTATIN 40 MG TAB PO SCH (22:02)
[2019-08-01] MEDS: SPIRONOLACTONE 25 MG TAB PO SCH (22:03)
[2019-08-02] MEDS: ACETAMINOPHEN TAB 500 MG TAB PO SCH ×3 (01:30→11:49)
[2019-08-02] MEDS: LEVOTHYROXINE 100 MCG TAB PO SCH (05:49)
--- NOTE | 2019-08-02 07:51 | XR ---
EXAMINATION TYPE: XR abdomen 2V DATE OF EXAM: 08/02/2019 7:26 AM CLINICAL HISTORY: Follow-up for abdominal ileus TECHNIQUE: Upright and supine abdominal radiographs were performed. COMPARISON: 07/27/2019. FINDINGS: Bowel loops are diffusely filled with air with apposition of bowel baker therefore measurem ents of the largest bowel loops are difficult. It appears that the right hemicolon measures up to 6.3 cm, mildly dilated and small bowel up to 3.2 cm, also mildly dilated. Air is seen in the rectum. Kathi g bases are well aerated. Diffuse osseous demineralization and degenerative changes of the spine. Ove rall degree of bowel dilatation appears similar to the prior. IMPRESSION: Similar gaseous mild dilation of both large and small bowel, just over upper limits of no rmal in size. Air is seen within the rectum. Continued ileus is suspected.
[2019-08-02] MEDS: PANTOPRAZOLE 40 MG/10 ML VIAL IVP SCH (07:58)
[2019-08-02] MEDS: TORSEMIDE 20 MG TAB PO SCH (07:58)
[2019-08-02] MEDS: ASPIRIN 81 MG PO SCH (07:58)
[2019-08-02] MEDS: POLYETHYLENE GLYCOL 3350 17 GM POWD.PACK PO SCH (07:58)
[2019-08-02] MEDS: HEPARIN SODIUM,PORCINE 5,000 UNIT/ML 1 ML VIAL SQ SCH (07:58)
[2019-08-02] MEDS: TAMSULOSIN 0.4 MG CAP.ER.24H PO SCH (07:58)
[2019-08-02] MEDS: CARVEDILOL 3.125 MG TAB PO SCH (07:59)
[2019-08-02] MEDS: ALLOPURINOL 100 MG TAB PO SCH (07:59)
[2019-08-02] MEDS: CLOPIDOGREL 75 MG TAB PO SCH (07:59)
[2019-08-02] MEDS: AMIODARONE 200 MG TAB PO SCH (07:59)
[2019-08-02] MEDS: FAMOTIDINE 20 MG TAB PO SCH (07:59)
[2019-08-02] MEDS: IPRATROPIUM-ALBUTEROL 3 ML NEB INHALATION SCH ×3 (09:05→15:30)
[2019-08-02 09:32] LABS: Basophils # (A) 0.1 k/uL (0-0.2); Basophils % (A) 1 %; Eosinophils # (A) 0.1 k/uL (0-0.7); Eosinophils % (A) 2 %; HGB 8.8 gm/dL (13.0-17.5); Hypochromasia Slight; Lymphocytes # (A) 0.4 k/uL (1.0-4.8); Lymphocytes % (A) 6 %; MCHC 32.8 g/dL (31.0-37.0); MCV 91.6 fL (80.0-100.0); Mean Platelet Volume 5.7; Monocytes # (A) 0.2 k/uL (0-1.0); Monocytes % (A) 3 %; Neutrophils # (A) 5.4 k/uL (1.3-7.7); Neutrophils % (A) 87 %; Platelet Count 265 k/uL (150-450); RBC 2.95 m/uL (4.30-5.90); RDW 15.6 % (11.5-15.5); WBC 6.1 k/uL (3.8-10.6)
[2019-08-02 09:46] LABS: Calcium 9.2 mg/dL (8.4-10.2); Potassium 4.8 mmol/L (3.5-5.1)
--- NOTE | 2019-08-02 12:53 | P.CNOR ---
History of Present Illness - [facility] Consult date: 08/02/19 Requesting physician: Cindi Esposito Consult reason: low back pain, other (Bilateral lower extremity radiculopathy) History of present illness: Patient is a very pleasant 78-year-old male who is seen and examined at bedside for further evaluation in regards to low back pain and bilateral lower extremity radiculopathy. Over the past 4 weeks without injury he has been experiencing pain that radiates from his lumbar spine, over the hips, over the anterior thighs, and down the lateral calves. Orthopedics was consulted yesterday in regards to his hips. After further evaluation they felt his symptoms are stemming specifically from his lumbar spine. Consultation was placed for an orthopedic spine evaluation. During the same time over the past 4 weeks, he's had significant difficulty with constipation. He states he has had approximately 4 bowel movements in the past month. He states he takes Tylenol for pain medication in the outpatient setting. He does not take narcotic medications. He states he has not had a bowel movement since his admittance to the hospital. He denies any lower extremity weakness bilaterally. He does admit to his lower extremity radiculopathy symptoms. He has had difficulty with ambulation due to his back pain and abdominal pain. X-ray imaging during his admittance to the hospital does show evidence of degenerative changes at L4-5 with spondylolisthesis. He does have a past medical history which includes COPD, heart failure, hyperlipidemia, hypertension, renal disease, thyroid disorder, and myocardial infarction with past cardiac arrest. Past Medical History Past Medical History: Chest Pain / Angina, Heart Failure, COPD, Eye Disorder, Hyperlipidemia, Hypertension, Myocardial Infarction (HI), Osteoarthritis (OA), Pneumonia, Renal Disease, Thyroid Disorder Additional Past Medical History / Comment(s): hx. gout, uses oxygen @3.5 liters atc, PAST CARDIAC ARREST, arthritis feet/hands, beginning of cataracts. umb hernia, cyst rt groin Last Myocardial Infarction Date:: 2013 History of Any Multi-Drug Resistant Organisms: None Reported Past Surgical History: Appendectomy, Cardiac Valve Replacement, Heart Catheterization With Stent Additional Past Surgical History / Comment(s): cardiac valve "clip", cyst on back removed Past Anesthesia/Blood Transfusion Reactions: No Reported Reaction Additional Past Anesthesia/Blood Transfusion Reaction / Comm: blood-no reaction Date of Last Stent Placement:: 2013 Past Psychological History: No Psychological Hx Reported Smoking Status: Former smoker Past Alcohol Use History: None Reported Additional Past Alcohol Use History / Comment(s): started smoking at age 12(1952) and quit at age 72(2011) smoked 1 ppd Past Drug Use History: None Reported - Past Family History Father Family Medical History: Cancer Mother Family Medical History: Cancer Medications and Allergies Home Medications Medication Instructions Recorded Confirmed Type Albuterol Sulfate [Proair Hfa] 2 puff INHALATION RT-Q6H PRN 02/03/15 07/28/19 History Allopurinol [Zyloprim] 100 mg PO BID 02/03/15 07/28/19 History Atorvastatin [Lipitor] 40 mg PO HS 02/03/15 07/28/19 History Clopidogrel [Plavix] 75 mg PO DAILY 02/03/15 07/28/19 History Amiodarone [Cordarone] 200 mg PO DAILY 07/06/17 07/28/19 History Sodium Bicarbonate Tab 650 mg PO HS 07/06/17 07/28/19 History Calcitriol [Rocaltrol] 0.25 mcg PO SUTUTHSA 12/10/17 07/28/19 History Ergocalciferol (Vitamin D2) 50,000 unit PO Q30D 12/10/17 07/28/19 History [Vitamin D2] Nitroglycerin Sl Tabs [Nitrostat] 0.4 mg SUBLINGUAL Q5M PRN 12/10/17 07/28/19 History Aspirin EC [Ecotrin Low Dose] 81 mg PO DAILY 07/06/19 07/28/19 History Carvedilol [Coreg] 3.125 mg PO QAM 07/06/19 07/28/19 History Levothyroxine Sodium [Synthroid] 100 mcg PO DAILY 07/06/19 07/28/19 History Tiotropium Br/Olodaterol HCl 1 spray INHALATION RT-DAILY 07/06/19 07/28/19 History [Stiolto Respimat Inhal [place]] Torsemide [Demadex] 10 mg PO QAM 07/06/19 07/28/19 History Spironolactone [Aldactone] 25 mg PO HS 07/22/19 07/28/19 History Acetaminophen Tab [Tylenol] 650 mg PO Q6HR PRN tab 08/02/19 Rx Psyllium Husk 100% [Metamucil 6 gm PO BID #60 packet 08/02/19 Rx Packet] Tamsulosin [Flomax] 0.4 mg PO PC-BRKFST #30 cap.er.24h 08/02/19 Rx Allergies Allergy/AdvReac Type Severity Reaction Status Date / Time lactose AdvReac Diarrhea Verified 07/28/19 07:34 prednisone AdvReac Unknown Verified 07/28/19 07:34 Physical Examination Physical exam: Patient is awake, alert, and oriented 3 Vital signs stable Good chest excursion with deep inspiration and expiration Abdomen soft nontender Examination of lumbar spine reveals skin is intact with no abrasions, lacerations, or bruises; no erythema, purulence or signs of infection No pain with palpation of the lumbosacral spine Dorsiflexion, plantarflexion, and extensor hallucis longus positive sustained bilaterally Some difficulty of performing hip flexion bilaterally No lower extremity hyperreflexia bilaterally Straight leg test negative bilateral lower extremities Negative Lasegue's test bilaterally No signs or symptoms of DVT; no calf pain No pain with internal and external rotation of the hips bilaterally Neurovascularly intact Results Pertinent studies: X-rays of lumbosacral spine taken on 07/27/2019: L4-5 degenerative disc disease and grade 1 spondylolisthesis; no evidence of vertebral body compression fracture - Labs Labs: Abnormal Lab Results - Last 24 Hours (Table) 08/01/19 08/01/19 Range/Units 08:26 08:26 RBC 2.82 L (4.30-5.90) m/uL Hgb 8.5 L (13.0-17.5) gm/dL Hct 25.9 L (39.0-53.0) % RDW 15.7 H (11.5-15.5) % Lymphocytes # 0.5 L (1.0-4.8) k/uL Sodium 134 L (137-145) mmol/L Chloride 95 L (98-107) mmol/L BUN 21 H (9-20) mg/dL Creatinine 1.66 H (0.66-1.25) mg/dL H & H 07/27/19 07/29/19 07/31/19 Range/Units 22:55 07:38 08:50 Hgb 10.1 L 8.8 L 8.1 L (13.0-17.5) gm/dL Hct 31.3 L 27.2 L 24.6 L (39.0-53.0) % 08/01/19 Range/Units 08:26 Hgb 8.5 L (13.0-17.5) gm/dL Hct 25.9 L (39.0-53.0) % Result Diagrams: 08/02/19 08:46 08/02/19 08:46 Assessment and Plan Assessment: Assessment: Low back pain Bilateral lower extremity radiculopathy L4-5 degenerative disc disease L4-5 grade 1 spondylolisthesis Significant constipation Abdominal pain Significant past medical history including COPD, heart failure, hyperlipidemia, hypertension, renal disease, thyroid disorder, and myocardial infarction with past cardiac arrest (1) Spondylolisthesis at L4-L5 level Current Visit: Yes Status: Acute Code(s): M43.16 - SPONDYLOLISTHESIS, LUMBAR REGION SNOMED Code(s): 259267410 (2) Degeneration of L4-L5 intervertebral disc Current Visit: Yes Status: Acute Code(s): M51.36 - OTHER INTERVERTEBRAL DISC DEGENERATION, LUMBAR REGION SNOMED Code(s): 05134819 (3) Radiculopathy with lower extremity symptoms Current Visit: Yes Status: Acute Code(s): M54.10 - RADICULOPATHY, SITE UNSPECIFIED SNOMED Code(s): 04633731 (4) Constipation Current Visit: Yes Status: Acute Code(s): K59.00 - CONSTIPATION, UNSPECIFIED SNOMED Code(s): 30832182 (5) Hx of myocardial infarction Current Visit: Yes Status: Acute Code(s): I25.2 - OLD MYOCARDIAL INFARCTION SNOMED Code(s): 058238982 (6) Hx of cardiac arrest Current Visit: Yes Status: Acute Code(s): Z86.74 - PERSONAL HISTORY OF SUDDEN CARDIAC ARREST SNOMED Code(s): 185361714 (7) Hyperlipemia Current Visit: Yes Status: Acute Code(s): E78.5 - HYPERLIPIDEMIA, UNSPECIFIED SNOMED Code(s): 02397435 (8) Hypertension Current Visit: Yes Status: Acute Code(s): I10 - ESSENTIAL (PRIMARY) HYPERTENSION SNOMED Code(s): 40403964 (9) Renal disease Current Visit: Yes Status: Acute Code(s): N28.9 - DISORDER OF KIDNEY AND URETER, UNSPECIFIED SNOMED Code(s): 62886734 (10) Low back pain Current Visit: Yes Status: Acute Code(s): M54.5 - LOW BACK PAIN SNOMED Code(s): 037821646 (11) Congestive heart failure Current Visit: No Status: Acute Code(s): I50.9 - HEART FAILURE, UNSPECIFIED SNOMED Code(s): 93114759 (12) COPD (chronic obstructive pulmonary disease) Current Visit: Yes Status: Acute Code(s): J44.9 - CHRONIC OBSTRUCTIVE PULMONARY DISEASE, UNSPECIFIED SNOMED Code(s): 37644627 (13) Abdominal pain Current Visit: No Status: Acute Code(s): R10.9 - UNSPECIFIED ABDOMINAL PAIN SNOMED Code(s): 62020853 Plan: Plan: 1. After reviewing of imaging, physical examination of the patient, and further discussion with the patient, we will currently planned to continue with conservative treatment at this time. Patient would like to work through other conservative treatment before discussing possibility of surgical intervention. Patient is currently experiencing significant constipation and abdominal pain. He has been unable to have a bowel movement for several days and has only had approximately 4 bowel movements in the past month. He does have evidence of degenerative changes in his lumbar spine most significant L4 5 with spondylolist hesis and degenerative disc disease. He will continue to follow other medical providers including medicine and gastroenterology in regards to his significant constipation. We discussed he'll be clear for discharge from an orthopedic spine standpoint. We will plan to have him follow-up in the outpatient setting approximately 2-3 weeks for further evaluation. Patient may follow-up with Blake Payan PA-C or Dr. Oneal Montgomery at [facility]. If he continues to have ongoing low back pain after the resolution of his constipation, we may plan to obtain further imaging at that time. He may ambulate to tolerance and participate in regular activities of daily living to tolerance. 2. Continue pain control with medications as prescribed 3. Patient will continue being seen and examined by other medical providers including medicine and gastroenterology Time with Patient: Greater than 30 (Including obtaining history, physical examination, reviewing of imaging, and dictation.)
[2019-08-02 14:47] VITALS: BP 93/58; RESP 18; TEMP 97.9
[2019-08-02 15:34] VITALS: PULSE 82
--- NOTE | 2019-08-02 22:31 | P.DS ---
Providers Date of admission: 07/29/19 13:21 Expected date of discharge: 08/02/19 Attending physician: Albin Merida Consults: 07/28/19 00:07 Consult Physician Stat Consulting Provider: Sherie Guy Consult Reason/Comments: intractable abdominal pain Do you want consulting provider notified?: Yes, Notify in am 07/29/19 11:07 Consult Physician Routine Consulting Provider: Josef Carr Consult Reason/Comments: CHF Do you want consulting provider notified?: Yes 08/01/19 09:57 Consult Physician Routine Consulting Provider: Nba Guzman Consult Reason/Comments: bilat hip pain Do you want consulting provider notified?: Yes 08/01/19 15:33 Consult Physician Routine Consulting Provider: Keith Montgomery Consult Reason/Comments: lumbar radiculopathy Do you want consulting provider notified?: Already Contacted Primary care physician: Samuel Phong [facility] Course: Hospital course : This is a 78-year-old patient of Dr. Ingrid Darling. Presented with lower abdominal pain. Initially found to have ileus. Also did have a GI workup. Also had urinary retention and had to have straight catheterization. Patient states that the pain is across both the hips and is much worse when he gets up specially when he walks. The pain goes down both legs. Bilateral hip pain is felt to be with from arthritis and some radiculopathy. Patient encouraged to increase activity. Lumbar spine x-ray did show arthritis. Colonoscopy showed; polyp that was removed and grade 2 internal hemorrhoids. Patient was seen and cleared by Dr. Anuel Guy from GI. Also seen by Dr. Baxter from orthopedics. Not for any further intervention at present time. Also seen by cardiology. Patient overall prognosis is guarded. Bulk forming laxative was admitted. corporate affairs manager was involved in discharge planning including home health care was offered. Oral prognosis guarded. Consultation: Dr. DELMI Aguilar from cardiology Dr. Anuel Guy from GI Dr. Baxter from orthopedics On examination: VITAL SIGNS: 97.9, 67, 18, and 3/58, 99% on room air GENERAL APPEARANCE: Laying in bed, awake. HEENT: Normal external appearance of nose and ear. Oral cavity normal EYES: Pupils equal. Conjunctiva normal. NECK: JVD not raised. Mass not palpable. RESPIRATORY: Respiratory effort normal. Lungs clear to auscultation. CARDIOVASCULAR: First and second sounds normal. No edema. ABDOMEN: Soft. Liver and spleen not palpable. No tenderness. No mass palpable. PSYCHIATRY: Alert and oriented x3. Mood and affect normal. MUSCULOSKELETAL: Evidence of OA especially in the hands. Decreased range of motion both hips Assessment: -Status post ileus -Acute on chronic urinary retention probably from bladder outflow obstruction from possibly BPH -Bilateral hip and lower back pain. 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 -Severe mitral regurgitation, nontraumatic -Severe secondary probably hypertension secondary to CHF and COPD Disposition: Home with family Patient Condition at Discharge: Undetermined Plan - Discharge Summary Discharge Rx Participant: No New Discharge Prescriptions: New Tamsulosin [Flomax] 0.4 mg PO PC-BRKFST #30 cap.er.24h Psyllium Husk 100% [Metamucil Packet] 6 gm PO BID #60 packet Acetaminophen Tab [Tylenol] 650 mg PO Q6HR PRN tab PRN Reason: Fever And/ Or Pain Continue Albuterol Sulfate [Proair Hfa] 2 puff INHALATION RT-Q6H PRN PRN Reason: Shortness Of Breath Allopurinol [Zyloprim] 100 mg PO BID Atorvastatin [Lipitor] 40 mg PO HS Clopidogrel [Plavix] 75 mg PO DAILY Sodium Bicarbonate Tab 650 mg PO HS Amiodarone [Cordarone] 200 mg PO DAILY Nitroglycerin Sl Tabs [Nitrostat] 0.4 mg SUBLINGUAL Q5M PRN PRN Reason: Chest Pain Calcitriol [Rocaltrol] 0.25 mcg PO SUTUTHSA Ergocalciferol (Vitamin D2) [Vitamin D2] 50,000 unit PO Q30D Torsemide [Demadex] 10 mg PO QAM Aspirin EC [Ecotrin Low Dose] 81 mg PO DAILY Carvedilol [Coreg] 3.125 mg PO QAM Tiotropium Br/Olodaterol HCl [Stiolto Respimat Inhal [place]] 1 spray INHALATION RT-DAILY Levothyroxine Sodium [Synthroid] 100 mcg PO DAILY Spironolactone [Aldactone] 25 mg PO HS Discharge Medication List Albuterol Sulfate [Proair Hfa] 2 puff INHALATION RT-Q6H PRN 02/03/15 [History] Allopurinol [Zyloprim] 100 mg PO BID 02/03/15 [History] Atorvastatin [Lipitor] 40 mg PO HS 02/03/15 [History] Clopidogrel [Plavix] 75 mg PO DAILY 02/03/15 [History] Amiodarone [Cordarone] 200 mg PO DAILY 07/06/17 [History] Sodium Bicarbonate Tab 650 mg PO HS 07/06/17 [History] Calcitriol [Rocaltrol] 0.25 mcg PO SUTUTHSA 12/10/17 [History] Ergocalciferol (Vitamin D2) [Vitamin D2] 50,000 unit PO Q30D 12/10/17 [History] Nitroglycerin Sl Tabs [Nitrostat] 0.4 mg SUBLINGUAL Q5M PRN 12/10/17 [History] Aspirin EC [Ecotrin Low Dose] 81 mg PO DAILY 07/06/19 [History] Carvedilol [Coreg] 3.125 mg PO QAM 07/06/19 [History] Levothyroxine Sodium [Synthroid] 100 mcg PO DAILY 07/06/19 [History] Tiotropium Br/Olodaterol HCl [Stiolto Respimat Inhal [place]] 1 spray INHALATION RT-DAILY 07/06/19 [History] Torsemide [Demadex] 10 mg PO QAM 07/06/19 [History] Spironolactone [Aldactone] 25 mg PO HS 07/22/19 [History] Acetaminophen Tab [Tylenol] 650 mg PO Q6HR PRN tab 08/02/19 [Rx] Psyllium Husk 100% [Metamucil Packet] 6 gm PO BID #60 packet 08/02/19 [Rx] Tamsulosin [Flomax] 0.4 mg PO PC-BRKFST #30 cap.er.24h 08/02/19 [Rx] Follow up Appointment(s)/Referral(s): Perez Wang MD [STAFF PHYSICIAN] - 1 Week Blake Payan PAC [PHYSICIAN [employer] STORE MANAGER] - 2 Weeks ([facility] prefers to schedule his own appt. Patient may follow-up with Blake Payan PA-C or Dr. Oneal Montgomery at [facility] in 2-3 weeks following discharge. ) Samuel Darlign DO [Primary Care Provider] - 1-2 days (Pt prefers to schedule. ) Yash Guy MD [STAFF PHYSICIAN] - 2 Weeks (Pt prefers to schedule.) Patient Instructions/Handouts: Ileus (DC) Activity/Diet/Wound Care/Special Instructions: Regular diet, lactose free Activity as tolerated, fall precautions. Oxygen at home to continue at 2.5 Liters via nasal cannula. Discharge Disposition: HOME SELF-CARE
[2019-08-03] MEDS ORDERED: PANTOPRAZOLE 40 MG TABLET PO SCH (07:30)
== END 2019-08-02 16:23 | disposition home or self-care (01) | DRG 388 ==
LOC: EC 22:19 → 4MS4W 07-28 00:50 → OBSVTOIN 07-29 13:21
PROVIDERS: ADMIT Hospitalist; ATTEND Hospitalist
PROC: 0DBM8ZX Excision of Descending Colon, Via Natural or Artificial Opening Endoscopic, Diagnostic (ICD-10-PCS; principal; 2019-07-30 09:05)
DX: K56.7 Ileus, unspecified (principal); I50.43 Acute on chronic combined systolic (congestive) and diastolic (congestive) heart failure; I13.0 Hypertensive heart and chronic kidney disease with heart failure and stage 1 through stage 4 chronic kidney disease, or unspecified chronic kidney disease; I47.2 Ventricular tachycardia; J96.11 Chronic respiratory failure with hypoxia; E87.1 Hypo-osmolality and hyponatremia; N17.9 Acute kidney failure, unspecified; I42.9 Cardiomyopathy, unspecified; J84.9 Interstitial pulmonary disease, unspecified; K59.39 Other megacolon; N13.8 Other obstructive and reflux uropathy; I07.1 Rheumatic tricuspid insufficiency; I27.20 Pulmonary hypertension, unspecified; J44.9 Chronic obstructive pulmonary disease, unspecified; I72.3 Aneurysm of iliac artery; N18.3 Chronic kidney disease, stage 3 (moderate); I37.1 Nonrheumatic pulmonary valve insufficiency; D63.8 Anemia in other chronic diseases classified elsewhere; M51.16 Intervertebral disc disorders with radiculopathy, lumbar region; M43.16 Spondylolisthesis, lumbar region; K64.1 Second degree hemorrhoids; K59.09 Other constipation; K63.5 Polyp of colon; G89.29 Other chronic pain; I25.10 Atherosclerotic heart disease of native coronary artery without angina pectoris; N40.1 Benign prostatic hyperplasia with lower urinary tract symptoms; R33.8 Other retention of urine; E03.9 Hypothyroidism, unspecified; E78.5 Hyperlipidemia, unspecified; I25.2 Old myocardial infarction; I70.91 Generalized atherosclerosis; R26.9 Unspecified abnormalities of gait and mobility; M10.9 Gout, unspecified; M19.90 Unspecified osteoarthritis, unspecified site; H26.9 Unspecified cataract; Z99.81 Dependence on supplemental oxygen; Z79.02 Long term (current) use of antithrombotics/antiplatelets; Z79.82 Long term (current) use of aspirin; Z79.890 Hormone replacement therapy; Z79.899 Other long term (current) drug therapy; Z87.01 Personal history of pneumonia (recurrent); Z95.2 Presence of prosthetic heart valve; Z95.5 Presence of coronary angioplasty implant and graft; Z95.810 Presence of automatic (implantable) cardiac defibrillator; Z87.891 Personal history of nicotine dependence; Z86.74 Personal history of sudden cardiac arrest; Z98.890 Other specified postprocedural states; Z88.8 Allergy status to other drugs, medicaments and biological substances; Z91.011 Allergy to milk products; Z80.9 Family history of malignant neoplasm, unspecified
CPT/HCPCS: 36415; 45385; 71046; 72100; 73521; 74018; 74019; 80048; 80053; 81001; 83690; 83880; 85025; 88305; 93005; 94640; 94760; 96361; 96374; 99285

== ENCOUNTER 2019-09-06 16:06 | Inpatient (IN) | payer MEDICARE, OTHER ==
[2019-09-06 16:50] LABS: Anisocytosis Slight; Basophils % (A) 0 %; Eosinophils # (A) 0.1 k/uL (0-0.7); Eosinophils % (A) 1 %; HCT 23.3 % (39.0-53.0); HGB 7.5 gm/dL (13.0-17.5); Lymphocytes # (A) 0.4 k/uL (1.0-4.8); Lymphocytes % (A) 4 %; MCHC 32.1 g/dL (31.0-37.0); MCV 87.4 fL (80.0-100.0); Mean Platelet Volume 6.1; Monocytes # (A) 0.4 k/uL (0-1.0); Monocytes % (A) 4 %; Neutrophils # (A) 9.2 k/uL (1.3-7.7); Neutrophils % (A) 90 %; Platelet Count 340 k/uL (150-450); RBC 2.66 m/uL (4.30-5.90); RDW 16.5 % (11.5-15.5); WBC 10.2 k/uL (3.8-10.6)
[2019-09-06 16:57] LABS: ALT 34 U/L (21-72); AST 34 U/L (17-59); African American GFR (CKD) 55 (>60 ml/min/1.73 sqM); Albumin 2.8 g/dL (3.5-5.0); Alkaline Phosphatase 148 U/L (38-126); Amylase <30 U/L (30-110); Anion Gap 9 mmol/L; Blood Urea Nitrogen 27 mg/dL (9-20); Carbon Dioxide 27 mmol/L (22-30); Chloride 89 mmol/L (98-107); Creatine Kinase 21 U/L (55-170); Glucose 126 mg/dL (74-99); Non-African American GFR(CKD) 48 (>60 ml/min/1.73 sqM); Sodium 125 mmol/L (137-145); Total Bilirubin 0.9 mg/dL (0.2-1.3); Total Protein 6.6 g/dL (6.3-8.2)
[2019-09-06 16:58] LABS: Ammonia <9 umol/L (<30); Lactic Acid, Venous 1.6 mmol/L (0.7-2.0)
[2019-09-06 17:00] LABS: Partial Thromboplastin Time 29.5 sec (22.0-30.0); Prothrombin Time 10.3 sec (9.0-12.0)
[2019-09-06] MEDS ORDERED: IPRATROPIUM-ALBUTEROL 3 ML NEB INHALATION STA (17:21)
[2019-09-06] MEDS ORDERED: SODIUM CHLORIDE TAB 1 GM TAB PO STA (17:21)
[2019-09-06] MEDS ORDERED: methylPREDNISolone SOD SUCCI 125 MG/2 ML VIAL IV STA (17:21)
[2019-09-06] MEDS ORDERED: SODIUM CHLORIDE 0.9% 1,000 ML IV STA (17:21)
--- NOTE | 2019-09-06 17:22 | ED ---
Recheck HPI - General Chief Complaint: Recheck/Abnormal Lab/Rx Stated Complaint: Altered mental status Time Seen by Provider: 09/06/19 16:26 Source: EMS, RN notes reviewed, old records reviewed Mode of arrival: EMS Limitations: no limitations - History of Present Illness Initial Comments: This is a 38-year-old male here for evaluation. Patient is only complaining of shortness of breath history of COPD. Daughter at bedside states patient is having increased swelling of his abdomen increasing ascites with no history of significant ascites or testing for the past. Patient himself denies any severe abdominal pain no fevers. No recent change in medications MD Complaint: abnormal lab (Low-sodium and abnormal renal function with increased ascites) -: days(s) Returns Today for: Called Because of Abnormal Lab/Test (Patient sent from x-ray care facility) Symptoms Since Prior Visit: worsening pain (And increasing shortness of breath) Context: called for abnormal lab result Associated Symptoms: shortness of breath Treatments Prior to Arrival: IV/IO - Related Data Home Medications Medication Instructions Recorded Confirmed Albuterol Sulfate [Proair Hfa] 2 puff INHALATION RT-Q6H PRN 02/03/15 09/06/19 Allopurinol [Zyloprim] 100 mg PO BID 02/03/15 09/06/19 Atorvastatin [Lipitor] 40 mg PO HS 02/03/15 09/06/19 Clopidogrel [Plavix] 75 mg PO DAILY 02/03/15 09/06/19 Amiodarone [Cordarone] 200 mg PO DAILY 07/06/17 09/06/19 Sodium Bicarbonate Tab 650 mg PO BID 07/06/17 09/06/19 Calcitriol [Rocaltrol] 0.25 mcg PO SUTUTHSA 12/10/17 09/06/19 Ergocalciferol (Vitamin D2) 50,000 unit PO Q30D 12/10/17 09/06/19 [Vitamin D2] Nitroglycerin Sl Tabs [Nitrostat] 0.4 mg SUBLINGUAL Q5M PRN 12/10/17 09/06/19 Aspirin EC [Ecotrin Low Dose] 81 mg PO DAILY 07/06/19 09/06/19 Levothyroxine Sodium [Synthroid] 100 mcg PO DAILY 07/06/19 09/06/19 Tiotropium Br/Olodaterol HCl 1 spray INHALATION RT-DAILY 07/06/19 09/06/19 [Stiolto Respimat Inhal [place]] HYDROcodone/APAP 7.5-325MG [[place] 1 tab PO Q4H PRN 09/06/19 09/06/19 7.5-325] HYDROcodone/APAP 7.5-325MG [[place] 2 tab PO Q6HR PRN 09/06/19 09/06/19 7.5-325] Lactulose 20 gm PO DAILY@0800 09/06/19 09/06/19 Magnesium Hydroxide [Milk of 2,400 mg PO DAILY PRN 09/06/19 09/06/19 Magnesia] Polyethylene Glycol 3350 [Miralax] 17 gm PO DAILY 09/06/19 09/06/19 Sennosides [Senna] 8.6 mg PO HS 09/06/19 09/06/19 Tamsulosin [Flomax] 0.4 mg PO HS 09/06/19 09/06/19 Previous Rx's Medication Instructions Recorded Acetaminophen Tab [Tylenol] 650 mg PO Q6HR PRN tab 08/02/19 Allergies Allergy/AdvReac Type Severity Reaction Status Date / Time lactose AdvReac Diarrhea Verified 09/06/19 18:45 prednisone AdvReac Unknown Verified 09/06/19 18:45 Review of Systems ROS Statement: Those systems with pertinent positive or pertinent negative responses have been documented in the HPI. ROS Other: All systems not noted in ROS Statement are negative. Past Medical History Past Medical History: Chest Pain / Angina, Heart Failure, COPD, Eye Disorder, Hyperlipidemia, Hypertension, Myocardial Infarction ([place]), Osteoarthritis (OA), Pneumonia, Renal Disease, Thyroid Disorder Additional Past Medical History / Comment(s): Hx. gout, uses oxygen @3.5 liters atc, PAST CARDIAC ARREST, arthritis feet/hands, beginning of cataracts. umb hernia, cyst rt groin Last Myocardial Infarction Date:: 2013 History of Any Multi-Drug Resistant Organisms: None Reported Past Surgical History: Appendectomy, Cardiac Valve Replacement, Heart Catheterization With Stent Additional Past Surgical History / Comment(s): Cardiac valve "clip", cyst on back removed Past Anesthesia/Blood Transfusion Reactions: No Reported Reaction Additional Past Anesthesia/Blood Transfusion Reaction / Comment(s): blood-no reaction Date of Last Stent Placement:: 2013 Past Psychological History: No Psychological Hx Reported Smoking Status: Former smoker Past Alcohol Use History: None Reported Past Drug Use History: None Reported - Past Family History Father Family Medical History: Cancer Mother Family Medical History: Cancer General Exam Limitations: no limitations General appearance: alert, in no apparent distress Head exam: Present: atraumatic, normocephalic, normal inspection Eye exam: Present: normal appearance, PERRL, EOMI. Absent: scleral icterus, conjunctival injection, periorbital swelling ENT exam: Present: normal exam, mucous membranes moist Neck exam: Present: normal inspection. Absent: tenderness, meningismus, lymphadenopathy Respiratory exam: Present: normal lung sounds bilaterally. Absent: respiratory distress, wheezes, rales, rhonchi, stridor Cardiovascular Exam: Present: regular rate, normal rhythm, normal heart sounds. Absent: systolic murmur, diastolic murmur, rubs, gallop, clicks GI/Abdominal exam: Present: soft, normal bowel sounds. Absent: distended, tenderness, guarding, rebound, rigid Extremities exam: Present: normal inspection, full ROM, normal capillary refill. Absent: tenderness, pedal edema, joint swelling, calf tenderness Back exam: Present: normal inspection Neurological exam: Present: alert, oriented X3, CN II-XII intact Psychiatric exam: Present: normal affect, normal mood Skin exam: Present: warm, dry, intact, normal color. Absent: rash Course Vital Signs 09/06/19 09/06/19 09/06/19 16:13 16:19 17:09 Temperature 97.6 F Pulse Rate 80 78 Respiratory 18 20 18 Rate Blood Pressure 95/67 99/67 O2 Sat by Pulse 99 100 Oximetry 09/06/19 09/06/19 09/06/19 18:06 18:25 18:29 Temperature Pulse Rate 86 84 83 Respiratory 18 Rate Blood Pressure 101/67 O2 Sat by Pulse 98 Oximetry 09/06/19 18:47 Temperature 98.0 F Pulse Rate 86 Respiratory 18 Rate Blood Pressure 102/68 O2 Sat by Pulse 98 Oximetry - Reevaluation(s) Reevaluation #1: records and lab tests prior to review His breathing is currently significantly improved Medical Decision Making - Medical Decision Making 78 male date ER for evaluation . Patient presents today for evaluation of cough congestion shortness of breath increasing shortness of breath no family states is increasing ascites. Patient will be admitted for further evaluation and management - Lab Data Result diagrams: 09/07/19 12:33 09/07/19 12:33 Lab Results 09/06/19 09/06/19 09/06/19 Range/Units 16:17 16:17 16:17 WBC 10.2 (3.8-10.6) k/uL RBC 2.66 L (4.30-5.90) m/uL Hgb 7.5 L (13.0-17.5) gm/dL Hct 23.3 L (39.0-53.0) % MCV 87.4 (80.0-100.0) fL MCH 28.0 (25.0-35.0) pg MCHC 32.1 (31.0-37.0) g/dL RDW 16.5 H (11.5-15.5) % Plt Count 340 (150-450) k/uL Neutrophils % 90 % Lymphocytes % 4 % Monocytes % 4 % Eosinophils % 1 % Basophils % 0 % Neutrophils # 9.2 H (1.3-7.7) k/uL Lymphocytes # 0.4 L (1.0-4.8) k/uL Monocytes # 0.4 (0-1.0) k/uL Eosinophils # 0.1 (0-0.7) k/uL Basophils # 0.0 (0-0.2) k/uL Anisocytosis Slight PT (9.0-12.0) sec INR (<1.2) APTT (22.0-30.0) sec Sodium 125 L (137-145) mmol/L Potassium 5.0 (3.5-5.1) mmol/L Chloride 89 L (98-107) mmol/L Carbon Dioxide 27 (22-30) mmol/L Anion Gap 9 mmol/L BUN 27 H (9-20) mg/dL Creatinine 1.35 H (0.66-1.25) mg/dL Est GFR (CKD-EPI)AfAm 55 (>60 ml/min/1.73 sqM) Est GFR (CKD-EPI)NonAf 48 (>60 ml/min/1.73 sqM) Glucose 126 H (74-99) mg/dL Plasma Lactic Acid [place] 1.6 (0.7-2.0) mmol/L Calcium 9.0 (8.4-10.2) mg/dL Total Bilirubin 0.9 (0.2-1.3) mg/dL AST 34 (17-59) U/L ALT 34 (21-72) U/L Alkaline Phosphatase 148 H (38-126) U/L Ammonia <9 (<30) umol/L Creatine Kinase 21 L (55-170) U/L Total Protein 6.6 (6.3-8.2) g/dL Albumin 2.8 L (3.5-5.0) g/dL Amylase <30 L (30-110) U/L Lipase 34 (23-300) U/L 09/06/19 Range/Units 16:17 WBC (3.8-10.6) k/uL RBC (4.30-5.90) m/uL Hgb (13.0-17.5) gm/dL Hct (39.0-53.0) % MCV (80.0-100.0) fL MCH (25.0-35.0) pg MCHC (31.0-37.0) g/dL RDW (11.5-15.5) % Plt Count (150-450) k/uL Neutrophils % % Lymphocytes % % Monocytes % % Eosinophils % % Basophils % % Neutrophils # (1.3-7.7) k/uL Lymphocytes # (1.0-4.8) k/uL Monocytes # (0-1.0) k/uL Eosinophils # (0-0.7) k/uL Basophils # (0-0.2) k/uL Anisocytosis PT 10.3 (9.0-12.0) sec INR 1.0 (<1.2) APTT 29.5 (22.0-30.0) sec Sodium (137-145) mmol/L Potassium (3.5-5.1) mmol/L Chloride (98-107) mmol/L Carbon Dioxide (22-30) mmol/L Anion Gap mmol/L BUN (9-20) mg/dL Creatinine (0.66-1.25) mg/dL Est GFR (CKD-EPI)AfAm (>60 ml/min/1.73 sqM) Est GFR (CKD-EPI)NonAf (>60 ml/min/1.73 sqM) Glucose (74-99) mg/dL Plasma Lactic Acid Chaim (0.7-2.0) mmol/L Calcium (8.4-10.2) mg/dL Total Bilirubin (0.2-1.3) mg/dL AST (17-59) U/L ALT (21-72) U/L Alkaline Phosphatase (38-126) U/L Ammonia (<30) umol/L Creatine Kinase (55-170) U/L Total Protein (6.3-8.2) g/dL Albumin (3.5-5.0) g/dL Amylase (30-110) U/L Lipase (23-300) U/L Disposition Clinical Impression: Acute exacerbation of chronic obstructive airways disease, Hyponatremia, Weakness, Dehydration, Anemia, Ascites Disposition: ADMITTED IP TO THIS HOSP Condition: Good Is patient prescribed a controlled substance at d/c from ED?: No
[2019-09-06] MEDS ORDERED: SODIUM CHLORIDE 0.9% 1,000 ML IV SCH (18:00)
--- NOTE | 2019-09-06 18:11 | XR ---
EXAMINATION TYPE: XR chest 2V DATE OF EXAM: 09/06/2019 COMPARISON: 07/24/2018 HISTORY: Short of breath TECHNIQUE: Frontal and lateral views of the chest are obtained. FINDINGS: There is some blunting of the costophrenic angles. There is a mild patchy interstitial and alveolar infiltrate in the right lower lobe. Heart is enlarged. Thoracic aorta is atheromatous. Ther e is no heart failure. IMPRESSION: Cardiomegaly. Small pleural effusions are unchanged compared to last exam. There is some new right lower lobe infiltrate compared to old exam. No obvious heart failure. Inspiration decrease d compared to old exam.
[2019-09-06] MEDS: methylPREDNISolone SOD SUCCI 125 MG/2 ML VIAL IV SCH (18:23)
[2019-09-06] MEDS ORDERED: ACETAMINOPHEN TAB 325 MG TAB PO PRN (20:18)
[2019-09-06] MEDS ORDERED: HYDROcodone/APAP 7.5-325MG 1 EACH TAB PO PRN (20:18)
[2019-09-06] MEDS ORDERED: MAGNESIUM HYDROXIDE 2,400 MG/10 ML CUP PO PRN (20:18)
[2019-09-06] MEDS ORDERED: FUROSEMIDE 10 MG/ML 2 ML VIAL IV ONE ×2 (20:21→21:17)
[2019-09-06] MEDS: HYDROcodone/APAP 7.5-325MG 1 EACH TAB PO PRN (21:00)
[2019-09-06] MEDS: ATORVASTATIN 40 MG TAB PO SCH (21:01)
[2019-09-06] MEDS: ALLOPURINOL 100 MG TAB PO SCH (21:01)
[2019-09-06] MEDS: TAMSULOSIN 0.4 MG CAP.ER.24H PO SCH (21:01)
[2019-09-06] MEDS: SODIUM BICARBONATE TAB 650 MG TAB PO SCH (21:01)
[2019-09-06] MEDS: SENNOSIDES 8.6 MG TAB PO SCH (21:01)
--- NOTE | 2019-09-06 21:13 | US ---
EXAMINATION TYPE: US abdomen limited DATE OF EXAM: 09/06/2019 COMPARISON: NONE CLINICAL HISTORY: possible ascites. No evidence of ascites. IMPRESSION: Ultrasound of all 4 quadrants of the abdomen failed to show any sign of ascites fluid.
[2019-09-06] MEDS: ALBUTEROL NEBULIZED 2.5 MG/3 ML INHALATION SCH (21:29)
[2019-09-06 22:38] LABS: Appearance,Urine Cloudy (Clear); Bacteria,Urine Many /hpf; Bilirubin,Urine Negative (Negative); Blood,Urine Trace (Negative); Budding Yeast,Urine Moderate /hpf; Color,Urine Yellow; Glucose,Urine (UA) Negative (Negative); Hyaline Casts,Urine 12 /lpf (0-2); Ketones,Urine Negative (Negative); Leukocyte Esterase,Urine Large (Negative); Mucus,Urine Rare /hpf; Nitrite,Urine Negative (Negative); Protein,Urine Trace (Negative); RBC,Urine 3 /hpf (0-5); Specific Gravity,Urine 1.012 (1.001-1.035); Squamous Epithelial Cell,Urine 1 /hpf (0-4); Urobilinogen,Urine <2.0 mg/dL (<2.0); WBC,Urine 66 /hpf (0-5)
[2019-09-07] MEDS: methylPREDNISolone SOD SUCCI 125 MG/2 ML VIAL IV SCH ×4 (00:44→17:16)
[2019-09-07] MEDS: LEVOTHYROXINE 100 MCG TAB PO SCH (06:11)
[2019-09-07 07:52] LABS: Anisocytosis Slight; HCT 20.5 % (39.0-53.0); Hypochromasia Slight; MCH 28.7 pg (25.0-35.0); MCHC 32.3 g/dL (31.0-37.0); MCV 88.9 fL (80.0-100.0); Platelet Count 292 k/uL (150-450); Poikilocytosis Slight; RDW 16.3 % (11.5-15.5); WBC 5.7 k/uL (3.8-10.6)
[2019-09-07 07:53] LABS: Albumin 2.7 g/dL (3.5-5.0); Calcium 8.6 mg/dL (8.4-10.2); Potassium 5.1 mmol/L (3.5-5.1); Total Bilirubin 0.8 mg/dL (0.2-1.3); Total Protein 6.4 g/dL (6.3-8.2)
[2019-09-07 07:55] LABS: HGB 6.6 gm/dL (13.0-17.5)
[2019-09-07] MEDS: CLOPIDOGREL 75 MG TAB PO SCH (08:19)
[2019-09-07] MEDS: LACTULOSE 20 GM/30 ML CUP PO SCH (08:19)
[2019-09-07] MEDS: CALCITRIOL 0.25 MCG CAP PO SCH (08:19)
[2019-09-07] MEDS: ASPIRIN 81 MG PO SCH (08:19)
[2019-09-07] MEDS: ALLOPURINOL 100 MG TAB PO SCH (08:20)
[2019-09-07] MEDS: SODIUM BICARBONATE TAB 650 MG TAB PO SCH (08:20)
[2019-09-07] MEDS: AMIODARONE 200 MG TAB PO SCH (08:20)
[2019-09-07] MEDS: POLYETHYLENE GLYCOL 3350 17 GM POWD.PACK PO SCH (08:21)
[2019-09-07 08:31] LABS: Band Neutrophils % 1 %; Lymphocytes # (M) 0.34 k/uL (1.0-4.8); Neutrophils % (M) 93 %; Nucleated Red Blood Cells 0 /100 WBC (0-0); Ovalocytes Present; Total Cells Counted 100
[2019-09-07 08:32] LABS: Poikilocytosis (M) Present
[2019-09-07] MEDS ORDERED: FUROSEMIDE 10 MG/ML 2 ML VIAL IV SCH (09:00)
[2019-09-07] MEDS ORDERED: FUROSEMIDE 10 MG/ML 4 ML VIAL IV SCH (09:00)
[2019-09-07] MEDS: ALBUTEROL NEBULIZED 2.5 MG/3 ML INHALATION SCH ×4 (09:27→19:46)
[2019-09-07 11:41] LABS: Glucose,Whole Blood 229 mg/dL (75-99)
[2019-09-07] MEDS: ENOXAPARIN 40 MG/0.4 ML SYRINGE SQ SCH (12:14)
[2019-09-07] MEDS: INSULIN ASPART (NovoLOG) 100 UNIT/ML VIAL SQ SCH ×3 (12:14→20:32)
[2019-09-07 12:48] LABS: Anisocytosis Slight; Basophils % (A) 0 %; Eosinophils % (A) 0 %; HCT 23.7 % (39.0-53.0); HGB 7.4 gm/dL (13.0-17.5); Hypochromasia Slight; Lymphocytes # (A) 0.3 k/uL (1.0-4.8); Lymphocytes % (A) 4 %; MCHC 31.3 g/dL (31.0-37.0); MCV 89.3 fL (80.0-100.0); Mean Platelet Volume 6.5; Monocytes # (A) 0.1 k/uL (0-1.0); Monocytes % (A) 2 %; Neutrophils % (A) 93 %; Platelet Count 347 k/uL (150-450); RBC 2.66 m/uL (4.30-5.90); RDW 16.6 % (11.5-15.5); WBC 6.4 k/uL (3.8-10.6)
--- NOTE | 2019-09-07 12:56 | P.NPCON ---
History of Present Illness - Reason for Consult Consult date: 09/07/19 acute renal failure - Chief Complaint Shortness of breath - History of Present Illness Mr. Knight 78-year-old gentleman coming to the hospital with shortness of breath. He has history of cardiomyopathy with the EF of 20%. Not clear whether he takes diuretics at home. Medications do not include diuretics. He has chronic kidney disease stage III baseline creatinine 1.5-1.7 MG per DL. He also has chronic hyponatremia with a baseline serum sodium of 131-135 since July 2019. Prior to that he had normal sodium. Denies any nausea vomiting diarrhea. No antipsychotic or antidepressant use. No recent contrast studies or NSAID use. Admits making urine. On admission serum creatinine 1.3 MG per DL with a sodium of 125. Overnight he got Lasix and sodium improved to 126 and creatinine to 1.5 MG per DL. Review of Systems Constitutional: Reports as per HPI Past Medical History Past Medical History: Chest Pain / Angina, Heart Failure, COPD, Eye Disorder, Hyperlipidemia, Hypertension, Myocardial Infarction ([place]), Osteoarthritis ([place]), Pneumonia, Renal Disease, Thyroid Disorder Additional Past Medical History / Comment(s): Hx. gout, uses oxygen @ 2 liters atc, PAST CARDIAC ARREST, arthritis feet/hands, beginning of cataracts. umb hernia, cyst rt groin, been having confusion recently since monday, has had 1 unit of blood previous Last Myocardial Infarction Date:: 2013 History of Any Multi-Drug Resistant Organisms: None Reported Past Surgical History: Appendectomy, Heart Catheterization With Stent Additional Past Surgical History / Comment(s): Cardiac valve "clip", cyst on back removed Past Anesthesia/Blood Transfusion Reactions: No Reported Reaction Additional Past Anesthesia/Blood Transfusion Reaction / Comment(s): blood-no reaction Date of Last Stent Placement:: 2013 Past Psychological History: Depression Smoking Status: Former smoker Past Alcohol Use History: None Reported Additional Past Alcohol Use History / Comment(s): started smoking at age 12(1952) and quit at age 72(2011) smoked 1 ppd Past Drug Use History: None Reported - Past Family History Father Family Medical History: Cancer Mother Family Medical History: Cancer Medications and Allergies Home Medications Medication Instructions Recorded Confirmed Type Albuterol Sulfate [Proair Hfa] 2 puff INHALATION RT-Q6H PRN 02/03/15 09/06/19 History Allopurinol [Zyloprim] 100 mg PO BID 02/03/15 09/06/19 History Atorvastatin [Lipitor] 40 mg PO HS 02/03/15 09/06/19 History Clopidogrel [Plavix] 75 mg PO DAILY 02/03/15 09/06/19 History Amiodarone [Cordarone] 200 mg PO DAILY 07/06/17 09/06/19 History Sodium Bicarbonate Tab 650 mg PO BID 07/06/17 09/06/19 History Calcitriol [Rocaltrol] 0.25 mcg PO SUTUTHSA 12/10/17 09/06/19 History Ergocalciferol (Vitamin D2) 50,000 unit PO Q30D 12/10/17 09/06/19 History [Vitamin D2] Nitroglycerin Sl Tabs [Nitrostat] 0.4 mg SUBLINGUAL Q5M PRN 12/10/17 09/06/19 History Aspirin EC [Ecotrin Low Dose] 81 mg PO DAILY 07/06/19 09/06/19 History Levothyroxine Sodium [Synthroid] 100 mcg PO DAILY 07/06/19 09/06/19 History Tiotropium Br/Olodaterol HCl 1 spray INHALATION RT-DAILY 07/06/19 09/06/19 Hist ory [Stiolto Respimat Inhal [place]] Acetaminophen Tab [Tylenol] 650 mg PO Q6HR PRN tab 08/02/19 09/06/19 Rx HYDROcodone/APAP 7.5-325MG [[place] 1 tab PO Q4H PRN 09/06/19 09/06/19 History 7.5-325] HYDROcodone/APAP 7.5-325MG [[place] 2 tab PO Q6HR PRN 09/06/19 09/06/19 History 7.5-325] Lactulose 20 gm PO DAILY@0800 09/06/19 09/06/19 History Magnesium Hydroxide [Milk of 2,400 mg PO DAILY PRN 09/06/19 09/06/19 History Magnesia] Polyethylene Glycol 3350 [Miralax] 17 gm PO DAILY 09/06/19 09/06/19 History Sennosides [Senna] 8.6 mg PO HS 09/06/19 09/06/19 History Tamsulosin [Flomax] 0.4 mg PO HS 09/06/19 09/06/19 History Allergies Allergy/AdvReac Type Severity Reaction Status Date / Time lactose AdvReac Diarrhea Verified 09/06/19 18:45 prednisone AdvReac Unknown Verified 09/06/19 18:45 Physical Exam Vitals: Vital Signs Temp Pulse Pulse Resp BP BP Pulse Ox 09/07/19 12:43 84 18 09/07/19 09:44 84 09/07/19 09:28 80 09/07/19 04:36 97.5 F L 77 20 94/58 98 09/07/19 00:00 89 09/06/19 21:42 88 09/06/19 21:29 88 98 09/06/19 20:51 96.9 F L 89 22 110/71 98 09/06/19 18:47 98.0 F 86 18 102/68 98 09/06/19 18:29 83 18 101/67 98 09/06/19 18:25 84 09/06/19 18:06 86 09/06/19 17:09 78 18 99/67 100 09/06/19 16:19 20 09/06/19 16:13 97.6 F 80 18 95/67 99 Intake and Output 09/06/19 09/07/19 09/07/19 22:59 06:59 14:59 Intake Total 290 290 Output Total 400 200 Balance -110 90 Intake: Oral 290 290 Output: Urine 400 200 Other: Voiding Method Urinal Urinal Urinal Diaper Diaper Diaper Incontinent Incontinent Incontinent # Voids 1 3 Weight 65 kg 64.5 kg 64.5 kg Lying comfortable in bed no acute distress. S1-S2 heard Lungs clear Abdomen distended No edema Results - Lab Results Most recent lab results Calcium 8.6 mg/dL (8.4-10.2) 09/07/19 07:07 09/07/19 07:07 09/07/19 07:07 Assessment and Plan Assessment: #1 chronic kidney disease stage III creatinine currently at baseline. #2 hyponatremia suspect volume depletion. No serum osmolality. #3 cardiomyopathy with the EF of 20% #4 low normal blood pressures #5 mild hyperkalemia with metabolic alkalosis #6 anemia rule out GI bleed. #7 abnormal UA with the suspicion of UTI. Plan: #1 discontinue diuretics. #2 add normal saline at 75 ML's an hour. #3 bladder scan to rule out urinary retention #4 check serum osmolality and urine electrolytes. #5 add ceftriaxone for complicated UTI. #6 labs in the morning
[2019-09-07 13:06] LABS: Calcium 8.9 mg/dL (8.4-10.2); Potassium 5.2 mmol/L (3.5-5.1); Total Bilirubin 0.8 mg/dL (0.2-1.3)
[2019-09-07] MEDS: SODIUM CHLORIDE 0.9% 1,000 ML IV SCH (13:25)
--- NOTE | 2019-09-07 13:46 | P.HPIM ---
History of Present Illness H&P Date: 09/07/19 Chief Complaint: Shortness of breath and generalized weakness Mr. Knight is a 78-year-old male with a past medical history of congestive heart failure, cardiomyopathy, hypertension, hyperlipidemia, osteoarthritis, thyroid disorder, COPD on 2 L of oxygen, coronary artery disease status post stenting coming into the hospital from [facility] for generalized weakness and difficulty in breathing. Patient states that he completed his rehabilitation at medical ER to failure and was about to be discharged home but then he was feeling more weak and fatigued. He was also having mild difficulty in breathing. He has mild cough that is nonproductive in nature. Patient denies having any fevers chills or rigors. Patient states that he was put on fluid restriction due to his history of congestive heart failure, he has been feeling more thirsty for the past couple of days. Patient has chronic kidney disease but still makes urine. Patient has no dysuria or hematuria. Denies having any lower abdominal pain or flank pain. No fevers chills or rigors. Patient denies having any chest pain or palpitations. No rebound pain nausea vomiting or diarrhea. No swelling of his lower extremities. Denies having any headaches blurring of vision or slurred speech. No weakness of his extremities but has generalized weakness and fatigue. In the ER patient had labs drawn showing hemoglobin of 7.5 which is his baseline and sodium of 125. He had urinalysis that was positive for large leukocyte esterase and few WBC clumps. Chest x-ray done showing cardiomegaly with small pleural effusion and a new right lower lobe infiltrate. Abdominal ultrasound no signs of ascetic fluid. So the patient was admitted for further management. Review of Systems REVIEW OF SYSTEMS: PSYCH: No anxiety or depression NEURO:No c/o weakness of the extremties, No facial droop, No speech abnormalities. VASCULAR: Peripheral nervous system within the normal limits no edema HEMATOLOGIC: No history of easy bleeding and bruising . No recent infections . RESPIRATORY: As per HPI IMMUNE: No infections INTEGUMENT: no rashes OPHTHALMOLOGIC: No blurry vision and no eye discharge : No dysuria or hematuria CARDIAC: No chest pain or paroxysmal nocturnal dyspnea MUSCULOSKELETAL : No Aches or pains in the joints or muscles. GI: No abdominal pain, Nausea or vomiting. No constipation or diarrhea. All 13 review of systems are negative except for the ones mentioned above. Past Medical History Past Medical History: Chest Pain / Angina, Heart Failure, COPD, Eye Disorder, Hyperlipidemia, Hypertension, Myocardial Infarction ([place]), Osteoarthritis (OA), Pneumonia, Renal Disease, Thyroid Disorder Additional Past Medical History / Comment(s): Hx. gout, uses oxygen @ 2 liters atc, PAST CARDIAC ARREST, arthritis feet/hands, beginning of cataracts. umb hernia, cyst rt groin, been having confusion recently since monday, has had 1 unit of blood previous Last Myocardial Infarction Date:: 2013 History of Any Multi-Drug Resistant Organisms: None Reported Past Surgical History: Appendectomy, Heart Catheterization With Stent Additional Past Surgical History / Comment(s): Cardiac valve "clip", cyst on back removed Past Anesthesia/Blood Transfusion Reactions: No Reported Reaction Additional Past Anesthesia/Blood Transfusion Reaction / Comment(s): blood-no reaction Date of Last Stent Placement:: 2013 Past Psychological History: Depression Smoking Status: Former smoker Past Alcohol Use History: None Reported Additional Past Alcohol Use History / Comment(s): started smoking at age 12(1952) and quit at age 72(2011) smoked 1 ppd Past Drug Use History: None Reported - Past Family History Father Family Medical History: Cancer Mother Family Medical History: Cancer Medications and Allergies Home Medications Medication Instructions Recorded Confirmed Type Albuterol Sulfate [Proair Hfa] 2 puff INHALATION RT-Q6H PRN 02/03/15 09/06/19 History Allopurinol [Zyloprim] 100 mg PO BID 02/03/15 09/06/19 History Atorvastatin [Lipitor] 40 mg PO HS 02/03/15 09/06/19 History Clopidogrel [Plavix] 75 mg PO DAILY 02/03/15 09/06/19 History Amiodarone [Cordarone] 200 mg PO DAILY 07/06/17 09/06/19 History Sodium Bicarbonate Tab 650 mg PO BID 07/06/17 09/06/19 History Calcitriol [Rocaltrol] 0.25 mcg PO SUTUTHSA 12/10/17 09/06/19 History Ergocalciferol (Vitamin D2) 50,000 unit PO Q30D 12/10/17 09/06/19 History [Vitamin D2] Nitroglycerin Sl Tabs [Nitrostat] 0.4 mg SUBLINGUAL Q5M PRN 12/10/17 09/06/19 History Aspirin EC [Ecotrin Low Dose] 81 mg PO DAILY 07/06/19 09/06/19 History Levothyroxine Sodium [Synthroid] 100 mcg PO DAILY 07/06/19 09/06/19 History Tiotropium Br/Olodaterol HCl 1 spray INHALATION RT-DAILY 07/06/19 09/06/19 Histo ry [Stiolto Respimat Inhal [place]] Acetaminophen Tab [Tylenol] 650 mg PO Q6HR PRN tab 08/02/19 09/06/19 Rx HYDROcodone/APAP 7.5-325MG [Byars 1 tab PO Q4H PRN 09/06/19 09/06/19 History 7.5-325] HYDROcodone/APAP 7.5-325MG [Byars 2 tab PO Q6HR PRN 09/06/19 09/06/19 History 7.5-325] Lactulose 20 gm PO DAILY@0800 09/06/19 09/06/19 History Magnesium Hydroxide [Milk of 2,400 mg PO DAILY PRN 09/06/19 09/06/19 History Magnesia] Polyethylene Glycol 3350 [Miralax] 17 gm PO DAILY 09/06/19 09/06/19 History Sennosides [Senna] 8.6 mg PO HS 09/06/19 09/06/19 History Tamsulosin [Flomax] 0.4 mg PO HS 09/06/19 09/06/19 History Allergies Allergy/AdvReac Type Severity Reaction Status Date / Time lactose AdvReac Diarrhea Verified 09/06/19 18:45 prednisone AdvReac Unknown Verified 09/06/19 18:45 Physical Exam Vitals: Vital Signs Temp Pulse Pulse Resp BP BP Pulse Ox 09/07/19 13:00 97 F L 80 17 98/65 99 09/07/19 12:52 85 16 09/07/19 12:43 84 18 09/07/19 09:44 84 09/07/19 09:28 80 09/07/19 04:36 97.5 F L 77 20 94/58 98 09/07/19 00:00 89 09/06/19 21:42 88 09/06/19 21:29 88 98 09/06/19 20:51 96.9 F L 89 22 110/71 98 09/06/19 18:47 98.0 F 86 18 102/68 98 09/06/19 18:29 83 18 101/67 98 09/06/19 18:25 84 09/06/19 18:06 86 09/06/19 17:09 78 18 99/67 100 09/06/19 16:19 20 09/06/19 16:13 97.6 F 80 18 95/67 99 Intake and Output 09/06/19 09/07/19 09/07/19 22:59 06:59 14:59 Intake Total 290 290 Output Total 400 200 Balance -110 90 Intake: Oral 290 290 Output: Urine 400 200 Other: Voiding Method Urinal Urinal Urinal Diaper Diaper Diaper Incontinent Incontinent Incontinent # Voids 1 3 Weight 65 kg 64.5 kg 64.5 kg General appearance: No acute distress sitting comfortably in the bed Head exam: Atraumatic normocephalic. Eye exam: No pallor. No icterus. ENT exam: Mucous membranes are dry. Neck exam: No JVD. No thyromegaly. Respiratory exam: Bilateral breath sounds are decreased in all lung pradhan. Positive for mild end expiratory wheeze. No crackles. Cardiovascular Exam: S1-S2 heard. No additional sounds. GI/Abdominal exam: Abdomen is soft. Nontender. No guarding or rigidity. Normal bowel sounds. Extremities exam: No edema. No calf tenderness. Neurological exam: Present: alert, oriented X3, no focal neurological deficits. Psychiatric exam: Present: normal affect, normal mood Skin exam: No rash Results CBC & Chem 7: 09/07/19 12:33 09/07/19 12:33 Labs: Abnormal Lab Results - Last 24 Hours (Table) 09/06/19 09/06/19 09/06/19 Range/Units 16:17 16:17 21:53 RBC 2.66 L (4.30-5.90) m/uL Hgb 7.5 L (13.0-17.5) gm/dL Hct 23.3 L (39.0-53.0) % RDW 16.5 H (11.5-15.5) % Neutrophils # 9.2 H (1.3-7.7) k/uL Lymphocytes # 0.4 L (1.0-4.8) k/uL Lymphocytes # (Manual) (1.0-4.8) k/uL Sodium 125 L (137-145) mmol/L Potassium (3.5-5.1) mmol/L Chloride 89 L (98-107) mmol/L BUN 27 H (9-20) mg/dL Creatinine 1.35 H (0.66-1.25) mg/dL Glucose 126 H (74-99) mg/dL POC Glucose (mg/dL) (75-99) mg/dL Osmolality (280-301) mosm/kg Alkaline Phosphatase 148 H (38-126) U/L Creatine Kinase 21 L (55-170) U/L Albumin 2.8 L (3.5-5.0) g/dL Amylase <30 L (30-110) U/L Urine Protein Trace H (Negative) Urine Blood Trace H (Negative) Ur Leukocyte Esterase Large H (Negative) Urine WBC 66 H (0-5) /hpf Urine WBC Clumps Few H (None) /hpf Urine Bacteria Many H (None) /hpf Hyaline Casts 12 H (0-2) /lpf Urine Mucus Rare H (None) /hpf Urine Yeast (Budding) Moderate H (None) /hpf Crossmatch 09/07/19 09/07/19 09/07/19 Range/Units 07:07 07:07 07:07 RBC 2.30 L (4.30-5.90) m/uL Hgb 6.6 L* (13.0-17.5) gm/dL Hct 20.5 L (39.0-53.0) % RDW 16.3 H (11.5-15.5) % Neutrophils # (1.3-7.7) k/uL Lymphocytes # (1.0-4.8) k/uL Lymphocytes # (Manual) 0.34 L (1.0-4.8) k/uL Sodium 126 L (137-145) mmol/L Potassium (3.5-5.1) mmol/L Chloride 89 L (98-107) mmol/L BUN 32 H (9-20) mg/dL Creatinine 1.51 H (0.66-1.25) mg/dL Glucose 139 H (74-99) mg/dL POC Glucose (mg/dL) (75-99) mg/dL Osmolality 268 L (280-301) mosm/kg Alkaline Phosphatase 138 H (38-126) U/L Creatine Kinase (55-170) U/L Albumin 2.7 L (3.5-5.0) g/dL Amylase (30-110) U/L Urine Protein (Negative) Urine Blood (Negative) Ur Leukocyte Esterase (Negative) Urine WBC (0-5) /hpf Urine WBC Clumps (None) /hpf Urine Bacteria (None) /hpf Hyaline Casts (0-2) /lpf Urine Mucus (None) /hpf Urine Yeast (Budding) (None) /hpf Crossmatch 09/07/19 09/07/19 09/07/19 Range/Units 09:34 11:40 12:33 RBC 2.66 L (4.30-5.90) m/uL Hgb 7.4 L (13.0-17.5) gm/dL Hct 23.7 L (39.0-53.0) % RDW 16.6 H (11.5-15.5) % Neutrophils # (1.3-7.7) k/uL Lymphocytes # 0.3 L (1.0-4.8) k/uL Lymphocytes # (Manual) (1.0-4.8) k/uL Sodium (137-145) mmol/L Potassium (3.5-5.1) mmol/L Chloride (98-107) mmol/L BUN (9-20) mg/dL Creatinine (0.66-1.25) mg/dL Glucose (74-99) mg/dL POC Glucose (mg/dL) 229 H (75-99) mg/dL Osmolality (280-301) mosm/kg Alkaline Phosphatase (38-126) U/L Creatine Kinase (55-170) U/L Albumin (3.5-5.0) g/dL Amylase (30-110) U/L Urine Protein (Negative) Urine Blood (Negative) Ur Leukocyte Esterase (Negative) Urine WBC (0-5) /hpf Urine WBC Clumps (None) /hpf Urine Bacteria (None) /hpf Hyaline Casts (0-2) /lpf Urine Mucus (None) /hpf Urine Yeast (Budding) (None) /hpf Crossmatch See Detail 09/07/19 Range/Units 12:33 RBC (4.30-5.90) m/uL Hgb (13.0-17.5) gm/dL Hct (39.0-53.0) % RDW (11.5-15.5) % Neutrophils # (1.3-7.7) k/uL Lymphocytes # (1.0-4.8) k/uL Lymphocytes # (Manual) (1.0-4.8) k/uL Sodium 128 L (137-145) mmol/L Potassium 5.2 H (3.5-5.1) mmol/L Chloride 89 L (98-107) mmol/L BUN 36 H (9-20) mg/dL Creatinine 1.58 H (0.66-1.25) mg/dL Glucose 152 H (74-99) mg/dL POC Glucose (mg/dL) (75-99) mg/dL Osmolality (280-301) mosm/kg Alkaline Phosphatase 143 H (38-126) U/L Creatine Kinase (55-170) U/L Albumin 3.0 L (3.5-5.0) g/dL Amylase (30-110) U/L Urine Protein (Negative) Urine Blood (Negative) Ur Leukocyte Esterase (Negative) Urine WBC (0-5) /hpf Urine WBC Clumps (None) /hpf Urine Bacteria (None) /hpf Hyaline Casts (0-2) /lpf Urine Mucus (None) /hpf Urine Yeast (Budding) (None) /hpf Crossmatch Microbiology - Last 24 Hours (Table) 09/06/19 21:53 Urine Culture - Preliminary Urine,Voided Thrombosis Risk Factor Assmnt - Choose All That Apply Any of the Below Risk Factors Present?: Yes Each Factor Represents 1 point: Abnormal pulmonary function (COPD), Medical pt on bed rest Other Risk Factors: Yes Each Risk Factor Represents 2 Points: Patient confined to bed Each Risk Factor Represents 3 Points: Age 75 years or older Other congenital or acquired thrombophilia - If yes, enter type in comment: No Thrombosis Risk Factor Assessment Total Risk Factor Score: 7 Thrombosis Risk Factor Assessment Level: High Risk Assessment and Plan Assessment: ASSESSMENT Right lower lobe pneumonia Acute COPD exacerbation Hyponatremia Urinary tract infection CK D stage III Congestive heart failure, systolic, not in acute exacerbation Cardiomyopathy ejection fraction of 20% Coronary artery disease status post stenting Hypertension Hyperlipidemia History of depression Former smoker History of cardiac arrest Multiple joint osteoarthritis PLAN: Patient has been started on ceftriaxone and Zithromax for his right lower lobe pneumonia. Continue with breathing treatments. Urine culture currently pending. Patient has been started on normal saline at 75 mL/h by nephrology would continue with it. Continue with breathing treatments and IV steroids. Continue with the rest of his current medication regimen. Further recom mendations to follow depending on the progress of the patient.
[2019-09-07] MEDS: AZITHROMYCIN 500 MG TAB PO SCH (14:45)
[2019-09-07] MEDS: HYDROcodone/APAP 7.5-325MG 1 EACH TAB PO PRN ×2 (16:47→22:56)
[2019-09-07 17:20] LABS: Glucose,Whole Blood 196 mg/dL (75-99)
[2019-09-07 19:38] LABS: Glucose,Whole Blood 231 mg/dL (75-99)
[2019-09-07] MEDS: TAMSULOSIN 0.4 MG CAP.ER.24H PO SCH (20:32)
[2019-09-07] MEDS: SENNOSIDES 8.6 MG TAB PO SCH (20:32)
[2019-09-07] MEDS: ATORVASTATIN 40 MG TAB PO SCH (20:32)
[2019-09-08] MEDS: methylPREDNISolone SOD SUCCI 125 MG/2 ML VIAL IV SCH ×4 (00:40→17:14)
[2019-09-08] MEDS: SODIUM CHLORIDE 0.9% 1,000 ML IV SCH ×2 (00:42→15:28)
[2019-09-08] MEDS: NITROGLYCERIN SL TABS 0.4 MG TAB SUBLINGUAL PRN ×3 (04:21→05:18)
[2019-09-08 05:16] LABS: Anisocytosis Slight; Basophils % (A) 0 %; Eosinophils % (A) 0 %; HCT 20.5 % (39.0-53.0); Hypochromasia Slight; Lymphocytes # (A) 0.4 k/uL (1.0-4.8); Lymphocytes % (A) 3 %; MCH 28.1 pg (25.0-35.0); MCHC 31.9 g/dL (31.0-37.0); MCV 87.9 fL (80.0-100.0); Mean Platelet Volume 6.2; Monocytes # (A) 0.3 k/uL (0-1.0); Monocytes % (A) 2 %; Neutrophils # (A) 11.2 k/uL (1.3-7.7); Neutrophils % (A) 94 %; Platelet Count 408 k/uL (150-450); RBC 2.33 m/uL (4.30-5.90); RDW 16.5 % (11.5-15.5)
[2019-09-08] MEDS: HYDROcodone/APAP 7.5-325MG 1 EACH TAB PO PRN ×3 (05:21→22:52)
[2019-09-08 05:24] LABS: HGB 6.5 gm/dL (13.0-17.5)
[2019-09-08 05:25] LABS: Calcium 8.3 mg/dL (8.4-10.2); Potassium 5.2 mmol/L (3.5-5.1)
[2019-09-08] MEDS ORDERED: MORPHINE SULFATE 2 MG/ML SYRINGE IVP STA (05:56)
[2019-09-08] MEDS: LEVOTHYROXINE 100 MCG TAB PO SCH (06:12)
[2019-09-08 07:19] LABS: Glucose,Whole Blood 167 mg/dL (75-99)
[2019-09-08] MEDS: ALBUTEROL NEBULIZED 2.5 MG/3 ML INHALATION SCH ×3 (08:32→16:12)
[2019-09-08] MEDS: INSULIN ASPART (NovoLOG) 100 UNIT/ML VIAL SQ SCH ×4 (09:08→20:33)
[2019-09-08] MEDS: LACTULOSE 20 GM/30 ML CUP PO SCH (09:08)
[2019-09-08] MEDS: ASPIRIN 81 MG PO SCH (09:09)
[2019-09-08] MEDS: AMIODARONE 200 MG TAB PO SCH (09:09)
[2019-09-08] MEDS: ALLOPURINOL 100 MG TAB PO SCH (09:09)
[2019-09-08] MEDS: CALCITRIOL 0.25 MCG CAP PO SCH (09:10)
[2019-09-08] MEDS: POLYETHYLENE GLYCOL 3350 17 GM POWD.PACK PO SCH (09:10)
[2019-09-08] MEDS: AZITHROMYCIN 500 MG TAB PO SCH (09:10)
[2019-09-08] MEDS: CLOPIDOGREL 75 MG TAB PO SCH (09:10)
[2019-09-08] MEDS: ENOXAPARIN 40 MG/0.4 ML SYRINGE SQ SCH (09:10)
--- NOTE | 2019-09-08 09:53 | P.PN ---
Subjective Progress Note Date: 09/08/19 Seen and examined for the follow-up of acute kidney injury and hyponatremia. No nausea vomiting diarrhea. Objective - Vital Signs Vital signs: Vital Signs Temp 97.1 F L 09/08/19 09:07 Pulse 94 09/08/19 09:07 Resp 12 09/08/19 09:07 BP 117/85 09/08/19 09:07 Pulse Ox 95 09/08/19 09:07 Intake & Output 09/07/19 09/08/19 09/08/19 18:59 06:59 18:59 Intake Total 807 940 310 Output Total 50 Balance 807 890 310 Weight 64.5 kg 68.5 kg Intake: Intake, IV Titration 650 Amount Sodium Chloride 0.9% 1, 650 000 ml @ 75 mls/hr IV . [id number] [facility] Rx#:[id number] Oral 807 290 Blood Product 0 310 Rc As-1 Unit 0 310 [id number] Output: Urine 50 Other: Voiding Method Urinal Urinal Diaper Diaper Incontinent Incontinent # Voids 1 - Exam No acute distress S1-S2 heard Lungs clear Abdomen distended No edema - Labs CBC & Chem 7: 09/08/19 05:07 09/08/19 05:07 Labs: Abnormal Lab Results - Last 24 Hours (Table) 09/07/19 09/07/19 09/07/19 Range/Units 09:34 11:40 12:33 WBC (3.8-10.6) k/uL RBC 2.66 L (4.30-5.90) m/uL Hgb 7.4 L (13.0-17.5) gm/dL Hct 23.7 L (39.0-53.0) % RDW 16.6 H (11.5-15.5) % Neutrophils # (1.3-7.7) k/uL Lymphocytes # 0.3 L (1.0-4.8) k/uL Sodium (137-145) mmol/L Potassium (3.5-5.1) mmol/L Chloride (98-107) mmol/L BUN (9-20) mg/dL Creatinine (0.66-1.25) mg/dL Glucose (74-99) mg/dL POC Glucose (mg/dL) 229 H (75-99) mg/dL Osmolality (280-301) mosm/kg Calcium (8.4-10.2) mg/dL Alkaline Phosphatase (38-126) U/L Albumin (3.5-5.0) g/dL Crossmatch See Detail 09/07/19 09/07/19 09/07/19 Range/Units 12:33 17:11 19:36 WBC (3.8-10.6) k/uL RBC (4.30-5.90) m/uL Hgb (13.0-17.5) gm/dL Hct (39.0-53.0) % RDW (11.5-15.5) % Neutrophils # (1.3-7.7) k/uL Lymphocytes # (1.0-4.8) k/uL Sodium 128 L (137-145) mmol/L Potassium 5.2 H (3.5-5.1) mmol/L Chloride 89 L (98-107) mmol/L BUN 36 H (9-20) mg/dL Creatinine 1.58 H (0.66-1.25) mg/dL Glucose 152 H (74-99) mg/dL POC Glucose (mg/dL) 196 H 231 H (75-99) mg/dL Osmolality (280-301) mosm/kg Calcium (8.4-10.2) mg/dL Alkaline Phosphatase 143 H (38-126) U/L Albumin 3.0 L (3.5-5.0) g/dL Crossmatch 09/08/19 09/08/19 09/08/19 Range/Units 05:07 05:07 07:18 WBC 12.0 H (3.8-10.6) k/uL RBC 2.33 L (4.30-5.90) m/uL Hgb 6.5 L* (13.0-17.5) gm/dL Hct 20.5 L (39.0-53.0) % RDW 16.5 H (11.5-15.5) % Neutrophils # 11.2 H (1.3-7.7) k/uL Lymphocytes # 0.4 L (1.0-4.8) k/uL Sodium 124 L (137-145) mmol/L Potassium 5.2 H (3.5-5.1) mmol/L Chloride 89 L (98-107) mmol/L BUN 44 H (9-20) mg/dL Creatinine 1.49 H (0.66-1.25) mg/dL Glucose 146 H (74-99) mg/dL POC Glucose (mg/dL) 167 H (75-99) mg/dL Osmolality 239 L* (280-301) mosm/kg Calcium 8.3 L (8.4-10.2) mg/dL Alkaline Phosphatase (38-126) U/L Albumin (3.5-5.0) g/dL Crossmatch Microbiology - Last 24 Hours (Table) 09/06/19 21:53 Urine Culture - Preliminary Urine,Voided Gram Neg Bacilli Assessment and Plan Assessment: #1 chronic kidney disease stage III creatinine currently at baseline. #2 hyponatremia suspect volume depletion. Even though abdominal distended no ascites on abdominal ultrasound. #3 cardiomyopathy with the EF of 20% #4 low normal blood pressures #5 mild hyperkalemia with metabolic alkalosis #6 anemia rule out GI bleed. #7 abnormal UA with the suspicion of UTI. Plan: #1 diuretics were stopped yesterday and fluids were given. Sodium dropped but currently asymptomatic. #2 repeat BMP again after blood transfusion and based on the labs, plan and management. #3 renal function stable around baseline. #4 continue with ceftriaxone for complicated UTI. #5 labs in the morning
[2019-09-08 11:33] LABS: Glucose,Whole Blood 181 mg/dL (75-99)
[2019-09-08 16:13] LABS: Anisocytosis Slight; Basophils % (A) 0 %; Eosinophils % (A) 0 %; HCT 24.7 % (39.0-53.0); HGB 7.9 gm/dL (13.0-17.5); Hypochromasia Slight; Lymphocytes # (A) 0.3 k/uL (1.0-4.8); Lymphocytes % (A) 2 %; MCH 28.1 pg (25.0-35.0); MCHC 32.1 g/dL (31.0-37.0); MCV 87.5 fL (80.0-100.0); Mean Platelet Volume 6.2; Monocytes # (A) 0.3 k/uL (0-1.0); Monocytes % (A) 3 %; Neutrophils # (A) 11.2 k/uL (1.3-7.7); Neutrophils % (A) 94 %; Platelet Count 444 k/uL (150-450); RBC 2.82 m/uL (4.30-5.90); RDW 16.9 % (11.5-15.5); WBC 11.9 k/uL (3.8-10.6)
[2019-09-08 16:22] LABS: Calcium 8.3 mg/dL (8.4-10.2); Potassium 4.6 mmol/L (3.5-5.1)
[2019-09-08 17:04] LABS: Glucose,Whole Blood 143 mg/dL (75-99)
--- NOTE | 2019-09-08 17:40 | P.PN ---
Subjective Progress Note Date: 09/08/19 Principal diagnosis: Right lower lobe pneumonia and urinary tract infection Mr. Knight is a 78-year-old male with a past medical history of congestive heart failure, cardiomyopathy, hypertension, hyperlipidemia, osteoarthritis, thyroid disorder, COPD on 2 L of oxygen, coronary artery disease status post stenting coming into the hospital from [facility] for generalized weakness and difficulty in breathing. Patient states that he completed his rehabilitation at medical ER to failure and was about to be discharged home but then he was feeling more weak and fatigued. He was also having mild difficulty in breathing. He has mild cough that is nonproductive in nature. Patient denies having any fevers chills or rigors. Patient states that he was put on fluid restriction due to his history of congestive heart failure, he has been feeling more thirsty for the past couple of days. Patient has chronic kidney disease but still makes urine. Patient has no dysuria or hematuria. Denies having any lower abdominal pain or flank pain. No fevers chills or rigors. In the ER patient had labs drawn showing hemoglobin of 7.5 which is his baseline and sodium of 125. He had urinalysis that was positive for large leukocyte esterase and few WBC clumps. Chest x-ray done showing cardiomegaly with small pleural effusion and a new right lower lobe infiltrate. Abdominal ultrasound no signs of ascetic fluid. So the patient was admitted for further management. On 09/08/2019 - patient is comfortably sitting in the bed appears to be no acute distress. As per the nursing staff report patient wants his Stiolto Respimat to be reordered. Patient complains of mild difficulty in breathing and feels congested. He denies having any cough. No chest pain or palpitations. No abdominal pain nausea vomiting or diarrhea. He states that his weakness is improved. Denies having any dysuria or hematuria. Patient's labs and medications have been reviewed. Patient's urine culture is positive for gram-negative bacilli. Active Medications Acetaminophen (Tylenol Tab) 650 mg PO Q6HR PRN PRN Reason: Fever and/ or Pain Hydrocodone Bitart/Acetaminophen ([place] 7.5-325) 1 each PO Q4H PRN PRN Reason: Pain Hydrocodone Bitart/Acetaminophen ([place] 7.5-325) 2 each PO Q6HR PRN PRN Reason: Severe Pain Last Admin: 09/08/19 13:30 Dose: 2 each Documented by: Albuterol/Ipratropium (Duoneb 0.5 Mg-3 Mg/3 Ml Soln) 3 ml INHALATION RT-Q4H PRN PRN Reason: Shortness Of Breath Or Wheezing Allopurinol (Zyloprim) 100 mg PO DAILY [facility] Last Admin: 09/08/19 09:09 Dose: 100 mg Documented by: Amiodarone HCl (Cordarone) 200 mg PO DAILY [facility] Last Admin: 09/08/19 09:09 Dose: 200 mg Documented by: Aspirin (Aspirin) 81 mg PO DAILY [facility] Last Admin: 09/08/19 09:09 Dose: 81 mg Documented by: Atorvastatin Calcium (Lipitor) 40 mg PO HS [facility] Last Admin: 09/07/19 20:32 Dose: 40 mg Documented by: Azithromycin (Zithromax) 500 mg PO DAILY [facility] Last Admin: 09/08/19 09:10 Dose: 500 mg Documented by: Calcitriol (Rocaltrol) 0.25 mcg PO SUTUTHSA [facility] Last Admin: 09/08/19 09:10 Dose: 0.25 mcg Documented by: Clopidogrel Bisulfate (Plavix) 75 mg PO DAILY [facility] Last Admin: 09/08/19 09:10 Dose: 75 mg Documented by: Enoxaparin Sodium (Lovenox) 40 mg SQ DAILY [facility] Last Admin: 09/08/19 09:10 Dose: 40 mg Documented by: Ergocalciferol (Vitamin D2) 50,000 unit PO Q30D [facility] Formoterol Fumarate (Perforomist) 20 mcg INHALATION RT-BID [facility] Sodium Chloride (Saline 0.9%) 1,000 mls @ 40 mls/hr IV .Q24H [facility] Last Admin: 09/08/19 15:28 Dose: 75 mls/hr Documented by: Ceftriaxone Sodium 1 gm/ (Sodium Chloride) 50 mls @ 100 mls/hr IVPB Q24H [facility] Last Admin: 09/08/19 15:28 Dose: 100 mls/hr Documented by: Insulin Aspart (Novolog) 0 unit SQ ACHS [facility]; Protocol Last Admin: 09/08/19 17:13 Dose: 2 unit Documented by: Ipratropium [place] (Atrovent Nebulized) 0.5 mg INHALATION RT-QID [facility] Lactulose (Cephulac) 20 gm PO DAILY@0800 [facility] Last Admin: 09/08/19 09:08 Dose: 20 gm Documented by: Levothyroxine Sodium (Synthroid) 100 mcg PO DAILY@0630 [facility] Last Admin: 09/08/19 06:12 Dose: 100 mcg Documented by: Methylprednisolone Sodium Succinate (Solu-Medrol) 60 mg IV Q6HR [facility] Last Admin: 09/08/19 17:14 Dose: 60 mg Documented by: Nitroglycerin (Nitrostat) 0.4 mg SUBLINGUAL Q5M PRN PRN Reason: Chest Pain Last Admin: 09/08/19 05:18 Dose: 0.4 mg Documented by: Polyethylene Glycol (Miralax) 17 gm PO DAILY [facility] Last Admin: 09/08/19 09:10 Dose: 17 gm Documented by: Senna (Senokot) 8.6 mg PO [facility] Last Admin: 09/07/19 20:32 Dose: 8.6 mg Documented by: Tamsulosin HCl (Flomax) 0.4 mg PO [facility] Last Admin: 09/07/19 20:32 Dose: 0.4 mg Documented by: Objective - Vital Signs Vital signs: Vital Signs Temp 98.7 F 09/08/19 13:00 Pulse 88 09/08/19 16:23 Resp 16 09/08/19 16:23 BP 103/75 09/08/19 13:00 Pulse Ox 98 09/08/19 13:00 Intake & Output 09/07/19 09/08/19 09/08/19 18:59 06:59 18:59 Intake Total 807 940 960 Output Total 50 Balance 807 890 960 Weight 64.5 kg 68.5 kg Intake: Intake, IV Titration 650 650 Amount Sodium Chloride 0.9% 1, 650 600 000 ml @ 75 mls/hr IV . [id number] [facility] Rx#:[id number] cefTRIAXone 1 gm In 50 Sodium Chloride 0.9% 50 ml @ 100 mls/hr IVPB Q24H [facility] Rx#:[id number] Oral 807 290 Blood Product 0 310 Rc As-1 Unit 0 310 [id number] Output: Urine 50 Other: Voiding Method Urinal Urinal Urinal Diaper Diaper Diaper Incontinent Incontinent Incontinent # Voids 1 - Exam General appearance: No acute distress sitting comfortably in the bed Head exam: Atraumatic normocephalic. Eye exam: No pallor. No icterus. ENT exam: Mucous membranes are dry. Neck exam: No JVD. No thyromegaly. Respiratory exam: Bilateral breath sounds are decreased in all lung pradhan. Patient has crackles in bilateral lower lung pradhan. Cardiovascular Exam: S1-S2 heard. No additional sounds. GI/Abdominal exam: Abdomen is soft. Nontender. No guarding or rigidity. Normal bowel sounds. Extremities exam: No edema. No calf tenderness. Neurological exam: Present: alert, oriented X3, no focal neurological deficits. Psychiatric exam: Present: normal affect, normal mood Skin exam: No rash - Labs CBC & Chem 7: 09/08/19 15:47 09/08/19 15:47 Labs: Abnormal Lab Results - Last 24 Hours (Table) 09/07/19 09/07/19 09/08/19 Range/Units 09:34 19:36 05:07 WBC (3.8-10.6) k/uL RBC (4.30-5.90) m/uL Hgb (13.0-17.5) gm/dL Hct (39.0-53.0) % RDW (11.5-15.5) % Neutrophils # (1.3-7.7) k/uL Lymphocytes # (1.0-4.8) k/uL Sodium 124 L (137-145) mmol/L Potassium 5.2 H (3.5-5.1) mmol/L Chloride 89 L (98-107) mmol/L BUN 44 H (9-20) mg/dL Creatinine 1.49 H (0.66-1.25) mg/dL Glucose 146 H (74-99) mg/dL POC Glucose (mg/dL) 231 H (75-99) mg/dL Osmolality 239 L* (280-301) mosm/kg Calcium 8.3 L (8.4-10.2) mg/dL Crossmatch See Detail 09/08/19 09/08/19 09/08/19 Range/Units 05:07 07:18 11:31 WBC 12.0 H (3.8-10.6) k/uL RBC 2.33 L (4.30-5.90) m/uL Hgb 6.5 L* (13.0-17.5) gm/dL Hct 20.5 L (39.0-53.0) % RDW 16.5 H (11.5-15.5) % Neutrophils # 11.2 H (1.3-7.7) k/uL Lymphocytes # 0.4 L (1.0-4.8) k/uL Sodium (137-145) mmol/L Potassium (3.5-5.1) mmol/L Chloride (98-107) mmol/L BUN (9-20) mg/dL Creatinine (0.66-1.25) mg/dL Glucose (74-99) mg/dL POC Glucose (mg/dL) 167 H 181 H (75-99) mg/dL Osmolality (280-301) mosm/kg Calcium (8.4-10.2) mg/dL Crossmatch 09/08/19 09/08/19 09/08/19 Range/Units 15:47 15:47 17:01 WBC 11.9 H (3.8-10.6) k/uL RBC 2.82 L (4.30-5.90) m/uL Hgb 7.9 L (13.0-17.5) gm/dL Hct 24.7 L (39.0-53.0) % RDW 16.9 H (11.5-15.5) % Neutrophils # 11.2 H (1.3-7.7) k/uL Lymphocytes # 0.3 L (1.0-4.8) k/uL Sodium 123 L (137-145) mmol/L Potassium (3.5-5.1) mmol/L Chloride 87 L (98-107) mmol/L BUN 42 H (9-20) mg/dL Creatinine 1.43 H (0.66-1.25) mg/dL Glucose 129 H (74-99) mg/dL POC Glucose (mg/dL) 143 H (75-99) mg/dL Osmolality (280-301) mosm/kg Calcium 8.3 L (8.4-10.2) mg/dL Crossmatch Microbiology - Last 24 Hours (Table) 09/06/19 21:53 Urine Culture - Preliminary Urine,Voided Gram Neg Bacilli Assessment and Plan Assessment: ASSESSMENT Right lower lobe pneumonia Acute COPD exacerbation Hyponatremia -hypovolemic Urinary tract infection Anemia of chronic disease CK D stage III Congestive heart failure, systolic, not in acute exacerbation Cardiomyopathy ejection fraction of 20% Coronary artery disease status post stenting Hypertension Hyperlipidemia History of depression Former smoker History of cardiac arrest Multiple joint osteoarthritis PLAN: As the patient's hemoglobin was 6.5, he received 1 unit of PRBCs and repeat hemoglobin is at 7.9. Continue with ceftriaxone and Zithromax for his right lower lobe pneumonia. Urine culture positive for gram-negative bacilli. Patient has been started on normal saline at 75 mL/h by nephrology, as the patient is complaining of shortness of breath and has crackles will cut down the fluids to 40 mL per hr. Continue with breathing treatments and IV steroids. W ill repeat the lytes for tomorrow morning. Continue with the rest of his current medication regimen. Further recommendations to follow depending on the progress of the patient.
[2019-09-08] MEDS: IPRATROPIUM 0.5 MG/2.5 ML NEBU INHALATION SCH (20:04)
[2019-09-08] MEDS: FORMOTEROL FUMARATE 20 MCG/2 ML NEBU INHALATION SCH (20:06)
[2019-09-08] MEDS: IPRATROPIUM-ALBUTEROL 3 ML NEB INHALATION PRN (20:06)
[2019-09-08 20:16] LABS: Glucose,Whole Blood 222 mg/dL (75-99)
[2019-09-08] MEDS: ATORVASTATIN 40 MG TAB PO SCH (20:23)
[2019-09-08] MEDS: TAMSULOSIN 0.4 MG CAP.ER.24H PO SCH (20:23)
[2019-09-08] MEDS: SENNOSIDES 8.6 MG TAB PO SCH (20:23)
[2019-09-09] MEDS: methylPREDNISolone SOD SUCCI 125 MG/2 ML VIAL IV SCH ×4 (00:32→17:01)
[2019-09-09] MEDS: LEVOTHYROXINE 100 MCG TAB PO SCH (05:54)
[2019-09-09] MEDS: SODIUM CHLORIDE 0.9% 1,000 ML IV SCH (05:54)
[2019-09-09 07:03] LABS: Glucose,Whole Blood 138 mg/dL (75-99)
[2019-09-09] MEDS: LACTULOSE 20 GM/30 ML CUP PO SCH (07:33)
[2019-09-09] MEDS: ASPIRIN 81 MG PO SCH (07:33)
[2019-09-09] MEDS: AMIODARONE 200 MG TAB PO SCH (07:33)
[2019-09-09] MEDS: CLOPIDOGREL 75 MG TAB PO SCH (07:33)
[2019-09-09] MEDS: POLYETHYLENE GLYCOL 3350 17 GM POWD.PACK PO SCH (07:33)
[2019-09-09] MEDS: ENOXAPARIN 40 MG/0.4 ML SYRINGE SQ SCH (07:33)
[2019-09-09] MEDS: AZITHROMYCIN 500 MG TAB PO SCH (07:33)
[2019-09-09] MEDS: INSULIN ASPART (NovoLOG) 100 UNIT/ML VIAL SQ SCH ×4 (07:33→19:57)
[2019-09-09] MEDS: ALLOPURINOL 100 MG TAB PO SCH (07:33)
[2019-09-09] MEDS: HYDROcodone/APAP 7.5-325MG 1 EACH TAB PO PRN ×2 (07:42→14:30)
[2019-09-09] MEDS: FORMOTEROL FUMARATE 20 MCG/2 ML NEBU INHALATION SCH ×2 (08:10→22:29)
[2019-09-09] MEDS: IPRATROPIUM 0.5 MG/2.5 ML NEBU INHALATION SCH ×4 (08:10→22:29)
[2019-09-09] MEDS: IPRATROPIUM-ALBUTEROL 3 ML NEB INHALATION PRN ×4 (08:10→22:29)
[2019-09-09 08:22] LABS: Anisocytosis Slight; Basophils % (A) 0 %; Eosinophils % (A) 0 %; HCT 22.7 % (39.0-53.0); HGB 7.3 gm/dL (13.0-17.5); Hypochromasia Slight; Lymphocytes # (A) 0.3 k/uL (1.0-4.8); Lymphocytes % (A) 3 %; MCH 27.9 pg (25.0-35.0); MCHC 32.2 g/dL (31.0-37.0); MCV 86.6 fL (80.0-100.0); Mean Platelet Volume 6.2; Monocytes # (A) 0.3 k/uL (0-1.0); Monocytes % (A) 3 %; Neutrophils # (A) 8.8 k/uL (1.3-7.7); Neutrophils % (A) 93 %; Platelet Count 348 k/uL (150-450); Poikilocytosis Slight; RBC 2.62 m/uL (4.30-5.90); RDW 16.8 % (11.5-15.5); WBC 9.5 k/uL (3.8-10.6)
[2019-09-09 08:33] LABS: Calcium 8.5 mg/dL (8.4-10.2); Potassium 5.7 mmol/L (3.5-5.1)
[2019-09-09] MEDS ORDERED: INSULIN REGULAR 100 UNIT/ML VIAL IV ONE (10:54)
[2019-09-09] MEDS ORDERED: DEXTROSE 10 % IN WATER 250 ML IV STA (10:55)
[2019-09-09] MEDS ORDERED: FUROSEMIDE 10 MG/ML 2 ML VIAL IV SCH (11:00)
[2019-09-09 11:08] LABS: Glucose,Whole Blood 144 mg/dL (75-99)
[2019-09-09] MEDS: CARVEDILOL 3.125 MG TAB PO SCH (14:30)
--- NOTE | 2019-09-09 14:44 | P.CRDCN ---
History of Present Illness History of present illness: HISTORY OF PRESENTING ILLNESS This is a pleasant 78-year-old male past medical history significant for coronary artery disease, 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 He presented with shortness of breath. He follows in the office with Dr. Guy. We have been asked to see him in consultation for chest pain. He presented 09/06 with complaints of shortness of breath and increased abdominal swelling. On admission hgb was 7.5, however the next day was 6.6. He has undergone a blood tranfusion of PRBC. Hgb today is 7.3. He is also hyponatramic, hyperkalemic and has a urinary tract infection. He underwent an ultrasound of his abdomen that was negative for any significant ascites. Nephrology has been following and managing diuretics given his electrolytes imbalances and CKD. Currently maintained on amiodarone 200 mg daily, aspirin 81 mg daily, atorvastatin 40 mg daily, Lasix 20 mg IV daily, Plavix 75 mg daily and IV antibiotics. At home he is also on torsemide 10 mg daily, aldactone 25 mg daily and coreg 3.125 mg daily in the morning. He is complaining of discomfort in the chest with deep inspiration, movement of his torso or cough. He is laying flat in bed and states this helps his pain. Pain is sharp in nature and radiates down the right leg at times. No pain in the back, neck, arm or jaw. DIAGNOSTICS EKG reveals sinus mechanism with left bundle branch block. Chest xray reveals small pleural effusions unchanged from previous exam, new right lower lobe infiltrate and no obvious heart failure. Abdominal ultrasound shows no signs of ascites fluid. Laboratory reviewed, WBC 9.5, hemoglobin 7.3, platelets 348, sodium 125, potassium 5.7, creatinine 1.29, cardiac enzymes negative 1. Current cardiac medications include torsemide 10 mg daily, Aldactone 25 mg d aily, amiodarone 200 mg daily, Plavix 75 mg daily, aspirin 81 mg daily, carvedilol 3.125 mg daily and atorvastatin 40 mg daily. Most recent echocardiogram obtained in the office July 03 reveals severely impaired LV systolic function with ejection fraction 20%, moderate concentric LVH, akinesia of the posterior and lateral baker the base to the apex, akinesis of the anterior septal wall from the mid fall to the apex, akinesia of the septum at the apex and the remainder of the LV is hypokinetic, grade 3 diastolic dysfunction, moderately dilated right atrium, moderate mitral regurgitation with a valve area of 2.29 cm, mild to moderate tricuspid regurgitation, mild pulmonic regurgitation and mild pulmonary hypertension with RVSP of 43 mmHg. REVIEW OF SYSTEMS At the time of my exam: CONSTITUTIONAL: Denies fever or chills. CARDIOVASCULAR: Complains of shortness of breath. Denies chest pain, orthopnea, PND or palpitations. RESPIRATORY: Denies cough. GASTROINTESTINAL: Complains of abdominal swelling and fullness. Denies abdominal pain, diarrhea, constipation, nausea or vomiting. MUSCULOSKELETAL: Denies myalgias. NEUROLOGIC: Denies numbness, tingling or weakness. ENDOCRINE: Denies fatigue, weight change, polydipsia or polyurina. GENITOURINARY: Denies burning, hematuria or urgency with micturation. HEMATOLOGIC: Denies history of anemia or bleeding. PHYSICAL EXAMINATION Blood pressure 108/71 heart rate 82 afebrile and maintaining oxygen saturation on nasal cannula. CONSTITUTIONAL: No apparent distress. HEENT: Head is normocephalic. Pupils are equal, round. Sclerae anicteric. Mucous membranes of the mouth are moist. No JVD. No carotid bruit. CHEST EXAMINATION: Course scattered rhonchi and expiratory wheezes, no rales. No chest wall tenderness is noted on palpation or with deep breathing. HEART EXAMINATION: Regular rate and rhythm. S1, S2 heard. Systolic ejection murm ur at the left sternal border, no gallops or rub. ABDOMEN: Firm, nontender, distended. EXTREMITIES: 2+ peripheral pulses, no lower extremity edema and no calf tenderness. NEUROLOGIC EXAMINATION: Patient is awake, alert and oriented x3. ASSESSMENT Chest pain, atypical. Related to increase abdominal girth and pressure of abdomen. Pain is respirophasic and pleuritic Hyponatemia Hyperkalemia Right lobe pneumonia Urinary tract infection Anemia s/p blood transfusion Acute on chronic kidney disease Ischemic cardiomyopathy, EF less than 20%. Has declined AICD placement in the past. Chronic systolic heart failure History of VT arrest Coronary artery disease s/p PCI to circumflex Non-rheumatic mitral valve insufficiency s/p mitral clip 2015 COPD Former nicotine dependence PLAN Resume coreg 3.125 mg daily. Chest pain is atypical and pleuritic in nature. We will check one more troponin to rule out an acute event. Diuretic management per nephrology. Thank you kindly for this consultation. Nurse Practitioner note has been reviewed, I agree with a documented findings and plan of care. Patient was seen and examined. Past Medical History Past Medical History: Chest Pain / Angina, Heart Failure, COPD, Eye Disorder, Hyperlipidemia, Hypertension, Myocardial Infarction ([place]), Osteoarthritis (OA), Pneumonia, Renal Disease, Thyroid Disorder Additional Past Medical History / Comment(s): Hx. gout, uses oxygen @3.5 liters atc, PAST CARDIAC ARREST, arthritis feet/hands, beginning of cataracts. umb hernia, cyst rt groin Last Myocardial Infarction Date:: 2013 History of Any Multi-Drug Resistant Organisms: None Reported Past Surgical History: Appendectomy, Cardiac Valve Replacement, Heart Catheterization With Stent Additional Past Surgical History / Comment(s): Cardiac valve "clip", cyst on back removed Past Anesthesia/Blood Transfusion Reactions: No Reported Reaction Additional Past Anesthesia/Blood Transfusion Reaction / Comment(s): blood-no reaction Date of Last Stent Placement:: 2013 Past Psychological History: No Psychological Hx Reported Smoking Status: Former smoker Past Alcohol Use History: None Reported Past Drug Use History: None Reported - Past Family History Father Family Medical History: Cancer Mother Family Medical History: Cancer Medications and Allergies Home Medications Medication Instructions Recorded Confirmed Type Albuterol Sulfate [Proair Hfa] 2 puff INHALATION RT-Q6H PRN 02/03/15 09/06/19 History Allopurinol [Zyloprim] 100 mg PO BID 02/03/15 09/06/19 History Atorvastatin [Lipitor] 40 mg PO HS 02/03/15 09/06/19 History Clopidogrel [Plavix] 75 mg PO DAILY 02/03/15 09/06/19 History Amiodarone [Cordarone] 200 mg PO DAILY 07/06/17 09/06/19 History Sodium Bicarbonate Tab 650 mg PO BID 07/06/17 09/06/19 History Calcitriol [Rocaltrol] 0.25 mcg PO SUTUTHSA 12/10/17 09/06/19 History Ergocalciferol (Vitamin D2) 50,000 unit PO Q30D 12/10/17 09/06/19 History [Vitamin D2] Nitroglycerin Sl Tabs [Nitrostat] 0.4 mg SUBLINGUAL Q5M PRN 12/10/17 09/06/19 History Aspirin EC [Ecotrin Low Dose] 81 mg PO DAILY 07/06/19 09/06/19 History Levothyroxine Sodium [Synthroid] 100 mcg PO DAILY 07/06/19 09/06/19 History Tiotropium Br/Olodaterol HCl 1 spray INHALATION RT-DAILY 07/06/19 09/06/19 History [Stiolto Respimat Inhal [place]] Acetaminophen Tab [Tylenol] 650 mg PO Q6HR PRN tab 08/02/19 09/06/19 Rx HYDROcodone/APAP 7.5-325MG [[place] 1 tab PO Q4H PRN 09/06/19 09/06/19 History 7.5-325] HYDROcodone/APAP 7.5-325MG [[place] 2 tab PO Q6HR PRN 09/06/19 09/06/19 History 7.5-325] Lactulose 20 gm PO DAILY@0800 09/06/19 09/06/19 History Magnesium Hydroxide [Milk of 2,400 mg PO DAILY PRN 09/06/19 09/06/19 History Magnesia] Polyethylene Glycol 3350 [Miralax] 17 gm PO DAILY 09/06/19 09/06/19 History Sennosides [Senna] 8.6 mg PO HS 09/06/19 09/06/19 History Tamsulosin [Flomax] 0.4 mg PO HS 09/06/19 09/06/19 History Allergies Allergy/AdvReac Type Severity Reaction Status Date / Time lactose AdvReac Diarrhea Verified 09/06/19 18:45 prednisone AdvReac Unknown Verified 09/06/19 18:45 Physical Exam Vitals: Vital Signs Temp Pulse Pulse Pulse Resp BP Pulse Ox 09/09/19 12:21 82 09/09/19 12:11 88 09/09/19 12:06 97.5 F L 84 18 108/71 100 09/09/19 08:27 86 09/09/19 08:21 88 09/09/19 08:20 88 09/09/19 08:12 84 98 09/09/19 05:00 97.4 F L 90 24 113/76 98 09/08/19 21:00 97.6 F 88 22 110/72 99 09/08/19 20:25 80 16 09/08/19 20:16 82 16 09/08/19 20:07 84 16 09/08/19 16:23 88 16 09/08/19 16:12 86 18 Intake and Output 09/08/19 09/09/19 09/09/19 22:59 06:59 14:59 Intake Total 592 Output Total 250 300 Balance -250 592 -300 Intake: Intake, IV Titration 360 Amount Sodium Chloride 0.9% 1, 360 000 ml @ 40 mls/hr IV . Q24H [facility] Rx#:[id number] Oral 232 Output: Urine 250 300 Other: Voiding Method Urinal Urinal Urinal Diaper Diaper Diaper Incontinent Incontinent Incontinent # Voids 3 Weight 66.5 kg Results 09/09/19 07:03 09/09/19 07:03 CBC 09/08/19 09/09/19 Range/Units 15:47 07:03 WBC 11.9 H 9.5 (3.8-10.6) k/uL RBC 2.82 L 2.62 L (4.30-5.90) m/uL Hgb 7.9 L 7.3 L (13.0-17.5) gm/dL Hct 24.7 L 22.7 L (39.0-53.0) % Plt Count 444 348 (150-450) k/uL Comprehensive Metabolic Panel 09/08/19 09/09/19 Range/Units 15:47 07:03 Sodium 123 L 125 L (137-145) mmol/L Potassium 4.6 5.7 H (3.5-5.1) mmol/L Chloride 87 L 90 L (98-107) mmol/L Carbon Dioxide 23 26 (22-30) mmol/L BUN 42 H 42 H (9-20) mg/dL Creatinine 1.43 H 1.29 H (0.66-1.25) mg/dL Glucose 129 H 124 H (74-99) mg/dL Calcium 8.3 L 8.5 (8.4-10.2) mg/dL Current Medications Generic Name Dose Route Start Last Admin Trade Name Freq PRN Reason Stop Dose Admin Acetaminophen 650 mg 09/06/19 20:18 Tylenol Tab PO Q6HR PRN Fever and/ or Pain Hydrocodone Bitart/Acetaminophen 1 each 09/06/19 20:18 [place] 7.5-325 PO Q4H PRN Pain Hydrocodone Bitart/Acetaminophen 2 each 09/06/19 20:18 09/09/19 07:42 [place] 7.5-325 PO 2 each Q6HR PRN Administration Severe Pain Albuterol/Ipratropium 3 ml 09/06/19 17:52 09/09/19 12:09 Duoneb 0.5 Mg-3 Mg/3 Ml Soln INHALATION 3 ml RT-Q4H PRN Administration Shortness Of Breath Or Wheezing Allopurinol 100 mg 09/08/19 09:00 09/09/19 07:33 Zyloprim PO 100 mg DAILY JOSE Administration Amiodarone HCl 200 mg 09/07/19 09:00 09/09/19 07:33 Cordarone PO 200 mg DAILY JOSE Administration Aspirin 81 mg 09/07/19 09:00 09/09/19 07:33 Aspirin PO 81 mg DAILY JOSE Administration Atorvastatin Calcium 40 mg 09/06/19 21:00 09/08/19 20:23 Lipitor PO 40 mg HS JOSE Administration Azithromycin 500 mg 09/07/19 13:45 09/09/19 07:33 Zithromax PO 500 mg DAILY [facility] Administration Calcitriol 0.25 mcg 09/07/19 09:00 09/08/19 09:10 Rocaltrol PO 0.25 mcg SUTUTHSA JOSE Administration Clopidogrel Bisulfate 75 mg 09/07/19 09:00 09/09/19 07:33 Plavix PO 75 mg DAILY JO[facility] Administration Enoxaparin Sodium 40 mg 09/07/19 09:00 09/09/19 07:33 Lovenox SQ 40 mg DAILY [facility] Administration Ergocalciferol 50,000 unit 09/16/19 09:00 Vitamin D2 PO Q30D [facility] Formoterol Fumarate 20 mcg 09/08/19 20:00 09/09/19 08:10 Perforomist INHALATION 20 mcg RT-BID [facility]SE Administration Furosemide 20 mg 09/09/19 11:00 09/09/19 11:34 Lasix IV 20 mg DAILY JOSE Administration Ceftriaxone Sodium 1 gm/ 50 mls @ 100 mls/hr 09/07/19 14:00 09/08/19 15:28 Sodium Chloride IVPB 100 mls/hr Q24H [facility]SE Administration Insulin Aspart 0 unit 09/07/19 12:30 09/09/19 11:35 Novolog SQ 2 unit ACHS JOSE Administration Protocol Ipratropium [place] 0.5 mg 09/08/19 20:00 09/09/19 12:09 Atrovent Nebulized INHALATION Not Given RT-QID [facility] Lactulose 20 gm 09/07/19 08:00 09/09/19 07:33 Cephulac PO 20 gm DAILY@0800 JOSE Administration Levothyroxine Sodium 100 mcg 09/07/19 06:30 09/09/19 05:54 Synthroid PO 100 mcg DAILY@0630 JOSE Administration Methylprednisolone Sodium Succinate 60 mg 09/06/19 18:00 09/09/19 11:34 Solu-Medrol IV 60 mg Q6HR JOSE Administration Nitroglycerin 0.4 mg 09/06/19 20:18 09/08/19 05:18 Nitrostat SUBLINGUAL 0.4 mg Q5M PRN Administration Chest Pain Polyethylene Glycol 17 gm 09/07/19 09:00 09/09/19 07:33 Miralax PO 17 gm DAILY [facility] Administration Senna 8.6 mg 09/06/19 21:00 09/08/19 20:23 Senokot PO 8.6 mg HS [facility] Administration Tamsulosin HCl 0.4 mg 09/06/19 21:00 09/08/19 20:23 Flomax PO 0.4 mg HS JOSE Administration Intake and Output 09/08/19 09/09/19 09/09/19 22:59 06:59 14:59 Intake Total 592 Output Total 250 300 Balance -250 592 -300 Intake: Intake, IV Titration 360 Amount Sodium Chloride 0.9% 1, 360 000 ml @ 40 mls/hr IV . Q24H [facility] Rx#:[id number] Oral 232 Output: Urine 250 300 Other: Voiding Method Urinal Urinal Urinal Diaper Diaper Diaper Incontinent Incontinent Incontinent # Voids 3 Weight 66.5 kg 09/09/19 07:03 09/09/19 07:03
[2019-09-09] MEDS: PATIENTS OWN MED INHALATION SCH (17:01)
[2019-09-09 17:08] LABS: Glucose,Whole Blood 138 mg/dL (75-99)
--- NOTE | 2019-09-09 18:16 | PN ---
PROGRESS NOTE The patient is seen for followup for hyponatremia. He has been maintained on saline, although at only about 40 mL an hour. The sodium had worsened initially now it is up at 125 from 123 yesterday. Serum potassium is elevated at 5.7. Blood pressure remains on the lower side at 108 and 104 mmHg. According to nursing staff, the patient has been complaining of some shortness of breath. Chest x-ray from September 06 shows pleural effusions. PHYSICAL EXAMINATION: On examination today, blood pressure was 108/71, heart rate of 88 per minute he is afebrile examination of the heart S1, S2. Examination of the lungs, bilateral breath sounds are heard. Abdomen is soft, nontender, distended. Examination of lower extremities shows no significant edema. BARGAIN TABLE CLERK exam grossly intact. LAB: Show sodium 125, potassium 5.7, BUN of 42, creatinine 1.29, chloride of 90. ASSESSMENT: 1. Hyponatremia currently appears to be euvolemic or mildly hypervolemic. I will discontinue the saline and Lasix 20 mg will be ordered. We will repeat a sodium in about 4-6 hours. Also check random cortisol level given the borderline low blood pressure along with hyperkalemia and hyponatremia. 2. Hyperkalemia. We will treat with insulin and D50. Patient's serum glucose was elevated at 222 earlier. He does have acute kidney injury which actually has improved with creatinine down to 1.29 from 1.58. This has also definitely contributed to the hyperkalemia. We will maintain the patient on low-potassium diet and loop diuretics and the IV Lasix will also help with the hyperkalemia. 3. 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 4. Cardiomyopathy, ejection fraction of about 20%. 5. Anemia. No active gastrointestinal bleed noted. 6. Pyuria with urine culture growing Escherichia coli, maintained on started on ceftriaxone. PLAN: Continue the antibiotics. Discontinue IV. Discontinue the normal saline. Lasix 20 mg IV x1. Repeat sodium later on this evening. Treat hyperkalemia with insulin and D50. Avoid significant hyperglycemia. Maintain patient on low-potassium diet and repeat labs in a.m. MMODL / IJN: [id number] /
--- NOTE | 2019-09-09 19:29 | P.PN ---
Subjective Progress Note Date: 09/09/19 Principal diagnosis: Right lower lobe pneumonia and urinary tract infection Mr. Knight is a 78-year-old male with a past medical history of congestive heart failure, cardiomyopathy, hypertension, hyperlipidemia, osteoarthritis, thyroid disorder, COPD on 2 L of oxygen, coronary artery disease status post stenting coming into the hospital from [facility] for generalized weakness and difficulty in breathing. Patient states that he completed his rehabilitation at medical ER to failure and was about to be discharged home but then he was feeling more weak and fatigued. He was also having mild difficulty in breathing. He has mild cough that is nonproductive in nature. Patient denies having any fevers chills or rigors. Patient states that he was put on fluid restriction due to his history of congestive heart failure, he has been feeling more thirsty for the past couple of days. Patient has chronic kidney disease but still makes urine. Patient has no dysuria or hematuria. Denies having any lower abdominal pain or flank pain. No fevers chills or rigors. In the ER patient had labs drawn showing hemoglobin of 7.5 which is his baseline and sodium of 125. He had urinalysis that was positive for large leukocyte esterase and few WBC clumps. Chest x-ray done showing cardiomegaly with small pleural effusion and a new right lower lobe infiltrate. Abdominal ultrasound no signs of ascetic fluid. So the patient was admitted for further management. On 09/09 - patient is comfortably sitting in the bed appears to be no acute distress. Patient denies having any fevers chills or rigors. Difficulty in breathing is slightly better. Patient denies having any chest pain or palpitations. Patient's abdomen appears to be bloated but he denies having any abdominal pain nausea vomiting or diarrhea. He has been passing a lot of gas. On reviewing the labs patient's hemoglobin is at 7.3, his potassium is at 5.7 and creatinine is 1.29. Patient's urine culture is positive for E. coli. Active Medications Acetaminophen (Tylenol Tab) 650 mg PO Q6HR PRN PRN Reason: Fever and/ or Pain Hydrocodone Bitart/Acetaminophen ([place] 7.5-325) 1 each PO Q4H PRN PRN Reason: Pain Hydrocodone Bitart/Acetaminophen ([place] 7.5-325) 2 each PO Q6HR PRN PRN Reason: Severe Pain Last Admin: 09/09/19 14:30 Dose: 2 each Documented by: Albuterol/Ipratropium (Duoneb 0.5 Mg-3 Mg/3 Ml Soln) 3 ml INHALATION RT-Q4H PRN PRN Reason: Shortness Of Breath Or Wheezing Last Admin: 09/09/19 17:37 Dose: 3 ml Documented by: Allopurinol (Zyloprim) 100 mg PO DAILY [facility] Last Admin: 09/09/19 07:33 Dose: 100 mg Documented by: Amiodarone HCl (Cordarone) 200 mg PO DAILY [facility] Last Admin: 09/09/19 07:33 Dose: 200 mg Documented by: Aspirin (Aspirin) 81 mg PO DAILY [facility] Last Admin: 09/09/19 07:33 Dose: 81 mg Documented by: Atorvastatin Calcium (Lipitor) 40 mg PO HS [facility] Last Admin: 09/08/19 20:23 Dose: 40 mg Documented by: Azithromycin (Zithromax) 500 mg PO DAILY [facility] Last Admin: 09/09/19 07:33 Dose: 500 mg Documented by: Calcitriol (Rocaltrol) 0.25 mcg PO SUTUTHSA [facility] Last Admin: 09/08/19 09:10 Dose: 0.25 mcg Documented by: Carvedilol (Coreg) 3.125 mg PO DAILY [facility] Last Admin: 09/09/19 14:30 Dose: 3.125 mg Documented by: Clopidogrel Bisulfate (Plavix) 75 mg PO DAILY [facility] Last Admin: 09/09/19 07:33 Dose: 75 mg Documented by: Enoxaparin Sodium (Lovenox) 40 mg SQ DAILY [facility] Last Admin: 09/09/19 07:33 Dose: 40 mg Documented by: Ergocalciferol (Vitamin D2) 50,000 unit PO Q30D [facility] Formoterol Fumarate (Perforomist) 20 mcg INHALATION RT-BID [facility] Last Admin: 09/09/19 08:10 Dose: 20 mcg Documented by: Ceftriaxone Sodium 1 gm/ (Sodium Chloride) 50 mls @ 100 mls/hr IVPB Q24H [facility] Last Admin: 09/09/19 14:30 Dose: 100 mls/hr Documented by: Insulin Aspart (Novolog) 0 unit SQ ACHS [facility]; Protocol Last Admin: 09/09/19 17:02 Dose: Not Given Documented by: Ipratropium [place] (Atrovent Nebulized) 0.5 mg INHALATION RT-QID [facility] Last Admin: 09/09/19 17:38 Dose: Not Given Documented by: Lactulose (Cephulac) 20 gm PO DAILY@0800 [facility] Last Admin: 09/09/19 07:33 Dose: 20 gm Documented by: Levothyroxine Sodium (Synthroid) 100 mcg PO DAILY@0630 [facility] Last Admin: 09/09/19 05:54 Dose: 100 mcg Documented by: Methylprednisolone Sodium Succinate (Solu-Medrol) 60 mg IV Q6HR [facility] Last Admin: 09/09/19 17:01 Dose: 60 mg Documented by: Nitroglycerin (Nitrostat) 0.4 mg SUBLINGUAL Q5M PRN PRN Reason: Chest Pain Last Admin: 09/08/19 05:18 Dose: 0.4 mg Documented by: Non-Formulary Medication (Patients Own Med) 2 each INHALATION RT-DAILY [facility] Last Admin: 09/09/19 17:01 Dose: 2 each Documented by: Polyethylene Glycol (Miralax) 17 gm PO DAILY [facility] Last Admin: 09/09/19 07:33 Dose: 17 gm Documented by: Senna (Senokot) 8.6 mg PO [facility] Last Admin: 09/08/19 20:23 Dose: 8.6 mg Documented by: Tamsulosin HCl (Flomax) 0.4 mg PO [facility] Last Admin: 09/08/19 20:23 Dose: 0.4 mg Documented by: Objective - Vital Signs Vital signs: Vital Signs Temp 97.5 F L 09/09/19 12:06 Pulse 86 09/09/19 17:48 Resp 18 09/09/19 12:06 BP 108/71 09/09/19 12:06 Pulse Ox 100 09/09/19 12:06 Intake & Output 09/09/19 09/09/19 09/10/19 06:59 18:59 06:59 Intake Total 592 713 Output Total 250 300 Balance 342 413 Weight 66.5 kg Intake: Intake, IV Titration 360 300 Amount Dextrose 10 % in Water 250 250 ml @ 999 mls/hr IV ONCE [facility] Rx#:[id number] Sodium Chloride 0.9% 1, 360 000 ml @ 40 mls/hr IV . Q24H [facility] Rx#:[id number] cefTRIAXone 1 gm In 50 Sodium Chloride 0.9% 50 ml @ 100 mls/hr IVPB Q24H [facility] Rx#:[id number] Oral 232 413 Output: Urine 250 300 Other: Voiding Method Urinal Urinal Diaper Diaper Incontinent Incontinent # Voids 3 - Exam General appearance: No acute distress sitting comfortably in the bed Head exam: Atraumatic normocephalic. Eye exam: No pallor. No icterus. ENT exam: Mucous membranes are moist. Neck exam: No JVD. No thyromegaly. Respiratory exam: Bilateral breath sounds are decreased in all lung pradhan. Patient has crackles in bilateral lower lung pradhan. Diffuse ronchi . Cardiovascular Exam: S1-S2 heard. No additional sounds. GI/Abdominal exam: Abdomen is soft. Bloated . Nontender. No guarding or rigidity. Extremities exam: No edema. No calf tenderness. Neurological exam: Present: alert, oriented X3, no focal neurological deficits. Psychiatric exam: Present: normal affect, normal mood Skin exam: No rash - Labs CBC & Chem 7: 09/09/19 07:03 09/09/19 17:56 Labs: Abnormal Lab Results - Last 24 Hours (Table) 09/08/19 09/09/19 09/09/19 Range/Units 20:14 07:00 07:03 RBC 2.62 L (4.30-5.90) m/uL Hgb 7.3 L (13.0-17.5) gm/dL Hct 22.7 L (39.0-53.0) % RDW 16.8 H (11.5-15.5) % Neutrophils # 8.8 H (1.3-7.7) k/uL Lymphocytes # 0.3 L (1.0-4.8) k/uL Sodium (137-145) mmol/L Potassium (3.5-5.1) mmol/L Chloride (98-107) mmol/L BUN (9-20) mg/dL Creatinine (0.66-1.25) mg/dL Glucose (74-99) mg/dL POC Glucose (mg/dL) 222 H 138 H (75-99) mg/dL 09/09/19 09/09/19 09/09/19 Range/Units 07:03 11:06 16:55 RBC (4.30-5.90) m/uL Hgb (13.0-17.5) gm/dL Hct (39.0-53.0) % RDW (11.5-15.5) % Neutrophils # (1.3-7.7) k/uL Lymphocytes # (1.0-4.8) k/uL Sodium 125 L (137-145) mmol/L Potassium 5.7 H (3.5-5.1) mmol/L Chloride 90 L (98-107) mmol/L BUN 42 H (9-20) mg/dL Creatinine 1.29 H (0.66-1.25) mg/dL Glucose 124 H (74-99) mg/dL POC Glucose (mg/dL) 144 H 138 H (75-99) mg/dL 09/09/19 Range/Units 17:56 RBC (4.30-5.90) m/uL Hgb (13.0-17.5) gm/dL Hct (39.0-53.0) % RDW (11.5-15.5) % Neutrophils # (1.3-7.7) k/uL Lymphocytes # (1.0-4.8) k/uL Sodium 125 L (137-145) mmol/L Potassium (3.5-5.1) mmol/L Chloride (98-107) mmol/L BUN (9-20) mg/dL Creatinine (0.66-1.25) mg/dL Glucose (74-99) mg/dL POC Glucose (mg/dL) (75-99) mg/dL Microbiology - Last 24 Hours (Table) 09/06/19 21:53 Urine Culture - Final Urine,Voided Escherichia coli Assessment and Plan Assessment: ASSESSMENT Right lower lobe pneumonia Acute COPD exacerbation Hyponatremia -hypovolemic Urinary tract infection Hyperkalemia Anemia of chronic disease CKD stage III Congestive heart failure, systolic, not in acute exacerbation Cardiomyopathy ejection fraction of 20% Coronary artery disease status post stenting Hypertension Hyperlipidemia History of depression Former smoker History of cardiac arrest Multiple joint osteoarthritis PLAN: Patient's urine culture is positive for E. coli. Continue with ceftriaxone and Zithromax for his right lower lobe pneumonia. Hemoglobin has been stable around 7.3 after 1 unit of PRBCs transfusion yesterday. Nephrology on board and making changes in IV fluids for patient's hyponatremia. Patient was hyperkalemic this morning, he was given a dose of Lasix, insulin with dextrose. Continue with IV steroids and breathing treatments. Cardiology has been consulted for chest pain and his history of congestive heart failure. Overall prognosis is guarded. Further recommendations depending on the progress of the patient.
[2019-09-09 19:54] LABS: Glucose,Whole Blood 144 mg/dL (75-99)
[2019-09-09] MEDS: ATORVASTATIN 40 MG TAB PO SCH (19:57)
[2019-09-09] MEDS: SENNOSIDES 8.6 MG TAB PO SCH (19:57)
[2019-09-09] MEDS: TAMSULOSIN 0.4 MG CAP.ER.24H PO SCH (19:57)
[2019-09-10] MEDS: methylPREDNISolone SOD SUCCI 125 MG/2 ML VIAL IV SCH ×5 (00:50→23:21)
[2019-09-10] MEDS: LEVOTHYROXINE 100 MCG TAB PO SCH (05:35)
[2019-09-10 06:56] LABS: Glucose,Whole Blood 134 mg/dL (75-99)
[2019-09-10] MEDS: AMIODARONE 200 MG TAB PO SCH (07:54)
[2019-09-10] MEDS: CARVEDILOL 3.125 MG TAB PO SCH (07:55)
[2019-09-10] MEDS: ASPIRIN 81 MG PO SCH (07:55)
[2019-09-10] MEDS: CALCITRIOL 0.25 MCG CAP PO SCH (07:55)
[2019-09-10] MEDS: CLOPIDOGREL 75 MG TAB PO SCH (07:55)
[2019-09-10] MEDS: ENOXAPARIN 40 MG/0.4 ML SYRINGE SQ SCH (07:55)
[2019-09-10] MEDS: LACTULOSE 20 GM/30 ML CUP PO SCH (07:55)
[2019-09-10] MEDS: ALLOPURINOL 100 MG TAB PO SCH (07:55)
[2019-09-10] MEDS: AZITHROMYCIN 500 MG TAB PO SCH (07:55)
[2019-09-10] MEDS: POLYETHYLENE GLYCOL 3350 17 GM POWD.PACK PO SCH (07:56)
[2019-09-10] MEDS: INSULIN ASPART (NovoLOG) 100 UNIT/ML VIAL SQ SCH ×4 (07:57→20:46)
[2019-09-10 08:14] LABS: Albumin 2.9 g/dL (3.5-5.0); Calcium 8.4 mg/dL (8.4-10.2); Potassium 4.7 mmol/L (3.5-5.1); Total Bilirubin 0.6 mg/dL (0.2-1.3); Total Protein 6.6 g/dL (6.3-8.2)
[2019-09-10 08:17] LABS: Anisocytosis Slight; Basophils % (A) 0 %; Eosinophils % (A) 0 %; HCT 24.3 % (39.0-53.0); HGB 7.9 gm/dL (13.0-17.5); Hypochromasia Slight; Lymphocytes # (A) 0.5 k/uL (1.0-4.8); Lymphocytes % (A) 4 %; MCH 28.3 pg (25.0-35.0); MCHC 32.4 g/dL (31.0-37.0); MCV 87.3 fL (80.0-100.0); Mean Platelet Volume 7.2; Monocytes # (A) 0.4 k/uL (0-1.0); Monocytes % (A) 3 %; Neutrophils # (A) 11.2 k/uL (1.3-7.7); Neutrophils % (A) 92 %; Platelet Count 402 k/uL (150-450); Poikilocytosis Slight; RBC 2.78 m/uL (4.30-5.90); RDW 16.5 % (11.5-15.5); WBC 12.2 k/uL (3.8-10.6)
[2019-09-10] MEDS: HYDROcodone/APAP 7.5-325MG 1 EACH TAB PO PRN ×2 (08:40→19:23)
[2019-09-10] MEDS: IPRATROPIUM-ALBUTEROL 3 ML NEB INHALATION PRN ×3 (09:49→23:34)
[2019-09-10] MEDS: FORMOTEROL FUMARATE 20 MCG/2 ML NEBU INHALATION SCH ×2 (09:50→22:29)
[2019-09-10] MEDS: IPRATROPIUM 0.5 MG/2.5 ML NEBU INHALATION SCH ×4 (09:50→22:29)
--- NOTE | 2019-09-10 10:02 | CDI ---
Documentation Clarification Form Date: 09/10/2019 9:42:56 AM From: Pearl Burciaga RN, CCDS Admit Date: 09/06/2019 5:52:00 PM Patient Name: Seb Knight Visit Number: [id number] ATTENTION: The Clinical Documentation Specialists (CDI) and [facility] Coding Staff appreciate your assistance in clarifying documentation. Please respond to the clarification below the line at the bottom and electronically sign. The CDI & [facility] Coding staff will review the response and follow-up if needed. Please note: Queries are made part of the Legal Health Record. If you have any questions, please contact the author of this message via ITS. Dr. Rhiannon Davison History/Risk Factors: COPD, angina, HTN, SC Tobacco use: former smoker Home oxygen: 3.5L home O2 atc Clinical Indicators: Vital signs: temp 97.6, hr 80, RR 18, B/P 95/67, spo2 99% 2l NC Pulse oximetry: 99-100% on 2-3 L 09/09 Attending Lung/Breathing assessment: "Bilateral breath sounds are decreased in all lung pradhan. Patient has crackles in bilateral lower lung pradhan. Diffuse rhonchi. Treatment: Breathing TX: Duoneb Q 4 hrs PRN IV Solumedrol tapering dose Pulse ox per unit protocol O2 maintained at 2-3 L NC In your professional opinion, can you please clarify if these findings signify one of the following conditions? Chronic Hypoxic Respiratory Failure Chronic Hypercapnic Respiratory Failure Other Diagnosis, please specify Unable to determine (Last Query Form Revision: June 2019) MTDD
[2019-09-10 11:06] LABS: Glucose,Whole Blood 160 mg/dL (75-99)
--- NOTE | 2019-09-10 11:30 | P.PN ---
Subjective HISTORY OF PRESENTING ILLNESS This is a pleasant 78-year-old male past medical history significant for coronary artery disease, 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 He presented with shortness of breath. He follows in the office with Dr. Guy. Most recent echocardiogram obtained in the office July 03 reveals severely impaired LV systolic function with ejection fraction 20%, moderate concentric LVH, akinesia of the posterior and lateral baker the base to the apex, akinesis of the anterior septal wall from the mid fall to the apex, akinesia of the septum at the apex and the remainder of the LV is hypokinetic, grade 3 diastolic dysfunction, moderately dilated right atrium, moderate mitral regurgitation with a valve area of 2.29 cm, mild to moderate tricuspid regurgitation, mild pulmonic regurgitation and mild pulmonary h ypertension with RVSP of 43 mmHg. He is seen and examined sitting up in bed eating breakfast. He states overall his breathing has improved and he has been chest pain free. Denies dizziness or palpitations. He is declining to work with therapy this morning as he wants to focus on eating. Blood pressure 107/73 heart rate 86 afebrile and maintaining oxygen saturation on nasal cannula. Laboratory data reviewed, WBC 12.2, hgb 7.9, plt 402, sodium 126, potassium 4.7, creatinine 1.34, cardiac enzymes negative x2. Currently maintained on amiodarone 200 mg daily, aspirin 81 mg daily, atorvastatin 40 mg daily, carvedilol 3.125 mg daily, Plavix 75 mg daily and lasix has been discontinued per nephrology. PHYSICAL EXAMINATION CONSTITUTIONAL: No apparent distress. Generalized pallor. HEENT: Head is normocephalic. Pupils are equal, round. Sclerae anicteric. Mucous membranes of the mouth are moist. No JVD. No carotid bruit. CHEST EXAMINATION: Course scattered rhonchi and expiratory wheezes, no rales. No chest wall tenderness is noted on palpation or with deep breathing. HEART EXAMINATION: Regular rate and rhythm. S1, S2 heard. Systolic ejection murmur at the left sternal border, no gallops or rub. ABDOMEN: Firm, nontender, distended. EXTREMITIES: 2+ peripheral pulses, no lower extremity edema and no calf tenderness. Bilateral soft boots in place. ASSESSMENT Chest pain, atypical. Related to increase abdominal girth and pressure of abdomen. Pain is respirophasic and pleuritic. An acute event has been ruled out. Abdominal bloating. Hyponatemia Hyperkalemia, resolved. Right lobe pneumonia Urinary tract infection Anemia s/p blood transfusion Acute on chronic kidney disease Ischemic cardiomyopathy, EF less than 20%. Has declined AICD placement in the past. Chronic systolic heart failure History of VT arrest Coronary artery disease s/p PCI to circumflex Non-rheumatic mitral valve insufficiency s/p mitral clip 2015 COPD Former nicotine dependence PLAN Continue current medical regimen. Diuretic management per nephrology. Recommend evaluation of abdominal bloating with diagnostic testing or GI evaluation. Nurse Practitioner note has been reviewed, I agree with a documented findings and plan of care. Patient was seen and examined. Objective - Vital Signs Vital signs: Vital Signs Temp 97.9 F 09/10/19 03:39 Pulse 86 09/10/19 03:39 Resp 20 09/10/19 03:39 BP 107/73 09/10/19 03:39 Pulse Ox 96 09/10/19 03:39 Intake & Output 09/09/19 09/10/19 09/10/19 18:59 06:59 18:59 Intake Total 713 180 Output Total 300 620 Balance 413 -440 Weight 69 kg Intake: Intake, IV Titration 300 Amount Dextrose 10 % in Water 250 250 ml @ 999 mls/hr IV ONCE [facility] Rx#:[id number] cefTRIAXone 1 gm In 50 Sodium Chloride 0.9% 50 ml @ 100 mls/hr IVPB Q24H [facility] Rx#:[id number] Oral 413 180 Output: Urine 300 620 Other: Voiding Method Urinal Urinal Urinal Diaper Diaper Diaper Incontinent Incontinent Incontinent - Labs CBC & Chem 7: 09/10/19 07:46 09/10/19 07:46 Labs: Abnormal Lab Results - Last 24 Hours (Table) 09/09/19 09/09/19 09/09/19 Range/Units 11:06 16:55 17:56 WBC (3.8-10.6) k/uL RBC (4.30-5.90) m/uL Hgb (13.0-17.5) gm/dL Hct (39.0-53.0) % RDW (11.5-15.5) % Neutrophils # (1.3-7.7) k/uL Lymphocytes # (1.0-4.8) k/uL Sodium 125 L (137-145) mmol/L Chloride (98-107) mmol/L BUN (9-20) mg/dL Creatinine (0.66-1.25) mg/dL Glucose (74-99) mg/dL POC Glucose (mg/dL) 144 H 138 H (75-99) mg/dL Albumin (3.5-5.0) g/dL 09/09/19 09/10/19 09/10/19 Range/Units 19:52 06:49 07:46 WBC 12.2 H (3.8-10.6) k/uL RBC 2.78 L (4.30-5.90) m/uL Hgb 7.9 L (13.0-17.5) gm/dL Hct 24.3 L (39.0-53.0) % RDW 16.5 H (11.5-15.5) % Neutrophils # 11.2 H (1.3-7.7) k/uL Lymphocytes # 0.5 L (1.0-4.8) k/uL Sodium (137-145) mmol/L Chloride (98-107) mmol/L BUN (9-20) mg/dL Creatinine (0.66-1.25) mg/dL Glucose (74-99) mg/dL POC Glucose (mg/dL) 144 H 134 H (75-99) mg/dL Albumin (3.5-5.0) g/dL 09/10/19 Range/Units 07:46 WBC (3.8-10.6) k/uL RBC (4.30-5.90) m/uL Hgb (13.0-17.5) gm/dL Hct (39.0-53.0) % RDW (11.5-15.5) % Neutrophils # (1.3-7.7) k/uL Lymphocytes # (1.0-4.8) k/uL Sodium 126 L (137-145) mmol/L Chloride 89 L (98-107) mmol/L BUN 48 H (9-20) mg/dL Creatinine 1.34 H (0.66-1.25) mg/dL Glucose 122 H (74-99) mg/dL POC Glucose (mg/dL) (75-99) mg/dL Albumin 2.9 L (3.5-5.0) g/dL
--- NOTE | 2019-09-10 12:23 | XR ---
EXAMINATION TYPE: XR chest 1V DATE OF EXAM: 09/10/2019 COMPARISON: 09/06/2019 HISTORY: Shortness of breath TECHNIQUE: Single frontal view of the chest is obtained. FINDINGS: Heart is enlarged and there is bilateral consolidation which is increased lung medial akosua in of the right lung base. Interstitial prominence noted. Atherosclerotic change aorta. Diffuse osteo penia. No pneumothorax. Tiny bilateral pleural effusion suspected. Metallic density overlying the lef t heart border. IMPRESSION: 1. Increasing consolidation right lung base. Correlate for CHF versus pneumonia superimposed on a shayna kground of COPD.
[2019-09-10] MEDS: PATIENTS OWN MED INHALATION SCH (12:57)
[2019-09-10 17:12] LABS: Glucose,Whole Blood 124 mg/dL (75-99)
[2019-09-10] MEDS ORDERED: FUROSEMIDE 10 MG/ML 4 ML VIAL IV STA (17:24)
--- NOTE | 2019-09-10 18:15 | PN ---
PROGRESS NOTE The patient is seen for followup for hyponatremia and hyperkalemia. Serum potassium has improved to 4.7 cm. Sodium is up to 126. Patient received a dose of Lasix yesterday and IV fluids were discontinued. He states his breathing is slightly better. However, he still remains somewhat short of breath. Serum cortisol level was not low. It was at 18. PHYSICAL EXAMINATION: Today blood pressure was 107/73, heart rate 84 per minute, patient is afebrile. Examination of the heart S1, S2. Examination of the lungs, decreased breath sounds at bases. Abdomen is distended, nontender. Examination of lower extremities shows no significant edema. SAP CRM DEVELOPER exam grossly intact. LABS SHOW: Sodium 126, potassium 4.7, BUN 48, creatinine 1.34, CO2 is 28, and chloride 89. Hemoglobin 7.9 g/dL. ASSESSMENT: 1. Hyponatremia currently hypervolemic. I will repeat another dose of IV Lasix. Chest x-ray showed infiltrate suggestive of congestive heart failure. Repeat labs again in a.m. 2. Right lower lobe pneumonia, maintained on antibiotics. 3. Chronic obstructive pulmonary disease exacerbation. 4. Cardiomyopathy, ejection fraction of about 20%. 5. Anemia with no active bleeding noted. Check iron studies. 6. Urinary tract infection with urine culture growing Escherichia coli maintained on ceftriaxone. 7. Hyperkalemia associated with some degree of acute kidney injury, currently improved. 8. 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 PLAN: Repeat IV Lasix. Repeat labs in a.m. Avoid nephrotoxic agents and NSAIDs. Continue with fluid restriction. MMODL / IJN: [id number] /
[2019-09-10] MEDS: ATORVASTATIN 40 MG TAB PO SCH (19:24)
[2019-09-10] MEDS: SENNOSIDES 8.6 MG TAB PO SCH (19:24)
[2019-09-10] MEDS: TAMSULOSIN 0.4 MG CAP.ER.24H PO SCH (19:24)
[2019-09-10 20:19] LABS: Glucose,Whole Blood 153 mg/dL (75-99)
--- NOTE | 2019-09-10 23:31 | P.PN ---
Progress Note - Text Progress Note Date: 09/10/19 Interval history: This is a 78-year-old patient of Dr. Ingrid Darling. Admitted with right lower lobe pneumonia, COPD exacerbation, low sodium, UTI. Today-laying in bed. Tired. Congested cough. On 1200 mL fluid restriction will also given. Eating small amounts. Review of systems: Was done for constitutional, cardiovascular, GI, pulmonary. relevant finding as above Active Medications Acetaminophen (Tylenol Tab) 650 mg PO Q6HR PRN PRN Reason: Fever and/ or Pain Hydrocodone Bitart/Acetaminophen ([place] 7.5-325) 1 each PO Q4H PRN PRN Reason: Pain Hydrocodone Bitart/Acetaminophen ([place] 7.5-325) 2 each PO Q6HR PRN PRN Reason: Severe Pain Last Admin: 09/10/19 19:23 Dose: 2 each Documented by: Albuterol/Ipratropium (Duoneb 0.5 Mg-3 Mg/3 Ml Soln) 3 ml INHALATION RT-Q4H PRN PRN Reason: Shortness Of Breath Or Wheezing Last Admin: 09/10/19 12:51 Dose: 3 ml Documented by: Allopurinol (Zyloprim) 100 mg PO DAILY [facility] Last Admin: 09/10/19 07:55 Dose: 100 mg Documented by: Amiodarone HCl (Cordarone) 200 mg PO DAILY [facility] Last Admin: 09/10/19 07:54 Dose: 200 mg Documented by: Aspirin (Aspirin) 81 mg PO DAILY [facility] Last Admin: 09/10/19 07:55 Dose: 81 mg Documented by: Atorvastatin Calcium (Lipitor) 40 mg PO [facility] Last Admin: 09/10/19 19:24 Dose: 40 mg Documented by: Azithromycin (Zithromax) 500 mg PO DAILY [facility] Last Admin: 09/10/19 07:55 Dose: 500 mg Documented by: Calcitriol (Rocaltrol) 0.25 mcg PO [place] [facility] Last Admin: 09/10/19 07:55 Dose: 0.25 mcg Documented by: Carvedilol (Coreg) 3.125 mg PO DAILY [facility] Last Admin: 09/10/19 07:55 Dose: 3.125 mg Documented by: Clopidogrel Bisulfate (Plavix) 75 mg PO DAILY [facility] Last Admin: 09/10/19 07:55 Dose: 75 mg Documented by: Enoxaparin Sodium (Lovenox) 40 mg SQ DAILY [facility] Last Admin: 09/10/19 07:55 Dose: 40 mg Documented by: Ergocalciferol (Vitamin D2) 50,000 unit PO Q30D [facility] Formoterol Fumarate (Perforomist) 20 mcg INHALATION RT-BID [facility] Last Admin: 09/10/19 22:29 Dose: Not Given Documented by: Ceftriaxone Sodium 1 gm/ (Sodium Chloride) 50 mls @ 100 mls/hr IVPB Q24H [facility] Last Admin: 09/10/19 13:51 Dose: 100 mls/hr Documented by: Insulin Aspart (Novolog) 0 unit SQ ACHS [facility]; Protocol Last Admin: 09/10/19 20:46 Dose: 2 unit Documented by: Ipratropium [place] (Atrovent Nebulized) 0.5 mg INHALATION RT-QID [facility] Last Admin: 09/10/19 22:29 Dose: Not Given Documented by: Lactulose (Cephulac) 20 gm PO DAILY@0800 [facility] Last Admin: 09/10/19 07:55 Dose: 20 gm Documented by: Levothyroxine Sodium (Synthroid) 100 mcg PO DAILY@0630 [facility] Last Admin: 09/10/19 05:35 Dose: 100 mcg Documented by: Methylprednisolone Sodium Succinate (Solu-Medrol) 60 mg IV Q6HR [facility] Last Admin: 09/10/19 23:21 Dose: 60 mg Documented by: Nitroglycerin (Nitrostat) 0.4 mg SUBLINGUAL Q5M PRN PRN Reason: Chest Pain Last Admin: 09/08/19 05:18 Dose: 0.4 mg Documented by: Non-Formulary Medication (Patients Own Med) 2 each INHALATION RT-DAILY [facility] Last Admin: 09/10/19 12:57 Dose: 2 each Documented by: Polyethylene Glycol (Miralax) 17 gm PO DAILY [facility] Last Admin: 09/10/19 07:56 Dose: 17 gm Documented by: Senna (Senokot) 8.6 mg PO [facility] Last Admin: 09/10/19 19:24 Dose: 8.6 mg Documented by: Tamsulosin HCl (Flomax) 0.4 mg PO [facility] Last Admin: 09/10/19 19:24 Dose: 0.4 mg Documented by: On examination: VITAL SIGNS: 97.9, 86, 20, 107/73, 96% on 3 L GENERAL APPEARANCE: Laying in bed, awake. , Tired HEENT: Normal external appearance of nose and ear. Oral cavity normal EYES: Pupils equal. Conjunctiva normal. NECK: JVD not raised. Mass not palpable. RESPIRATORY: Respiratory effort increased, congested chest, decreased breaths on some crackles wheezing CARDIOVASCULAR: First and second sounds normal. No edema. ABDOMEN: Soft. Liver and spleen not palpable. No tenderness. No mass palpable. PSYCHIATRY: Alert and oriented x3. Mood and affect normal. MUSCULOSKELETAL: Evidence of OA especially in the hands. INVESTIGATIONS, reviewed in the clinical context: White count 12.2 hemoglobin 7.9 platelets [id number] potassium 4.7 bun 48 crit 1.34 Assessment: -Hyponatremia currently hypervolemic., Slow to respond -Right lower lobe pneumonia suspected gram-negative organism -Acute UTI from cystitis from E. coli -chronic urinary retention probably from bladder outflow obstruction from possibly BPH -Bilateral hip and lower back pain. 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 Getting IV ceftriaxone and Zithromax. We'll decrease the dose of IV Solu-Medrol. Add Mucinex. Prognosis guarded.
[2019-09-11] MEDS: methylPREDNISolone SOD SUCCI 40 MG/ML 1 ML VIAL IV SCH ×4 (01:30→23:10)
[2019-09-11] MEDS: HYDROcodone/APAP 7.5-325MG 1 EACH TAB PO PRN ×3 (04:08→18:48)
[2019-09-11] MEDS: LEVOTHYROXINE 100 MCG TAB PO SCH (05:38)
[2019-09-11 07:08] LABS: Glucose,Whole Blood 129 mg/dL (75-99)
[2019-09-11] MEDS: INSULIN ASPART (NovoLOG) 100 UNIT/ML VIAL SQ SCH ×4 (08:19→20:52)
[2019-09-11] MEDS: AZITHROMYCIN 500 MG TAB PO SCH (08:21)
[2019-09-11] MEDS: guaiFENesin 600 MG TABLET.ER PO SCH ×2 (08:21→20:52)
[2019-09-11] MEDS: ASPIRIN 81 MG PO SCH (08:21)
[2019-09-11] MEDS: LACTULOSE 20 GM/30 ML CUP PO SCH (08:22)
[2019-09-11] MEDS: POLYETHYLENE GLYCOL 3350 17 GM POWD.PACK PO SCH (08:22)
[2019-09-11] MEDS: ALLOPURINOL 100 MG TAB PO SCH (08:22)
[2019-09-11] MEDS: CLOPIDOGREL 75 MG TAB PO SCH (08:22)
[2019-09-11] MEDS: CARVEDILOL 3.125 MG TAB PO SCH (08:22)
[2019-09-11] MEDS: AMIODARONE 200 MG TAB PO SCH (08:22)
[2019-09-11] MEDS: ENOXAPARIN 40 MG/0.4 ML SYRINGE SQ SCH (08:25)
[2019-09-11] MEDS ORDERED: FUROSEMIDE 10 MG/ML 4 ML VIAL IV STA (08:39)
[2019-09-11] MEDS: FORMOTEROL FUMARATE 20 MCG/2 ML NEBU INHALATION SCH ×2 (08:43→19:36)
[2019-09-11] MEDS: IPRATROPIUM 0.5 MG/2.5 ML NEBU INHALATION SCH ×4 (08:45→19:36)
[2019-09-11] MEDS: IPRATROPIUM-ALBUTEROL 3 ML NEB INHALATION PRN ×4 (08:45→23:57)
[2019-09-11] MEDS: PATIENTS OWN MED INHALATION SCH (08:48)
[2019-09-11 10:23] LABS: Calcium 8.3 mg/dL (8.4-10.2); Potassium 4.9 mmol/L (3.5-5.1)
[2019-09-11 12:10] LABS: Glucose,Whole Blood 202 mg/dL (75-99)
--- NOTE | 2019-09-11 12:18 | P.PN ---
Subjective HISTORY OF PRESENTING ILLNESS This is a pleasant 78-year-old male past medical history significant for coronary artery disease, 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 He presented with shortness of breath. He follows in the office with Dr. Guy. Most recent echocardiogram obtained in the office July 03 reveals severely impaired LV systolic function with ejection fraction 20%, moderate concentric LVH, akinesia of the posterior and lateral baker the base to the apex, akinesis of the anterior septal wall from the mid fall to the apex, akinesia of the septum at the apex and the remainder of the LV is hypokinetic, grade 3 diastolic dysfunction, moderately dilated right atrium, moderate mitral regurgitation with a valve area of 2.29 cm, mild to moderate tricuspid regurgitation, mild pulmonic regurgitation and mild pulmonary h ypertension with RVSP of 43 mmHg. He is seen and examined sitting up in bed in mid respiratory distress. He states he cannot clear his secretions. He is quite congested in the bronchial region mostly however is also wheezing with bibasilar rales. No chest pain, dizziness or palpitations. Repeat chest xray yesterday reveals worsening right lung consolidation. PHYSICAL EXAMINATION CONSTITUTIONAL: No apparent distress. Generalized pallor. HEENT: Head is normocephalic. Pupils are equal, round. Sclerae anicteric. Mucous membranes of the mouth are moist. No JVD. No carotid bruit. CHEST EXAMINATION: Course scattered rhonchi, bibasilar rales and expiratory wheezes. No chest wall tenderness is noted on palpation or with deep breathing. HEART EXAMINATION: Regular rate and rhythm. S1, S2 heard. Systolic ejection murmur at the left sternal border, no gallops or rub. ABDOMEN: Firm, nontender, distended. Appears larger than previous exam. EXTREMITIES: 2+ peripheral pulses, no lower extremity edema and no calf tenderness. Bilateral soft boots in place. ASSESSMENT Chest pain, atypical. Related to increase abdominal girth and pressure of abdomen. Pain is respirophasic and pleuritic. An acute event has been ruled out. Abdominal bloating. Hyponatemia Hyperkalemia, resolved. Right lobe pneumonia Urinary tract infection Anemia s/p blood transfusion Acute on chronic kidney disease Ischemic cardiomyopathy, EF less than 20%. Has declined AICD placement in the past. Chronic systolic heart failure History of VT arrest Coronary artery disease s/p PCI to circumflex Non-rheumatic mitral valve insufficiency s/p mitral clip 2015 COPD Former nicotine dependence PLAN Give dose of IV lasix now. Repeat BMP. Nurse Practitioner note has been reviewed, I agree with a documented findings and plan of care. Patient was seen and examined. Objective - Vital Signs Vital signs: Vital Signs Temp 97.0 F L 09/11/19 05:00 Pulse 92 09/11/19 08:57 Resp 20 09/11/19 05:00 BP 100/65 09/11/19 05:00 Pulse Ox 97 09/11/19 05:00 Intake & Output 09/10/19 09/11/19 09/11/19 18:59 06:59 18:59 Intake Total 483 360 240 Output Total 400 1350 400 Balance 83 -990 -160 Weight 67.8 kg Intake: Oral 483 360 240 Output: Urine 400 1350 400 Other: Voiding Method Urinal Urinal Diaper Diaper Incontinent Incontinent # Voids 1 - Labs CBC & Chem 7: 09/10/19 07:46 09/11/19 09:38 Labs: Abnormal Lab Results - Last 24 Hours (Table) 09/10/19 09/10/19 09/11/19 Range/Units 16:55 20:16 07:07 Sodium (137-145) mmol/L Chloride (98-107) mmol/L BUN (9-20) mg/dL Creatinine (0.66-1.25) mg/dL Glucose (74-99) mg/dL POC Glucose (mg/dL) 124 H 153 H 129 H (75-99) mg/dL Calcium (8.4-10.2) mg/dL 09/11/19 Range/Units 09:38 Sodium 126 L (137-145) mmol/L Chloride 89 L (98-107) mmol/L BUN 56 H (9-20) mg/dL Creatinine 1.42 H (0.66-1.25) mg/dL Glucose 128 H (74-99) mg/dL POC Glucose (mg/dL) (75-99) mg/dL Calcium 8.3 L (8.4-10.2) mg/dL
--- NOTE | 2019-09-11 16:19 | PN ---
PROGRESS NOTE Patient is seen for followup for hyponatremia. The patient received a dose of Lasix again yesterday. His serum sodium is staying at 126 mEq/L. He states his shortness of breath is slightly improved. The patient remains on fluid restriction. He has had good urine output. Blood pressure is on the lower side with systolic around 100 to 101 mmHg. PHYSICAL EXAMINATION: On examination today, blood pressure was 100/65, patient is afebrile, heart rate 92 per minute. Examination of the heart, S1 and S2. Examination of the lungs, bilateral breath sounds are heard. Abdomen is soft, distended, nontender. Examination of lower extremities shows no significant edema. [employer] exam grossly intact. LABS: Sodium 126, potassium 4.9, chloride 89, BUN 56, creatinine 1.42. ASSESSMENT: 1. Hyponatremia, mildly hypervolemic, status post Lasix. Serum sodium stays at 126. Blood pressure is on the lower side. I will add sodium chloride tabs as urine osmolality was also not significantly elevated. The patient's sodium had worsened with saline administration initially. 2. Acute kidney injury associated with hypoperfusion. No nephrotoxic agents on board. 3. Chronic kidney disease-mineral bone disorder. Maintain on calcitriol. 4. Urinary tract infection with urine culture growing Escherichia coli. Maintain on ceftriaxone. PLAN: Add sodium chloride tabs. Repeat IV Lasix today and repeat labs in a.m. Avoid excessive free water intake. MMODL / IJN: [id number] /
[2019-09-11 16:21] VITALS: BMI 21.4
[2019-09-11 17:05] LABS: Glucose,Whole Blood 107 mg/dL (75-99)
[2019-09-11] MEDS: SODIUM CHLORIDE TAB 1 GM TAB PO SCH ×2 (17:37→23:09)
[2019-09-11 20:17] LABS: Glucose,Whole Blood 137 mg/dL (75-99)
[2019-09-11] MEDS: SENNOSIDES 8.6 MG TAB PO SCH (20:52)
[2019-09-11] MEDS: TAMSULOSIN 0.4 MG CAP.ER.24H PO SCH (20:52)
[2019-09-11] MEDS: ATORVASTATIN 40 MG TAB PO SCH (20:52)
--- NOTE | 2019-09-12 00:53 | P.PN ---
Progress Note - Text Progress Note Date: 09/11/19 Interval history: This is a 78-year-old patient of Dr. Ingrid Darling. Admitted with right lower lobe pneumonia, COPD exacerbation, low sodium, UTI. Today-saw the patient this morning. tired. Congested. Not eating much. Some wheezing. Audible congestion.. Review of systems: Was done for constitutional, cardiovascular, GI, pulmonary. relevant finding as above Active Medications Acetaminophen (Tylenol Tab) 650 mg PO Q6HR PRN PRN Reason: Fever and/ or Pain Last Admin: 09/11/19 23:11 Dose: 650 mg Documented by: Hydrocodone Bitart/Acetaminophen ([place] 7.5-325) 1 each PO Q4H PRN PRN Reason: Pain Hydrocodone Bitart/Acetaminophen ([place] 7.5-325) 2 each PO Q6HR PRN PRN Reason: Severe Pain Last Admin: 09/11/19 18:48 Dose: 2 each Documented by: Albuterol/Ipratropium (Duoneb 0.5 Mg-3 Mg/3 Ml Soln) 3 ml INHALATION RT-Q4H PRN PRN Reason: Shortness Of Breath Or Wheezing Last Admin: 09/11/19 23:57 Dose: 3 ml Documented by: Allopurinol (Zyloprim) 100 mg PO DAILY [facility] Last Admin: 09/11/19 08:22 Dose: 100 mg Documented by: Amiodarone HCl (Cordarone) 200 mg PO DAILY [facility] Last Admin: 09/11/19 08:22 Dose: 200 mg Documented by: Aspirin (Aspirin) 81 mg PO DAILY [facility] Last Admin: 09/11/19 08:21 Dose: 81 mg Documented by: Atorvastatin Calcium (Lipitor) 40 mg PO HS [facility] Last Admin: 09/11/19 20:52 Dose: 40 mg Documented by: Azithromycin (Zithromax) 500 mg PO DAILY [facility] Last Admin: 09/11/19 08:21 Dose: 500 mg Documented by: Calcitriol (Rocaltrol) 0.25 mcg PO [place] [facility] Last Admin: 09/10/19 07:55 Dose: 0.25 mcg Documented by: Carvedilol (Coreg) 3.125 mg PO DAILY [facility] Last Admin: 09/11/19 08:22 Dose: 3.125 mg Documented by: Clopidogrel Bisulfate (Plavix) 75 mg PO DAILY [facility] Last Admin: 09/11/19 08:22 Dose: 75 mg Documented by: Enoxaparin Sodium (Lovenox) 40 mg SQ DAILY [facility] Last Admin: 09/11/19 08:25 Dose: 40 mg Documented by: Ergocalciferol (Vitamin D2) 50,000 unit PO Q30D [facility] Formoterol Fumarate (Perforomist) 20 mcg INHALATION RT-BID [facility] Last Admin: 09/11/19 19:36 Dose: 20 mcg Documented by: Guaifenesin (Mucinex) 1,200 mg PO Q12HR [facility] Last Admin: 09/11/19 20:52 Dose: 1,200 mg Documented by: Ceftriaxone Sodium 1 gm/ (Sodium Chloride) 50 mls @ 100 mls/hr IVPB Q24H [facility] Last Admin: 09/11/19 14:12 Dose: 100 mls/hr Documented by: Insulin Aspart (Novolog) 0 unit SQ ACHS [facility]; Protocol Last Admin: 09/11/19 20:52 Dose: 1 unit Documented by: Ipratropium [place] (Atrovent Nebulized) 0.5 mg INHALATION RT-QID [facility] Last Admin: 09/11/19 19:36 Dose: 0.5 mg Documented by: Lactulose (Cephulac) 20 gm PO DAILY@0800 [facility] Last Admin: 09/11/19 08:22 Dose: 20 gm Documented by: Levothyroxine Sodium (Synthroid) 100 mcg PO DAILY@0630 [facility] Last Admin: 09/11/19 05:38 Dose: 100 mcg Documented by: Methylprednisolone Sodium Succinate (Solu-Medrol) 40 mg IV Q8HR [facility] Last Admin: 09/11/19 23:10 Dose: 40 mg Documented by: Nitroglycerin (Nitrostat) 0.4 mg SUBLINGUAL Q5M PRN PRN Reason: Chest Pain Last Admin: 09/08/19 05:18 Dose: 0.4 mg Documented by: Non-Formulary Medication (Patients Own Med) 2 each INHALATION RT-DAILY [facility] Last Admin: 09/11/19 08:48 Dose: 2 each Documented by: Polyethylene Glycol (Miralax) 17 gm PO DAILY [facility] Last Admin: 09/11/19 08:22 Dose: Not Given Documented by: Senna (Senokot) 8.6 mg PO HS [facility] Last Admin: 09/11/19 20:52 Dose: 8.6 mg Documented by: Sodium Chloride (Sodium Chloride Tab) 1 gm PO TID [facility] Last Admin: 09/11/19 23:09 Dose: 1 gm Documented by: Tamsulosin HCl (Flomax) 0.4 mg PO HS [facility] Last Admin: 09/11/19 20:52 Dose: 0.4 mg Documented by: On examination: VITAL SIGNS: 97.6, 84, 20, 101/66, repeat percent on 2 L GENERAL APPEARANCE: Propped up in bed, tired, some audible congestion HEENT: Normal external appearance of nose and ear. Oral cavity normal EYES: Pupils equal. Conjunctiva normal. NECK: JVD not raised. Mass not palpable. RESPIRATORY: Respiratory effort increased, congested chest, decreased breaths on some crackles wheezing CARDIOVASCULAR: First and second sounds normal. No edema. ABDOMEN: Soft. Liver and spleen not palpable. No tenderness. No mass palpable. PSYCHIATRY: Alert and oriented x3. Mood and affect tired. MUSCULOSKELETAL: Evidence of OA especially in the hands. INVESTIGATIONS, reviewed in the clinical context: Sodium 126 bun 56 creatinine 1.4 to Previous testing White count 12.2 hemoglobin 7.9 platelets [id number] potassium 4.7 bun 48 crit 1.34 Assessment: -Hyponatremia currently hypervolemic., Slow to respond -Right lower lobe pneumonia suspected gram-negative organism, with increased secretions, slow to respond -Acute UTI from cystitis from E. coli -chronic urinary retention probably from bladder outflow obstruction from possibly BPH -Bilateral hip and lower back pain. 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 If patient does not respond and patient will probably need a bronchoscopy with lavage. Overall prognosis guarded. Patient's constitutional is weak.
[2019-09-12] MEDS: HYDROcodone/APAP 7.5-325MG 1 EACH TAB PO PRN ×4 (02:20→21:50)
[2019-09-12] MEDS: LEVOTHYROXINE 100 MCG TAB PO SCH (05:38)
[2019-09-12 07:12] LABS: Glucose,Whole Blood 118 mg/dL (75-99)
[2019-09-12] MEDS: INSULIN ASPART (NovoLOG) 100 UNIT/ML VIAL SQ SCH ×4 (07:40→22:22)
[2019-09-12] MEDS: methylPREDNISolone SOD SUCCI 40 MG/ML 1 ML VIAL IV SCH ×3 (08:38→21:53)
[2019-09-12] MEDS: LACTULOSE 20 GM/30 ML CUP PO SCH (08:39)
[2019-09-12] MEDS: SODIUM CHLORIDE TAB 1 GM TAB PO SCH ×2 (08:39→22:22)
[2019-09-12] MEDS: AMIODARONE 200 MG TAB PO SCH (08:40)
[2019-09-12] MEDS: AZITHROMYCIN 500 MG TAB PO SCH (08:40)
[2019-09-12] MEDS: ASPIRIN 81 MG PO SCH (08:40)
[2019-09-12] MEDS: CARVEDILOL 3.125 MG TAB PO SCH (08:40)
[2019-09-12] MEDS: ALLOPURINOL 100 MG TAB PO SCH (08:40)
[2019-09-12] MEDS: guaiFENesin 600 MG TABLET.ER PO SCH ×2 (08:40→21:50)
[2019-09-12] MEDS: POLYETHYLENE GLYCOL 3350 17 GM POWD.PACK PO SCH (08:40)
[2019-09-12] MEDS: CLOPIDOGREL 75 MG TAB PO SCH (08:40)
[2019-09-12] MEDS: PATIENTS OWN MED INHALATION SCH (08:42)
[2019-09-12] MEDS: ENOXAPARIN 40 MG/0.4 ML SYRINGE SQ SCH (09:54)
[2019-09-12] MEDS: CALCITRIOL 0.25 MCG CAP PO SCH (09:54)
[2019-09-12 10:30] LABS: Calcium 8.4 mg/dL (8.4-10.2); Potassium 5.1 mmol/L (3.5-5.1)
[2019-09-12 12:09] LABS: Glucose,Whole Blood 198 mg/dL (75-99)
[2019-09-12] MEDS: IPRATROPIUM-ALBUTEROL 3 ML NEB INHALATION PRN ×3 (12:10→20:09)
[2019-09-12] MEDS: FORMOTEROL FUMARATE 20 MCG/2 ML NEBU INHALATION SCH ×2 (12:26→20:08)
[2019-09-12] MEDS: IPRATROPIUM 0.5 MG/2.5 ML NEBU INHALATION SCH ×3 (12:27→20:09)
--- NOTE | 2019-09-12 13:04 | P.PN ---
Subjective HISTORY OF PRESENTING ILLNESS This is a pleasant 78-year-old male past medical history significant for coronary artery disease, 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 He presented with shortness of breath. He follows in the office with Dr. Guy. Most recent echocardiogram obtained in the office July 03 reveals severely impaired LV systolic function with ejection fraction 20%, moderate concentric LVH, akinesia of the posterior and lateral baker the base to the apex, akinesis of the anterior septal wall from the mid fall to the apex, akinesia of the septum at the apex and the remainder of the LV is hypokinetic, grade 3 diastolic dysfunction, moderately dilated right atrium, moderate mitral regurgitation with a valve area of 2.29 cm, mild to moderate tricuspid regurgitation, mild pulmonic regurgitation and mild pulmonary h ypertension with RVSP of 43 mmHg. He is seen and examined sitting up in bed. He continues to feel short of breath and states he cannot clear his secretions. No chest pain, dizziness or palpitations. Blood pressure 110/70 heart rate 77 afebrile and maintaining oxygen saturation on nasal cannula. Laboratory data reviewed, sodium 125, potassium 5.1, creatinine 1.31. PHYSICAL EXAMINATION CONSTITUTIONAL: No apparent distress. Generalized pallor. HEENT: Head is normocephalic. Pupils are equal, round. Sclerae anicteric. Mucous membranes of the mouth are moist. No JVD. No carotid bruit. CHEST EXAMINATION: Course scattered rhonchi and expiratory wheezes. No chest wall tenderness is noted on palpation or with deep breathing. HEART EXAMINATION: Regular rate and rhythm. S1, S2 heard. Systolic ejection murmur at the left sternal border, no gallops or rub. ABDOMEN: Firm, nontender, distended. EXTREMITIES: 2+ peripheral pulses, no lower extremity edema and no calf tenderness. Bilateral soft boots in place. ASSESSMENT Chest pain, atypical. Related to increase abdominal girth and pressure of a bdomen. Pain is respirophasic and pleuritic. An acute event has been ruled out. Abdominal bloating. Hyponatemia Hyperkalemia, resolved. Right lobe pneumonia Urinary tract infection Anemia s/p blood transfusion Acute on chronic kidney disease Ischemic cardiomyopathy, EF less than 20%. Has declined AICD placement in the past. Acute on chronic systolic heart failure History of VT arrest Coronary artery disease s/p PCI to circumflex Non-rheumatic mitral valve insufficiency s/p mitral clip 2015 COPD Former nicotine dependence PLAN Continue current medical regimen. Prognosis remains guarded. Consider palliative care. We will follow as needed, please call with further questions or concerns. Nurse Practitioner note has been reviewed, I agree with a documented findings and plan of care. Patient was seen and examined. Objective - Vital Signs Vital signs: Vital Signs Temp 98 F 09/12/19 12:25 Pulse 77 09/12/19 12:25 Resp 15 09/12/19 12:25 BP 110/70 09/12/19 12:25 Pulse Ox 99 09/12/19 12:25 Intake & Output 09/11/19 09/12/19 09/12/19 18:59 06:59 18:59 Intake Total 960 1200 Output Total 1475 825 Balance -515 375 Weight 67.8 kg 69 kg Intake: Oral 960 1200 Output: Urine 1475 825 Other: Voiding Method Urinal Urinal Urinal Diaper Diaper Diaper Incontinent Incontinent Incontinent # Voids 1 1 - Labs CBC & Chem 7: 09/10/19 07:46 09/12/19 09:11 Labs: Abnormal Lab Results - Last 24 Hours (Table) 09/11/19 09/11/19 09/12/19 Range/Units 17:03 20:16 07:11 Sodium (137-145) mmol/L Chloride (98-107) mmol/L BUN (9-20) mg/dL Creatinine (0.66-1.25) mg/dL Glucose (74-99) mg/dL POC Glucose (mg/dL) 107 H 137 H 118 H (75-99) mg/dL 09/12/19 09/12/19 Range/Units 09:11 12:07 Sodium 125 L (137-145) mmol/L Chloride 90 L (98-107) mmol/L BUN 54 H (9-20) mg/dL Creatinine 1.31 H (0.66-1.25) mg/dL Glucose 137 H (74-99) mg/dL POC Glucose (mg/dL) 198 H (75-99) mg/dL
[2019-09-12] MEDS ORDERED: TOLVAPTAN 15 MG 1/2 TABLET PO ONE (14:00)
--- NOTE | 2019-09-12 14:11 | XR ---
EXAMINATION TYPE: XR chest 1V DATE OF EXAM: 09/12/2019 HISTORY: Shortness of breath. COMPARISON: 09/10/2019 TECHNIQUE: Single view of the chest is submitted. FINDINGS: Demonstrated are scattered senescent parenchymal change. Mild increased density left medial lung base which may reflect infiltrate and/or atelectasis. Improve d aeration right lung base. The heart is stable. Hilar and mediastinal structures are within normal limits. Degenerative changes are seen of the dorsal spine. IMPRESSION: 1. Mild increased density left medial lung base which may reflect infiltrate and/or atelectasis. Imp roved aeration right lung base.
--- NOTE | 2019-09-12 16:03 | P.CNPUL ---
History of Present Illness Consult date: 09/12/19 Reason for consult: dyspnea Chief complaint: Shortness of breath History of present illness: this is a 78-year-old male well-known to be patient has a history of COPD, moderate to severe category but he has severe degree of heart failure with ejection fraction baseline only 20% patient has been optimized on maximal med ical therapy but however for the last 3 months has not been doing very well with increased shortness of breath and distended abdomen, his admit ultrasound failed to reveal any ascites fluid review of the data revealed that past medical history significant for coronary artery disease, 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 He presented with shortness of breath. He follows in the office with Dr. Guy. Most recent echocardiogram obtained in the office July 03 reveals severely impaired LV systolic function with ejection fraction 20%, moderate concentric LVH, akinesia of the posterior and lateral baker the base to the apex, akinesis of the anterior septal wall from the mid fall to the apex, akinesia of the septum at the apex and the remainder of the LV is hypokinetic, grade 3 diastolic dysfunction, moderately dilated right atrium, moderate mitral regurgitation with a valve area of 2.29 cm, mild to moderate tricuspid regurgitation, mild pulmonic regurgitation and mild pulmonary hypert ension with RVSP of 43 mmHg. He is seen and examined sitting up in bed. He continues to feel short of breath and states he cannot clear his secretions. No chest pain, dizziness or palpitations. Blood pressure 110/70 heart rate 77 afebrile and maintaining oxygen saturation on nasal cannula. Laboratory data reviewed, sodium 125, potassium 5.1, creatinine 1.31. his chest x-ray performed today basal nonspecific atelectasis bilaterally otherwise fairly unremarkable Review of Systems All systems: negative Past Medical History Past Medical History: Chest Pain / Angina, Heart Failure, COPD, Eye Disorder, Hyperlipidemia, Hypertension, Myocardial Infarction (PR), Osteoarthritis (OA), Pneumonia, Renal Disease, Thyroid Disorder Additional Past Medical History / Comment(s): Hx. gout, uses oxygen @3.5 liters atc, PAST CARDIAC ARREST, arthritis feet/hands, beginning of cataracts. umb hernia, cyst rt groin Last Myocardial Infarction Date:: 2013 History of Any Multi-Drug Resistant Organisms: None Reported Past Surgical History: Appendectomy, Cardiac Valve Replacement, Heart Catheterization With Stent Additional Past Surgical History / Comment(s): Cardiac valve "clip", cyst on back removed Past Anesthesia/Blood Transfusion Reactions: No Reported Reaction Additional Past Anesthesia/Blood Transfusion Reaction / Comment(s): blood-no dipak ction Date of Last Stent Placement:: 2013 Past Psychological History: No Psychological Hx Reported Smoking Status: Former smoker Past Alcohol Use History: None Reported Past Drug Use History: None Reported - Past Family History Father Family Medical History: Cancer Mother Family Medical History: Cancer Medications and Allergies Home Medications Medication Instructions Recorded Confirmed Type Albuterol Sulfate [Proair Hfa] 2 puff INHALATION RT-Q6H PRN 02/03/15 09/06/19 History Allopurinol [Zyloprim] 100 mg PO BID 02/03/15 09/06/19 History Atorvastatin [Lipitor] 40 mg PO HS 02/03/15 09/06/19 History Clopidogrel [Plavix] 75 mg PO DAILY 02/03/15 09/06/19 History Amiodarone [Cordarone] 200 mg PO DAILY 07/06/17 09/06/19 History Sodium Bicarbonate Tab 650 mg PO BID 07/06/17 09/06/19 History Calcitriol [Rocaltrol] 0.25 mcg PO SUTUTHSA 12/10/17 09/06/19 History Ergocalciferol (Vitamin D2) 50,000 unit PO Q30D 12/10/17 09/06/19 History [Vitamin D2] Nitroglycerin Sl Tabs [Nitrostat] 0.4 mg SUBLINGUAL Q5M PRN 12/10/17 09/06/19 History Aspirin EC [Ecotrin Low Dose] 81 mg PO DAILY 07/06/19 09/06/19 History Levothyroxine Sodium [Synthroid] 100 mcg PO DAILY 07/06/19 09/06/19 History Tiotropium Br/Olodaterol HCl 2 spray INHALATION RT-DAILY 07/06/19 09/09/19 History [Stiolto Respimat Inhal Joes] Acetaminophen Tab [Tylenol] 650 mg PO Q6HR PRN tab 08/02/19 09/06/19 Rx HYDROcodone/APAP 7.5-325MG [[place] 1 tab PO Q4H PRN 09/06/19 09/06/19 History 7.5-325] HYDROcodone/APAP 7.5-325MG [[place] 2 tab PO Q6HR PRN 09/06/19 09/06/19 History 7.5-325] Lactulose 20 gm PO DAILY@0800 09/06/19 09/06/19 History Magnesium Hydroxide [Milk of 2,400 mg PO DAILY PRN 09/06/19 09/06/19 History Magnesia] Polyethylene Glycol 3350 [Miralax] 17 gm PO DAILY 09/06/19 09/06/19 History Sennosides [Senna] 8.6 mg PO HS 09/06/19 09/06/19 History Tamsulosin [Flomax] 0.4 mg PO HS 09/06/19 09/06/19 History Allergies Allergy/AdvReac Type Severity Reaction Status Date / Time lactose AdvReac Diarrhea Verified 09/06/19 18:45 prednisone AdvReac Unknown Verified 09/06/19 18:45 Physical Exam Vitals: Vital Signs Temp Pulse Pulse Resp BP Pulse Ox 09/12/19 15:54 88 09/12/19 15:42 87 09/12/19 12:25 98 F 77 15 110/70 99 09/12/19 12:24 82 09/12/19 12:10 80 09/12/19 08:30 20 09/12/19 05:00 97.5 F L 79 20 119/83 100 09/12/19 00:09 83 09/12/19 00:00 80 20 09/11/19 23:57 83 09/11/19 21:00 97.6 F 80 20 120/83 100 09/11/19 19:56 82 09/11/19 19:49 82 09/11/19 19:47 82 09/11/19 19:36 82 98 09/11/19 16:56 96 09/11/19 16:48 90 09/11/19 16:20 84 20 Intake and Output 09/12/19 09/12/19 09/12/19 06:59 14:59 22:59 Intake Total 240 Output Total 825 Balance -585 Intake: Oral 240 Output: Urine 825 Other: Voiding Method Urinal Urinal Diaper Diaper Incontinent Incontinent # Voids 1 Weight 69 kg - Constitutional General appearance: average body habitus, disheveled, mild distress - EENT Eyes: EOMI, PERRLA Ears: bilateral: normal - Neck Neck: normal ROM Carotids: bilateral: upstroke normal - Respiratory Respiratory: bilateral: diminished - Cardiovascular Rhythm: regular Heart sounds: normal: S1, S2 - Gastrointestinal General gastrointestinal: distended - Neurologic Neurologic: CNII-XII intact - Musculoskeletal Musculoskeletal: gait normal, generalized weakness, strength equal bilaterally - Psychiatric Psychiatric: A&O x's 3, appropriate affect, intact judgment & insight Results - Laboratory Findings CBC and BMP: 09/10/19 07:46 09/12/19 09:11 PT/INR, D-dimer PT 10.3 sec (9.0-12.0) 09/06/19 16:17 INR 1.0 (<1.2) 09/06/19 16:17 Abnormal lab findings: Abnormal Labs 09/06/19 09/06/19 09/06/19 16:17 16:17 21:53 WBC RBC 2.66 L Hgb 7.5 L Hct 23.3 L RDW 16.5 H Neutrophils # 9.2 H Lymphocytes # 0.4 L Lymphocytes # (Manual) Sodium 125 L Potassium Chloride 89 L BUN 27 H Creatinine 1.35 H Glucose 126 H POC Glucose (mg/dL) Osmolality Calcium Alkaline Phosphatase 148 H Creatine Kinase 21 L Albumin 2.8 L Amylase <30 L Urine Protein Trace H Urine Blood Trace H Ur Leukocyte Esterase Large H Urine WBC 66 H Urine WBC Clumps Few H Urine Bacteria Many H Hyaline Casts 12 H Urine Mucus Rare H Urine Yeast (Budding) Moderate H Crossmatch 09/07/19 09/07/19 09/07/19 07:07 07:07 07:07 WBC RBC 2.30 L Hgb 6.6 L* Hct 20.5 L RDW 16.3 H Neutrophils # Lymphocytes # Lymphocytes # (Manual) 0.34 L Sodium 126 L Potassium Chloride 89 L BUN 32 H Creatinine 1.51 H Glucose 139 H POC Glucose (mg/dL) Osmolality 268 L Calcium Alkaline Phosphatase 138 H Creatine Kinase Albumin 2.7 L Amylase Urine Protein Urine Blood Ur Leukocyte Esterase Urine WBC Urine WBC Clumps Urine Bacteria Hyaline Casts Urine Mucus Urine Yeast (Budding) Crossmatch 09/07/19 09/07/19 09/07/19 09:34 11:40 12:33 WBC RBC 2.66 L Hgb 7.4 L Hct 23.7 L RDW 16.6 H Neutrophils # Lymphocytes # 0.3 L Lymphocytes # (Manual) Sodium Potassium Chloride BUN Creatinine Glucose POC Glucose (mg/dL) 229 H Osmolality Calcium Alkaline Phosphatase Creatine Kinase Albumin Amylase Urine Protein Urine Blood Ur Leukocyte Esterase Urine WBC Urine WBC Clumps Urine Bacteria Hyaline Casts Urine Mucus Urine Yeast (Budding) Crossmatch See Detail 09/07/19 09/07/19 09/07/19 12:33 17:11 19:36 WBC RBC Hgb Hct RDW Neutrophils # Lymphocytes # Lymphocytes # (Manual) Sodium 128 L Potassium 5.2 H Chloride 89 L BUN 36 H Creatinine 1.58 H Glucose 152 H POC Glucose (mg/dL) 196 H 231 H Osmolality Calcium Alkaline Phosphatase 143 H Creatine Kinase Albumin 3.0 L Amylase Urine Protein Urine Blood Ur Leukocyte Esterase Urine WBC Urine WBC Clumps Urine Bacteria Hyaline Casts Urine Mucus Urine Yeast (Budding) Crossmatch 09/08/19 09/08/19 09/08/19 05:07 05:07 07:18 WBC 12.0 H RBC 2.33 L Hgb 6.5 L* Hct 20.5 L RDW 16.5 H Neutrophils # 11.2 H Lymphocytes # 0.4 L Lymphocytes # (Manual) Sodium 124 L Potassium 5.2 H Chloride 89 L BUN 44 H Creatinine 1.49 H Glucose 146 H POC Glucose (mg/dL) 167 H Osmolality 239 L* Calcium 8.3 L Alkaline Phosphatase Creatine Kinase Albumin Amylase Urine Protein Urine Blood Ur Leukocyte Esterase Urine WBC Urine WBC Clumps Urine Bacteria Hyaline Casts Urine Mucus Urine Yeast (Budding) Crossmatch 09/08/19 09/08/19 09/08/19 11:31 15:47 15:47 WBC 11.9 H RBC 2.82 L Hgb 7.9 L Hct 24.7 L RDW 16.9 H Neutrophils # 11.2 H Lymphocytes # 0.3 L Lymphocytes # (Manual) Sodium 123 L Potassium Chloride 87 L BUN 42 H Creatinine 1.43 H Glucose 129 H POC Glucose (mg/dL) 181 H Osmolality Calcium 8.3 L Alkaline Phosphatase Creatine Kinase Albumin Amylase Urine Protein Urine Blood Ur Leukocyte Esterase Urine WBC Urine WBC Clumps Urine Bacteria Hyaline Casts Urine Mucus Urine Yeast (Budding) Crossmatch 09/08/19 09/08/19 09/09/19 17:01 20:14 07:00 WBC RBC Hgb Hct RDW Neutrophils # Lymphocytes # Lymphocytes # (Manual) Sodium Potassium Chloride BUN Creatinine Glucose POC Glucose (mg/dL) 143 H 222 H 138 H Osmolality Calcium Alkaline Phosphatase Creatine Kinase Albumin Amylase Urine Protein Urine Blood Ur Leukocyte Esterase Urine WBC Urine WBC Clumps Urine Bacteria Hyaline Casts Urine Mucus Urine Yeast (Budding) Crossmatch 09/09/19 09/09/19 09/09/19 07:03 07:03 11:06 WBC RBC 2.62 L Hgb 7.3 L Hct 22.7 L RDW 16.8 H Neutrophils # 8.8 H Lymphocytes # 0.3 L Lymphocytes # (Manual) Sodium 125 L Potassium 5.7 H Chloride 90 L BUN 42 H Creatinine 1.29 H Glucose 124 H POC Glucose (mg/dL) 144 H Osmolality Calcium Alkaline Phosphatase Creatine Kinase Albumin Amylase Urine Protein Urine Blood Ur Leukocyte Esterase Urine WBC Urine WBC Clumps Urine Bacteria Hyaline Casts Urine Mucus Urine Yeast (Budding) Crossmatch 09/09/19 09/09/19 09/09/19 16:55 17:56 19:52 WBC RBC Hgb Hct RDW Neutrophils # Lymphocytes # Lymphocytes # (Manual) Sodium 125 L Potassium Chloride BUN Creatinine Glucose POC Glucose (mg/dL) 138 H 144 H Osmolality Calcium Alkaline Phosphatase Creatine Kinase Albumin Amylase Urine Protein Urine Blood Ur Leukocyte Esterase Urine WBC Urine WBC Clumps Urine Bacteria Hyaline Casts Urine Mucus Urine Yeast (Budding) Crossmatch 09/10/19 09/10/19 09/10/19 06:49 07:46 07:46 WBC 12.2 H RBC 2.78 L Hgb 7.9 L Hct 24.3 L RDW 16.5 H Neutrophils # 11.2 H Lymphocytes # 0.5 L Lymphocytes # (Manual) Sodium 126 L Potassium Chloride 89 L BUN 48 H Creatinine 1.34 H Glucose 122 H POC Glucose (mg/dL) 134 H Osmolality Calcium Alkaline Phosphatase Creatine Kinase Albumin 2.9 L Amylase Urine Protein Urine Blood Ur Leukocyte Esterase Urine WBC Urine WBC Clumps Urine Bacteria Hyaline Casts Urine Mucus Urine Yeast (Budding) Crossmatch 09/10/19 09/10/19 09/10/19 11:03 16:55 20:16 WBC RBC Hgb Hct RDW Neutrophils # Lymphocytes # Lymphocytes # (Manual) Sodium Potassium Chloride BUN Creatinine Glucose POC Glucose (mg/dL) 160 H 124 H 153 H Osmolality Calcium Alkaline Phosphatase Creatine Kinase Albumin Amylase Urine Protein Urine Blood Ur Leukocyte Esterase Urine WBC Urine WBC Clumps Urine Bacteria Hyaline Casts Urine Mucus Urine Yeast (Budding) Crossmatch 09/11/19 09/11/19 09/11/19 07:07 09:38 11:57 WBC RBC Hgb Hct RDW Neutrophils # Lymphocytes # Lymphocytes # (Manual) Sodium 126 L Potassium Chloride 89 L BUN 56 H Creatinine 1.42 H Glucose 128 H POC Glucose (mg/dL) 129 H 202 H Osmolality Calcium 8.3 L Alkaline Phosphatase Creatine Kinase Albumin Amylase Urine Protein Urine Blood Ur Leukocyte Esterase Urine WBC Urine WBC Clumps Urine Bacteria Hyaline Casts Urine Mucus Urine Yeast (Budding) Crossmatch 09/11/19 09/11/19 09/12/19 17:03 20:16 07:11 WBC RBC Hgb Hct RDW Neutrophils # Lymphocytes # Lymphocytes # (Manual) Sodium Potassium Chloride BUN Creatinine Glucose POC Glucose (mg/dL) 107 H 137 H 118 H Osmolality Calcium Alkaline Phosphatase Creatine Kinase Albumin Amylase Urine Protein Urine Blood Ur Leukocyte Esterase Urine WBC Urine WBC Clumps Urine Bacteria Hyaline Casts Urine Mucus Urine Yeast (Budding) Crossmatch 09/12/19 09/12/19 09:11 12:07 WBC RBC Hgb Hct RDW Neutrophils # Lymphocytes # Lymphocytes # (Manual) Sodium 125 L Potassium Chloride 90 L BUN 54 H Creatinine 1.31 H Glucose 137 H POC Glucose (mg/dL) 198 H Osmolality Calcium Alkaline Phosphatase Creatine Kinase Albumin Amylase Urine Protein Urine Blood Ur Leukocyte Esterase Urine WBC Urine WBC Clumps Urine Bacteria Hyaline Casts Urine Mucus Urine Yeast (Budding) Crossmatch Assessment and Plan Assessment: Acute on chronic hypoxic respiratory failure End-stage severe COPD emphysema ISCHEMIC CARDIOMYOPATHY WITH BASELINE EJECTION FRACTION 20% shortness of breath ongoing Severe hyponatremia Plan: Agree with fluid restriction Breathing treatment Antibiotics Prognosis overall appears to be poor Supportive measures Time with Patient: Greater than 30
--- NOTE | 2019-09-12 16:15 | US ---
EXAMINATION TYPE: US abdomen limited DATE OF EXAM: 09/12/2019 COMPARISON: NONE CLINICAL HISTORY: assess for fluid pocket. abd distention All four quadrants scanned with no fluid seen. Overlying bowel gas throughout abd. IMPRESSION: Limited scan. No significant ascites evident.
--- NOTE | 2019-09-12 16:38 | PN ---
PROGRESS NOTE Patient is seen for followup for hyponatremia. This morning he was complaining of shortness of breath and he received a dose of IV Lasix. Patient's sodium remains at 125 to 126. He was started on sodium chloride tabs yesterday. He is maintained on fluid restriction as well. I will give him a dose of tolvaptan today. Overall, patient states he feels about the same. There is no ongoing nausea, vomiting or diarrhea. PHYSICAL EXAMINATION: On examination, blood pressure was 110/70, heart rate 77 per minute. He is afebrile. EXAMINATION OF THE HEART: S1 and S2. EXAMINATION OF LUNGS: Decreased breath sounds at bases. ABDOMEN: Soft, distended, non-tender. Examination of lower extremities shows no significant edema. LABS: Sodium 125, potassium 5.1, BUN 54, creatinine 1.3. ASSESSMENT: 1. Hypovolemia, euvolemic, not responding to Lasix, and started on sodium chloride tabs yesterday. Serum sodium remains the same. Patient was complaining of shortness of breath. He received another dose of IV Lasix this morning. I will check another chest x-ray and start him on tolvaptan. Continue with the sodium chloride tabs for now. 2. Chronic kidney disease secondary to nephrosclerosis. Baseline creatinine about 1.3 mg/dL secondary to nephrosclerosis. 3. Chronic kidney disease mineral bone disorder, maintained on calcitriol. 4. Cardiomyopathy; ejection fraction about 20%. 5. Right lobe pneumonia, maintained on antibiotics. 6. Coronary artery disease, status post coronary artery stenting. 7. Hyperkalemia on initial admission currently resolved. PLAN: Add tolvaptan. Repeat IV Lasix. Repeat chest x-ray. Continue with sodium chloride tabs and repeat labs in a.m. MMODL / IJN: [id number] /
[2019-09-12 17:02] LABS: Glucose,Whole Blood 110 mg/dL (75-99)
[2019-09-12 20:39] LABS: Glucose,Whole Blood 131 mg/dL (75-99)
[2019-09-12] MEDS: ATORVASTATIN 40 MG TAB PO SCH (21:50)
[2019-09-12] MEDS: SENNOSIDES 8.6 MG TAB PO SCH (21:50)
[2019-09-12] MEDS: TAMSULOSIN 0.4 MG CAP.ER.24H PO SCH (21:50)
--- NOTE | 2019-09-12 22:03 | P.PN ---
Progress Note - Text Progress Note Date: 09/12/19 Interval history: This is a 78-year-old patient of Dr. Ingrid Darling. Admitted with right lower lobe pneumonia, COPD exacerbation, low sodium, UTI. Today-congestive a congested cough. Not able to expectorate. Eating okay. Some shortness of breath. Seen by pulmonary.. Review of systems: Was done for constitutional, cardiovascular, GI, pulmonary. relevant finding as above Active Medications Acetaminophen (Tylenol Tab) 650 mg PO Q6HR PRN PRN Reason: Fever and/ or Pain Last Admin: 09/11/19 23:11 Dose: 650 mg Documented by: Hydrocodone Bitart/Acetaminophen ([place] 7.5-325) 1 each PO Q4H PRN PRN Reason: Pain Hydrocodone Bitart/Acetaminophen ([place] 7.5-325) 2 each PO Q6HR PRN PRN Reason: Severe Pain Last Admin: 09/12/19 21:50 Dose: 2 each Documented by: Albuterol/Ipratropium (Duoneb 0.5 Mg-3 Mg/3 Ml Soln) 3 ml INHALATION RT-Q4H PRN PRN Reason: Shortness Of Breath Or Wheezing Last Admin: 09/12/19 20:09 Dose: 3 ml Documented by: Allopurinol (Zyloprim) 100 mg PO DAILY [facility] Last Admin: 09/12/19 08:40 Dose: 100 mg Documented by: Amiodarone HCl (Cordarone) 200 mg PO DAILY [facility] Last Admin: 09/12/19 08:40 Dose: 200 mg Documented by: Aspirin (Aspirin) 81 mg PO DAILY [facility] Last Admin: 09/12/19 08:40 Dose: 81 mg Documented by: Atorvastatin Calcium (Lipitor) 40 mg PO HS [facility] Last Admin: 09/12/19 21:50 Dose: 40 mg Documented by: Azithromycin (Zithromax) 500 mg PO DAILY [facility] Last Admin: 09/12/19 08:40 Dose: 500 mg Documented by: Calcitriol (Rocaltrol) 0.25 mcg PO SUTUTHSA [facility] Last Admin: 09/12/19 09:54 Dose: 0.25 mcg Documented by: Carvedilol (Coreg) 3.125 mg PO DAILY [facility] Last Admin: 09/12/19 08:40 Dose: 3.125 mg Documented by: Clopidogrel Bisulfate (Plavix) 75 mg PO DAILY [facility] Last Admin: 09/12/19 08:40 Dose: 75 mg Documented by: Enoxaparin Sodium (Lovenox) 40 mg SQ DAILY [facility] Last Admin: 09/12/19 09:54 Dose: 40 mg Documented by: Ergocalciferol (Vitamin D2) 50,000 unit PO Q30D [facility] Formoterol Fumarate (Perforomist) 20 mcg INHALATION RT-BID [facility] Last Admin: 09/12/19 20:08 Dose: 20 mcg Documented by: Guaifenesin (Mucinex) 1,200 mg PO Q12HR [facility] Last Admin: 09/12/19 21:50 Dose: 1,200 mg Documented by: Ceftriaxone Sodium 1 gm/ (Sodium Chloride) 50 mls @ 100 mls/hr IVPB Q24H [facility] Last Admin: 09/12/19 13:38 Dose: 100 mls/hr Documented by: Insulin Aspart (Novolog) 0 unit SQ ACHS [facility]; Protocol Last Admin: 09/12/19 18:23 Dose: Not Given Documented by: Ipratropium [place] (Atrovent Nebulized) 0.5 mg INHALATION RT-QID [facility] Last Admin: 09/12/19 20:09 Dose: Not Given Documented by: Lactulose (Cephulac) 20 gm PO DAILY@0800 [facility] Last Admin: 09/12/19 08:39 Dose: 20 gm Documented by: Levothyroxine Sodium (Synthroid) 100 mcg PO DAILY@0630 [facility] Last Admin: 09/12/19 05:38 Dose: 100 mcg Documented by: Methylprednisolone Sodium Succinate (Solu-Medrol) 40 mg IV Q8HR [facility] Last Admin: 09/12/19 21:53 Dose: 40 mg Documented by: Nitroglycerin (Nitrostat) 0.4 mg SUBLINGUAL Q5M PRN PRN Reason: Chest Pain Last Admin: 09/08/19 05:18 Dose: 0.4 mg Documented by: Non-Formulary Medication (Patients Own Med) 2 each INHALATION RT-DAILY [facility] Last Admin: 09/12/19 08:42 Dose: 2 each Documented by: Polyethylene Glycol (Miralax) 17 gm PO DAILY [facility] Last Admin: 09/12/19 08:40 Dose: 17 gm Documented by: Senna (Senokot) 8.6 mg PO HS [facility] Last Admin: 09/12/19 21:50 Dose: 8.6 mg Documented by: Sodium Chloride (Sodium Chloride Tab) 1 gm PO TID [facility] Last Admin: 09/12/19 08:39 Dose: 1 gm Documented by: Tamsulosin HCl (Flomax) 0.4 mg PO HS [facility] Last Admin: 09/12/19 21:50 Dose: 0.4 mg Documented by: On examination: VITAL SIGNS: 98, 77, 15, 110/70, 99% on 2 L GENERAL APPEARANCE: laying in bed, awake tired HEENT: Normal external appearance of nose and ear. Oral cavity normal EYES: Pupils equal. Conjunctiva normal. NECK: JVD not raised. Mass not palpable. RESPIRATORY: Respiratory effort increased, congested chest, decreased breaths on some crackles wheezing CARDIOVASCULAR: First and second sounds normal. No edema. ABDOMEN: Soft. Liver and spleen not palpable. No tenderness. No mass palpable. PSYCHIATRY: Alert and oriented x3. Mood and affect tired. MUSCULOSKELETAL: Evidence of OA especially in the hands. INVESTIGATIONS, reviewed in the clinical context: sodium 125 bun 54 creatinine 1.3 on Previous testing White count 12.2 hemoglobin 7.9 platelets [id number] potassium 4.7 bun 48 crit 1.34 Assessment: -Hyponatremia currently hypervolemic., Slow to respond -Right lower lobe pneumonia suspected gram-negative organism, with increased secretions, slow to respond -Acute UTI from cystitis from E. coli -chronic urinary retention probably from bladder outflow obstruction from possibly BPH -Bilateral hip and lower back pain. 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 This was started yesterday. Other medication treatment plan to continue. Patient slow to respond. Being followed by nephrology and pulmonary. And cardiology.continue with bronchodilators and steroids. Patient may need bronchoscopy for pulmonary toilet.
[2019-09-13] MEDS: SODIUM CHLORIDE TAB 1 GM TAB PO SCH ×3 (01:51→17:06)
[2019-09-13] MEDS: LEVOTHYROXINE 100 MCG TAB PO SCH (05:54)
[2019-09-13] MEDS: IPRATROPIUM 0.5 MG/2.5 ML NEBU INHALATION SCH ×3 (07:06→15:57)
[2019-09-13] MEDS: FORMOTEROL FUMARATE 20 MCG/2 ML NEBU INHALATION SCH (07:06)
[2019-09-13 07:15] LABS: Glucose,Whole Blood 121 mg/dL (75-99)
[2019-09-13] MEDS: INSULIN ASPART (NovoLOG) 100 UNIT/ML VIAL SQ SCH ×2 (07:23→14:47)
[2019-09-13] MEDS: HYDROcodone/APAP 7.5-325MG 1 EACH TAB PO PRN ×2 (08:31→14:49)
[2019-09-13] MEDS: CLOPIDOGREL 75 MG TAB PO SCH (08:34)
[2019-09-13] MEDS: AZITHROMYCIN 500 MG TAB PO SCH (08:34)
[2019-09-13] MEDS: ALLOPURINOL 100 MG TAB PO SCH (08:34)
[2019-09-13] MEDS: PATIENTS OWN MED INHALATION SCH (08:34)
[2019-09-13] MEDS: CARVEDILOL 3.125 MG TAB PO SCH (08:34)
[2019-09-13] MEDS: methylPREDNISolone SOD SUCCI 40 MG/ML 1 ML VIAL IV SCH ×2 (08:34→17:06)
[2019-09-13] MEDS: AMIODARONE 200 MG TAB PO SCH (08:34)
[2019-09-13] MEDS: LACTULOSE 20 GM/30 ML CUP PO SCH (08:34)
[2019-09-13] MEDS: ASPIRIN 81 MG PO SCH (08:34)
[2019-09-13] MEDS: guaiFENesin 600 MG TABLET.ER PO SCH (08:34)
[2019-09-13] MEDS: ENOXAPARIN 40 MG/0.4 ML SYRINGE SQ SCH (08:35)
[2019-09-13] MEDS: POLYETHYLENE GLYCOL 3350 17 GM POWD.PACK PO SCH ×2 (08:35→08:42)
[2019-09-13 09:26] LABS: Calcium 8.6 mg/dL (8.4-10.2); Potassium 4.7 mmol/L (3.5-5.1)
[2019-09-13 11:47] VITALS: BP 101/63; TEMP 96.9
--- NOTE | 2019-09-13 11:53 | P.PN ---
Subjective Progress Note Date: 09/13/19 Principal diagnosis: Acute on chronic hypoxic respiratory failure End-stage severe COPD emphysema ISCHEMIC CARDIOMYOPATHY WITH BASELINE EJECTION FRACTION 20% shortness of breath ongoing Severe hyponatremia Severe abdominal distention due to severe constipation September [id number], patient seen eval examined during the rounds labs reviewed medications reviewed care plan discussed with the primary service at length patient has a large bowel movement today, his abdomen is much softer patient feels like he has having an another bowel movement and ready for it, patient gayathri mcgowan will be discharged to ECF later on today we'll continue to follow on outpatient basis this is a 78-year-old male well-known to be patient has a history of COPD, moderate to severe category but he has severe degree of heart failure with ejection fraction baseline only 20% patient has been optimized on maximal medical therapy but however for the last 3 months has not been doing very well with increased shortness of breath and distended abdomen, his admit ultrasound failed to reveal any ascites fluid review of the data revealed that past medical history significant for coronary artery disease, 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 He presented with shortness of breath. He follows in the office with Dr. Guy. Most recent echocardiogram obtained in the office July 03 reveals severely impaired LV systolic function with ejection fraction 20%, moderate concentric LVH, akinesia of the posterior and lateral baker the base to the apex, akinesis of the anterior septal wall from the mid fall to the apex, akinesia of the septum at the apex and the remainder of the LV is hypokinetic, grade 3 diastolic dysfunction, moderately dilated right atrium, moderate mitral regurgitation with a valve area of 2.29 cm, mild to moderate tricuspid regurgitation, mild pulmonic regurgitation and mild pulmonary hypertension with RVSP of 43 mmHg. He is seen and examined sitting up in bed. He continues to feel short of breath and states he cannot clear his secretions. No chest pain, dizziness or palpitations. Blood pressure 110/70 heart rate 77 afebrile and maintaining oxygen saturation on nasal cannula. Laboratory data reviewed, sodium 125, potassium 5.1, creatinine 1.31. Objective - Vital Signs Vital signs: Vital Signs Temp 96.9 F L 09/13/19 11:18 Pulse 72 09/13/19 11:18 Resp 22 09/13/19 11:18 BP 101/63 09/13/19 11:18 Pulse Ox 98 09/13/19 11:18 Intake & Output 09/12/19 09/13/19 09/13/19 18:59 06:59 18:59 Intake Total 1150 1420 Output Total 500 500 400 Balance 650 920 -400 Weight 69.5 kg Intake: Intake, IV Titration 100 Amount cefTRIAXone 1 gm In 100 Sodium Chloride 0.9% 50 ml @ 100 mls/hr IVPB Q24H [facility] Rx#:[id number] Oral 1050 1420 Output: Urine 500 500 400 Other: Voiding Method Urinal Urinal Urinal Diaper Diaper Diaper Incontinent Incontinent Incontinent # Voids 3 1 1 # Bowel Movements 1 1 - Exam Constitutional General appearance: average body habitus, disheveled, mild distress - EENT Eyes: EOMI, PERRLA Ears: bilateral: normal - Neck Neck: normal ROM Carotids: bilateral: upstroke normal - Respiratory Respiratory: bilateral: diminished - Cardiovascular Rhythm: regular Heart sounds: normal: S1, S2 - Gastrointestinal General gastrointestinal: distended, soft hypoactive bowel sounds are present - Neurologic Neurologic: CNII-XII intact - Musculoskeletal Musculoskeletal: gait normal, generalized weakness, strength equal bilaterally - Psychiatric Psychiatric: A&O x's 3, appropriate affect, intact judgment & insight - Labs CBC & Chem 7: 09/10/19 07:46 09/13/19 08:54 Labs: Abnormal Lab Results - Last 24 Hours (Table) 09/12/19 09/12/19 09/12/19 Range/Units 12:07 17:01 20:38 Sodium (137-145) mmol/L Chloride (98-107) mmol/L BUN (9-20) mg/dL Glucose (74-99) mg/dL POC Glucose (mg/dL) 198 H 110 H 131 H (75-99) mg/dL 09/13/19 09/13/19 Range/Units 07:14 08:54 Sodium 130 L (137-145) mmol/L Chloride 94 L (98-107) mmol/L BUN 52 H (9-20) mg/dL Glucose 141 H (74-99) mg/dL POC Glucose (mg/dL) 121 H (75-99) mg/dL Assessment and Plan Assessment: Acute on chronic hypoxic respiratory failure End-stage severe COPD emphysema ISCHEMIC CARDIOMYOPATHY WITH BASELINE EJECTION FRACTION 20% shortness of breath ongoing Severe hyponatremia Abdominal distention second treated due to severe constipation Plan: Agree with fluid restriction Breathing treatment Antibiotics Prognosis overall appears to be poor Continue stool softener as needed Supportive measures Time with Patient: Greater than 30
--- NOTE | 2019-09-13 12:27 | P.DS ---
Providers Date of admission: 09/06/19 17:52 Expected date of discharge: 09/13/19 Attending physician: Albin Merida Consults: 09/06/19 20:23 Consult Physician Routine Consulting Provider: Jus Colon Consult Reason/Comments: low sodium, renal disease Do you want consulting provider notified?: Yes, Notify in am 09/08/19 05:55 Consult Physician Stat Consulting Provider: Marek Weaver Consult Reason/Comments: chest pain Do you want consulting provider notified?: Yes, Notify in am 09/11/19 18:09 Consult Physician Routine Consulting Provider: Chidi Ovalles Consult Reason/Comments: SOB Do you want consulting provider notified?: Yes Primary care physician: [facility] Hospital Course: Hospital course: This is a 78-year-old patient of Dr. Ingrid Darling. Admitted with right lower lobe pneumonia, COPD exacerbation, low sodium, UTI.responded to breathing treatments, IV ceftriaxone, fluid restriction. Doing better. Oral prognosis guarded. Care was discussed with the patient. Patient will go to rehab. Long-term prognosis guarded. Discussion and discharge planning more than 35 minutes consultants: Dr. Kathleen Ovalles from pulmonary Dr. Mtz from [facility] On examination: VITAL SIGNS: 96.9, 72, 22, 101/63, 98% on 2 L GENERAL APPEARANCE: laying in bed, awake tired HEENT: Normal external appearance of nose and ear. Oral cavity normal EYES: Pupils equal. Conjunctiva normal. NECK: JVD not raised. Mass not palpable. RESPIRATORY: Respiratory effort increased, occasional crackles, decreased breath soundst, CARDIOVASCULAR: First and second sounds normal. No edema. ABDOMEN: Soft. Liver and spleen not palpable. No tenderness. No mass palpable. PSYCHIATRY: Alert and oriented x3. Mood and affect tired. MUSCULOSKELETAL: Evidence of OA especially in the hands. INVESTIGATIONS, reviewed in the clinical context: sodium 1:30affect 0.7 creatinine 1.21 Previous testing White count 12.2 hemoglobin 7.9 platelets [id number] potassium 4.7 bun 48 crit 1.34 Assessment: -Hyponatremia currently hypervolemic., Slow to respond -Right lower lobe pneumonia suspected gram-negative organism, with increased secretions, slow to respond -Acute UTI from cystitis from E. coli -chronic urinary retention probably from bladder outflow obstruction from possibly BPH -Bilateral hip and lower back pain. 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 -Severe mitral regurgitation, nontraumatic -Severe secondary probably hypertension secondary to CHF and COPD -Normocytic anemia likely secondary to chronic kidney disease disposition: ECF/ Patient Condition at Discharge: Undetermined Plan - Discharge Summary Discharge Rx Participant: Yes New Discharge Prescriptions: No Action Albuterol Sulfate [Proair Hfa] 2 puff INHALATION RT-Q6H PRN PRN Reason: Shortness Of Breath Allopurinol [Zyloprim] 100 mg PO BID Atorvastatin [Lipitor] 40 mg PO HS Clopidogrel [Plavix] 75 mg PO DAILY Sodium Bicarbonate Tab 650 mg PO BID Amiodarone [Cordarone] 200 mg PO DAILY Nitroglycerin Sl Tabs [Nitrostat] 0.4 mg SUBLINGUAL Q5M PRN PRN Reason: Chest Pain Calcitriol [Rocaltrol] 0.25 mcg PO SUTUTHSA Ergocalciferol (Vitamin D2) [Vitamin D2] 50,000 unit PO Q30D Aspirin EC [Ecotrin Low Dose] 81 mg PO DAILY Tiotropium Br/Olodaterol HCl [Stiolto Respimat Inhal Thomson] 2 spray INHALATION RT-DAILY Levothyroxine Sodium [Synthroid] 100 mcg PO DAILY Acetaminophen Tab [Tylenol] 650 mg PO Q6HR PRN tab PRN Reason: Fever And/ Or Pain HYDROcodone/APAP 7.5-325MG [[place] 7.5-325] 2 tab PO Q6HR PRN PRN Reason: Severe Pain HYDROcodone/APAP 7.5-325MG [[place] 7.5-325] 1 tab PO Q4H PRN PRN Reason: Pain Magnesium Hydroxide [Milk of Magnesia] 2,400 mg PO DAILY PRN PRN Reason: Constipation Tamsulosin [Flomax] 0.4 mg PO HS Sennosides [Senna] 8.6 mg PO HS Polyethylene Glycol 3350 [Miralax] 17 gm PO DAILY Lactulose 20 gm PO DAILY@0800 Discharge Medication List Albuterol Sulfate [Proair Hfa] 2 puff INHALATION RT-Q6H PRN 02/03/15 [History] Allopurinol [Zyloprim] 100 mg PO BID 02/03/15 [History] Atorvastatin [Lipitor] 40 mg PO HS 02/03/15 [History] Clopidogrel [Plavix] 75 mg PO DAILY 02/03/15 [History] Amiodarone [Cordarone] 200 mg PO DAILY 07/06/17 [History] Sodium Bicarbonate Tab 650 mg PO BID 07/06/17 [History] Calcitriol [Rocaltrol] 0.25 mcg PO SUTUTHSA 12/10/17 [History] Ergocalciferol (Vitamin D2) [Vitamin D2] 50,000 unit PO Q30D 12/10/17 [History] Nitroglycerin Sl Tabs [Nitrostat] 0.4 mg SUBLINGUAL Q5M PRN 12/10/17 [History] Aspirin EC [Ecotrin Low Dose] 81 mg PO DAILY 07/06/19 [History] Levothyroxine Sodium [Synthroid] 100 mcg PO DAILY 07/06/19 [History] Tiotropium Br/Olodaterol HCl [Stiolto Respimat Inhal Thomson] 2 spray INHALATION RT-DAILY 07/06/19 [History] Acetaminophen Tab [Tylenol] 650 mg PO Q6HR PRN tab 08/02/19 [Rx] HYDROcodone/APAP 7.5-325MG [[place] 7.5-325] 1 tab PO Q4H PRN 09/06/19 [History] HYDROcodone/APAP 7.5-325MG [[place] 7.5-325] 2 tab PO Q6HR PRN 09/06/19 [History] Lactulose 20 gm PO DAILY@0800 09/06/19 [History] Magnesium Hydroxide [Milk of Magnesia] 2,400 mg PO DAILY PRN 09/06/19 [History] Polyethylene Glycol 3350 [Miralax] 17 gm PO DAILY 09/06/19 [History] Sennosides [Senna] 8.6 mg PO HS 09/06/19 [History] Tamsulosin [Flomax] 0.4 mg PO HS 09/06/19 [History] Follow up Appointment(s)/Referral(s): Samuel Darling DO [STAFF PHYSICIAN] - 10/08/19 2:00 pm
[2019-09-13 16:08] VITALS: PULSE 76
[2019-09-13 16:24] VITALS: RESP 18
--- NOTE | 2019-09-13 17:59 | PN ---
PROGRESS NOTE Patient is seen for followup for hyponatremia. This morning he is lying in bed. He is comfortable. He is not in any acute distress. Patient received a dose of tolvaptan yesterday. His sodium is up to 130 today. He denies any significant complaints. He has been receiving IV Lasix almost on a daily basis. PHYSICAL EXAMINATION: On examination this morning, blood pressure was 105/68, heart rate 72 per minute. Patient is afebrile. EXAMINATION OF THE HEART: S1 and S2. EXAMINATION OF LUNGS: Bilateral breath sounds are heard. ABDOMEN: Soft, non-tender and distended. Examination of lower extremities shows no evidence of edema. INFORMATION TECHNOLOGY ASSISTANT exam is grossly intact. LABS: Labs from this morning show sodium 130, potassium 4.7, chloride 94, BUN 52, creatinine 1.2. ASSESSMENT: 1. Hyponatremia, euvolemic, improved post tolvaptan. I will continue with some degree of free water restriction. Patient is encouraged to increase his oral protein intake. He will need close followup. We will repeat labs in a.m. I will hold off on another dose of tolvaptan. He may need to continue with loop diuretics, though. Patient was not on any loop diuretics at home prior to admission. 2. Chronic kidney disease secondary to nephrosclerosis. 3. 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 PLAN: Repeat labs in a.m. Maintain high protein intake. Hold off on tolvaptan today. Patient may need to be discharged on a small dose of loop diuretics. MMODL / IJN: [id number] /
[2019-09-16] MEDS ORDERED: ERGOCALCIFEROL 50,000 UNIT CAP PO SCH (09:00)
== END 2019-09-13 17:30 | DRG 177 ==
LOC: EC 16:06 → 3NMEDONC 17:52
PROVIDERS: ADMIT Hospitalist; ATTEND Hospitalist
DX: J15.6 Pneumonia due to other Gram-negative bacteria (principal); J96.21 Acute and chronic respiratory failure with hypoxia; I50.23 Acute on chronic systolic (congestive) heart failure; E87.1 Hypo-osmolality and hyponatremia; E87.3 Alkalosis; I13.0 Hypertensive heart and chronic kidney disease with heart failure and stage 1 through stage 4 chronic kidney disease, or unspecified chronic kidney disease; N17.9 Acute kidney failure, unspecified; E03.9 Hypothyroidism, unspecified; E78.5 Hyperlipidemia, unspecified; N18.3 Chronic kidney disease, stage 3 (moderate); E86.0 Dehydration; E86.1 Hypovolemia; D63.1 Anemia in chronic kidney disease; I25.5 Ischemic cardiomyopathy; F32.9 Major depressive disorder, single episode, unspecified; M19.90 Unspecified osteoarthritis, unspecified site; K59.00 Constipation, unspecified; I27.20 Pulmonary hypertension, unspecified; I44.7 Left bundle-branch block, unspecified; E87.5 Hyperkalemia; I25.10 Atherosclerotic heart disease of native coronary artery without angina pectoris; B96.20 Unspecified Escherichia coli [E. coli] as the cause of diseases classified elsewhere; I08.1 Rheumatic disorders of both mitral and tricuspid valves; J43.9 Emphysema, unspecified; N30.90 Cystitis, unspecified without hematuria; Z79.899 Other long term (current) drug therapy; Z79.890 Hormone replacement therapy; Z79.82 Long term (current) use of aspirin; Z79.02 Long term (current) use of antithrombotics/antiplatelets; Z87.891 Personal history of nicotine dependence; Z88.8 Allergy status to other drugs, medicaments and biological substances; Z91.048 Other nonmedicinal substance allergy status; Z86.74 Personal history of sudden cardiac arrest; Z95.2 Presence of prosthetic heart valve; Z95.5 Presence of coronary angioplasty implant and graft; Z99.81 Dependence on supplemental oxygen; Z90.49 Acquired absence of other specified parts of digestive tract; Z98.890 Other specified postprocedural states; Z80.9 Family history of malignant neoplasm, unspecified; I25.2 Old myocardial infarction
CPT/HCPCS: 36415; 71045; 71046; 76705; 80048; 80053; 81001; 82140; 82150; 82533; 82550; 83605; 83690; 83930; 83935; 84133; 84295; 84300; 84484; 85025; 85610; 85730; 86850; 86900; 86901; 86920; 87077; 87086; 87186; 93005; 94640; 94760; 96361; 96374; 99285